=== PATIENT | male | born 1955 | race Two or more races ===

== ENCOUNTER 2019-11-28 01:11 | Inpatient (IN) | payer MEDICAID ==
[~2019-11-28] VITALS: Ht 175.3 cm; Wt 74.8 kg
[2019-11-28] VITALS (7 sets, daily range): BP systolic 116–145; BP diastolic 70–89
[~2019-11-28 01:11] MED LIST: ASPIR 8181 MG ORAL; BACLOFEN10 MG ORAL; CLONIDINE0.1 MG GT; COLACE100 MG ORAL; HEPARIN SO5000 UNIT2 SUBQ; KEPPRA500 M3 ORAL; KEPPRA500 MG ORAL; LIPITOR80 MG ORAL; MYLANTA II30 ML GT; NORCO 5-325 TA1 EAC1 ORAL; PAROXETINE HCL20 MG PO; SEROQUEL50 MG ORAL; STRATTERA80 MG PO; TYLENOL EXTRA500 MG ORAL; TYLENOL650 MG/20. ORAL
--- NOTE | 2019-11-28 01:24 | Emergency Room Report ---
History of Present Illness General Chief Complaint: Upper Respiratory Illness Source: Medical Record, EMS Present Illness HPI This is a 64-year-old male who is a intermediate patient. He has multiple medical problems. Presents with complaint of shortness of breath and congestion. He tested positive for COVID in September. He is being treated for pneumonia with ceftriaxone. Most recent cover testing was negative. He presents with increasing shortness of breath and secretion. Per nursing staff, he required constant suctioning and secretion to to be getting worse. He has respiratory distress and increased work of breathing. There is no reported fever chills but no nausea no vomiting. Oxygenation was 88 to 90% on room air. History is through the intermediate note and EMS. Unable to get any history of this patient because of his condition. Allergies: Coded Allergies: No Known Allergies (Unverified , 03/02/14) COVID-19 Screening Contact w/high risk pt: No Recent Travel to affected area: No Experienced COVID-19 symptoms?: No COVID-19 Testing performed ASSISTANT DIRECTOR OF ADMISSIONS: No Patient History Past Medical History: see triage record, old chart reviewed Past Surgical History: other Pertinent Family History: none Social History: Denies: smoking Immunizations: other Reviewed Nursing Documentation: PMH: Agreed; PSxH: Agreed Nursing Documentation-PMH Hx Cardiac Problems: Yes - HLD; AFIB Hx Hypertension: Yes Hx Diabetes: Yes Hx Cancer: No Hx Gastrointestinal Problems: No History Of Psychiatric Problem: Yes - DEPPRESSIVE; ANXIETY Hx Neurological Problems: No Hx Seizures: Yes - EPILEPSY Review of Systems Constitutional: Reports: malaise, weakness Respiratory: Reports: cough, shortness of breath All Other Systems: limited - Secondary to condition Physical Exam Vital Signs Date Time Temp Pulse Resp B/P (MAP) Pulse Ox O2 Delivery O2 Flow Rate FiO2 11/28/19 01:07 72 18 142/60 (87) 95 Room Air Vitals with hypoxia Sp02 EP Interpretation: reviewed, abnormal General Appearance: moderate distress, lethargic Head: normocephalic, atraumatic Eyes: bilateral eye PERRL, bilateral eye EOMI ENT: hearing grossly normal, EOM grossly intact, dry mucus membranes Neck: full range of motion, supple, no meningismus Respiratory: chest non-tender, crackles, rhonchi Cardiovascular #1: regular rate, rhythm, no murmur Gastrointestinal: normal bowel sounds, non tender, no mass, no organomegaly, no bruit, non-distended Musculoskeletal: back normal, normal range of motion Neurologic: no Babinski Skin: warm/dry Lymphatic: normal inspection Procedures Critical Care Time Critical Care Time Critical care is mandated in this patient who presented with respiratory distress. Patient require my urgent intervention to attenuate the risks of metabolic and respiratory which may lead to cardiovascular collapse and . Critical care time is 35 minutes excluding any reportable procedure. Critical care time included evaluation, multiple reevaluation, looking at old charts, interpreting laboratory and diagnostic data, discussing case with patient and family and consultants, and charting. Medical Decision Making Diagnostic Impression: Primary Impression: HCAP (healthcare-associated pneumonia) Additional Impressions: Respiratory failure with hypoxia Qualified Codes: J96.01 - Acute respiratory failure with hypoxia Anemia Qualified Codes: D64.9 - Anemia, unspecified ER Course This patient was evaluated in the context of the global COVID-19 pandemic, which necessitated consideration that the patient might be at risk for infection with the [id number] virus that causes COVID-19. Institutional protocols and algorithms that pertain to the evaluation of patients at risk for COVID-19 and the state of rapid change based on information released by multiple regulatory bodies including the CDC and federal and state organizations. These policies and algorithms were followed during the patient' s care in the ED. Patient presents with respiratory distress and hypoxia. Chest x-ray show pneumonia. Antibiotics given. He is under investigation for COVID infection. Swab sent. Better after IV fluids and oxygen. Will admit for further work-up. I contacted Dr. Lui for admission. EKG Diagnostic Results Rate: normal Rhythm: NSR Rhythm Strip Diag. Results EP Interpretation: yes Rate: 87 Rhythm: NSR, no PVC's Chest X-Ray Diagnostic Results Chest X-Ray Diagnostic Results : Chest X-Ray Ordered: Yes # of Views/Limited/Complete: 1 View Indication: Shortness of Breath EP Interpretation: Yes Interpretation: no effusion, no pneumothorax, other - Left lower lobe infiltrate Impression: Other - LLL infiltrate Electronically Signed by: Sulaiman Abarca MD Last Vital Signs Date Time Temp Pulse Resp B/P (MAP) Pulse Ox O2 Delivery O2 Flow Rate FiO2 11/28/19 01:07 72 18 142/60 (87) 95 Room Air Status: improved Disposition: ADMITTED INPATIENT Condition: Serious Sulaiman Abarca MD Nov 28, 2019 01:24
[2019-11-28 02:00] LABS: BASOPHILS % (AUTO) 0.8 % (0.0-2.0); EOSINOPHILS % (AUTO) 2.7 % (0.0-3.0); HEMOGLOBIN 10.9 G/DL (14.2-18.0); LYMPHOCYTES % (AUTO) 21.6 % (20.0-45.0); MEAN CORPUSCULAR VOLUME 96 FL (80-99); MONOCYTES % (AUTO) 9.8 % (1.0-10.0); NEUTROPHILS % (AUTO) 65.2 % (45.0-75.0); PLATELET COUNT 378 K/UL (150-450); RED BLOOD COUNT 3.53 M/UL (4.70-6.10); RED CELL DISTRIBUTION WIDTH 13.7 % (11.6-14.8); WHITE BLOOD COUNT 8.9 K/UL (4.8-10.8)
--- NOTE | 2019-11-28 02:00 | NUR ---
ED Nurse Note: Patient brought in by ambulance from [facility] d/t pneumonia and sepsis. Patient aao x 0 obtunded and only reacts to deep pain, bedridden. Patient placed on monitored bed. 20g Right forearm IV established, patient has existing 24g IV from the nursing facility, patent and asymptomatic. Patient stable during assessment. COVID swab, MRSA, VRE/CRE swabs collected, blood and urine sent.
[2019-11-28 02:01] LABS: APPEARANCE,URINE CLEAR; BILIRUBIN, URINE NEGATIVE (NEGATIVE); GLUCOSE, URINE (UA) NEGATIVE (NEGATIVE); KETONES,URINE NEGATIVE (NEGATIVE); LEUKOCYTE ESTERASE ,URINE NEGATIVE (NEGATIVE); NITRITE,URINE NEGATIVE (NEGATIVE); PH,URINE 6 (4.5-8.0); PROTEIN,URINE 1+ (NEGATIVE); UROBILINOGEN,URINE 1 MG/DL (0.0-1.0)
[2019-11-28 02:02] LABS: COLOR,URINE YELLOW
[2019-11-28] MEDS ORDERED: Cefepime HCl 1 GM in D5W 55 ML IVPB ONE (02:15)
[2019-11-28 02:26] LABS: ANION GAP 4 mmol/L (5-15); BLOOD UREA NITROGEN 31 mg/dL (7-18); CALCIUM 8.6 MG/DL (8.5-10.1); CARBON DIOXIDE 33 MMOL/L (21-32); CHLORIDE 110 MMOL/L (98-107); CREATININE 0.9 MG/DL (0.55-1.30); POTASSIUM 3.7 MMOL/L (3.5-5.1); SODIUM 147 MMOL/L (136-145)
[2019-11-28 02:39] LABS: ALANINE AMINOTRANSFERASE 34 U/L (12-78); ALBUMIN 2.4 G/DL (3.4-5.0); ALBUMIN/GLOBULIN RATIO 0.6 (1.0-2.7); ALKALINE PHOSPHATASE 64 U/L (46-116); ASPARTATE AMINO TRANSFERASE 23 U/L (15-37); BILIRUBIN,TOTAL 0.2 MG/DL (0.2-1.0); CKMB 1.2 NG/ML (0.0-3.6); CREATINE KINASE 35 U/L (26-308)
[2019-11-28] MEDS ORDERED: NS 275 ML IVPB SCH (03:05)
[2019-11-28] MEDS ORDERED: CEFTRIAXON2 GM/50 ML IV (03:06)
[2019-11-28] MEDS ORDERED: MILK OF MA400 MG/51 GT (03:06)
[2019-11-28] MEDS ORDERED: CARVEDILOL6.25 MG GT (03:06)
[2019-11-28] MEDS ORDERED: TYLENOL325 M1 GT (03:06)
[2019-11-28] MEDS ORDERED: LEVETIRACETAM500 MG GT (03:06)
[2019-11-28] MEDS ORDERED: MULTIVITAMINS1 EAC2 GT (03:06)
[2019-11-28] MEDS ORDERED: AMIODARONE HCL400 M1 GT (03:06)
[2019-11-28] MEDS ORDERED: BISACODYL5 MG RECTAL (03:06)
[2019-11-28] MEDS ORDERED: ELIQUIS2.5 MG GT (03:06)
[2019-11-28] MEDS ORDERED: ATORVASTATIN CA40 MG ORAL (03:06)
[2019-11-28] MEDS ORDERED: Acetaminophen 650 MG SUPP RECTAL PRN (03:15)
--- NOTE | 2019-11-28 03:29 | NUR ---
ED Nurse Note: Report given to DARIAN Crandall.
--- NOTE | 2019-11-28 03:40 | NUR ---
TRANSFER TO FLOOR: Patient transferred to telemetry as ordered, per ERMD. Report given to DARIAN Crandall. Patient transported via gurney on ACLS protocol with monitor technician in stable condition accompanied by 1 RN and histopathology technician.
--- NOTE | 2019-11-28 03:40 | Emergency Room Report ---
Sepsis Event Note Evaluation Current Stage of Sepsis: Sepsis Possible Source: Pulmonary Focused Exam Allergies: Coded Allergies: No Known Allergies (Unverified , 03/02/14) Date Exam Occurred: Nov 28, 2019 Time Exam Occurred: 03:39 Laboratory Studies Laboratory Tests Test 11/28/19 01:30 11/28/19 01:37 White Blood Count 8.9 K/UL (4.8-10.8) Red Blood Count 3.53 M/UL (4.70-6.10) L Hemoglobin 10.9 G/DL (14.2-18.0) L Hematocrit 34.0 % (42.0-52.0) L Mean Corpuscular Volume 96 FL (80-99) Mean Corpuscular Hemoglobin 30.8 PG (27.0-31.0) Mean Corpuscular Hemoglobin Concent 32.0 G/DL (32.0-36.0) Red Cell Distribution Width 13.7 % (11.6-14.8) Platelet Count 378 K/UL (150-450) Mean Platelet Volume 7.6 FL (6.5-10.1) Neutrophils (%) (Auto) 65.2 % (45.0-75.0) Lymphocytes (%) (Auto) 21.6 % (20.0-45.0) Monocytes (%) (Auto) 9.8 % (1.0-10.0) Eosinophils (%) (Auto) 2.7 % (0.0-3.0) Basophils (%) (Auto) 0.8 % (0.0-2.0) D-Dimer 0.98 mg/L FEU (0.00-0.49) H Sodium Level 147 MMOL/L (136-145) H Potassium Level 3.7 MMOL/L (3.5-5.1) Chloride Level 110 MMOL/L (98-107) H Carbon Dioxide Level 33 MMOL/L (21-32) H Anion Gap 4 mmol/L (5-15) L Blood Urea Nitrogen 31 mg/dL (7-18) H Creatinine 0.9 MG/DL (0.55-1.30) Estimat Glomerular Filtration Rate > 60 mL/min (>60) Glucose Level 104 MG/DL (74-106) Lactic Acid Level 0.60 mmol/L (0.4-2.0) Calcium Level 8.6 MG/DL (8.5-10.1) Ferritin 438 NG/ML (8-388) H Total Bilirubin 0.2 MG/DL (0.2-1.0) Aspartate Amino Transf (AST/SGOT) 23 U/L (15-37) Alanine Aminotransferase (ALT/SGPT) 34 U/L (12-78) Alkaline Phosphatase 64 U/L (46-116) Total Creatine Kinase 35 U/L (26-308) Creatine Kinase MB 1.2 NG/ML (0.0-3.6) Creatine Kinase MB Relative Index 3.4 Troponin I 0.009 ng/mL (0.000-0.056) C-Reactive Protein, Quantitative 3.3 mg/dL (0.00-0.90) H Total Protein 6.4 G/DL (6.4-8.2) Albumin 2.4 G/DL (3.4-5.0) L Globulin 4.0 g/dL Albumin/Globulin Ratio 0.6 (1.0-2.7) L Urine Color Yellow Urine Appearance Clear Urine pH 6 (4.5-8.0) Urine Specific [place] 1.020 (1.005-1.035) Urine Protein 1+ (NEGATIVE) H Urine Glucose (UA) Negative (NEGATIVE) Urine Ketones Negative (NEGATIVE) Urine Blood 4+ (NEGATIVE) H Urine Nitrite Negative (NEGATIVE) Urine Bilirubin Negative (NEGATIVE) Urine Urobilinogen 1 MG/DL (0.0-1.0) H Urine Leukocyte Esterase Negative (NEGATIVE) Urine RBC 15-20 /HPF (0 - 0) H Urine WBC 0-2 /HPF (0 - 0) Urine Squamous Epithelial Cells None /LPF (NONE/OCC) Urine Bacteria Few /HPF (NONE) Vital Signs Last 24 Hour Vital Signs Date Time Temp Pulse Resp B/P (MAP) Pulse Ox O2 Delivery O2 Flow Rate FiO2 11/28/19 02:00 66 24 Room Air 11/28/19 02:00 97.7 66 24 116/70 93 Room Air 11/28/19 01:07 72 18 142/60 (87) 95 Room Air Respiratory Exam: Rhonchi Cardiovascular Exam: RRR Capillary Refill: Less Than 2 Seconds Peripheral Pulse: Strong Pulse Location: Radial Skin Exam: Normal Turgor Sulaiman Abarca MD Nov 28, 2019 03:40
--- NOTE | 2019-11-28 04:00 | NUR ---
NURSE NOTES: Pt arrived via gurney from ER. Got report from Sylwia FARMER. Initial assessment done. Pt is a PUI COVID-19. Pt is nonverbal and nonambulatory with A+Ox0. Responds to voice and touch. VSS T:98.8 HR:97 R:18 BP:119/87 O2:97% on room air. Pt is bedbound and incontinent. Pt has 16fr allen catheter. Pt has R FA 20g slocked and L FA 24g Slocked. No pressure ulcers/skin issues noted. Took pictures of other skin issues and uploaded it. clinical research monitor placed on pt running Sinus Rhythm on the monitor. Pt has left lower abdomen G-Tube clamped. Pt has no belongings. Pt is under Dr. Lui. No s/s of distress or discomfort noted. Pt resting in bed comfortably. Bed in low and locked position, call light within reach, bedside table within reach. Continue to monitor.
--- NOTE | 2019-11-28 08:00 | NUR ---
HAND-OFF: Report given to Guerita FARMER.
--- NOTE | 2019-11-28 08:23 | NUR ---
NURSE NOTES: pt awake in bed. pt is not complaining of pain when asked. continue clinical research monitor no signs of cardiac or respiratory distress. pt has a allen draining well. Pt turned and pt was changed because bed was wet. Pt has a bump on the right side of face, right above eyebrow. Pt has 2 IV's patent. Will continue to monitor pt.
--- NOTE | 2019-11-28 08:32 | NUR ---
NURSE NOTES: Per Sunni at [facility], feeding is Gevity 1.2 70ml/hr goal is 1400ml/day, hold feeding between 9-12 flush 250ml/of water per shift. will notify doctor Lela.
--- NOTE | 2019-11-28 08:58 | NUR ---
*-* NO INSURANCE INFORMATION IN THE BAR UNABLE TO SEND CLINICALS OR REVIEWS *-*
[2019-11-28] MEDS ORDERED: Heparin 5000 units/ml inj SUBQ SCH (09:00)
--- NOTE | 2019-11-28 09:05 | NUR ---
*-* INSURANCE *-* ALL AVAILABLE CLINICALS HAVE BEEN FAXED TO: [facility] F: [phone] Addendum: 11/29/19 at 1111 by MARTHA CAMACHO CM Pending Auth# [id number] Fax clinicals: [phone] & [phone]
--- NOTE | 2019-11-28 09:53 | NUR ---
RD ASSESSMENT & RECOMMENDATIONS SEE CARE ACTIVITY FOR COMPLETE ASSESSMENT DAILY ESTIMATED NEEDS: Needs based on Underweight, wasting, pulmonary 49.1 30-35 kcals/kg 3534-9315 total kcals 1-2 g protein/kg 49-98 g total protein 25-35ml/kcal mL/kg 1489-2911 total fluid mLs NUTRITION DIAGNOSIS: Swallowing difficulty r/t dysphagia as evidenced by pt is PEG dep. ENTERAL NUTRITION RECOMMENDATIONS: Jevity 1.2 @70ml/hr x20 hrs to provide 1400ml, 1680 kcal (34 kcal/kg), 78g pro (1.6g/kg), 1130ml free H2O - As medically able, rec to resume TF [employer] FABRIC[employer]. - Start @30ml/hr for 6 hrs, advance as tolerated 10ml/hr q4-6 hrs to goal - Flush per MD. HOB over 30 degrees. ADDITIONAL RECOMMENDATIONS: 1) Per SNF: 5'7" and 108 lbs/49.09kg. Maintain accurate CBW 2) Increase water flushes (elev Na, elev BUN) 3) Monitor for ability to feed. 4) F/up w/ WC photos
--- NOTE | 2019-11-28 09:57 | Diagnostic Imaging Report ---
Procedure: XRAY Chest 1v Reason for study: Reason For Exam: SOB Comparison films: None. FINDINGS: A single one view chest is obtained. Vascularity is normal. There is left basilar infiltrate and elevated left hemidiaphragm. Cardiac and mediastinal silhouette are within normal limits. CP angles are sharp. The bony thorax appear unremarkable. IMPRESSION: Left basilar infiltrate.
--- NOTE | 2019-11-28 11:44 | Consultation ---
History of Present Illness General Date patient seen: Nov 28, 2019 Chief Complaint: Upper Respiratory Illness Present Illness HPI 64 y/o M with hx of Afib, HLD, seizure disorder, MDD/anxiety, HTN, Dm2, Recent COVID infection (diagnosed September), [facility] resident presented to ED on 11/27 with worsening SOB, congestion and respiratory secretions. Was being treated for PNA at [facility] with IV Vancomycin and Ceftriaxone. Had recent negative covid testing. O2 was 88-90% at . No reported fever, chills Allergies: Coded Allergies: No Known Allergies (Unverified , 03/02/14) Medication History Scheduled Acetaminophen (Tylenol), 325 MG GT Q4HR, (Reported) Amiodarone Hcl* (Amiodarone Hcl*), 200 MG GT EVERY 12 HOURS, (Reported) Apixaban (Eliquis), 2-5 MG GT BID, (Reported) Atorvastatin Calcium* (Atorvastatin Calcium*), 40 MG ORAL BEDTIME, (Reported) Bisacodyl* (Dulcolax*), 10 MG RECTAL DAILY, (Reported) Carvedilol* (Carvedilol*), 6.25 MG GT EVERY 12 HOURS, (Reported) Ceftriaxone Na/Dextrose,Iso (Ceftriaxone 2 Gm Piggyback), 2 GM IV DAILY, ( Reported) Levetiracetam* (Levetiracetam*), 100 MG GT TWICE A DAY, (Reported) Magnesium Hydroxide* (Milk Of Magnesia*), 30 ML GT DAILY, (Reported) Multivitamins* (Multivitamins*), 1 TAB GT DAILY, (Reported) Discontinued Medications Acetaminophen* (Tylenol Extra Strength*), 650 MG ORAL Q6H PRN for Mild Pain/ Temp > 100.5, (Reported) Discontinued Reason: MD discontinued med Al Hydroxide/mg Hydroxide (Mag-Al Plus Suspension), 30 ML GT Q6HR, (Reported) Discontinued Reason: MD discontinued med Atomoxetine Hcl (Strattera), 80 MG PO, (Reported) Discontinued Reason: MD discontinued med Atorvastatin (Lipitor), 80 MG ORAL BEDTIME, (Reported) Discontinued Reason: MD discontinued med Baclofen* (Baclofen*), 10 MG ORAL THREE TIMES A DAY, (Reported) Discontinued Reason: MD discontinued med Clonidine HCl (Clonidine HCl), 0.1 MG GT Q4HR, (Reported) Discontinued Reason: MD discontinued med Docusate Sodium* (Colace*), 100 MG ORAL THREE TIMES A DAY Discontinued Reason: discontinued med Heparin Sod (Porcine) (Heparin Sodium*), 5,000 UNITS SUBQ EVERY 12 HOURS, ( Reported) Discontinued Reason: discontinued med Levetiracetam (Levetiracetam), 500 MG ORAL Q12HR, (Reported) Discontinued Reason: MD discontinued med Patient History Healthcare decision maker Resuscitation status Advanced Directive on File Patient History Narrative Pmhx: as above Shx: reviewed Fhx: non contributory Review of Systems All Other Systems: negative except mentioned in HPI Physical Exam Physical Exam Narrative General Appearance: moderate distress, lethargic Head: normocephalic, atraumatic Eyes: bilateral eye PERRL, bilateral eye EOMI ENT: hearing grossly normal, EOM grossly intact, dry mucus membranes Neck: full range of motion, supple, no meningismus Respiratory: chest non-tender, crackles, rhonchi Cardiovascular #1: regular rate, rhythm, no murmur Gastrointestinal: normal bowel sounds, non tender, no mass, no organomegaly, no bruit, non-distended Musculoskeletal: back normal, normal range of motion Neurologic: no Babinski Skin: warm/dry Last 24 Hour Vital Signs Date Time Temp Pulse Resp B/P (MAP) Pulse Ox O2 Delivery O2 Flow Rate FiO2 11/28/19 08:00 98.6 58 20 118/72 (87) 96 11/28/19 05:07 Room Air 11/28/19 04:52 Room Air 11/28/19 04:00 98.8 97 18 119/87 (98) 97 11/28/19 04:00 81 11/28/19 03:40 97.7 88 21 128/83 93 Room Air 11/28/19 02:00 66 24 Room Air 11/28/19 02:00 97.7 66 24 116/70 93 Room Air 11/28/19 01:07 72 18 142/60 (87) 95 Room Air Intake and Output 11/27/19 11/28/19 19:00 07:00 Intake Total 1155 ml Output Total 500 ml Balance 655 ml Intake IV Total 1155 ml Output Urine Total 500 ml # Bowel Movements 3 Laboratory Tests Test 11/28/19 01:30 11/28/19 01:37 White Blood Count 8.9 K/UL (4.8-10.8) Red Blood Count 3.53 M/UL (4.70-6.10) L Hemoglobin 10.9 G/DL (14.2-18.0) L Hematocrit 34.0 % (42.0-52.0) L Mean Corpuscular Volume 96 FL (80-99) Mean Corpuscular Hemoglobin 30.8 PG (27.0-31.0) Mean Corpuscular Hemoglobin Concent 32.0 G/DL (32.0-36.0) Red Cell Distribution Width 13.7 % (11.6-14.8) Platelet Count 378 K/UL (150-450) Mean Platelet Volume 7.6 FL (6.5-10.1) Neutrophils (%) (Auto) 65.2 % (45.0-75.0) Lymphocytes (%) (Auto) 21.6 % (20.0-45.0) Monocytes (%) (Auto) 9.8 % (1.0-10.0) Eosinophils (%) (Auto) 2.7 % (0.0-3.0) Basophils (%) (Auto) 0.8 % (0.0-2.0) D-Dimer 0.98 mg/L FEU (0.00-0.49) H Sodium Level 147 MMOL/L (136-145) H Potassium Level 3.7 MMOL/L (3.5-5.1) Chloride Level 110 MMOL/L (98-107) H Carbon Dioxide Level 33 MMOL/L (21-32) H Anion Gap 4 mmol/L (5-15) L Blood Urea Nitrogen 31 mg/dL (7-18) H Creatinine 0.9 MG/DL (0.55-1.30) Estimat Glomerular Filtration Rate > 60 mL/min (>60) Glucose Level 104 MG/DL (74-106) Lactic Acid Level 0.60 mmol/L (0.4-2.0) Calcium Level 8.6 MG/DL (8.5-10.1) Ferritin 438 NG/ML (8-388) H Total Bilirubin 0.2 MG/DL (0.2-1.0) Aspartate Amino Transf (AST/SGOT) 23 U/L (15-37) Alanine Aminotransferase (ALT/SGPT) 34 U/L (12-78) Alkaline Phosphatase 64 U/L (46-116) Total Creatine Kinase 35 U/L (26-308) Creatine Kinase MB 1.2 NG/ML (0.0-3.6) Creatine Kinase MB Relative Index 3.4 Troponin I 0.009 ng/mL (0.000-0.056) C-Reactive Protein, Quantitative 3.3 mg/dL (0.00-0.90) H Total Protein 6.4 G/DL (6.4-8.2) Albumin 2.4 G/DL (3.4-5.0) L Globulin 4.0 g/dL Albumin/Globulin Ratio 0.6 (1.0-2.7) L Urine Color Yellow Urine Appearance Clear Urine pH 6 (4.5-8.0) Urine Specific [place] 1.020 (1.005-1.035) Urine Protein 1+ (NEGATIVE) H Urine Glucose (UA) Negative (NEGATIVE) Urine Ketones Negative (NEGATIVE) Urine Blood 4+ (NEGATIVE) H Urine Nitrite Negative (NEGATIVE) Urine Bilirubin Negative (NEGATIVE) Urine Urobilinogen 1 MG/DL (0.0-1.0) H Urine Leukocyte Esterase Negative (NEGATIVE) Urine RBC 15-20 /HPF (0 - 0) H Urine WBC 0-2 /HPF (0 - 0) Urine Squamous Epithelial Cells None /LPF (NONE/OCC) Urine Bacteria Few /HPF (NONE) Height (Feet): 5 Height (Inches): 9.00 Weight (Pounds): 165 Medications Current Medications Medications (Trade) Dose Ordered Sig/Kinjal Route PRN Reason Start Time Stop Time Status Last Admin Dose Admin Heparin Sodium (Porcine) (Heparin 5000 units/ml) 5,000 units EVERY 12 HOURS SUBQ 11/28/19 09:00 01/12/20 08:59 11/28/19 10:10 Assessment/Plan Assessment/Plan: Abx: Cefepime x1 11/27 Levaquin x1 11/27 Assessment: Pneumonia- At RA -CXR: Left basilar infiltrate. Recent COVID infection (diagnosed September) -repeat COVID neg at [facility] Afebrile No leukocytosis Afib HLD seizure disorder MDD/anxiety HTN Dm2 [facility] resident Plan: -Continue Cefepime #1 and start IV Vancomycin -f/u cx -Monitor CBC/CMP, temperatures -sp cx -COVID isolation and testing -aspiration precautions Thank you for this consultation. Will continue to follow along with you. Discussed with DARIAN. Guerline Srinivasan M.D. Nov 28, 2019 11:44
--- NOTE | 2019-11-28 12:00 | NUR ---
CASE MANAGEMENT:REVIEW 64 YR OLD MALE BIBA FROM [facility] CC: RESPIRATORY SI: RESPIRATORY FAILURE. ANEMIA. PNA 97.7 72 18 142/60 95% ON RA H/H-10.9/34.0 BUN+31 IS: 1L NS BOLUS X1 IV CEFEPIME X1 IV LEVAQUIN X1 BLOOD CX CHEST XRAY COVID SWAB : TO TELEMETRY UNIT DCP; FROM [facility] PLAN: IV ANTIBIOTICS ISOLATION Addendum: 11/28/19 at 1448 by ESSENCE FONSECA LVN LVN INTERQUAL CRITERIA MET
--- NOTE | 2019-11-28 12:26 | Consultation ---
History of Present Illness General Date patient seen: Nov 28, 2019 Chief Complaint: Upper Respiratory Illness Present Illness HPI 64-year-old male with hx of CVA, Dementia, Gtube feeding, seizures, group home resident brought in by paramedics wiht complaint of shortness of breath and congestion. He tested positive for COVID in September. He is being treated for pneumonia with ceftriaxone. Most recent cover testing was negative. He presents with increasing shortness of breath and secretion. Per nursing staff, he required constant suctioning and secretion to to be getting worse. pt is admitted to telemetry for further treatment. Allergies: Coded Allergies: No Known Allergies (Unverified , 03/02/14) Medication History Scheduled Acetaminophen (Tylenol), 325 MG GT Q4HR, (Reported) Amiodarone Hcl* (Amiodarone Hcl*), 200 MG GT EVERY 12 HOURS, (Reported) Apixaban (Eliquis), 2-5 MG GT BID, (Reported) Atorvastatin Calcium* (Atorvastatin Calcium*), 40 MG ORAL BEDTIME, (Reported) Bisacodyl* (Dulcolax*), 10 MG RECTAL DAILY, (Reported) Carvedilol* (Carvedilol*), 6.25 MG GT EVERY 12 HOURS, (Reported) Ceftriaxone Na/Dextrose,Iso (Ceftriaxone 2 Gm Piggyback), 2 GM IV DAILY, ( Reported) Levetiracetam* (Levetiracetam*), 100 MG GT TWICE A DAY, (Reported) Magnesium Hydroxide* (Milk Of Magnesia*), 30 ML GT DAILY, (Reported) Multivitamins* (Multivitamins*), 1 TAB GT DAILY, (Reported) Discontinued Medications Acetaminophen* (Tylenol Extra Strength*), 650 MG ORAL Q6H PRN for Mild Pain/ Temp > 100.5, (Reported) Discontinued Reason: MD discontinued med Al Hydroxide/mg Hydroxide (Mag-Al Plus Suspension), 30 ML GT Q6HR, (Reported) Discontinued Reason: MD discontinued med Atomoxetine Hcl (Strattera), 80 MG PO, (Reported) Discontinued Reason: MD discontinued med Atorvastatin (Lipitor), 80 MG ORAL BEDTIME, (Reported) Discontinued Reason: MD discontinued med Baclofen* (Baclofen*), 10 MG ORAL THREE TIMES A DAY, (Reported) Discontinued Reason: MD discontinued med Clonidine HCl (Clonidine HCl), 0.1 MG GT Q4HR, (Reported) Discontinued Reason: discontinued med Docusate Sodium* (Colace*), 100 MG ORAL THREE TIMES A DAY Discontinued Reason: discontinued med Heparin Sod (Porcine) (Heparin Sodium*), 5,000 UNITS SUBQ EVERY 12 HOURS, ( Reported) Discontinued Reason: discontinued med Levetiracetam (Levetiracetam), 500 MG ORAL Q12HR, (Reported) Discontinued Reason: MD discontinued med Patient History Healthcare decision maker Resuscitation status Advanced Directive on File Past Medical/Surgical History Past Medical/Surgical History: (1) Seizure disorder (2) Hypertension (3) Stroke due to intracerebral hemorrhage (4) Vascular dementia with behavioral disturbance (5) Feeding by G-tube Review of Systems All Other Systems: negative except mentioned in HPI Physical Exam General Appearance: WD/WN, no apparent distress Lines, tubes and drains: peripheral HEENT: normocephalic, atraumatic Neck: non-tender, normal alignment Respiratory/Chest: chest wall non-tender, lungs clear Breasts: no masses Cardiovascular/Chest: normal peripheral pulses Abdomen: normal bowel sounds, non tender Genitourinary/Rectal: normal genital exam Extremities: normal range of motion Skin Exam: normal pigmentation Neurologic: flotation tender helper II-XII grossly normal Last 24 Hour Vital Signs Date Time Temp Pulse Resp B/P (MAP) Pulse Ox O2 Delivery O2 Flow Rate FiO2 11/28/19 09:00 Room Air 11/28/19 08:00 98.6 58 20 118/72 (87) 96 11/28/19 05:07 Room Air 11/28/19 04:52 Room Air 11/28/19 04:00 98.8 97 18 119/87 (98) 97 11/28/19 04:00 81 11/28/19 03:40 97.7 88 21 128/83 93 Room Air 11/28/19 02:00 66 24 Room Air 11/28/19 02:00 97.7 66 24 116/70 93 Room Air 11/28/19 01:07 72 18 142/60 (87) 95 Room Air Intake and Output 11/27/19 11/28/19 19:00 07:00 Intake Total 1155 ml Output Total 500 ml Balance 655 ml Intake IV Total 1155 ml Output Urine Total 500 ml # Bowel Movements 3 Laboratory Tests Test 11/28/19 01:30 11/28/19 01:37 White Blood Count 8.9 K/UL (4.8-10.8) Red Blood Count 3.53 M/UL (4.70-6.10) L Hemoglobin 10.9 G/DL (14.2-18.0) L Hematocrit 34.0 % (42.0-52.0) L Mean Corpuscular Volume 96 FL (80-99) Mean Corpuscular Hemoglobin 30.8 PG (27.0-31.0) Mean Corpuscular Hemoglobin Concent 32.0 G/DL (32.0-36.0) Red Cell Distribution Width 13.7 % (11.6-14.8) Platelet Count 378 K/UL (150-450) Mean Platelet Volume 7.6 FL (6.5-10.1) Neutrophils (%) (Auto) 65.2 % (45.0-75.0) Lymphocytes (%) (Auto) 21.6 % (20.0-45.0) Monocytes (%) (Auto) 9.8 % (1.0-10.0) Eosinophils (%) (Auto) 2.7 % (0.0-3.0) Basophils (%) (Auto) 0.8 % (0.0-2.0) D-Dimer 0.98 mg/L FEU (0.00-0.49) H Sodium Level 147 MMOL/L (136-145) H Potassium Level 3.7 MMOL/L (3.5-5.1) Chloride Level 110 MMOL/L (98-107) H Carbon Dioxide Level 33 MMOL/L (21-32) H Anion Gap 4 mmol/L (5-15) L Blood Urea Nitrogen 31 mg/dL (7-18) H Creatinine 0.9 MG/DL (0.55-1.30) Estimat Glomerular Filtration Rate > 60 mL/min (>60) Glucose Level 104 MG/DL (74-106) Lactic Acid Level 0.60 mmol/L (0.4-2.0) Calcium Level 8.6 MG/DL (8.5-10.1) Ferritin 438 NG/ML (8-388) H Total Bilirubin 0.2 MG/DL (0.2-1.0) Aspartate Amino Transf (AST/SGOT) 23 U/L (15-37) Alanine Aminotransferase (ALT/SGPT) 34 U/L (12-78) Alkaline Phosphatase 64 U/L (46-116) Total Creatine Kinase 35 U/L (26-308) Creatine Kinase MB 1.2 NG/ML (0.0-3.6) Creatine Kinase MB Relative Index 3.4 Troponin I 0.009 ng/mL (0.000-0.056) C-Reactive Protein, Quantitative 3.3 mg/dL (0.00-0.90) H Total Protein 6.4 G/DL (6.4-8.2) Albumin 2.4 G/DL (3.4-5.0) L Globulin 4.0 g/dL Albumin/Globulin Ratio 0.6 (1.0-2.7) L Urine Color Yellow Urine Appearance Clear Urine pH 6 (4.5-8.0) Urine Specific Adams 1.020 (1.005-1.035) Urine Protein 1+ (NEGATIVE) H Urine Glucose (UA) Negative (NEGATIVE) Urine Ketones Negative (NEGATIVE) Urine Blood 4+ (NEGATIVE) H Urine Nitrite Negative (NEGATIVE) Urine Bilirubin Negative (NEGATIVE) Urine Urobilinogen 1 MG/DL (0.0-1.0) H Urine Leukocyte Esterase Negative (NEGATIVE) Urine RBC 15-20 /HPF (0 - 0) H Urine WBC 0-2 /HPF (0 - 0) Urine Squamous Epithelial Cells None /LPF (NONE/OCC) Urine Bacteria Few /HPF (NONE) Height (Feet): 5 Height (Inches): 9.00 Weight (Pounds): 165 Medications Current Medications Medications (Trade) Dose Ordered Sig/Kinjal Route PRN Reason Start Time Stop Time Status Last Admin Dose Admin Cefepime HCl 1 gm/ Dextrose 55 ml @ 110 mls/hr Q12H IVPB 11/28/19 18:00 12/05/19 17:59 Heparin Sodium (Porcine) (Heparin 5000 units/ml) 5,000 units EVERY 12 HOURS SUBQ 11/28/19 09:00 01/12/20 08:59 11/28/19 10:10 [facility] 1 ea DAILY PRN MISC Per rx protocol 11/28/19 11:45 12/28/19 11:44 Vancomycin HCl 1 gm/Dextrose 275 ml @ 183.708 mls/hr Q12HR IVPB 11/28/19 21:00 12/03/19 20:59 Assessment/Plan Problem List: (1) Suspected COVID-19 virus infection ICD Codes: Z20.828 - Contact with and (suspected) exposure to other viral communicable diseases SNOMED: 839108596 (2) HCAP (healthcare-associated pneumonia) ICD Codes: J18.9 - Pneumonia, unspecified organism SNOMED: 090023565, 780792145 (3) Seizure disorder ICD Codes: G40.909 - Epilepsy, unspecified, not intractable,without status epilepticus SNOMED: 162375100 (4) Hypertension ICD Codes: I10 - Essential (primary) hypertension SNOMED: 05457034 (5) Feeding by G-tube ICD Codes: Z93.1 - Gastrostomy status SNOMED: 070528049, 329198289, 556949410 (6) residential resident ICD Codes: Z59.3 - Problems related to living in residential institution SNOMED: 920971089 (7) Stroke due to intracerebral hemorrhage ICD Codes: I61.9 - Nontraumatic intracerebral hemorrhage, unspecified SNOMED: 928766305 (8) Vascular dementia with behavioral disturbance ICD Codes: F01.51 - Vascular dementia with behavioral disturbance SNOMED: 593470992635187 Assessment/Plan: check sputum iv abx symptomatic treatment titrate fio2 to sat of 92% resume group home feeding. dvt prophylaxis. Corinna Jackson MD Nov 28, 2019 12:26
[2019-11-28] MEDS ORDERED: DiphenhydrAMINE 25mg/10ml Elixir GT PRN (12:30)
[2019-11-28] MEDS ORDERED: Nitroglycerin Subl 0.4mg tab SL PRN (12:30)
[2019-11-28] MEDS ORDERED: Miralax 17gm pkt GT PRN (12:30)
[2019-11-28] MEDS ORDERED: Morphine Sulfate 2mg/ml Inj(IV/IM USE ONLY) IVP PRN (12:30)
[2019-11-28] MEDS ORDERED: Acetaminophen 650mg/20.3ml GT PRN (12:30)
[2019-11-28] MEDS ORDERED: LORazepam Inj 2mg/ml 1ml IV PRN (12:30)
[2019-11-28] MEDS ORDERED: Mylanta II UD 30ml GT PRN (12:30)
[2019-11-28] MEDS: Eliquis 5mg tablet GT SCH ×2 (14:05→18:48)
--- NOTE | 2019-11-28 16:15 | History and Physical Report ---
DATE OF ADMISSION: 11/28/2019 TIME SEEN: Approximate 1 p.m. CONSULTANTS: 1. Corinna Jackson MD 2. Howard Irvin MD CHIEF COMPLAINT: Short of breath, weakness, pneumonia, sepsis, COVID. BRIEF HISTORY: This is a 64-year-old male from [facility], recently hospitalized at [facility] for COVID infection. Apparently, still very congested, coughing, and weak, came to [facility], diagnosed with pneumonia, sepsis and with history of COVID admitted to tele. Currently lethargic in bed, confused, not talking much. REVIEW OF SYSTEMS: Unavailable. PAST MEDICAL HISTORY: Includes epilepsy, hypertension, diabetes, pericardial effusion, CVA, dementia. PAST SURGICAL HISTORY: Unknown. ALLERGIES: Denies. MEDICATIONS: Include vancomycin, amiodarone, carvedilol, cefepime, , albuterol, apixaban, morphine, loperamide, Zofran, lorazepam, heparin. SOCIAL HISTORY: Unable to be obtained secondary to the patient's condition. PHYSICAL EXAMINATION: GENERAL: Lethargic, sleepy in bed, not talking much. VITAL SIGNS: Temperature is 97 degrees, pulse 78, respirations 18, blood pressure 140/89. HEENT: Normocephalic and atraumatic. NECK: Trachea midline. CARDIOVASCULAR: No peripheral edema. LUNGS: Short of breath on room air. ABDOMEN: No apparent wound. EXTREMITIES: No cyanosis or clubbing. LABORATORY AND DIAGNOSTIC DATA: Labs at this time show hemoglobin and hematocrit 10/34, otherwise CBC is normal. BMP shows sodium 147, chloride 110, BUN and creatinine is 31 and 0.9. D-dimer is 0.98. Urinalysis, 4+ blood, 1+ protein. ASSESSMENT: 1. Pneumonia. 2. Sepsis 3. COVID infection. 4. Anemia. 5. Epilepsy 6. CVA. 7. Hypertension. 8. Diabetes. 9. Dementia. 10. Pericardial effusion. PLAN: 1. O2 and pulmonary treatment as needed. 2. Antibiotics per Infectious Disease. 3. Blood pressure, blood sugar and pain control. 4. Dietary followup. 5. PT and Dietary evaluation. 6. CBC and BMP in the morning. Roberto Carlos Lui D.O. DR: DANE JOB#: [id number] CC:
[2019-11-28] MEDS: Cefepime HCl 1 GM in D5W 55 ML IVPB SCH (18:49)
--- NOTE | 2019-11-28 19:50 | NUR ---
NURSE NOTES: pt inhaler not in his room or med room contacted pharmacy
--- NOTE | 2019-11-28 19:51 | NUR ---
HAND-OFF: Report given to Ivon/DARIAN pt in stable condition, feeding machine Gevity at bedside to be set up. pt tiffany.
--- NOTE | 2019-11-28 20:00 | NUR ---
NURSE NOTES: Received report from DARIAN Dexter. Patient is on bed, alert, awake and oriented x 1. Patient has g-tube, on jevity 1.2 @ 70 cc/hour, flushing of 250 cc every shift. Patient is on room air with no desaturation nor SOB reported.. color television console monitor is on shows Sinus rhythm. Safety measures are in placed, bed in lowest and lock position. Call light button and bedside table within reach. Instructed to call for any assistance needed. Will continue plan of care.
[2019-11-28] MEDS: Carvedilol 6.25mg Tab GT SCH (21:59)
[2019-11-28] MEDS: levETIRAcetam 500mg/5ml Liquid GT SCH (22:00)
[2019-11-28] MEDS: Amiodarone 200mg tab GT SCH (22:00)
[2019-11-28] MEDS: Vancomycin 1gm in D5W 275ml IVPB SCH (23:19)
[2019-11-29] VITALS: BP 151/82
[2019-11-29 04:00] VITALS: BP 118/79
[2019-11-29 06:19] LABS: BASOPHILS % (AUTO) 1.4 % (0.0-2.0); EOSINOPHILS % (AUTO) 2.1 % (0.0-3.0); HEMOGLOBIN 11.6 G/DL (14.2-18.0); LYMPHOCYTES % (AUTO) 19.9 % (20.0-45.0); MEAN CORPUSCULAR VOLUME 96 FL (80-99); NEUTROPHILS % (AUTO) 66.5 % (45.0-75.0); PLATELET COUNT 414 K/UL (150-450); RED BLOOD COUNT 3.77 M/UL (4.70-6.10); RED CELL DISTRIBUTION WIDTH 12.5 % (11.6-14.8); WHITE BLOOD COUNT 8.2 K/UL (4.8-10.8)
[2019-11-29 06:21] LABS: INR 1.1 (0.9-1.1)
[2019-11-29 06:26] LABS: LACTATE DEHYDROGENASE 204 U/L (81-234)
[2019-11-29 06:28] LABS: ANION GAP 6 mmol/L (5-15); BLOOD UREA NITROGEN 29 mg/dL (7-18); CALCIUM 8.7 MG/DL (8.5-10.1); CARBON DIOXIDE 30 MMOL/L (21-32); CHLORIDE 106 MMOL/L (98-107); CREATININE 0.8 MG/DL (0.55-1.30); POTASSIUM 3.7 MMOL/L (3.5-5.1); SODIUM 142 MMOL/L (136-145)
[2019-11-29] MEDS: Cefepime HCl 1 GM in D5W 55 ML IVPB SCH ×2 (06:51→18:15)
--- NOTE | 2019-11-29 07:16 | NUR ---
NURSE NOTES: pt in bed resting, he has restrains at this time. Pt on allen cath, draining well, there is blood in urine, pt continuously moving, doctor Lela is aware. pt on manager cardiac cath no signs of cardiac or respiratory distress at this time. Call light within reach, bed in lowest position and locked side rails padded. Will continue to monitor.
[2019-11-29 07:25] LABS: % IRON SATURATION 43 % (15-50); IRON 77 ug/dL (50-175); TOTAL IRON BINDING CAPACITY 179 ug/dL (250-450)
[2019-11-29 08:00] VITALS: BP 120/83
--- NOTE | 2019-11-29 08:31 | NUR ---
CASE MANAGEMENT:REVIEW 11/29/19 SI: PNA. VASCULAR DEMENTIA COVID 19 NOT DETECTED 98.1 61 22 118/79 96% ON RA H/H-11.6/36.0 BUN+29 IS: IV VANCOMYCIN Q12 IV CEFEPIME Q12 AMIODARONE GT Q12 COREG GT Q12 KEPPRA GT Q12 PEPCID GT BID DUONEB HHN Q6HRS ELIQUIS GT BID : TELEMETRY STATUS DCP: PATIENT IS FROM [facility]
--- NOTE | 2019-11-29 09:34 | General Progress Note ---
Assessment/Plan Problem List: (1) Sepsis ICD Codes: A41.9 - Sepsis, unspecified organism SNOMED: 15352060 (2) Suspected COVID-19 virus infection ICD Codes: Z20.828 - Contact with and (suspected) exposure to other viral communicable diseases SNOMED: 416088971 (3) Seizure disorder ICD Codes: G40.909 - Epilepsy, unspecified, not intractable,without status epilepticus SNOMED: 454899913 (4) Hypertension ICD Codes: I10 - Essential (primary) hypertension SNOMED: 64334648 (5) Stroke due to intracerebral hemorrhage ICD Codes: I61.9 - Nontraumatic intracerebral hemorrhage, unspecified SNOMED: 663434844 (6) Anemia ICD Codes: D64.9 - Anemia, unspecified SNOMED: 601757924 Qualifiers: Qualified Codes: D64.9 - Anemia, unspecified (7) HCAP (healthcare-associated pneumonia) ICD Codes: J18.9 - Pneumonia, unspecified organism SNOMED: 915113852, 111103904 Status: unchanged Assessment/Plan: o2 pulm tx abx bp bs control pt diet cbc bmp am Subjective Constitutional: Reports: weakness Allergies: Coded Allergies: No Known Allergies (Unverified , 03/02/14) All Systems: reviewed and negative except above Subjective sleepy calm Objective Last 24 Hour Vital Signs Date Time Temp Pulse Resp B/P (MAP) Pulse Ox O2 Delivery O2 Flow Rate FiO2 11/29/19 04:00 98.1 61 22 118/79 (92) 96 11/29/19 04:00 61 11/29/19 00:00 69 11/29/19 00:00 97.9 78 24 151/82 (105) 99 11/28/19 21:59 64 145/89 11/28/19 21:00 Room Air 11/28/19 20:00 97.7 64 23 145/89 (107) 96 11/28/19 20:00 78 11/28/19 16:00 86 11/28/19 16:00 98.0 77 20 135/82 (99) 99 11/28/19 12:00 74 11/28/19 12:00 97.7 78 18 140/89 (106) 97 11/28/19 10:00 97.7 78 18 140/89 (106) 97 Intake and Output 11/28/19 11/29/19 19:00 07:00 Output Total 225 ml 350 ml Balance -225 ml -350 ml Output Urine Total 225 ml 350 ml Laboratory Tests 11/29/19 05:00: White Blood Count 8.2, Red Blood Count 3.77L, Hemoglobin 11.6L, Hematocrit 36.0L , Mean Corpuscular Volume 96, Mean Corpuscular Hemoglobin 30.8, Mean Corpuscular Hemoglobin Concent 32.2, Red Cell Distribution Width 12.5, Platelet Count 414, Mean Platelet Volume 7.5, Neutrophils (%) (Auto) 66.5, Lymphocytes (% ) (Auto) 19.9L, Monocytes (%) (Auto) 10.0, Eosinophils (%) (Auto) 2.1, Basophils (%) (Auto) 1.4, Erythrocyte Sedimentation Rate 85H, Reticulocyte Count [Pending], Prothrombin Time 11.9H, Prothromb Time International Ratio 1.1 , Activated Partial Thromboplast Time 30, Sodium Level 142, Potassium Level 3.7 , Chloride Level 106, Carbon Dioxide Level 30, Anion Gap 6, Blood Urea Nitrogen 29H, Creatinine 0.8, Estimat Glomerular Filtration Rate > 60, Glucose Level 103 , Calcium Level 8.7, Iron Level 77, Total Iron Binding Capacity 179L, Percent Iron Saturation 43, Unsaturated Iron Binding 102L, Lactate Dehydrogenase 204, Carcinoembryonic Antigen [Pending], Vitamin B12 Level 1061H, Folate 18.9 Height (Feet): 5 Height (Inches): 9.00 Weight (Pounds): 165 General Appearance: lethargic EENT: normal ENT inspection Neck: normal alignment Cardiovascular: normal rate, regular rhythm Respiratory/Chest: no respiratory distress, no accessory muscle use Extremities: normal inspection Skin: normal pigmentation Roberto Carlos Lui DO Nov 29, 2019 09:34
[2019-11-29] MEDS: Amiodarone 200mg tab GT SCH ×2 (10:40→21:07)
[2019-11-29] MEDS: Eliquis 5mg tablet GT SCH (10:40)
[2019-11-29] MEDS: levETIRAcetam 500mg/5ml Liquid GT SCH ×2 (10:42→21:07)
[2019-11-29] MEDS: Carvedilol 6.25mg Tab GT SCH ×2 (10:42→21:07)
[2019-11-29] MEDS: Vancomycin 1gm in D5W 275ml IVPB SCH ×2 (10:43→21:06)
--- NOTE | 2019-11-29 11:00 | NUR ---
NURSE NOTES: notifed doctYue Vogel again that pt moves a lot and his urine has blood. Doctor order Ativan 1mg q4hrs prn, for anxiety.
[2019-11-29 12:00] VITALS: BP 112/85
--- NOTE | 2019-11-29 12:46 | Pulmonology Progress Note ---
Subjective ROS Limited/Unobtainable: Yes Allergies: Coded Allergies: No Known Allergies (Unverified , 03/02/14) All Systems: reviewed and negative except above Objective Last 24 Hour Vital Signs Date Time Temp Pulse Resp B/P (MAP) Pulse Ox O2 Delivery O2 Flow Rate FiO2 11/29/19 12:00 97.9 83 19 112/85 (94) 98 11/29/19 10:42 79 120/83 11/29/19 09:00 Room Air 11/29/19 08:00 97.9 79 19 120/83 (95) 99 11/29/19 04:00 98.1 61 22 118/79 (92) 96 11/29/19 04:00 61 11/29/19 00:00 69 11/29/19 00:00 97.9 78 24 151/82 (105) 99 11/28/19 21:59 64 145/89 11/28/19 21:00 Room Air 11/28/19 20:00 97.7 64 23 145/89 (107) 96 11/28/19 20:00 78 11/28/19 16:00 86 11/28/19 16:00 98.0 77 20 135/82 (99) 99 Intake and Output 11/28/19 11/29/19 19:00 07:00 Output Total 225 ml 350 ml Balance -225 ml -350 ml Output Urine Total 225 ml 350 ml General Appearance: WD/WN Respiratory: chest wall non-tender, lungs clear Cardiovascular: normal peripheral pulses, normal rate Abdomen: normal bowel sounds, soft, non tender Genitourinary: normal external genitalia Skin: no rash Microbiology Date/Time Source Procedure Growth Status 11/28/19 01:30 Blood Blood Culture - Preliminary NO GROWTH AFTER 24 HOURS Resulted 11/28/19 01:15 Blood Blood Culture - Preliminary NO GROWTH AFTER 24 HOURS Resulted 11/28/19 01:40 Nasopharynx Coronavirus COVID-19 PCR (CESAR) - Final Complete 11/28/19 01:30 Nasal Nares MRSA Culture - Final NO METHICILLIN RESISTANT STAPH AUREUS... Complete Laboratory Tests 11/29/19 05:00: White Blood Count 8.2, Red Blood Count 3.77L, Hemoglobin 11.6L, Hematocrit 36.0L , Mean Corpuscular Volume 96, Mean Corpuscular Hemoglobin 30.8, Mean Corpuscular Hemoglobin Concent 32.2, Red Cell Distribution Width 12.5, Platelet Count 414, Mean Platelet Volume 7.5, Neutrophils (%) (Auto) 66.5, Lymphocytes (% ) (Auto) 19.9L, Monocytes (%) (Auto) 10.0, Eosinophils (%) (Auto) 2.1, Basophils (%) (Auto) 1.4, Differential Total Cells Counted 100, Neutrophils % ( Manual) 74, Lymphocytes % (Manual) 21, Monocytes % (Manual) 4, Eosinophils % ( Manual) 1, Basophils % (Manual) 0, Band Neutrophils 0, Platelet Estimate Adequate, Platelet Morphology Normal, Red Blood Cell Morphology Normal, Erythrocyte Sedimentation Rate 85H, Reticulocyte Count 1.1, Prothrombin Time 11.9H, Prothromb Time International Ratio 1.1, Activated Partial Thromboplast Time 30, Sodium Level 142, Potassium Level 3.7, Chloride Level 106, Carbon Dioxide Level 30, Anion Gap 6, Blood Urea Nitrogen 29H, Creatinine 0.8, Estimat Glomerular Filtration Rate > 60, Glucose Level 103, Calcium Level 8.7, Iron Level 77, Total Iron Binding Capacity 179L, Percent Iron Saturation 43, Unsaturated Iron Binding 102L, Lactate Dehydrogenase 204, Carcinoembryonic Antigen [Pending], Vitamin B12 Level 1061H, Folate 18.9 Current Medications Medications (Trade) Dose Ordered Sig/Kinjal Route PRN Reason Start Time Stop Time Status Last Admin Dose Admin Acetaminophen (Tylenol) 650 mg Q4H PRN GT Temp >100.5 11/28/19 12:30 12/28/19 12:29 Al Hydroxide/Mg Hydroxide (Mylanta II) 30 ml Q6H PRN GT Dyspepsia 11/28/19 12:30 12/28/19 12:29 Albuterol/ Ipratropium (Combivent Respimat) 1 puff Q6HR INH 11/28/19 18:00 12/28/19 17:59 11/29/19 06:52 Amiodarone HCl (Cordarone) 200 mg EVERY 12 HOURS GT 11/28/19 21:00 02/26/20 20:59 11/29/19 10:40 Apixaban (Eliquis) 5 mg BID GT 11/28/19 12:35 02/26/20 12:34 11/29/19 10:40 Carvedilol (Coreg) 6.25 mg EVERY 12 HOURS GT 11/28/19 21:00 12/28/19 20:59 11/29/19 10:42 Cefepime HCl 1 gm/ Dextrose 55 ml @ 110 mls/hr Q12H IVPB 11/28/19 18:00 12/05/19 17:59 11/29/19 06:51 Diphenhydramine HCl (Benadryl) 25 mg Q6H PRN GT Itching/Pruritis 11/28/19 12:30 12/28/19 12:29 Famotidine (Pepcid) 20 mg BID GT 11/28/19 18:00 02/26/20 17:59 11/29/19 10:41 Levetiracetam (Keppra) 100 mg Q12HR GT 11/28/19 21:00 01/12/20 20:59 11/29/19 10:42 Loperamide HCl (Imodium) 4 mg Q4H PRN GT Diarrhea 11/28/19 12:30 12/28/19 12:29 Lorazepam (Ativan 2mg/ml 1ml) 0.5 mg Q4H PRN IV For Anxiety 11/28/19 12:30 12/05/19 12:29 Morphine Sulfate (Morphine Sulfate) 2 mg Q6H PRN IVP Moderate Pain (Pain Scale 4-6) 11/28/19 12:30 12/05/19 12:29 Nitroglycerin (Ntg) 0.4 mg Q5M PRN SL Prn Chest Pain 11/28/19 12:30 12/28/19 12:29 Ondansetron HCl (Zofran) 4 mg Q6H PRN IVP Nausea & Vomiting 11/28/19 12:30 12/28/19 12:29 Polyethylene Glycol (Miralax) 17 gm DAILYPRN PRN GT Constipation 11/28/19 12:30 12/28/19 12:29 Temazepam (Restoril) 15 mg HSPRN PRN GT Insomnia 11/28/19 12:30 12/05/19 12:29 Vancomycin HCl ([facility] pharmacy to dose) 1 ea DAILY PRN MISC Per rx protocol 11/28/19 11:45 12/28/19 11:44 Vancomycin HCl 1 gm/Dextrose 275 ml @ 183.708 mls/hr Q12HR IVPB 11/28/19 21:00 12/03/19 20:59 11/29/19 10:43 Assessment/Plan Problems: (1) Suspected COVID-19 virus infection (2) Hematuria (3) HCAP (healthcare-associated pneumonia) (4) Seizure disorder (5) Hypertension (6) Feeding by G-tube (7) halfway resident (8) Stroke due to intracerebral hemorrhage (9) Vascular dementia with behavioral disturbance Assessment/Plan check cultures COVID negative X 1 continue abx ativan for agitation continue abx hold anticoagulants b/o hematuria Corinna Jackson MD Nov 29, 2019 12:46
--- NOTE | 2019-11-29 12:55 | NUR ---
*-* INSURANCE *-* ALL AVAILABLE CLINICALS HAVE BEEN FAXED TO: [facility] F: [phone] Pending Auth# [id number] Fax clinicals: [phone] & [phone]
--- NOTE | 2019-11-29 13:05 | Infectious Diseases Prog Note ---
Assessment/Plan Assessment/Plan Assessment: Pneumonia- At -CXR: Left basilar infiltrate. Recent COVID infection (diagnosed September) -11/27 SARS-COV2 PCR neg -repeat COVID neg at [place] Afebrile No leukocytosis Afib HLD seizure disorder MDD/anxiety HTN Dm2 [place] resident Plan: -Continue Cefepime #2 and IV Vancomycin #2 -11/27 SP Levaquin x1 -f/u cx -Monitor CBC/CMP, temperatures -f/u sp cx -COVID isolation and testing; send COVID test to remove isolation -aspiration precautions Thank you for this consultation. Will continue to follow along with you. Discussed with RN. Subjective Allergies: Coded Allergies: No Known Allergies (Unverified , 03/02/14) Subjective afebrile at no leukocytosis Bcx NTD 1st repeat covid neg Objective Vital Signs Last 24 Hour Vital Signs Date Time Temp Pulse Resp B/P (MAP) Pulse Ox O2 Delivery O2 Flow Rate FiO2 11/29/19 12:00 97.9 83 19 112/85 (94) 98 11/29/19 10:42 79 120/83 11/29/19 09:00 Room Air 11/29/19 08:00 97.9 79 19 120/83 (95) 99 11/29/19 04:00 98.1 61 22 118/79 (92) 96 11/29/19 04:00 61 11/29/19 00:00 69 11/29/19 00:00 97.9 78 24 151/82 (105) 99 11/28/19 21:59 64 145/89 11/28/19 21:00 Room Air 11/28/19 20:00 97.7 64 23 145/89 (107) 96 11/28/19 20:00 78 11/28/19 16:00 86 11/28/19 16:00 98.0 77 20 135/82 (99) 99 Height (Feet): 5 Height (Inches): 9.00 Weight (Pounds): 165 Objective General Appearance: lethargic EENT: normal ENT inspection Neck: normal alignment Cardiovascular: normal rate, regular rhythm Respiratory/Chest: no respiratory distress, no accessory muscle use Extremities: normal inspection Skin: normal pigmentation Microbiology Date/Time Source Procedure Growth Status 11/28/19 01:30 Blood Blood Culture - Preliminary NO GROWTH AFTER 24 HOURS Resulted 11/28/19 01:15 Blood Blood Culture - Preliminary NO GROWTH AFTER 24 HOURS Resulted 11/28/19 01:40 Nasopharynx Coronavirus COVID-19 PCR (CESAR) - Final Complete 11/28/19 01:30 Nasal Nares MRSA Culture - Final NO METHICILLIN RESISTANT STAPH AUREUS... Complete Laboratory Tests Test 11/29/19 05:00 White Blood Count 8.2 K/UL (4.8-10.8) Red Blood Count 3.77 M/UL (4.70-6.10) L Hemoglobin 11.6 G/DL (14.2-18.0) L Hematocrit 36.0 % (42.0-52.0) L Mean Corpuscular Volume 96 FL (80-99) Mean Corpuscular Hemoglobin 30.8 PG (27.0-31.0) Mean Corpuscular Hemoglobin Concent 32.2 G/DL (32.0-36.0) Red Cell Distribution Width 12.5 % (11.6-14.8) Platelet Count 414 K/UL (150-450) Mean Platelet Volume 7.5 FL (6.5-10.1) Neutrophils (%) (Auto) 66.5 % (45.0-75.0) Lymphocytes (%) (Auto) 19.9 % (20.0-45.0) L Monocytes (%) (Auto) 10.0 % (1.0-10.0) Eosinophils (%) (Auto) 2.1 % (0.0-3.0) Basophils (%) (Auto) 1.4 % (0.0-2.0) Differential Total Cells Counted 100 Neutrophils % (Manual) 74 % (45-75) Lymphocytes % (Manual) 21 % (20-45) Monocytes % (Manual) 4 % (1-10) Eosinophils % (Manual) 1 % (0-3) Basophils % (Manual) 0 % (0-2) Band Neutrophils 0 % (0-8) Platelet Estimate Adequate Platelet Morphology Normal Red Blood Cell Morphology Normal Erythrocyte Sedimentation Rate 85 MM/HR (0-20) H Reticulocyte Count 1.1 % (0.5-2.0) Prothrombin Time 11.9 SEC (9.30-11.50) H Prothromb Time International Ratio 1.1 (0.9-1.1) Activated Partial Thromboplast Time 30 SEC (23-33) Sodium Level 142 MMOL/L (136-145) Potassium Level 3.7 MMOL/L (3.5-5.1) Chloride Level 106 MMOL/L (98-107) Carbon Dioxide Level 30 MMOL/L (21-32) Anion Gap 6 mmol/L (5-15) Blood Urea Nitrogen 29 mg/dL (7-18) H Creatinine 0.8 MG/DL (0.55-1.30) Estimat Glomerular Filtration Rate > 60 mL/min (>60) Glucose Level 103 MG/DL (74-106) Calcium Level 8.7 MG/DL (8.5-10.1) Iron Level 77 ug/dL (50-175) Total Iron Binding Capacity 179 ug/dL (250-450) L Percent Iron Saturation 43 % (15-50) Unsaturated Iron Binding 102 ug/dL (112-346) L Lactate Dehydrogenase 204 U/L (81-234) Carcinoembryonic Antigen Pending Vitamin B12 Level 1061 PG/ML (193-986) H Folate 18.9 NG/ML (8.6-58.9) Current Medications Medications (Trade) Dose Ordered Sig/Kinjal Route PRN Reason Start Time Stop Time Status Last Admin Dose Admin Acetaminophen (Tylenol) 650 mg Q4H PRN GT Temp >100.5 11/28/19 12:30 12/28/19 12:29 Al Hydroxide/Mg Hydroxide (Mylanta II) 30 ml Q6H PRN GT Dyspepsia 11/28/19 12:30 12/28/19 12:29 Albuterol/ Ipratropium (Combivent Respimat) 1 puff Q6HR INH 11/28/19 18:00 12/28/19 17:59 11/29/19 06:52 Amiodarone HCl (Cordarone) 200 mg EVERY 12 HOURS GT 11/28/19 21:00 02/26/20 20:59 11/29/19 10:40 Apixaban (Eliquis) 5 mg BID GT 11/28/19 12:35 02/26/20 12:34 11/29/19 10:40 Carvedilol (Coreg) 6.25 mg EVERY 12 HOURS GT 11/28/19 21:00 12/28/19 20:59 11/29/19 10:42 Cefepime HCl 1 gm/ Dextrose 55 ml @ 110 mls/hr Q12H IVPB 11/28/19 18:00 12/05/19 17:59 11/29/19 06:51 Diphenhydramine HCl (Benadryl) 25 mg Q6H PRN GT Itching/Pruritis 11/28/19 12:30 12/28/19 12:29 Famotidine (Pepcid) 20 mg BID GT 11/28/19 18:00 02/26/20 17:59 11/29/19 10:41 Levetiracetam (Keppra) 100 mg Q12HR GT 11/28/19 21:00 01/12/20 20:59 11/29/19 10:42 Loperamide HCl (Imodium) 4 mg Q4H PRN GT Diarrhea 11/28/19 12:30 12/28/19 12:29 Lorazepam (Ativan 2mg/ml 1ml) 0.5 mg Q4H PRN IV For Anxiety 11/28/19 12:30 12/05/19 12:29 Morphine Sulfate (Morphine Sulfate) 2 mg Q6H PRN IVP Moderate Pain (Pain Scale 4-6) 11/28/19 12:30 12/05/19 12:29 Nitroglycerin (Ntg) 0.4 mg Q5M PRN SL Prn Chest Pain 11/28/19 12:30 12/28/19 12:29 Ondansetron HCl (Zofran) 4 mg Q6H PRN IVP Nausea & Vomiting 11/28/19 12:30 12/28/19 12:29 Polyethylene Glycol (Miralax) 17 gm DAILYPRN PRN GT Constipation 11/28/19 12:30 12/28/19 12:29 Temazepam (Restoril) 15 mg HSPRN PRN GT Insomnia 11/28/19 12:30 12/05/19 12:29 Vancomycin HCl ([facility] pharmacy to dose) 1 ea DAILY PRN MISC Per rx protocol 11/28/19 11:45 12/28/19 11:44 Vancomycin HCl 1 gm/Dextrose 275 ml @ 183.708 mls/hr Q12HR IVPB 11/28/19 21:00 12/03/19 20:59 11/29/19 10:43 Guerline Srinivasan M.D. Nov 29, 2019 13:05
--- NOTE | 2019-11-29 13:59 | NUR ---
P.T Note: P.T evaluation completed and treatment initiated. Please refer to P.T evaluation for current functional status. Pt is alert, non verbal , confused however inconsistently follows simple commands 25 % of time thrus demonstrational and tactile cues. There is no indication of pain nor discomfort during P.T evaluation. Pt able to sit at the EOB with mod support, currently requires Mod A x 1 for bed mobilities, MAX A X 2 for sit to/from standing transition. Pt will benefit from skilled P.T service to improve strength and balance to increase mobility independence. Thank you for this referral.
[2019-11-29 16:00] VITALS: BP 133/92
--- NOTE | 2019-11-29 19:30 | NUR ---
NURSE NOTES: Received report from DARIAN Dexter. Patient is awake, alert and oriented x 0, non verbal but able to follow simple commands. Patient has G-tube, on Jevity 1.2 @ 70 cc/hour, flushing of 250 ml every shift. monitor worker is on, shows sinus rhythm with no chest pain reported. IV site is on right upper arm G-22 saline lock that is patent and intact. Patient is on fall, aspiration and seizure precaution, padded side rails. Safety measures are in placed, bed in lowest and locked position, side rails up x 2. Call light button and bedside table within reach. Will continue plan of care.
[2019-11-29 20:00] VITALS: BP 106/77
--- NOTE | 2019-11-29 20:06 | NUR ---
HAND-OFF: Report given to Troy/RN, PT IN STABLE CONDITION.
--- NOTE | 2019-11-29 21:00 | NUR ---
NURSE NOTES: Patient has an on and off hematuria on his Bashir catheter since this morning, patient has restraints on. Ruling out if he's having a problem on urinary tract or just because patient kept on moving around on his bed. Placed a new Bashir anchor and repositioned the patient. Informed Dr. Lui and awaiting for orders. Will continue to monitor.
--- NOTE | 2019-11-29 22:30 | NUR ---
NURSE NOTES: Dr. Lui ordered CBC, BMP, PT and APTT tomorrow morning and order a consult for a urologist, to Dr. Jenelle Borden. Will carry out all the orders. Patient still having bloody urine output. Will continue to monitor.
[2019-11-30] VITALS: BP 125/71
[2019-11-30 04:00] VITALS: BP 110/60
[2019-11-30] MEDS: Cefepime HCl 1 GM in D5W 55 ML IVPB SCH ×2 (05:16→19:03)
[2019-11-30 07:22] LABS: BASOPHILS % (AUTO) 0.8 % (0.0-2.0); EOSINOPHILS % (AUTO) 2.3 % (0.0-3.0); HEMATOCRIT 34.1 % (42.0-52.0); HEMOGLOBIN 11.2 G/DL (14.2-18.0); LYMPHOCYTES % (AUTO) 19.7 % (20.0-45.0); MEAN CORPUSCULAR VOLUME 93 FL (80-99); MONOCYTES % (AUTO) 8.2 % (1.0-10.0); PLATELET COUNT 406 K/UL (150-450); RED BLOOD COUNT 3.69 M/UL (4.70-6.10); RED CELL DISTRIBUTION WIDTH 12.6 % (11.6-14.8); WHITE BLOOD COUNT 7.7 K/UL (4.8-10.8)
[2019-11-30 07:38] LABS: ANION GAP 3 mmol/L (5-15); BLOOD UREA NITROGEN 28 mg/dL (7-18); CALCIUM 8.4 MG/DL (8.5-10.1); CARBON DIOXIDE 33 MMOL/L (21-32); CHLORIDE 104 MMOL/L (98-107); CREATININE 0.7 MG/DL (0.55-1.30); POTASSIUM 4.1 MMOL/L (3.5-5.1); SODIUM 140 MMOL/L (136-145)
--- NOTE | 2019-11-30 07:56 | NUR ---
NURSE NOTES: Patient received from Ivon FARMER. Patient stable sleeping with no s/sx of pain or distress. RR even and unlabored on RA. Restraints on with good ROM, circulation and no swelling noted. Side padded and rails up x2, call light within reach. Bed low and locked. Will continue to monitor.
[2019-11-30 08:00] VITALS: BP 116/72
[2019-11-30] MEDS: Carvedilol 6.25mg Tab GT SCH ×2 (09:13→21:50)
[2019-11-30] MEDS: Amiodarone 200mg tab GT SCH ×2 (09:14→21:49)
[2019-11-30] MEDS: Vancomycin 1gm in D5W 275ml IVPB SCH ×2 (09:14→21:48)
[2019-11-30] MEDS: levETIRAcetam 500mg/5ml Liquid GT SCH ×2 (09:14→21:49)
--- NOTE | 2019-11-30 09:31 | General Progress Note ---
Assessment/Plan Problem List: (1) Sepsis ICD Codes: A41.9 - Sepsis, unspecified organism SNOMED: 34833366 (2) Suspected COVID-19 virus infection ICD Codes: Z20.828 - Contact with and (suspected) exposure to other viral communicable diseases SNOMED: 582508009 (3) Seizure disorder ICD Codes: G40.909 - Epilepsy, unspecified, not intractable,without status epilepticus SNOMED: 585879225 (4) Hypertension ICD Codes: I10 - Essential (primary) hypertension SNOMED: 07263359 (5) Stroke due to intracerebral hemorrhage ICD Codes: I61.9 - Nontraumatic intracerebral hemorrhage, unspecified SNOMED: 245106513 (6) Anemia ICD Codes: D64.9 - Anemia, unspecified SNOMED: 557528664 Qualifiers: Qualified Codes: D64.9 - Anemia, unspecified (7) HCAP (healthcare-associated pneumonia) ICD Codes: J18.9 - Pneumonia, unspecified organism SNOMED: 513526902, 635734869 Status: unchanged Assessment/Plan: o2 pulm tx abx bp bs control pt diet cbc bmp am Subjective Constitutional: Reports: weakness Allergies: Coded Allergies: No Known Allergies (Unverified , 03/02/14) All Systems: reviewed and negative except above Subjective sleepy calm Objective Last 24 Hour Vital Signs Date Time Temp Pulse Resp B/P (MAP) Pulse Ox O2 Delivery O2 Flow Rate FiO2 11/30/19 09:13 70 116/72 11/30/19 08:00 70 11/30/19 08:00 97.8 74 21 116/72 (87) 95 11/30/19 04:00 Room Air 11/30/19 04:00 98.1 74 21 110/60 (77) 95 11/30/19 04:00 57 11/30/19 00:00 57 11/30/19 00:00 Room Air 11/30/19 00:00 98.6 69 20 125/71 (89) 98 11/29/19 21:07 75 106/77 11/29/19 21:00 Room Air 11/29/19 20:00 73 11/29/19 20:00 98.4 75 20 106/77 (87) 95 11/29/19 16:00 98.9 77 18 133/92 (106) 92 11/29/19 16:00 54 11/29/19 12:00 97.9 83 19 112/85 (94) 98 11/29/19 10:42 79 120/83 11/29/19 10:00 76 Intake and Output 11/29/19 11/30/19 19:00 07:00 Output Total 300 ml Balance -300 ml Output Urine Total 300 ml # Bowel Movements 2 Laboratory Tests 11/30/19 05:30: Stool Occult Blood [Pending] 11/30/19 06:30: White Blood Count 7.7, Red Blood Count 3.69L, Hemoglobin 11.2L, Hematocrit 34.1L , Mean Corpuscular Volume 93, Mean Corpuscular Hemoglobin 30.5, Mean Corpuscular Hemoglobin Concent 32.9, Red Cell Distribution Width 12.6, Platelet Count 406, Mean Platelet Volume 7.4, Neutrophils (%) (Auto) 69.0, Lymphocytes (% ) (Auto) 19.7L, Monocytes (%) (Auto) 8.2, Eosinophils (%) (Auto) 2.3, Basophils (%) (Auto) 0.8, Prothrombin Time 11.4, Prothromb Time International Ratio 1.0, Activated Partial Thromboplast Time 29, Sodium Level 140, Potassium Level 4.1, Chloride Level 104, Carbon Dioxide Level 33H, Anion Gap 3L, Blood Urea Nitrogen 28H, Creatinine 0.7, Estimat Glomerular Filtration Rate > 60, Glucose Level 88, Calcium Level 8.4L 11/30/19 08:00: Vancomycin Level Trough 14.9H Height (Feet): 5 Height (Inches): 9.00 Weight (Pounds): 165 General Appearance: lethargic EENT: normal ENT inspection Neck: normal alignment Cardiovascular: normal rate, regular rhythm Respiratory/Chest: no respiratory distress, no accessory muscle use Extremities: normal inspection Skin: normal pigmentation Roberto Carlos Lui DO Nov 30, 2019 09:31
[2019-11-30 12:00] VITALS: BP 112/78
--- NOTE | 2019-11-30 12:12 | NUR ---
CASE MANAGEMENT:REVIEW 11/30/19 SI: PNA. VASCULAR DEMENTIA COVID 19 NOT DETECTED 98.6 69 20 125/71 98% ON RA VANCO TR 14.9 BUN+28 CA+ 8.4 STOOL OB -PENDING IS: IV VANCOMYCIN BID IV CEFEPIME BID AMIODARONE GT BID COREG GT BID KEPPRA GT BID PEPCID GT BID DUONEB HHN Q6HRS : TELEMETRY STATUS DCP: PATIENT IS FROM [facility] PLAN: COVID-19 PENDING- SECOND SWAB REFER BACK TO FACILITY
--- NOTE | 2019-11-30 12:30 | NUR ---
DISCHARGE PLANNING: PATIENT REFERRED BACK TO FACILITY [facility] T:[phone] F:[phone] CM WILL F/U MONDAY
--- NOTE | 2019-11-30 15:49 | Infectious Diseases Prog Note ---
Assessment/Plan Assessment/Plan Assessment: Pneumonia- At -CXR: Left basilar infiltrate. Recent COVID infection (diagnosed September) -11/27 SARS-COV2 PCR neg, 11/28 neg -repeat COVID neg at [place] Afebrile No leukocytosis Afib HLD seizure disorder MDD/anxiety HTN Dm2 [place] resident Plan: -Continue Cefepime #3/ and IV Vancomycin #3/5 -11/27 SP Levaquin x1 -f/u cx -Monitor CBC/CMP, temperatures -f/u sp cx -repeat COVID x2 neg- ok to dc isolation -aspiration precautions Thank you for this consultation. Will continue to follow along with you. Discussed with RN. Subjective Allergies: Coded Allergies: No Known Allergies (Unverified , 03/02/14) Subjective afebrile at covid neg x2 Bcx NTD Objective Vital Signs Last 24 Hour Vital Signs Date Time Temp Pulse Resp B/P (MAP) Pulse Ox O2 Delivery O2 Flow Rate FiO2 11/30/19 12:00 86 11/30/19 12:00 98.0 80 20 112/78 (89) 95 11/30/19 09:13 70 116/72 11/30/19 09:00 Room Air 11/30/19 08:00 70 11/30/19 08:00 97.8 74 21 116/72 (87) 95 11/30/19 04:00 Room Air 11/30/19 04:00 98.1 74 21 110/60 (77) 95 11/30/19 04:00 57 11/30/19 00:00 57 11/30/19 00:00 Room Air 11/30/19 00:00 98.6 69 20 125/71 (89) 98 11/29/19 21:07 75 106/77 11/29/19 21:00 Room Air 11/29/19 20:00 73 11/29/19 20:00 98.4 75 20 106/77 (87) 95 11/29/19 16:00 98.9 77 18 133/92 (106) 92 11/29/19 16:00 54 Height (Feet): 5 Height (Inches): 9.00 Weight (Pounds): 165 Objective General Appearance: lethargic EENT: normal ENT inspection Neck: normal alignment Cardiovascular: normal rate, regular rhythm Respiratory/Chest: no respiratory distress, no accessory muscle use Extremities: normal inspection Skin: normal pigmentation Microbiology Date/Time Source Procedure Growth Status 11/28/19 01:30 Blood Blood Culture - Preliminary NO GROWTH AFTER 48 HOURS Resulted 11/28/19 01:15 Blood Blood Culture - Preliminary NO GROWTH AFTER 48 HOURS Resulted 11/29/19 17:12 Nasopharynx Coronavirus COVID-19 PCR (CESAR) - Final Complete 11/28/19 01:40 Nasopharynx Coronavirus COVID-19 PCR (CESAR) - Final Complete 11/28/19 01:30 Nasal Nares MRSA Culture - Final NO METHICILLIN RESISTANT STAPH AUREUS... Complete 11/28/19 01:30 Rectum - Final NO CARBAPENEM-RESISTANT ENTEROBACTERI... Complete 11/28/19 01:30 Rectum VRE Culture - Final NO VANCOMYCIN RESISTANT ENTEROCOCCUS ... Complete Laboratory Tests Test 11/30/19 05:30 11/30/19 06:30 11/30/19 08:00 Stool Occult Blood Pending White Blood Count 7.7 K/UL (4.8-10.8) Red Blood Count 3.69 M/UL (4.70-6.10) L Hemoglobin 11.2 G/DL (14.2-18.0) L Hematocrit 34.1 % (42.0-52.0) L Mean Corpuscular Volume 93 FL (80-99) Mean Corpuscular Hemoglobin 30.5 PG (27.0-31.0) Mean Corpuscular Hemoglobin Concent 32.9 G/DL (32.0-36.0) Red Cell Distribution Width 12.6 % (11.6-14.8) Platelet Count 406 K/UL (150-450) Mean Platelet Volume 7.4 FL (6.5-10.1) Neutrophils (%) (Auto) 69.0 % (45.0-75.0) Lymphocytes (%) (Auto) 19.7 % (20.0-45.0) L Monocytes (%) (Auto) 8.2 % (1.0-10.0) Eosinophils (%) (Auto) 2.3 % (0.0-3.0) Basophils (%) (Auto) 0.8 % (0.0-2.0) Prothrombin Time 11.4 SEC (9.30-11.50) Prothromb Time International Ratio 1.0 (0.9-1.1) Activated Partial Thromboplast Time 29 SEC (23-33) Sodium Level 140 MMOL/L (136-145) Potassium Level 4.1 MMOL/L (3.5-5.1) Chloride Level 104 MMOL/L (98-107) Carbon Dioxide Level 33 MMOL/L (21-32) H Anion Gap 3 mmol/L (5-15) L Blood Urea Nitrogen 28 mg/dL (7-18) H Creatinine 0.7 MG/DL (0.55-1.30) Estimat Glomerular Filtration Rate > 60 mL/min (>60) Glucose Level 88 MG/DL (74-106) Calcium Level 8.4 MG/DL (8.5-10.1) L Vancomycin Level Trough 14.9 ug/mL (5.0-12.0) H Current Medications Medications (Trade) Dose Ordered Sig/Kinjal Route PRN Reason Start Time Stop Time Status Last Admin Dose Admin Acetaminophen (Tylenol) 650 mg Q4H PRN GT Temp >100.5 11/28/19 12:30 12/28/19 12:29 Al Hydroxide/Mg Hydroxide (Mylanta II) 30 ml Q6H PRN GT Dyspepsia 11/28/19 12:30 12/28/19 12:29 Albuterol/ Ipratropium (Combivent Respimat) 1 puff Q6HR INH 11/28/19 18:00 12/28/19 17:59 11/30/19 05:56 Amiodarone HCl (Cordarone) 200 mg EVERY 12 HOURS GT 11/28/19 21:00 02/26/20 20:59 11/30/19 09:14 Carvedilol (Coreg) 6.25 mg EVERY 12 HOURS GT 11/28/19 21:00 12/28/19 20:59 11/30/19 09:13 Cefepime HCl 1 gm/ Dextrose 55 ml @ 110 mls/hr Q12H IVPB 11/28/19 18:00 12/05/19 17:59 11/30/19 05:16 Diphenhydramine HCl (Benadryl) 25 mg Q6H PRN GT Itching/Pruritis 11/28/19 12:30 12/28/19 12:29 Famotidine (Pepcid) 20 mg BID GT 11/28/19 18:00 02/26/20 17:59 11/30/19 09:14 Levetiracetam (Keppra) 100 mg Q12HR GT 11/28/19 21:00 01/12/20 20:59 11/30/19 09:14 Loperamide HCl (Imodium) 4 mg Q4H PRN GT Diarrhea 11/28/19 12:30 12/28/19 12:29 Lorazepam (Ativan 2mg/ml 1ml) 0.5 mg Q4H PRN IV For Anxiety 11/28/19 12:30 12/05/19 12:29 Morphine Sulfate (Morphine Sulfate) 2 mg Q6H PRN IVP Moderate Pain (Pain Scale 4-6) 11/28/19 12:30 12/05/19 12:29 Nitroglycerin (Ntg) 0.4 mg Q5M PRN SL Prn Chest Pain 11/28/19 12:30 12/28/19 12:29 Ondansetron HCl (Zofran) 4 mg Q6H PRN IVP Nausea & Vomiting 11/28/19 12:30 12/28/19 12:29 Polyethylene Glycol (Miralax) 17 gm DAILYPRN PRN GT Constipation 11/28/19 12:30 12/28/19 12:29 Temazepam (Restoril) 15 mg HSPRN PRN GT Insomnia 11/28/19 12:30 12/05/19 12:29 Vancomycin HCl ([facility] pharmacy to dose) 1 ea DAILY PRN MISC Per rx protocol 11/28/19 11:45 12/28/19 11:44 Vancomycin HCl 1 gm/Dextrose 275 ml @ 183.708 mls/hr Q12HR IVPB 11/28/19 21:00 12/03/19 20:59 11/30/19 09:14 Guerline Srinivasan M.D. Nov 30, 2019 15:49
[2019-11-30 16:00] VITALS: BP 136/90
--- NOTE | 2019-11-30 17:00 | NUR ---
NURSE NOTES: Received report from Grace/RN, patient lying semi-ayers's resting comfortably in bed. No acute distress at this time. Bed in low position and locked, Call light within reach. Will continue to monitor.
--- NOTE | 2019-11-30 17:37 | NUR ---
HAND-OFF: Report given to Joselin RN. Patient stable. Plan of care endorsed.
--- NOTE | 2019-11-30 19:47 | NUR ---
HAND-OFF: Report given to Merlene/RN, Patient is in stable condition. Endorsed plan of care.
[2019-11-30 20:00] VITALS: BP 118/49
--- NOTE | 2019-11-30 20:32 | NUR ---
NURSE NOTES: Received patient report from DARIAN Olivera. Patient shows no signs of distress or pain at the time. AO x 0. Patient is still on bilateral soft wrist restraints. IV patent and flushed. There are no signs of erythema, bleeding, or infiltration at the time. Bed is in the lowest position, call light within reach, side rails up x 3. Will continue to monitor.
[2019-12-01] VITALS: BP 115/52
[2019-12-01 04:00] VITALS: BP 119/77
[2019-12-01] MEDS: Cefepime HCl 1 GM in D5W 55 ML IVPB SCH ×2 (05:41→18:04)
--- NOTE | 2019-12-01 07:30 | NUR ---
HAND-OFF: Report given to DARIAN Ruht. Patient shows no signs of distress or pain at the time. Endorsed plan of care.
--- NOTE | 2019-12-01 07:45 | NUR ---
NURSE NOTES: Patient received from Merlene Chris RN. Patient stable AOx0 with no s/sx of pain or distress. RR even and unlabored on RA. Jevity 1.2 at 70ml/hr infusing. Bashir draining to gravity. Possible small amount of hematuria noted. Patient agitated attempting to hit and bite. Restraints on patient with good ROM, circulation and no swelling. Electrodes and wires replaced. Side rails upx2, call light within reach, bed low and locked. Will continue to monitor.
[2019-12-01 07:46] LABS: BASOPHILS % (AUTO) 0.6 % (0.0-2.0); EOSINOPHILS % (AUTO) 1.7 % (0.0-3.0); HEMATOCRIT 33.6 % (42.0-52.0); HEMOGLOBIN 11.4 G/DL (14.2-18.0); LYMPHOCYTES % (AUTO) 18.6 % (20.0-45.0); MEAN CORPUSCULAR VOLUME 91 FL (80-99); MONOCYTES % (AUTO) 7.3 % (1.0-10.0); NEUTROPHILS % (AUTO) 71.9 % (45.0-75.0); PLATELET COUNT 395 K/UL (150-450); RED BLOOD COUNT 3.68 M/UL (4.70-6.10); RED CELL DISTRIBUTION WIDTH 12.4 % (11.6-14.8); WHITE BLOOD COUNT 7.8 K/UL (4.8-10.8)
[2019-12-01 08:00] VITALS: BP 116/75
[2019-12-01 08:09] LABS: ANION GAP 6 mmol/L (5-15); BLOOD UREA NITROGEN 13 mg/dL (7-18); CALCIUM 8.4 MG/DL (8.5-10.1); CARBON DIOXIDE 30 MMOL/L (21-32); CHLORIDE 104 MMOL/L (98-107); CREATININE 0.7 MG/DL (0.55-1.30); POTASSIUM 4.4 MMOL/L (3.5-5.1); SODIUM 140 MMOL/L (136-145)
[2019-12-01] MEDS: Amiodarone 200mg tab GT SCH ×2 (08:57→20:29)
[2019-12-01] MEDS: levETIRAcetam 500mg/5ml Liquid GT SCH ×2 (08:57→20:28)
[2019-12-01] MEDS: Vancomycin 1gm in D5W 275ml IVPB SCH (08:57)
[2019-12-01] MEDS: Carvedilol 6.25mg Tab GT SCH ×2 (08:57→20:29)
--- NOTE | 2019-12-01 09:36 | General Progress Note ---
Assessment/Plan Problem List: (1) Sepsis ICD Codes: A41.9 - Sepsis, unspecified organism SNOMED: 67416326 (2) Suspected COVID-19 virus infection ICD Codes: Z20.828 - Contact with and (suspected) exposure to other viral communicable diseases SNOMED: 043809884 (3) Seizure disorder ICD Codes: G40.909 - Epilepsy, unspecified, not intractable,without status epilepticus SNOMED: 345786113 (4) Hypertension ICD Codes: I10 - Essential (primary) hypertension SNOMED: 89505927 (5) Stroke due to intracerebral hemorrhage ICD Codes: I61.9 - Nontraumatic intracerebral hemorrhage, unspecified SNOMED: 987365717 (6) Anemia ICD Codes: D64.9 - Anemia, unspecified SNOMED: 159277802 Qualifiers: Qualified Codes: D64.9 - Anemia, unspecified (7) HCAP (healthcare-associated pneumonia) ICD Codes: J18.9 - Pneumonia, unspecified organism SNOMED: 029982657, 916623012 Status: unchanged Assessment/Plan: o2 pulm tx abx bp bs control pt diet cbc bmp am Subjective Constitutional: Reports: weakness Allergies: Coded Allergies: No Known Allergies (Unverified , 03/02/14) All Systems: reviewed and negative except above Subjective sleepy calm Objective Last 24 Hour Vital Signs Date Time Temp Pulse Resp B/P (MAP) Pulse Ox O2 Delivery O2 Flow Rate FiO2 12/01/19 08:57 80 116/75 12/01/19 08:00 97.5 80 20 116/75 (89) 96 12/01/19 04:00 74 12/01/19 04:00 97.3 73 19 119/77 (91) 100 12/01/19 00:00 97.9 77 20 115/52 (73) 95 12/01/19 00:00 53 11/30/19 21:50 80 118/49 11/30/19 21:00 Room Air 11/30/19 20:00 65 11/30/19 20:00 98.6 80 19 118/49 (72) 96 11/30/19 16:00 98.6 84 20 136/90 (105) 98 11/30/19 16:00 59 11/30/19 12:00 86 11/30/19 12:00 98.0 80 20 112/78 (89) 95 Intake and Output 11/30/19 12/01/19 19:00 07:00 Intake Total 965.000 ml 270 ml Output Total 200 ml Balance 965.000 ml 70 ml Intake Free Water 200 ml 200 ml IV Total 275.000 ml Tube Feeding 490 ml 70 ml Output Urine Total 200 ml # Bowel Movements 3 Laboratory Tests 12/01/19 07:00: White Blood Count 7.8, Red Blood Count 3.68L, Hemoglobin 11.4L, Hematocrit 33.6L , Mean Corpuscular Volume 91, Mean Corpuscular Hemoglobin 30.9, Mean Corpuscular Hemoglobin Concent 33.9, Red Cell Distribution Width 12.4, Platelet Count 395, Mean Platelet Volume 8.0, Neutrophils (%) (Auto) 71.9, Lymphocytes (% ) (Auto) 18.6L, Monocytes (%) (Auto) 7.3, Eosinophils (%) (Auto) 1.7, Basophils (%) (Auto) 0.6, Sodium Level 140, Potassium Level 4.4, Chloride Level 104, Carbon Dioxide Level 30, Anion Gap 6, Blood Urea Nitrogen 13, Creatinine 0.7, Estimat Glomerular Filtration Rate > 60, Glucose Level 107H, Calcium Level 8.4L Height (Feet): 5 Height (Inches): 9.00 Weight (Pounds): 165 General Appearance: lethargic EENT: normal ENT inspection Neck: normal alignment Cardiovascular: normal rate, regular rhythm Respiratory/Chest: no respiratory distress, no accessory muscle use Extremities: normal inspection Skin: normal pigmentation Roberto Carlos Lui DO Dec 01, 2019 09:36
[2019-12-01 12:00] VITALS: BP 105/69
[2019-12-01 16:00] VITALS: BP 109/70
--- NOTE | 2019-12-01 19:43 | NUR ---
HAND-OFF: Report given to Adela FARMER. Patient stable. Plan of care endorsed. Orders transferred and patient taken off manager monitoring.
[2019-12-01] MEDS ORDERED: DiphenhydrAMINE 25mg/10ml Elixir GT PRN (19:45)
[2019-12-01] MEDS ORDERED: Nitroglycerin Subl 0.4mg tab SL PRN (19:45)
[2019-12-01] MEDS ORDERED: Mylanta II UD 30ml GT PRN (19:45)
[2019-12-01] MEDS ORDERED: Miralax 17gm pkt GT PRN (19:46)
[2019-12-01] MEDS ORDERED: Morphine Sulfate 2mg/ml Inj(IV/IM USE ONLY) IVP PRN (19:46)
--- NOTE | 2019-12-01 20:20 | NUR ---
NURSE NOTES: Received patient awake, confused, non-verbal, impulsive, on bilateral soft wrist restraints, tolerating his g-tube feeding well.
[2019-12-01 20:21] VITALS: BP 126/77
[2019-12-01] MEDS: Vancomycin 1 GM in D5W 275 ML IVPB SCH (20:28)
[2019-12-01] MEDS ORDERED: Acetaminophen 650mg/20.3ml GT PRN (20:30)
[2019-12-01] MEDS ORDERED: LORazepam Inj 2mg/ml 1ml IV PRN (20:30)
[2019-12-02 00:08] VITALS: BP 133/80
[2019-12-02 04:00] VITALS: BP 112/62
[2019-12-02] MEDS: Cefepime HCl 1 GM in D5W 55 ML IVPB SCH ×2 (05:09→18:16)
--- NOTE | 2019-12-02 07:25 | NUR ---
NURSE NOTES: Patient is aaox0, non verbal but able to follow simple commands. Patient has G-tube, on Jevity 1.2 @ 70 cc/hour, flushing of 250 ml every shift. FC anchored and draining burgundy color urine. IV site is on right upper arm G-22 saline lock, patent and intact. Patient is on fall, aspiration and seizure precaution, padded side rails. Safety measures are in placed, bed in lowest and locked position, side rails up x 3. Call light button and bedside table within reach. Will continue plan of care.
--- NOTE | 2019-12-02 07:30 | NUR ---
HAND-OFF: Report given to Aime Perez RN/ Genny Champagne RN.
[2019-12-02 08:00] VITALS: BP 116/74
[2019-12-02] MEDS: levETIRAcetam 500mg/5ml Liquid GT SCH ×2 (08:20→21:45)
[2019-12-02] MEDS: Amiodarone 200mg tab GT SCH ×2 (08:21→21:00)
[2019-12-02] MEDS: Vancomycin 1 GM in D5W 275 ML IVPB SCH ×2 (08:38→21:46)
[2019-12-02 08:44] LABS: BASOPHILS % (AUTO) 0.7 % (0.0-2.0); EOSINOPHILS % (AUTO) 2.3 % (0.0-3.0); LYMPHOCYTES % (AUTO) 20.9 % (20.0-45.0); MEAN CORPUSCULAR VOLUME 93 FL (80-99); MONOCYTES % (AUTO) 7.2 % (1.0-10.0); NEUTROPHILS % (AUTO) 68.9 % (45.0-75.0); PLATELET COUNT 370 K/UL (150-450); RED BLOOD COUNT 3.56 M/UL (4.70-6.10); RED CELL DISTRIBUTION WIDTH 13.7 % (11.6-14.8); WHITE BLOOD COUNT 6.2 K/UL (4.8-10.8)
[2019-12-02] MEDS: Carvedilol 6.25mg Tab GT SCH ×2 (08:47→21:00)
[2019-12-02 08:55] LABS: ANION GAP 5 mmol/L (5-15); BLOOD UREA NITROGEN 25 mg/dL (7-18); CALCIUM 8.4 MG/DL (8.5-10.1); CARBON DIOXIDE 31 MMOL/L (21-32); CHLORIDE 104 MMOL/L (98-107); CREATININE 0.9 MG/DL (0.55-1.30); POTASSIUM 4.1 MMOL/L (3.5-5.1); SODIUM 140 MMOL/L (136-145)
--- NOTE | 2019-12-02 10:46 | General Progress Note ---
Assessment/Plan Problem List: (1) Sepsis ICD Codes: A41.9 - Sepsis, unspecified organism SNOMED: 92318428 (2) Suspected COVID-19 virus infection ICD Codes: Z20.828 - Contact with and (suspected) exposure to other viral communicable diseases SNOMED: 735907733 (3) Seizure disorder ICD Codes: G40.909 - Epilepsy, unspecified, not intractable,without status epilepticus SNOMED: 311376500 (4) Hypertension ICD Codes: I10 - Essential (primary) hypertension SNOMED: 17243007 (5) Stroke due to intracerebral hemorrhage ICD Codes: I61.9 - Nontraumatic intracerebral hemorrhage, unspecified SNOMED: 620438848 (6) Anemia ICD Codes: D64.9 - Anemia, unspecified SNOMED: 826005413 Qualifiers: Qualified Codes: D64.9 - Anemia, unspecified (7) HCAP (healthcare-associated pneumonia) ICD Codes: J18.9 - Pneumonia, unspecified organism SNOMED: 994778347, 236494068 Status: unchanged Assessment/Plan: o2 pulm tx abx bp bs control pt diet cbc bmp am Subjective Constitutional: Reports: weakness Allergies: Coded Allergies: No Known Allergies (Unverified , 03/02/14) All Systems: reviewed and negative except above Subjective sleepy calm Objective Last 24 Hour Vital Signs Date Time Temp Pulse Resp B/P (MAP) Pulse Ox O2 Delivery O2 Flow Rate FiO2 12/02/19 08:47 73 116/74 12/02/19 08:00 92.7 73 20 116/74 (88) 94 12/02/19 04:00 97.9 77 20 112/62 (79) 96 12/02/19 00:08 98.7 78 21 133/80 (97) 95 12/01/19 21:01 Room Air 12/01/19 20:29 74 126/77 12/01/19 20:21 97.8 74 20 126/77 (93) 98 12/01/19 16:00 97.5 74 20 109/70 (83) 97 12/01/19 16:00 65 12/01/19 12:00 72 12/01/19 12:00 97.9 75 20 105/69 (81) 94 Intake and Output 12/01/19 12/02/19 19:00 07:00 Intake Total 275.000 ml 1486.000 ml Balance 275.000 ml 1486.000 ml Intake Free Water 310 ml IV Total 275.000 ml 336.000 ml Tube Feeding 840 ml # Voids 3 # Bowel Movements 1 Laboratory Tests 12/02/19 08:20: White Blood Count 6.2, Red Blood Count 3.56L, Hemoglobin 11.0L, Hematocrit 33.0L , Mean Corpuscular Volume 93, Mean Corpuscular Hemoglobin 31.0, Mean Corpuscular Hemoglobin Concent 33.4, Red Cell Distribution Width 13.7, Platelet Count 370, Mean Platelet Volume 8.5, Neutrophils (%) (Auto) 68.9, Lymphocytes (% ) (Auto) 20.9, Monocytes (%) (Auto) 7.2, Eosinophils (%) (Auto) 2.3, Basophils ( %) (Auto) 0.7, Sodium Level 140, Potassium Level 4.1, Chloride Level 104, Carbon Dioxide Level 31, Anion Gap 5, Blood Urea Nitrogen 25H, Creatinine 0.9, Estimat Glomerular Filtration Rate > 60, Glucose Level 136H, Calcium Level 8.4L Height (Feet): 5 Height (Inches): 9.00 Weight (Pounds): 165 General Appearance: lethargic EENT: normal ENT inspection Neck: supple Cardiovascular: normal rate, regular rhythm Respiratory/Chest: no respiratory distress, no accessory muscle use Extremities: normal inspection Skin: normal pigmentation Roberto Carlos Lui DO Dec 02, 2019 10:46
--- NOTE | 2019-12-02 10:48 | General Progress Note ---
Assessment/Plan Problem List: (1) Sepsis ICD Codes: A41.9 - Sepsis, unspecified organism SNOMED: 48889110 (2) Suspected COVID-19 virus infection ICD Codes: Z20.828 - Contact with and (suspected) exposure to other viral communicable diseases SNOMED: 332872534 (3) Seizure disorder ICD Codes: G40.909 - Epilepsy, unspecified, not intractable,without status epilepticus SNOMED: 827553348 (4) Hypertension ICD Codes: I10 - Essential (primary) hypertension SNOMED: 40990093 (5) Stroke due to intracerebral hemorrhage ICD Codes: I61.9 - Nontraumatic intracerebral hemorrhage, unspecified SNOMED: 917413455 (6) Anemia ICD Codes: D64.9 - Anemia, unspecified SNOMED: 805387103 Qualifiers: Qualified Codes: D64.9 - Anemia, unspecified (7) HCAP (healthcare-associated pneumonia) ICD Codes: J18.9 - Pneumonia, unspecified organism SNOMED: 823398497, 991939150 Status: unchanged Assessment/Plan: o2 pulm tx abx bp bs control pt diet cbc bmp am Subjective Constitutional: Reports: weakness Allergies: Coded Allergies: No Known Allergies (Unverified , 03/02/14) All Systems: reviewed and negative except above Subjective sleepy calm Objective Last 24 Hour Vital Signs Date Time Temp Pulse Resp B/P (MAP) Pulse Ox O2 Delivery O2 Flow Rate FiO2 12/02/19 08:47 73 116/74 12/02/19 08:00 92.7 73 20 116/74 (88) 94 12/02/19 04:00 97.9 77 20 112/62 (79) 96 12/02/19 00:08 98.7 78 21 133/80 (97) 95 12/01/19 21:01 Room Air 12/01/19 20:29 74 126/77 12/01/19 20:21 97.8 74 20 126/77 (93) 98 12/01/19 16:00 97.5 74 20 109/70 (83) 97 12/01/19 16:00 65 12/01/19 12:00 72 12/01/19 12:00 97.9 75 20 105/69 (81) 94 Intake and Output 12/01/19 12/02/19 19:00 07:00 Intake Total 275.000 ml 1486.000 ml Balance 275.000 ml 1486.000 ml Intake Free Water 310 ml IV Total 275.000 ml 336.000 ml Tube Feeding 840 ml # Voids 3 # Bowel Movements 1 Laboratory Tests 12/02/19 08:20: White Blood Count 6.2, Red Blood Count 3.56L, Hemoglobin 11.0L, Hematocrit 33.0L , Mean Corpuscular Volume 93, Mean Corpuscular Hemoglobin 31.0, Mean Corpuscular Hemoglobin Concent 33.4, Red Cell Distribution Width 13.7, Platelet Count 370, Mean Platelet Volume 8.5, Neutrophils (%) (Auto) 68.9, Lymphocytes (% ) (Auto) 20.9, Monocytes (%) (Auto) 7.2, Eosinophils (%) (Auto) 2.3, Basophils ( %) (Auto) 0.7, Sodium Level 140, Potassium Level 4.1, Chloride Level 104, Carbon Dioxide Level 31, Anion Gap 5, Blood Urea Nitrogen 25H, Creatinine 0.9, Estimat Glomerular Filtration Rate > 60, Glucose Level 136H, Calcium Level 8.4L Height (Feet): 5 Height (Inches): 9.00 Weight (Pounds): 165 General Appearance: lethargic EENT: normal ENT inspection Neck: normal alignment Cardiovascular: normal rate, regular rhythm Respiratory/Chest: no respiratory distress, no accessory muscle use Extremities: normal inspection Skin: normal pigmentation Roberto Carlos Lui DO Dec 02, 2019 10:48
[2019-12-02 11:45] VITALS: BP 117/72
--- NOTE | 2019-12-02 12:01 | NUR ---
RD ASSESSMENT & RECOMMENDATIONS SEE CARE ACTIVITY FOR COMPLETE ASSESSMENT DAILY ESTIMATED NEEDS: Needs based on Underweight, wasting, pulmonary 49.1 30-35 kcals/kg 7739-2454 total kcals 1.25-2 g protein/kg 61-98 g total protein 25-35ml/kcal mL/kg 2988-3833 total fluid mLs NUTRITION DIAGNOSIS: Swallowing difficulty r/t dysphagia as evidenced by pt is PEG dep. 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 - Start @30ml/hr for 6 hrs, advance as tolerated 10ml/hr q4-6 hrs to goal - Flush per MD. HOB over 30 degrees. ADDITIONAL RECOMMENDATIONS: 1) Per SNF: 5'7" and 108 lbs/49.09kg. Maintain accurate CBW 2) Increase water flushes (elev Na, elev BUN) 3) Monitor for ability to feed. 4) F/up w/ WC photos-> sacral redness, partial thickness per RN Add JO-ANN BID via GT
--- NOTE | 2019-12-02 12:20 | Pulmonology Progress Note ---
Subjective ROS Limited/Unobtainable: Yes Allergies: Coded Allergies: No Known Allergies (Unverified , 03/02/14) All Systems: reviewed and negative except above Objective Last 24 Hour Vital Signs Date Time Temp Pulse Resp B/P (MAP) Pulse Ox O2 Delivery O2 Flow Rate FiO2 12/02/19 11:45 97.9 75 20 117/72 (87) 94 12/02/19 08:47 73 116/74 12/02/19 08:00 92.7 73 20 116/74 (88) 94 12/02/19 04:00 97.9 77 20 112/62 (79) 96 12/02/19 00:08 98.7 78 21 133/80 (97) 95 12/01/19 21:01 Room Air 12/01/19 20:29 74 126/77 12/01/19 20:21 97.8 74 20 126/77 (93) 98 12/01/19 16:00 97.5 74 20 109/70 (83) 97 12/01/19 16:00 65 Intake and Output 12/01/19 12/02/19 19:00 07:00 Intake Total 275.000 ml 1486.000 ml Balance 275.000 ml 1486.000 ml Intake Free Water 310 ml IV Total 275.000 ml 336.000 ml Tube Feeding 840 ml # Voids 3 # Bowel Movements 1 General Appearance: WD/WN Respiratory: chest wall non-tender, lungs clear Cardiovascular: normal peripheral pulses, normal rate Abdomen: normal bowel sounds, soft, non tender Genitourinary: normal external genitalia Skin: no rash Microbiology Date/Time Source Procedure Growth Status 11/29/19 17:12 Nasopharynx Coronavirus COVID-19 PCR (CESAR) - Final Complete Laboratory Tests 12/02/19 08:20: White Blood Count 6.2, Red Blood Count 3.56L, Hemoglobin 11.0L, Hematocrit 33.0L , Mean Corpuscular Volume 93, Mean Corpuscular Hemoglobin 31.0, Mean Corpuscular Hemoglobin Concent 33.4, Red Cell Distribution Width 13.7, Platelet Count 370, Mean Platelet Volume 8.5, Neutrophils (%) (Auto) 68.9, Lymphocytes (% ) (Auto) 20.9, Monocytes (%) (Auto) 7.2, Eosinophils (%) (Auto) 2.3, Basophils ( %) (Auto) 0.7, Sodium Level 140, Potassium Level 4.1, Chloride Level 104, Carbon Dioxide Level 31, Anion Gap 5, Blood Urea Nitrogen 25H, Creatinine 0.9, Estimat Glomerular Filtration Rate > 60, Glucose Level 136H, Calcium Level 8.4L Current Medications Medications (Trade) Dose Ordered Sig/Kinjal Route PRN Reason Start Time Stop Time Status Last Admin Dose Admin Acetaminophen (Tylenol) 650 mg Q4H PRN GT Temp >100.5 12/01/19 20:30 12/28/19 12:29 Al Hydroxide/Mg Hydroxide (Mylanta II) 30 ml Q6H PRN GT Dyspepsia 12/01/19 19:45 12/31/19 19:44 Albuterol/ Ipratropium (Combivent Respimat) 1 puff Q6HR INH 12/02/19 00:00 12/28/19 17:59 Amiodarone HCl (Cordarone) 200 mg EVERY 12 HOURS GT 12/01/19 21:00 02/26/20 20:59 12/02/19 08:21 Carvedilol (Coreg) 6.25 mg EVERY 12 HOURS GT 12/01/19 21:00 12/28/19 20:59 12/01/19 20:29 Cefepime HCl 1 gm/ Dextrose 55 ml @ 110 mls/hr Q12H IVPB 12/02/19 06:00 12/05/19 17:59 12/02/19 05:09 Diphenhydramine HCl (Benadryl) 25 mg Q6H PRN GT Itching/Pruritis 12/01/19 19:45 12/31/19 19:44 Famotidine (Pepcid) 20 mg BID GT 12/02/19 09:00 02/26/20 17:59 12/02/19 08:21 Levetiracetam (Keppra) 100 mg Q12HR GT 12/01/19 21:00 01/12/20 20:59 12/02/19 08:20 Loperamide HCl (Imodium) 4 mg Q4H PRN GT Diarrhea 12/01/19 20:30 12/28/19 12:29 Lorazepam (Ativan 2mg/ml 1ml) 0.5 mg Q4H PRN IV For Anxiety 12/01/19 20:30 12/05/19 12:29 Morphine Sulfate (Morphine Sulfate) 2 mg Q6H PRN IVP Moderate Pain (Pain Scale 4-6) 12/01/19 19:46 12/08/19 19:45 Nitroglycerin (Ntg) 0.4 mg Q5M PRN SL Prn Chest Pain 12/01/19 19:45 12/28/19 12:29 Ondansetron HCl (Zofran) 4 mg Q6H PRN IVP Nausea & Vomiting 12/01/19 19:46 12/31/19 19:45 Polyethylene Glycol (Miralax) 17 gm DAILYPRN PRN GT Constipation 12/01/19 19:46 12/31/19 19:45 Temazepam (Restoril) 15 mg HSPRN PRN GT Insomnia 12/01/19 21:00 12/08/19 20:59 12/01/19 20:28 Vancomycin HCl (Vanco pharmacy to dose) 1 ea DAILY PRN MISC Per rx protocol 12/02/19 09:00 12/28/19 11:44 Vancomycin HCl 1 gm/Dextrose 275 ml @ 183.708 mls/hr Q12HR IVPB 12/01/19 21:00 12/03/19 20:59 12/02/19 08:38 Assessment/Plan Problems: (1) HCAP (healthcare-associated pneumonia) (2) Hematuria (3) Seizure disorder (4) Hypertension (5) Feeding by G-tube (6) half-way resident (7) Stroke due to intracerebral hemorrhage (8) Vascular dementia with behavioral disturbance Assessment/Plan check cultures COVID negative X 2 continue abx ativan for agitation continue abx Corinna Jackson MD Dec 02, 2019 12:20
--- NOTE | 2019-12-02 13:50 | NUR ---
*-* INSURANCE *-* ALL AVAILABLE CLINICALS HAVE BEEN FAXED TO: [facility] F: [phone] Pending Auth# [id number] Fax clinicals: [phone] & [phone]
[2019-12-02] MEDS: Albuterol/Ipratropium 3ml neb HHN SCH ×2 (13:53→19:00)
--- NOTE | 2019-12-02 14:45 | Infectious Diseases Prog Note ---
Assessment/Plan Assessment/Plan Assessment: Pneumonia- At -CXR: Left basilar infiltrate. Recent COVID infection (diagnosed September) -11/27 SARS-COV2 PCR neg, 11/28 neg -repeat COVID neg at [place] Afebrile No leukocytosis -Bcx NTD Afib HLD seizure disorder MDD/anxiety HTN Dm2 [place] resident Plan: -Continue Cefepime #5/5 and IV Vancomycin #5/5 -11/27 SP Levaquin x1 -f/u cx -Monitor CBC/CMP, temperatures -f/u sp cx -repeat COVID x2 neg- ok to dc isolation -aspiration precautions Thank you for this consultation. Will continue to follow along with you. Discussed with RN. Subjective Allergies: Coded Allergies: No Known Allergies (Unverified , 03/02/14) Subjective afebrile at covid neg x2 Bcx NTD Objective Vital Signs Last 24 Hour Vital Signs Date Time Temp Pulse Resp B/P (MAP) Pulse Ox O2 Delivery O2 Flow Rate FiO2 12/02/19 11:45 97.9 75 20 117/72 (87) 94 12/02/19 09:00 Room Air 12/02/19 08:47 73 116/74 12/02/19 08:00 92.7 73 20 116/74 (88) 94 12/02/19 04:00 97.9 77 20 112/62 (79) 96 12/02/19 00:08 98.7 78 21 133/80 (97) 95 12/01/19 21:01 Room Air 12/01/19 20:29 74 126/77 12/01/19 20:21 97.8 74 20 126/77 (93) 98 12/01/19 16:00 97.5 74 20 109/70 (83) 97 12/01/19 16:00 65 Height (Feet): 5 Height (Inches): 9.00 Weight (Pounds): 165 Objective General Appearance: lethargic EENT: normal ENT inspection Neck: normal alignment Cardiovascular: normal rate, regular rhythm Respiratory/Chest: no respiratory distress, no accessory muscle use Extremities: normal inspection Skin: normal pigmentation Microbiology Date/Time Source Procedure Growth Status 11/29/19 17:12 Nasopharynx Coronavirus COVID-19 PCR (CESAR) - Final Complete Laboratory Tests Test 12/02/19 08:20 White Blood Count 6.2 K/UL (4.8-10.8) Red Blood Count 3.56 M/UL (4.70-6.10) L Hemoglobin 11.0 G/DL (14.2-18.0) L Hematocrit 33.0 % (42.0-52.0) L Mean Corpuscular Volume 93 FL (80-99) Mean Corpuscular Hemoglobin 31.0 PG (27.0-31.0) Mean Corpuscular Hemoglobin Concent 33.4 G/DL (32.0-36.0) Red Cell Distribution Width 13.7 % (11.6-14.8) Platelet Count 370 K/UL (150-450) Mean Platelet Volume 8.5 FL (6.5-10.1) Neutrophils (%) (Auto) 68.9 % (45.0-75.0) Lymphocytes (%) (Auto) 20.9 % (20.0-45.0) Monocytes (%) (Auto) 7.2 % (1.0-10.0) Eosinophils (%) (Auto) 2.3 % (0.0-3.0) Basophils (%) (Auto) 0.7 % (0.0-2.0) Sodium Level 140 MMOL/L (136-145) Potassium Level 4.1 MMOL/L (3.5-5.1) Chloride Level 104 MMOL/L (98-107) Carbon Dioxide Level 31 MMOL/L (21-32) Anion Gap 5 mmol/L (5-15) Blood Urea Nitrogen 25 mg/dL (7-18) H Creatinine 0.9 MG/DL (0.55-1.30) Estimat Glomerular Filtration Rate > 60 mL/min (>60) Glucose Level 136 MG/DL (74-106) H Calcium Level 8.4 MG/DL (8.5-10.1) L Current Medications Medications (Trade) Dose Ordered Sig/Kinjal Route PRN Reason Start Time Stop Time Status Last Admin Dose Admin Acetaminophen (Tylenol) 650 mg Q4H PRN GT Temp >100.5 12/01/19 20:30 12/28/19 12:29 Al Hydroxide/Mg Hydroxide (Mylanta II) 30 ml Q6H PRN GT Dyspepsia 12/01/19 19:45 12/31/19 19:44 Albuterol/ Ipratropium (Albuterol/ Ipratropium) 3 ml Q6HRT HHN 12/02/19 13:45 12/07/19 13:44 12/02/19 13:53 Amiodarone HCl (Cordarone) 200 mg EVERY 12 HOURS GT 12/01/19 21:00 02/26/20 20:59 12/02/19 08:21 Carvedilol (Coreg) 6.25 mg EVERY 12 HOURS GT 12/01/19 21:00 12/28/19 20:59 12/01/19 20:29 Cefepime HCl 1 gm/ Dextrose 55 ml @ 110 mls/hr Q12H IVPB 12/02/19 06:00 12/05/19 17:59 12/02/19 05:09 Diphenhydramine HCl (Benadryl) 25 mg Q6H PRN GT Itching/Pruritis 12/01/19 19:45 12/31/19 19:44 Famotidine (Pepcid) 20 mg BID GT 12/02/19 09:00 02/26/20 17:59 12/02/19 08:21 Levetiracetam (Keppra) 100 mg Q12HR GT 12/01/19 21:00 01/12/20 20:59 12/02/19 08:20 Loperamide HCl (Imodium) 4 mg Q4H PRN GT Diarrhea 12/01/19 20:30 12/28/19 12:29 Lorazepam (Ativan 2mg/ml 1ml) 0.5 mg Q4H PRN IV For Anxiety 12/01/19 20:30 12/05/19 12:29 Morphine Sulfate (Morphine Sulfate) 2 mg Q6H PRN IVP Moderate Pain (Pain Scale 4-6) 12/01/19 19:46 12/08/19 19:45 Nitroglycerin (Ntg) 0.4 mg Q5M PRN SL Prn Chest Pain 12/01/19 19:45 12/28/19 12:29 Ondansetron HCl (Zofran) 4 mg Q6H PRN IVP Nausea & Vomiting 12/01/19 19:46 12/31/19 19:45 Polyethylene Glycol (Miralax) 17 gm DAILYPRN PRN GT Constipation 12/01/19 19:46 12/31/19 19:45 Temazepam (Restoril) 15 mg HSPRN PRN GT Insomnia 12/01/19 21:00 12/08/19 20:59 12/01/19 20:28 Vancomycin HCl (Vanco pharmacy to dose) 1 ea DAILY PRN MISC Per rx protocol 12/02/19 09:00 12/28/19 11:44 Vancomycin HCl 1 gm/Dextrose 275 ml @ 183.708 mls/hr Q12HR IVPB 12/01/19 21:00 12/03/19 20:59 12/02/19 08:38 Guerline Srinivasan M.D. Dec 02, 2019 14:45
--- NOTE | 2019-12-02 15:19 | NUR ---
NURSE NOTES:WOUND CARE NOTES:Pt presented with non-blanching erythema without induration Sacrum(L)6.5cm x (W)7.5cm.Pt did note exhibit any signs of distress when sacral area minimally palpated. R heel is boggy with non-blanching erythema(L)4cm x (W)3.5cm. Non-Blanchable erythema without induration/fluctuance lateral R malleolus(L)2cm x (W)2.5cm. L heel is boggy with non-blanchable erythema(L)1.5cm x (W)3.5cm. Non-blanching erythema without induration L lateral malleolus(L)1.5cm x (W)1cm. Tx. Plan:Apply Moisture Barrier Paste to sacrum. Cover with Optifoam drsg. Change every 3 days and prn. Apply Cavilon Skin Barrier to [place] and both heels. Cover each heel with Optifoam drsg. Change every 7 days and prn. Reposition at least every 2hours or as tolerated. Off-load heels with pillow. APM/STEWART Mattress overlay.
[2019-12-02 16:00] VITALS: BP 121/74
--- NOTE | 2019-12-02 16:52 | NUR ---
CASE MANAGEMENT:REVIEW 11/30/19 SI;PNA. HEMATURIA. 98.6 59 21 136/90 94% ON RA BUN 28 IS;CEFEPIME IV Q12 VANCOMYCIN IV Q12 AMIODARONE GT Q12 COREG GT Q12 KEPPRA GT Q12 DUO-NEB HHN Q6 MED SURG STATUS DCP;PATIENT IS FROM [facility] CASE MANAGEMENT:REVIEW 12/01/19 SI;PNA. HEMATURIA. 97.8 74 20 105/69 94% ON RA IS;CEFEPIME IV Q12 VANCOMYCIN IV Q12 AMIODARONE GT Q12 COREG GT Q12 KEPPRA GT Q12 DUO-NEB HHN Q6 MED SURG STATUS DCP;PATIENT IS FROM [facility] CASE MANAGEMENT:REVIEW 12/02/19 SI;PNA. HEMATURIA. BUN 25 BG 136 IS;CEFEPIME IV Q12 VANCOMYCIN IV Q12 AMIODARONE GT Q12 COREG GT Q12 KEPPRA GT Q12 DUO-NEB HHN Q6 MED SURG STATUS DCP;PATIENT IS FROM [facility]
--- NOTE | 2019-12-02 19:17 | NUR ---
HAND-OFF: Report given to DARIAN SNYDER.
[2019-12-02 20:00] VITALS: BP 112/50
--- NOTE | 2019-12-02 20:04 | NUR ---
NURSE NOTES: Received patient awake, non-verbal, impulsive, on bilateral soft wrist restraints, tolerating his g-tube feeding well.
[2019-12-03 00:21] VITALS: BP 108/56
[2019-12-03] MEDS: Albuterol/Ipratropium 3ml neb HHN SCH ×2 (02:31→07:00)
[2019-12-03 04:28] VITALS: BP 125/61
[2019-12-03] MEDS: Cefepime HCl 1 GM in D5W 55 ML IVPB SCH (05:10)
[2019-12-03 05:55] LABS: BASOPHILS % (AUTO) 0.9 % (0.0-2.0); EOSINOPHILS % (AUTO) 2.1 % (0.0-3.0); HEMATOCRIT 34.5 % (42.0-52.0); HEMOGLOBIN 11.6 G/DL (14.2-18.0); LYMPHOCYTES % (AUTO) 19.8 % (20.0-45.0); MEAN CORPUSCULAR VOLUME 94 FL (80-99); MONOCYTES % (AUTO) 6.2 % (1.0-10.0); PLATELET COUNT 365 K/UL (150-450); RED BLOOD COUNT 3.68 M/UL (4.70-6.10); WHITE BLOOD COUNT 6.8 K/UL (4.8-10.8)
[2019-12-03 06:37] LABS: ALANINE AMINOTRANSFERASE 27 U/L (12-78); ALBUMIN 2.4 G/DL (3.4-5.0); ALBUMIN/GLOBULIN RATIO 0.7 (1.0-2.7); ALKALINE PHOSPHATASE 78 U/L (46-116); ANION GAP 5 mmol/L (5-15); ASPARTATE AMINO TRANSFERASE 21 U/L (15-37); BILIRUBIN,TOTAL 0.3 MG/DL (0.2-1.0); BLOOD UREA NITROGEN 24 mg/dL (7-18); CALCIUM 8.3 MG/DL (8.5-10.1); CARBON DIOXIDE 31 MMOL/L (21-32); CHLORIDE 103 MMOL/L (98-107); CREATININE 0.9 MG/DL (0.55-1.30); POTASSIUM 4.3 MMOL/L (3.5-5.1); SODIUM 139 MMOL/L (136-145)
--- NOTE | 2019-12-03 07:19 | NUR ---
HAND-OFF: Report given to Aime Perez RN/ DARIAN Noel.
--- NOTE | 2019-12-03 07:31 | NUR ---
NURSE NOTES: Report received from DARIAN Arias. Patient received in bed AAOx0, on room air, bed bound with soft bilateral restraint on left and right wrist. IV patent and intact, with G-tube, on Jevity 1.2 running @70cc/hr, flush 250ml q shift. Bashir catheter present anchored and draining yellow urine well via gravity. Patient is seizure, fall, and aspiration precaution. Bedside suction set up, side rails padded, and HOB elevated. Bed locked and placed in lowest position with bed alarm on. Call light within reach. Will continue to monitor
[2019-12-03 08:00] VITALS: BP 128/59
[2019-12-03] MEDS: Amiodarone 200mg tab GT SCH (08:42)
[2019-12-03] MEDS: Carvedilol 6.25mg Tab GT SCH (08:43)
[2019-12-03] MEDS: Vancomycin 1 GM in D5W 275 ML IVPB SCH (08:43)
[2019-12-03] MEDS: levETIRAcetam 500mg/5ml Liquid GT SCH (08:43)
[2019-12-03 11:43] VITALS: BP 102/62
--- NOTE | 2019-12-03 11:50 | Infectious Diseases Prog Note ---
Assessment/Plan Assessment/Plan Assessment: Pneumonia- At -CXR: Left basilar infiltrate. Recent COVID infection (diagnosed September) -11/27 SARS-COV2 PCR neg, 11/28 neg -repeat COVID neg at [place] Afebrile No leukocytosis -Bcx Neg Afib HLD seizure disorder MDD/anxiety HTN Dm2 [place] resident Plan: -Dc Cefepime #/ and IV Vancomycin #/ and monitor off abx -11/27 SP Levaquin x1 -f/u cx -Monitor CBC/CMP, temperatures -f/u sp cx -repeat COVID x2 neg- ok to dc isolation -aspiration precautions Thank you for this consultation. Will continue to follow along with you. Discussed with RN. Subjective Allergies: Coded Allergies: No Known Allergies (Unverified , 03/02/14) Subjective afebrile at covid neg x2 Bcx Neg Objective Vital Signs Last 24 Hour Vital Signs Date Time Temp Pulse Resp B/P (MAP) Pulse Ox O2 Delivery O2 Flow Rate FiO2 12/03/19 11:43 97.8 81 18 102/62 (75) 96 12/03/19 09:08 75 20 99 Room Air 21 72 20 96 12/03/19 09:00 Room Air 12/03/19 08:43 80 128/59 12/03/19 08:00 98.2 80 19 128/59 (82) 96 12/03/19 04:28 98.2 74 18 125/61 (82) 97 12/03/19 02:00 70 18 98 Room Air 21 66 18 95 12/03/19 00:21 98.0 71 16 108/56 (73) 96 12/02/19 22:14 Room Air 12/02/19 21:00 75 112/50 12/02/19 20:00 97.8 75 16 112/50 (70) 96 12/02/19 16:00 98.4 76 20 121/74 (90) 98 12/02/19 14:03 78 18 100 Room Air 21 75 18 98 Height (Feet): 5 Height (Inches): 9.00 Weight (Pounds): 165 Objective General Appearance: lethargic EENT: normal ENT inspection Neck: normal alignment Cardiovascular: normal rate, regular rhythm Respiratory/Chest: no respiratory distress, no accessory muscle use Extremities: normal inspection Skin: normal pigmentation Laboratory Tests Test 12/02/19 18:53 12/03/19 05:21 Stool Occult Blood Pending White Blood Count 6.8 K/UL (4.8-10.8) Red Blood Count 3.68 M/UL (4.70-6.10) L Hemoglobin 11.6 G/DL (14.2-18.0) L Hematocrit 34.5 % (42.0-52.0) L Mean Corpuscular Volume 94 FL (80-99) Mean Corpuscular Hemoglobin 31.5 PG (27.0-31.0) H Mean Corpuscular Hemoglobin Concent 33.6 G/DL (32.0-36.0) Red Cell Distribution Width 14.0 % (11.6-14.8) Platelet Count 365 K/UL (150-450) Mean Platelet Volume 7.9 FL (6.5-10.1) Neutrophils (%) (Auto) 71.0 % (45.0-75.0) Lymphocytes (%) (Auto) 19.8 % (20.0-45.0) L Monocytes (%) (Auto) 6.2 % (1.0-10.0) Eosinophils (%) (Auto) 2.1 % (0.0-3.0) Basophils (%) (Auto) 0.9 % (0.0-2.0) Erythrocyte Sedimentation Rate 48 MM/HR (0-20) H Sodium Level 139 MMOL/L (136-145) Potassium Level 4.3 MMOL/L (3.5-5.1) Chloride Level 103 MMOL/L (98-107) Carbon Dioxide Level 31 MMOL/L (21-32) Anion Gap 5 mmol/L (5-15) Blood Urea Nitrogen 24 mg/dL (7-18) H Creatinine 0.9 MG/DL (0.55-1.30) Estimat Glomerular Filtration Rate > 60 mL/min (>60) Glucose Level 119 MG/DL (74-106) H Calcium Level 8.3 MG/DL (8.5-10.1) L Phosphorus Level 4.0 MG/DL (2.5-4.9) Magnesium Level 2.2 MG/DL (1.8-2.4) Total Bilirubin 0.3 MG/DL (0.2-1.0) Aspartate Amino Transf (AST/SGOT) 21 U/L (15-37) Alanine Aminotransferase (ALT/SGPT) 27 U/L (12-78) Alkaline Phosphatase 78 U/L (46-116) C-Reactive Protein, Quantitative < 0.4 mg/dL (0.00-0.90) Total Protein 6.0 G/DL (6.4-8.2) L Albumin 2.4 G/DL (3.4-5.0) L Globulin 3.6 g/dL Albumin/Globulin Ratio 0.7 (1.0-2.7) L Current Medications Medications (Trade) Dose Ordered Sig/Kinjal Route PRN Reason Start Time Stop Time Status Last Admin Dose Admin Acetaminophen (Tylenol) 650 mg Q4H PRN GT Temp >100.5 12/01/19 20:30 12/28/19 12:29 Al Hydroxide/Mg Hydroxide (Mylanta II) 30 ml Q6H PRN GT Dyspepsia 12/01/19 19:45 12/31/19 19:44 Albuterol/ Ipratropium (Albuterol/ Ipratropium) 3 ml Q6HRT HHN 12/02/19 13:45 12/07/19 13:44 12/03/19 07:00 Amiodarone HCl (Cordarone) 200 mg EVERY 12 HOURS GT 12/01/19 21:00 02/26/20 20:59 12/03/19 08:42 Carvedilol (Coreg) 6.25 mg EVERY 12 HOURS GT 12/01/19 21:00 12/28/19 20:59 12/03/19 08:43 Cefepime HCl 1 gm/ Dextrose 55 ml @ 110 mls/hr Q12H IVPB 12/02/19 06:00 12/05/19 17:59 12/03/19 05:10 Diphenhydramine HCl (Benadryl) 25 mg Q6H PRN GT Itching/Pruritis 12/01/19 19:45 12/31/19 19:44 Famotidine (Pepcid) 20 mg BID GT 12/02/19 09:00 02/26/20 17:59 12/03/19 08:43 Levetiracetam (Keppra) 100 mg Q12HR GT 12/01/19 21:00 01/12/20 20:59 12/03/19 08:43 Loperamide HCl (Imodium) 4 mg Q4H PRN GT Diarrhea 12/01/19 20:30 12/28/19 12:29 Lorazepam (Ativan 2mg/ml 1ml) 0.5 mg Q4H PRN IV For Anxiety 12/01/19 20:30 12/05/19 12:29 Morphine Sulfate (Morphine Sulfate) 2 mg Q6H PRN IVP Moderate Pain (Pain Scale 4-6) 12/01/19 19:46 12/08/19 19:45 Nitroglycerin (Ntg) 0.4 mg Q5M PRN SL Prn Chest Pain 12/01/19 19:45 12/28/19 12:29 Ondansetron HCl (Zofran) 4 mg Q6H PRN IVP Nausea & Vomiting 12/01/19 19:46 12/31/19 19:45 Polyethylene Glycol (Miralax) 17 gm DAILYPRN PRN GT Constipation 12/01/19 19:46 12/31/19 19:45 Temazepam (Restoril) 15 mg HSPRN PRN GT Insomnia 12/01/19 21:00 12/08/19 20:59 12/02/19 21:45 Vancomycin HCl (Vanco pharmacy to dose) 1 ea DAILY PRN MISC Per rx protocol 12/02/19 09:00 12/28/19 11:44 Vancomycin HCl 1 gm/Dextrose 275 ml @ 183.708 mls/hr Q12HR IVPB 12/01/19 21:00 12/03/19 20:59 12/03/19 08:43 Guerline Srinivasan M.D. Dec 03, 2019 11:50
--- NOTE | 2019-12-03 12:21 | NUR ---
NURSE NOTES: PATIENT ON BILATERAL SOFT RESTRAINT. WHEN RN TOOK OFF RESTRAINTS PATIENT WAS RESTLESS, PULLING ON TUBINGS. RESTRAINTS REMAIN ON PATIENT WITH Q2 HOUR ROUNDING. RESTRAINTS STILL NEEDED Addendum: 12/03/19 at 1233 by Sameer Champagne RN HOURLY ROUNDING DONE FOR ASSESSMENT
--- NOTE | 2019-12-03 13:19 | General Progress Note ---
Assessment/Plan Problem List: (1) Sepsis ICD Codes: A41.9 - Sepsis, unspecified organism SNOMED: 59474538 (2) Suspected COVID-19 virus infection ICD Codes: Z20.828 - Contact with and (suspected) exposure to other viral communicable diseases SNOMED: 910265138 (3) Seizure disorder ICD Codes: G40.909 - Epilepsy, unspecified, not intractable,without status epilepticus SNOMED: 793582996 (4) Hypertension ICD Codes: I10 - Essential (primary) hypertension SNOMED: 81257232 (5) Stroke due to intracerebral hemorrhage ICD Codes: I61.9 - Nontraumatic intracerebral hemorrhage, unspecified SNOMED: 561149931 (6) Anemia ICD Codes: D64.9 - Anemia, unspecified SNOMED: 032737046 Qualifiers: Qualified Codes: D64.9 - Anemia, unspecified (7) HCAP (healthcare-associated pneumonia) ICD Codes: J18.9 - Pneumonia, unspecified organism SNOMED: 672426273, 088537845 Status: unchanged Assessment/Plan: o2 pulm tx abx bp bs control pt diet cbc bmp am dc if clear Subjective Constitutional: Reports: weakness Allergies: Coded Allergies: No Known Allergies (Unverified , 03/02/14) All Systems: reviewed and negative except above Subjective sleepy calm Objective Last 24 Hour Vital Signs Date Time Temp Pulse Resp B/P (MAP) Pulse Ox O2 Delivery O2 Flow Rate FiO2 12/03/19 11:43 97.8 81 18 102/62 (75) 96 12/03/19 09:08 75 20 99 Room Air 21 72 20 96 12/03/19 09:00 Room Air 12/03/19 08:43 80 128/59 12/03/19 08:00 98.2 80 19 128/59 (82) 96 12/03/19 04:28 98.2 74 18 125/61 (82) 97 12/03/19 02:00 70 18 98 Room Air 21 66 18 95 12/03/19 00:21 98.0 71 16 108/56 (73) 96 12/02/19 22:14 Room Air 12/02/19 21:00 75 112/50 12/02/19 20:00 97.8 75 16 112/50 (70) 96 12/02/19 16:00 98.4 76 20 121/74 (90) 98 12/02/19 14:03 78 18 100 Room Air 21 75 18 98 Intake and Output 12/02/19 12/03/19 19:00 07:00 Intake Total 1050 ml 1420.000 ml Output Total 350 ml 250 ml Balance 700 ml 1170.000 ml Intake Free Water 210 ml 250 ml IV Total 330.000 ml Tube Feeding 840 ml 840 ml Output Urine Total 350 ml 250 ml # Voids 3 1 # Bowel Movements 3 Laboratory Tests 12/02/19 18:53: Stool Occult Blood Negative 12/03/19 05:21: White Blood Count 6.8, Red Blood Count 3.68L, Hemoglobin 11.6L, Hematocrit 34.5L , Mean Corpuscular Volume 94, Mean Corpuscular Hemoglobin 31.5H, Mean Corpuscular Hemoglobin Concent 33.6, Red Cell Distribution Width 14.0, Platelet Count 365, Mean Platelet Volume 7.9, Neutrophils (%) (Auto) 71.0, Lymphocytes (% ) (Auto) 19.8L, Monocytes (%) (Auto) 6.2, Eosinophils (%) (Auto) 2.1, Basophils (%) (Auto) 0.9, Erythrocyte Sedimentation Rate 48H, Sodium Level 139, Potassium Level 4.3, Chloride Level 103, Carbon Dioxide Level 31, Anion Gap 5, Blood Urea Nitrogen 24H, Creatinine 0.9, Estimat Glomerular Filtration Rate > 60, Glucose Level 119H, Calcium Level 8.3L, Phosphorus Level 4.0, Magnesium Level 2.2, Total Bilirubin 0.3, Aspartate Amino Transf (AST/SGOT) 21, Alanine Aminotransferase (ALT/SGPT) 27, Alkaline Phosphatase 78, C-Reactive Protein, Quantitative < 0.4, Total Protein 6.0L, Albumin 2.4L, Globulin 3.6, Albumin/ Globulin Ratio 0.7L Height (Feet): 5 Height (Inches): 9.00 Weight (Pounds): 165 General Appearance: lethargic EENT: normal ENT inspection Neck: normal alignment Cardiovascular: normal rate, regular rhythm Respiratory/Chest: no respiratory distress, no accessory muscle use Extremities: normal inspection Skin: normal pigmentation Roberto Carlos Lui DO Dec 03, 2019 13:19
--- NOTE | 2019-12-03 13:27 | Pulmonology Progress Note ---
Subjective ROS Limited/Unobtainable: Yes Constitutional: Reports: no symptoms HEENT: Repors: no symptoms Allergies: Coded Allergies: No Known Allergies (Unverified , 03/02/14) All Systems: reviewed and negative except above Objective Last 24 Hour Vital Signs Date Time Temp Pulse Resp B/P (MAP) Pulse Ox O2 Delivery O2 Flow Rate FiO2 12/03/19 11:43 97.8 81 18 102/62 (75) 96 12/03/19 09:08 75 20 99 Room Air 21 72 20 96 12/03/19 09:00 Room Air 12/03/19 08:43 80 128/59 12/03/19 08:00 98.2 80 19 128/59 (82) 96 12/03/19 04:28 98.2 74 18 125/61 (82) 97 12/03/19 02:00 70 18 98 Room Air 21 66 18 95 12/03/19 00:21 98.0 71 16 108/56 (73) 96 12/02/19 22:14 Room Air 12/02/19 21:00 75 112/50 12/02/19 20:00 97.8 75 16 112/50 (70) 96 12/02/19 16:00 98.4 76 20 121/74 (90) 98 12/02/19 14:03 78 18 100 Room Air 21 75 18 98 Intake and Output 12/02/19 12/03/19 19:00 07:00 Intake Total 1050 ml 1420.000 ml Output Total 350 ml 250 ml Balance 700 ml 1170.000 ml Intake Free Water 210 ml 250 ml IV Total 330.000 ml Tube Feeding 840 ml 840 ml Output Urine Total 350 ml 250 ml # Voids 3 1 # Bowel Movements 3 General Appearance: WD/WN Respiratory: chest wall non-tender, lungs clear Cardiovascular: normal peripheral pulses, normal rate Abdomen: normal bowel sounds, soft, non tender Genitourinary: normal external genitalia Skin: no rash Laboratory Tests 12/02/19 18:53: Stool Occult Blood Negative 12/03/19 05:21: White Blood Count 6.8, Red Blood Count 3.68L, Hemoglobin 11.6L, Hematocrit 34.5L , Mean Corpuscular Volume 94, Mean Corpuscular Hemoglobin 31.5H, Mean Corpuscular Hemoglobin Concent 33.6, Red Cell Distribution Width 14.0, Platelet Count 365, Mean Platelet Volume 7.9, Neutrophils (%) (Auto) 71.0, Lymphocytes (% ) (Auto) 19.8L, Monocytes (%) (Auto) 6.2, Eosinophils (%) (Auto) 2.1, Basophils (%) (Auto) 0.9, Erythrocyte Sedimentation Rate 48H, Sodium Level 139, Potassium Level 4.3, Chloride Level 103, Carbon Dioxide Level 31, Anion Gap 5, Blood Urea Nitrogen 24H, Creatinine 0.9, Estimat Glomerular Filtration Rate > 60, Glucose Level 119H, Calcium Level 8.3L, Phosphorus Level 4.0, Magnesium Level 2.2, Total Bilirubin 0.3, Aspartate Amino Transf (AST/SGOT) 21, Alanine Aminotransferase (ALT/SGPT) 27, Alkaline Phosphatase 78, C-Reactive Protein, Quantitative < 0.4, Total Protein 6.0L, Albumin 2.4L, Globulin 3.6, Albumin/ Globulin Ratio 0.7L Current Medications Medications (Trade) Dose Ordered Sig/Kinjal Route PRN Reason Start Time Stop Time Status Last Admin Dose Admin Acetaminophen (Tylenol) 650 mg Q4H PRN GT Temp >100.5 12/01/19 20:30 12/28/19 12:29 Al Hydroxide/Mg Hydroxide (Mylanta II) 30 ml Q6H PRN GT Dyspepsia 12/01/19 19:45 12/31/19 19:44 Albuterol/ Ipratropium (Albuterol/ Ipratropium) 3 ml Q6HRT HHN 12/02/19 13:45 12/07/19 13:44 12/03/19 07:00 Amiodarone HCl (Cordarone) 200 mg EVERY 12 HOURS GT 12/01/19 21:00 02/26/20 20:59 12/03/19 08:42 Carvedilol (Coreg) 6.25 mg EVERY 12 HOURS GT 12/01/19 21:00 12/28/19 20:59 12/03/19 08:43 Diphenhydramine HCl (Benadryl) 25 mg Q6H PRN GT Itching/Pruritis 12/01/19 19:45 12/31/19 19:44 Famotidine (Pepcid) 20 mg BID GT 12/02/19 09:00 02/26/20 17:59 12/03/19 08:43 Levetiracetam (Keppra) 100 mg Q12HR GT 12/01/19 21:00 01/12/20 20:59 12/03/19 08:43 Loperamide HCl (Imodium) 4 mg Q4H PRN GT Diarrhea 12/01/19 20:30 12/28/19 12:29 Lorazepam (Ativan 2mg/ml 1ml) 0.5 mg Q4H PRN IV For Anxiety 12/01/19 20:30 12/05/19 12:29 Morphine Sulfate (Morphine Sulfate) 2 mg Q6H PRN IVP Moderate Pain (Pain Scale 4-6) 12/01/19 19:46 12/08/19 19:45 Nitroglycerin (Ntg) 0.4 mg Q5M PRN SL Prn Chest Pain 12/01/19 19:45 12/28/19 12:29 Ondansetron HCl (Zofran) 4 mg Q6H PRN IVP Nausea & Vomiting 12/01/19 19:46 12/31/19 19:45 Polyethylene Glycol (Miralax) 17 gm DAILYPRN PRN GT Constipation 12/01/19 19:46 12/31/19 19:45 Temazepam (Restoril) 15 mg HSPRN PRN GT Insomnia 12/01/19 21:00 12/08/19 20:59 12/02/19 21:45 Assessment/Plan Problems: (1) HCAP (healthcare-associated pneumonia) (2) Hematuria (3) Seizure disorder (4) Hypertension (5) Feeding by G-tube (6) [facility] resident (7) Stroke due to intracerebral hemorrhage (8) Vascular dementia with behavioral disturbance Assessment/Plan looks comfortable COVID negative X 2 continue abx ativan for agitation all reviewed Corinna Jackson MD Dec 03, 2019 13:27
--- NOTE | 2019-12-03 13:40 | NUR ---
DISCHARGE PLANNING PATIENT HAS BEEN REFERRED BACK TO [facility] P: [phone] F: [phone]
--- NOTE | 2019-12-03 14:24 | NUR ---
NURSE NOTES: PATIENT HAS DISCHARGE ORDER FROM DR. DOCKERY. CLEARANCE NEEDED FROM ID AND PULMO. RN CONTACTED DR. RAYMOND AND SHAR. RN RECEIVED CLEARANCE FROM [facility]. RN ALSO MADE DR. MYLES AWARE OF PATIENTS URINE COLOR OF LIGHT BROWN.
--- NOTE | 2019-12-03 14:25 | NUR ---
*-* INSURANCE *-* ALL AVAILABLE CLINICALS AND REVIEWS HAVE BEEN FAXED TO: [facility] F: [phone] Pending Auth# [id number] Fax clinicals: [phone] & [phone]
--- NOTE | 2019-12-03 14:26 | NUR ---
*-*DISCHARGE PLANNED*-* PATIENT HAS BEEN ACCEPTED AND WILL BE DISCHARGED BACK TO: [facility] P: [phone] FOR NURSE TO NURSE REPORT ROOM# 211.A SKILLED [facility] PSYCHOLOGICAL STRESS EVALUATOR SET FOR 3:30PM S/W CHRISTINE [id number].
[2019-12-03] MEDS ORDERED: ACETAMINOPHEN325 M1 GT (15:17)
[2019-12-03] MEDS ORDERED: MYLANTA II30 ML GT (15:30)
[2019-12-03] MEDS ORDERED: AMIODARONE50 MG/1 ML GT (15:33)
[2019-12-03] MEDS ORDERED: CARVEDILOL6.25 MG GT (15:43)
[2019-12-03] MEDS ORDERED: DIPHENHYDRAMINE25 M1 GT (15:44)
[2019-12-03] MEDS ORDERED: FAMOTIDINE20 MG GT (15:46)
[2019-12-03] MEDS ORDERED: LEVETIRACETAM500 MG GT (15:47)
[2019-12-03] MEDS ORDERED: LOPERAMIDE2 MG GT (15:48)
[2019-12-03] MEDS ORDERED: NITRO0.4 SL (15:50)
[2019-12-03] MEDS ORDERED: DUONEB 0.5-3(2.53 ML HHN ×2 (15:50→15:55)
[2019-12-03] MEDS ORDERED: ZOFRAN 4 MG4 MG/2 ML IV (15:51)
[2019-12-03] MEDS ORDERED: TEMAZEPAM15 MG GT (15:52)
[2019-12-03] MEDS ORDERED: POLYETHYLENE GL17 GM GT (15:52)
[2019-12-03 16:00] VITALS: BP 96/60
--- NOTE | 2019-12-03 16:02 | NUR ---
NURSE NOTES: RN CONTACTED SNF ([facility]) AND SPOKE TO SAGAR AND GAVE REPORT OF PATIENT. RN MADE MIELY AWARE OF D/C ANTIBIOTICS AND CXR RESULTS. PATIENT'S IV D/C, G-TUBE, AND FC PRESENT UPON DISCHARGE, NO BELONGINGS PRESENT. VS STABLE. PATIENT WAS DISCHARGED WITH AMBULANCE PERSONNEL IN STABLE CONDITIONS
--- NOTE | 2019-12-03 16:30 | NUR ---
*-* INSURANCE *-* UPDATED CLINICALS DISCHARGE INSTRUCTIONS FAXED D/C GRANT IN THE [facility], [facility] F: [phone] Pending Auth# [id number] Fax clinicals: [phone] & [phone]
--- NOTE | 2019-12-04 15:40 | NUR ---
*-* NO DISCHARGE SUMMARY IN THE SYSTEM UNABLE TO SEND TO [facility] *-*
--- NOTE | 2019-12-05 11:00 | Discharge Summary ---
Discharge Summary Discharge Summary _ DATE OF ADMISSION: 11/28/2019 DATE OF DISCHARGE: 12/03/2019 DISCHARGED BY: Dr. Lui REASON FOR ADMISSION: 64 years old male, resident of residential facility, with past medical history of hypertension, diabetes mellitus, seizure disorder, hyperlipidemia, atrial fibrillation, CVA, depression, anxiety, was sent for evaluation due to shortness of breath and congestion. Patient was tested positive for COVID-19 in September. Patient was prior treated for pneumonia with ceftriaxone. Most recent COVID testing was negative. Patient presented with increased shortness of breath and secretions. At the facility patient required constant suctioning secondary to secretions and symptoms were getting worse. Patient had d with respiratory distress and increased work of breathing. No reported fever or chills. No reported nausea and vomiting. Patient was hypoxic , saturating 85 to 90% on room air. Upon evaluation in ED laboratory work-up revealed no leukocytosis, hemoglobin 10.9, hematocrit 34, platelet count 378. 21.6. Sodium 147, chloride 110. CO2 33. BUN 31, creatinine 0.9. Glucose 104. Stable LFT. Troponin - 0.009. EKG revealed sinus rhythm no acute ischemic changes. Albumin 2.4. D-dimer 0.98. Chest x-ray demonstrated left basilar infiltrate. Septic work-up initiated , patient was also swabbed for COVID-19 . Patient placed on supplemental oxygen and subsequently admitted for further management. CONSULTANTS: pulmonary Dr. Manuel GONZALEZ specialist Dr. Srinivasan [facility]RSE: Patient initially was kept in isolation. Patient was provided with IV fluids and empiric antibiotic. DVT prophylaxis provided. Blood culture came back negative. SARS COV2 by PCR on 11/27 and 11/28 s not detected. Supplemental oxygen provided and titrated to keep pulse oximetry above 90%. Pulmonary toilet provided. Strict aspiration precaution maintained. Patient remained afebrile, no leukocytosis. Patient completed antibiotic while in the hospital. Seizure precaution maintained. No evidence of seizure activity while in the hospital. SNF medication continued. Patient clinically stabilized and was ready for discharge back to residential facility for continuation of care FINAL DIAGNOSES: Sepsis Pneumonia Recent COVID-19 infection , diagnosed in September Seizure disorder Hypertension Diabetes mellitus type 2 Atrial fibrillation Hyperlipidemia Major depression disorder/anxiety Dysphagia feeding by G-tube Vascular dementia with behavioral disturbances History of CVA cerebral hemorrhage DISCHARGE MEDICATIONS: See Medication Reconciliation list. DISCHARGE INSTRUCTIONS: Patient was discharged to the residential facility. Follow up with medical doctor at the facility. I have been assigned to dictate discharge summary for this account. I was not involved in the patient's management. Elizabeth Aldridge NP Dec 05, 2019 11:00
--- NOTE | 2019-12-05 14:46 | NUR ---
*-* INSURANCE *-* DISCHARGE SUMMARY HAS BEEN FAXED [facility] F: [phone] Pending Auth# [id number] Fax clinicals: [phone] & [phone]
== END 2019-12-03 16:08 | DRG 720 ==
LOC: EDBD 01:11 → EMR 01:30 → 2E 02:20 → EDBEDREQ 03:10 → 4E 12-01 19:40
DX: A41.9 Sepsis, unspecified organism (principal); J18.9 Pneumonia, unspecified organism; I48.91 Unspecified atrial fibrillation; Y95 Nosocomial condition; Z43.1 Encounter for attention to gastrostomy; Z86.19 Personal history of other infectious and parasitic diseases; F01.51 Vascular dementia, unspecified severity, with behavioral disturbance; I31.3 Pericardial effusion (noninflammatory); E11.9 Type 2 diabetes mellitus without complications; F03.90 Unspecified dementia, unspecified severity, without behavioral disturbance, psychotic disturbance, mood disturbance, and anxiety; I10 Essential (primary) hypertension; D64.9 Anemia, unspecified; Z86.73 Personal history of transient ischemic attack (TIA), and cerebral infarction without residual deficits; G40.909 Epilepsy, unspecified, not intractable, without status epilepticus; E78.5 Hyperlipidemia, unspecified; F41.8 Other specified anxiety disorders; R13.10 Dysphagia, unspecified; F32.9 Major depressive disorder, single episode, unspecified; F41.9 Anxiety disorder, unspecified
CPT/HCPCS: 36415; 71045; 80048; 80053; 80202; 81003; 82270; 82378; 82550; 82553; 82607; 82728; 82746; 83540; 83550; 83605; 83615; 83735; 84100; 84484; 85007; 85025; 85044; 85060; 85379; 85610; 85651; 85730; 86140; 87040; 87081; 93005; 94640; 96361; 96365; 96368; 97803; 99291; J7030; J7620

== ENCOUNTER 2020-01-16 08:05 | Inpatient (IN) | payer MEDICAID ==
[~2020-01-16] VITALS: Ht 165.1 cm; Wt 62.6 kg
[~2020-01-16 08:05] MED LIST changes: +ACETAMINOPHEN325 M1 GT; +AMIODARONE HCL400 M1 GT; +AMIODARONE50 MG/1 ML GT; +ATORVASTATIN CA40 MG ORAL; +BISACODYL5 MG RECTAL; +CARVEDILOL6.25 MG GT; +CEFTRIAXON2 GM/50 ML IV; +DIPHENHYDRAMINE25 M1 GT; +DUONEB 0.5-3(2.53 ML HHN; +ELIQUIS2.5 MG GT; +FAMOTIDINE20 MG GT; +LEVETIRACETAM500 MG GT; +LOPERAMIDE2 MG GT; +MILK OF MA400 MG/51 GT; +MULTIVITAMINS1 EAC2 GT; +NITRO0.4 SL; +POLYETHYLENE GL17 GM GT; +TEMAZEPAM15 MG GT; +TYLENOL325 M1 GT; +ZOFRAN 4 MG4 MG/2 ML IV
--- NOTE | 2020-01-16 08:20 | NUR ---
ED Nurse Note: Patient was BIBA from [facility] with possible GT aspiration and SOB. Patient presented confused, agitated, AAO x1, VSS at this time. Per facility staff, they were not able to flash G tube since this morning. Patient has G tube on left upper quadrant of abdomen. Patient was connected to monitor, ER MD at bed side.
--- NOTE | 2020-01-16 08:21 | NUR ---
ED Nurse Note: Per research subject, patient was having SOB during transportation. Patient presented with O2 sat 100% on 2L via NC.
--- NOTE | 2020-01-16 08:25 | NUR ---
ED Nurse Note: IV line was established on right AC 20ga, blood collected sent to lab.
[2020-01-16 08:35] VITALS: BP 135/93
[2020-01-16] MEDS ORDERED: Omnipaque-300 100ml vial INJ PRN (08:45)
--- NOTE | 2020-01-16 08:48 | Emergency Room Report ---
History of Present Illness General Chief Complaint: General Complaint Source: Patient, EMS Present Illness HPI Patient is a 64-year-old male brought in by [facility] after malfunctioning gastrostomy tube. Patient was noted to be G-tube dependent. He was sent in by Dr. Lui patient had been noted to be somewhat agitated. History is limited by poor historian. Previous coronavirus testing positive several months ago. Allergies: Coded Allergies: No Known Allergies (Unverified , 03/02/14) COVID-19 Screening Contact w/high risk pt: Yes Recent Travel to affected area: No Experienced COVID-19 symptoms?: Yes COVID-19 symptoms experienced: Shortness of Breath, Cough, Flu-Like Symptoms Nursing Documentation-[facility] Past Medical History: No History, Except For Hx Cardiac Problems: Yes - HLD; AFIB Hx Hypertension: Yes Hx Diabetes: Yes Hx Cancer: No Hx Gastrointestinal Problems: No Hx Neurological Problems: No Hx Seizures: Yes - EPILEPSY Physical Exam Vital Signs Date Time Temp Pulse Resp B/P (MAP) Pulse Ox O2 Delivery O2 Flow Rate FiO2 01/16/20 08:07 98.8 75 18 135/93 (107) 99 Room Air General Appearance: no apparent distress, alert, GCS 15, non-toxic, Chronically Ill ENT: dry mucus membranes Neck: full range of motion Respiratory: lungs clear, normal breath sounds Cardiovascular #1: normal peripheral pulses, regular rate, rhythm Gastrointestinal: other - G-tube stoma without erythema, palpable G-tube in the abdominal wall. Musculoskeletal: normal inspection Neurologic: alert, motor strength/tone normal, aphasia Psychiatric: anxious Skin: no rash Medical Decision Making Diagnostic Impression: Primary Impression: Feeding by G-tube Additional Impression: G-tube site cellulitis ER Course Patient presented for G-tube malfunction. Differential diagnosis include but was not limited to obstruction, malpositioned G-tube, infection among others. Because of complexity of patient's case laboratory tests and imaging studies were ordered. Patient was noted to be somewhat agitated and attempting to bite staff as well as to grab staff and injure them with his hands. Patient was placed in soft restraints. CT imaging was ordered due to patient's G-tube malfunctioning. It appears that this may be in the subcutaneous tissue.CT imaging read by radiology confirms subcutaneous G-tube placement. G-tube was removed. There is noted to be some purulent material near the G-tube stoma. Patient will be admitted for further management and probable replacement of G- tube with endoscopy. Patient's coronavirus testing was negative. Patient was given IV antibiotics. Dr. Roberto Carlos Lui contacted for inpatient management. Dr. Holley was contacted for GI consult. Dr. Mcmillan was contacted for surgical consult due to abdominal wall infection and possible abscess Labs Test 01/16/20 09:09 White Blood Count 8.5 K/UL (4.8-10.8) Red Blood Count 4.77 M/UL (4.70-6.10) Hemoglobin 15.0 G/DL (14.2-18.0) Hematocrit 46.2 % (42.0-52.0) Mean Corpuscular Volume 97 FL (80-99) Mean Corpuscular Hemoglobin 31.4 PG (27.0-31.0) Mean Corpuscular Hemoglobin Concent 32.4 G/DL (32.0-36.0) Red Cell Distribution Width 13.4 % (11.6-14.8) Platelet Count 209 K/UL (150-450) Mean Platelet Volume 10.4 FL (6.5-10.1) Neutrophils (%) (Auto) 70.8 % (45.0-75.0) Lymphocytes (%) (Auto) 19.8 % (20.0-45.0) Monocytes (%) (Auto) 8.0 % (1.0-10.0) Eosinophils (%) (Auto) 0.9 % (0.0-3.0) Basophils (%) (Auto) 0.6 % (0.0-2.0) Prothrombin Time 11.9 SEC (9.30-11.50) Prothromb Time International Ratio 1.1 (0.9-1.1) Activated Partial Thromboplast Time 25 SEC (23-33) Sodium Level 152 MMOL/L (136-145) Potassium Level 4.3 MMOL/L (3.5-5.1) Chloride Level 113 MMOL/L (98-107) Carbon Dioxide Level 34 MMOL/L (21-32) Anion Gap 5 mmol/L (5-15) Blood Urea Nitrogen 39 mg/dL (7-18) Creatinine 1.1 MG/DL (0.55-1.30) Estimat Glomerular Filtration Rate > 60 mL/min (>60) Glucose Level 114 MG/DL (74-106) Calcium Level 9.7 MG/DL (8.5-10.1) Total Bilirubin 0.3 MG/DL (0.2-1.0) Aspartate Amino Transf (AST/SGOT) 37 U/L (15-37) Alanine Aminotransferase (ALT/SGPT) 60 U/L (12-78) Alkaline Phosphatase 107 U/L (46-116) Total Protein 7.3 G/DL (6.4-8.2) Albumin 3.0 G/DL (3.4-5.0) Globulin 4.3 g/dL Albumin/Globulin Ratio 0.7 (1.0-2.7) Last Vital Signs Date Time Temp Pulse Resp B/P (MAP) Pulse Ox O2 Delivery O2 Flow Rate FiO2 01/16/20 08:35 98.8 60 18 135/93 99 Room Air Status: unchanged Disposition: ADMITTED INPATIENT Condition: Stable New Bonilla MD Jan 16, 2020 08:48
[2020-01-16 09:25] LABS: ANION GAP 5 mmol/L (5-15); BLOOD UREA NITROGEN 39 mg/dL (7-18); CALCIUM 9.7 MG/DL (8.5-10.1); CARBON DIOXIDE 34 MMOL/L (21-32); CHLORIDE 113 MMOL/L (98-107); CREATININE 1.1 MG/DL (0.55-1.30); POTASSIUM 4.3 MMOL/L (3.5-5.1); SODIUM 152 MMOL/L (136-145)
[2020-01-16 09:29] LABS: INR 1.1 (0.9-1.1)
[2020-01-16 09:35] LABS: BASOPHILS % (AUTO) 0.6 % (0.0-2.0); EOSINOPHILS % (AUTO) 0.9 % (0.0-3.0); HEMATOCRIT 46.2 % (42.0-52.0); LYMPHOCYTES % (AUTO) 19.8 % (20.0-45.0); MEAN CORPUSCULAR VOLUME 97 FL (80-99); NEUTROPHILS % (AUTO) 70.8 % (45.0-75.0); PLATELET COUNT 209 K/UL (150-450); RED BLOOD COUNT 4.77 M/UL (4.70-6.10); RED CELL DISTRIBUTION WIDTH 13.4 % (11.6-14.8); WHITE BLOOD COUNT 8.5 K/UL (4.8-10.8)
[2020-01-16 09:41] LABS: ALANINE AMINOTRANSFERASE 60 U/L (12-78); ALBUMIN/GLOBULIN RATIO 0.7 (1.0-2.7); ALKALINE PHOSPHATASE 107 U/L (46-116); BILIRUBIN,TOTAL 0.3 MG/DL (0.2-1.0)
--- NOTE | 2020-01-16 09:48 | NUR ---
ED Nurse Note: Patient was taken to CT via jarenrjuan antonio
[2020-01-16 09:49] LABS: ASPARTATE AMINO TRANSFERASE 37 U/L (15-37)
--- NOTE | 2020-01-16 10:00 | NUR ---
ED Nurse Note: patient is back from CT
[2020-01-16] MEDS ORDERED: MORPHINE IJ (10:09)
[2020-01-16] MEDS ORDERED: ATIVAN2 MG ORAL (10:09)
[2020-01-16 10:18] VITALS: BP 145/92
--- NOTE | 2020-01-16 10:31 | Diagnostic Imaging Report ---
Indication: Reason For Exam: PAIN Technique: CT scan of the abdomen performed without intravenous contrast material. There is contrast material in the colon however. Axial, coronal, and sagittal images were generated. Dose: Total Dose Length Product - DLP [address] Dose Index - CTDIvol(s) 3.1 mGy. Comparison: 10/05/2014. Findings: There is a small pericardial effusion. The liver is normal. There is contrast material in the gallbladder. The spleen is grossly unremarkable without contrast. The pancreas is normal. Adrenal glands are unremarkable. The kidneys are normal. A gastrostomy tube is in the subcutaneous tissue of the anterior abdominal wall. It is not in the stomach. There is calcified and the aorta. Retroperitoneum is free of adenopathy. There is a large amount of fecal material is noted in the colon. The rectosigmoid colon is mildly distended but the remaining colon is normal in caliber. No free fluid in the abdomen. The bladder is collapsed. There is scoliosis of the lumbar spine. Previous compression fracture of L1 is noted. Impression: Gastrostomy tube in the subcutaneous tissues of the anterior abdominal. Pericardial effusion. Large amount of fecal material in the colon. This is consistent with constipation. Contrast in the gallbladder, likely representing vicarious excretion of contrast from previous study. Atherosclerotic change. Old compression fracture of L1. Critical evaluation indication: Report called to Dr. Bonilla in the emergency room at 01/16/2020 at 1024
--- NOTE | 2020-01-16 10:32 | NUR ---
ED Nurse Note: After CT was performed, G tube was removede by DR. Bonilla
[2020-01-16] MEDS ORDERED: Piperacillin/Tazobactam 3.375 GM in NS 110 ML IVPB ONE (10:45)
--- NOTE | 2020-01-16 12:27 | NUR ---
ED Nurse Note: Dr. Mcmillan at bedside.
--- NOTE | 2020-01-16 13:00 | NUR ---
NURSE NOTES: Pt brought up by LEONARDO Encinas rn. Pt agitated, tries to hit, bite, and scratch. yellow gown and tele monitor placed. Pt non verbal, attempting to use hands to communicate. Bed low and locked in zone 2. Call light within reach. Suction and seizure precautions placed on side rails. Rails upx3. white board updated. Order placed for sitter
[2020-01-16 13:03] VITALS: BP 150/98
--- NOTE | 2020-01-16 13:07 | NUR ---
NURSE NOTES: Report received from Ce FARMER. Pt to arrive soon.
[2020-01-16] MEDS ORDERED: D5 1/2NS 1,000 ML IV SCH (13:30)
--- NOTE | 2020-01-16 13:35 | NUR ---
ED Nurse Note: Patient was transfered to TELE unit due to malfunctioning G tube, and celullitis. Patient was transfered to the unit via gurney by ACLS protocol, with all belongings. Patient confused, VSS at this time, skin is intact. Report was given to DARIAN Farmer
--- NOTE | 2020-01-16 13:49 | Consultation ---
History of Present Illness General Date patient seen: Jan 16, 2020 Chief Complaint: General Complaint Present Illness HPI 64 y/o M with hx of HLD, Afib, HTN, MDD/anxiety, seizure disorder, COVID19 ( September 2019), dysphagia s/p GT, [facility] resident presented to ED on 01/15 with agitation and GT malfunction. In ED was noted to be some purulent material near the G-tube stoma. Of note, patient admitted here 11/27-12/02 for worsening SOB. Was treated for pneumonia. Allergies: Coded Allergies: No Known Allergies (Unverified , 03/02/14) Medication History Scheduled Acetaminophen (Tylenol), 325 MG GT Q4HR, (Reported) Amiodarone Hcl* (Amiodarone Hcl*), 200 MG GT EVERY 12 HOURS, (Reported) Ascorbic Acid* (Ascorbic Acid*), 500 MG GT DAILY, (Reported) Bisacodyl* (Dulcolax*), 10 MG RECTAL DAILY, (Reported) Carvedilol* (Carvedilol*), 6.25 MG GT EVERY 12 HOURS, (Reported) Famotidine* (Pepcid 20mg tablet*), 20 MG GT TWICE A DAY, (Reported) Levetiracetam (Keppra), 5 ML GT TWICE A DAY, (Reported) Magnesium Hydroxide* (Milk Of Magnesia*), 30 ML GT QHS, (Reported) Multivitamins* (Multivitamins*), 1 TAB GT DAILY, (Reported) Zinc Sulfate (Zinc Sulfate*), 220 MG GT DAILY, (Reported) [prostat], 30 ML GT DAILY, (Reported) Scheduled PRN Acetaminophen* (Acetaminophen 325MG Tablet*), 650 MG GT Q4H PRN for Temp >100.5, (Reported) Ipratropium/Albuterol Sulfate (DuoNeb 0.5-3(2.5)mg/3ml), 3 ML HHN Q6HR PRN for Shortness of Breath, (Reported) Nitroglycerin 0.4MG table* (Nitroglycerin*), 0.4 MG SL .Q5MIN X 3 DOSES PRN for CHEST PAIN, (Reported) Discontinued Medications Al Hydroxide/mg Hydroxide (Mag-Al Plus Suspension), 30 ML GT Q6HR, (Reported) Discontinued Reason: discontinued med Amiodarone Hcl (Amiodarone Hcl*), 200 MG GT Q12HR, (Reported) Discontinued Reason: Medication dose changed Apixaban (Eliquis), 2-5 MG GT BID, (Reported) Discontinued Reason: MD discontinued med Atorvastatin Calcium* (Atorvastatin Calcium*), 40 MG ORAL BEDTIME, (Reported) Discontinued Reason: MD discontinued med Carvedilol* (Carvedilol*), 6.25 MG GT EVERY 12 HOURS, (Reported) Discontinued Reason: MD discontinued med Ceftriaxone Na/Dextrose,Iso (Ceftriaxone 2 Gm Piggyback), 2 GM IV DAILY, ( Reported) Discontinued Reason: MD discontinued med Diphenhydramine Hcl* (Diphenhydramine Hcl*), 25 MG GT Q6H PRN for Itching, ( Reported) Discontinued Reason: MD discontinued med Famotidine* (Pepcid 20mg tablet*), 20 MG GT BID, (Reported) Discontinued Reason: MD discontinued med Ipratropium/Albuterol Sulfate (DuoNeb 0.5-3(2.5)mg/3ml), 3 ML HHN Q6HR PRN for Shortness of Breath, (Reported) Discontinued Reason: MD discontinued med Levetiracetam* (Levetiracetam*), 100 MG GT TWICE A DAY, (Reported) Discontinued Reason: MD discontinued med Levetiracetam* (Levetiracetam*), 100 MG GT Q12HR, (Reported) Discontinued Reason: MD discontinued med Loperamide Hcl (Loperamide), 4 MG GT Q4HR, (Reported) Discontinued Reason: MD discontinued med Lorazepam* (Ativan*), 2 MG ORAL BEDTIME, (Reported) Discontinued Reason: MD discontinued med Magnesium Hydroxide* (Milk Of Magnesia*), 30 ML GT DAILY, (Reported) Discontinued Reason: MD discontinued med Morphine Sulfate/0.9% NaCl/Pf (Morphine 2 mg/2 ml-0.9% NaCl), 2 MG IJ, (Reported ) Discontinued Reason: MD discontinued med Ondansetron* (Zofran*), 4 MG IV Q6H PRN for Nausea & Vomiting, (Reported) Discontinued Reason: MD discontinued med Polyethylene Glycol 3350* (Polyethylene Glycol 3350*), 17 GM GT DAILY PRN for Constipation, (Reported) Discontinued Reason: MD discontinued med Temazepam (Temazepam*), 15 MG GT HS PRN for Insomnia, (Reported) Discontinued Reason: discontinued med Patient History Healthcare decision maker Resuscitation status Advanced Directive on File Patient History Narrative Pmhx: as above Shx: reviewed Fhx: non contributory Physical Exam Last 24 Hour Vital Signs Date Time Temp Pulse Resp B/P (MAP) Pulse Ox O2 Delivery O2 Flow Rate FiO2 01/16/20 13:03 98.8 68 18 150/98 98 Room Air 01/16/20 10:18 98.8 71 18 145/92 96 Room Air 01/16/20 08:35 98.8 60 18 135/93 99 Room Air 01/16/20 08:35 75 18 Room Air 01/16/20 08:07 98.8 75 18 135/93 (107) 99 Room Air Laboratory Tests Test 01/16/20 09:09 White Blood Count 8.5 K/UL (4.8-10.8) Red Blood Count 4.77 M/UL (4.70-6.10) Hemoglobin 15.0 G/DL (14.2-18.0) Hematocrit 46.2 % (42.0-52.0) Mean Corpuscular Volume 97 FL (80-99) Mean Corpuscular Hemoglobin 31.4 PG (27.0-31.0) H Mean Corpuscular Hemoglobin Concent 32.4 G/DL (32.0-36.0) Red Cell Distribution Width 13.4 % (11.6-14.8) Platelet Count 209 K/UL (150-450) Mean Platelet Volume 10.4 FL (6.5-10.1) H Neutrophils (%) (Auto) 70.8 % (45.0-75.0) Lymphocytes (%) (Auto) 19.8 % (20.0-45.0) L Monocytes (%) (Auto) 8.0 % (1.0-10.0) Eosinophils (%) (Auto) 0.9 % (0.0-3.0) Basophils (%) (Auto) 0.6 % (0.0-2.0) Prothrombin Time 11.9 SEC (9.30-11.50) H Prothromb Time International Ratio 1.1 (0.9-1.1) Activated Partial Thromboplast Time 25 SEC (23-33) Sodium Level 152 MMOL/L (136-145) H Potassium Level 4.3 MMOL/L (3.5-5.1) Chloride Level 113 MMOL/L (98-107) H Carbon Dioxide Level 34 MMOL/L (21-32) H Anion Gap 5 mmol/L (5-15) Blood Urea Nitrogen 39 mg/dL (7-18) H Creatinine 1.1 MG/DL (0.55-1.30) Estimat Glomerular Filtration Rate > 60 mL/min (>60) Glucose Level 114 MG/DL (74-106) H Calcium Level 9.7 MG/DL (8.5-10.1) Total Bilirubin 0.3 MG/DL (0.2-1.0) Aspartate Amino Transf (AST/SGOT) 37 U/L (15-37) Alanine Aminotransferase (ALT/SGPT) 60 U/L (12-78) Alkaline Phosphatase 107 U/L (46-116) Total Protein 7.3 G/DL (6.4-8.2) Albumin 3.0 G/DL (3.4-5.0) L Globulin 4.3 g/dL Albumin/Globulin Ratio 0.7 (1.0-2.7) L Microbiology Date/Time Source Procedure Growth Status 01/16/20 11:58 Nasopharynx SARS-CoV-2 RdRp Gene Assay - Final Complete Height (Feet): 5 Height (Inches): 7.00 Weight (Pounds): 110 Medications Current Medications Medications (Trade) Dose Ordered Sig/Kinjal Route PRN Reason Start Time Stop Time Status Last Admin Dose Admin Iohexol (OMNIPAQUE-300 100ml) 100 ml NOW PRN INJ Radiology Procedure 01/16/20 08:45 01/18/20 08:34 Assessment/Plan Assessment/Plan: Abx: Zosyn x1 01/15 Assessment: Afebrile No leukocytosis GT malfunction- mild cellulitis -CT abd/p: Gastrostomy tube in the subcutaneous tissues of the anterior abdominal. Pericardial effusion. Large amount of fecal material in the colon. This is consistent with constipation. Contrast in the gallbladder, likely representing vicarious excretion of contrast from previous study. Atherosclerotic change. Old compression fracture of L1. hx of COVID19 (September 2019) -01/15 rapid COVID PCR neg Afib HLD seizure disorder MDD/anxiety HTN Dm2 dysphagia s/p GT DC resident ([facility]) Plan: -Start Ancef -f/u cx -Monitor CBC/CMP, temperatures -aspiration precautions -GT care -Sx f/u Thank you for this consultation. Will continue to follow along with you. Discussed with DARIAN. Guerline Srinivasan M.D. Jan 16, 2020 13:49
--- NOTE | 2020-01-16 13:56 | Consultation ---
History of Present Illness General Date patient seen: Jan 16, 2020 Reason for Hospitalization: General Complaint Present Illness HPI 64 year old male with multiple medical comorbidities presented with malfunctioning G tube. pus noted draining. CT with malpositioned tube. surgery called to evaluate and assist with care. patient unable to provide history or participate in exam Allergies: Coded Allergies: No Known Allergies (Unverified , 03/02/14) COVID-19 Screening Contact w/high risk pt: Yes Recent Travel to affected area: No Experienced COVID-19 symptoms?: Yes COVID-19 symptoms experienced: Shortness of Breath, Cough, Flu-Like Symptoms Medication History Scheduled Acetaminophen (Tylenol), 325 MG GT Q4HR, (Reported) Amiodarone Hcl* (Amiodarone Hcl*), 200 MG GT EVERY 12 HOURS, (Reported) Ascorbic Acid* (Ascorbic Acid*), 500 MG GT DAILY, (Reported) Bisacodyl* (Dulcolax*), 10 MG RECTAL DAILY, (Reported) Carvedilol* (Carvedilol*), 6.25 MG GT EVERY 12 HOURS, (Reported) Famotidine* (Pepcid 20mg tablet*), 20 MG GT TWICE A DAY, (Reported) Levetiracetam (Keppra), 5 ML GT TWICE A DAY, (Reported) Magnesium Hydroxide* (Milk Of Magnesia*), 30 ML GT QHS, (Reported) Multivitamins* (Multivitamins*), 1 TAB GT DAILY, (Reported) Zinc Sulfate (Zinc Sulfate*), 220 MG GT DAILY, (Reported) [prostat], 30 ML GT DAILY, (Reported) Scheduled PRN Acetaminophen* (Acetaminophen 325MG Tablet*), 650 MG GT Q4H PRN for Temp >100.5, (Reported) Ipratropium/Albuterol Sulfate (DuoNeb 0.5-3(2.5)mg/3ml), 3 ML HHN Q6HR PRN for Shortness of Breath, (Reported) Nitroglycerin 0.4MG table* (Nitroglycerin*), 0.4 MG SL .Q5MIN X 3 DOSES PRN for CHEST PAIN, (Reported) Discontinued Medications Al Hydroxide/mg Hydroxide (Mag-Al Plus Suspension), 30 ML GT Q6HR, (Reported) Discontinued Reason: discontinued med Amiodarone Hcl (Amiodarone Hcl*), 200 MG GT Q12HR, (Reported) Discontinued Reason: Medication dose changed Apixaban (Eliquis), 2-5 MG GT BID, (Reported) Discontinued Reason: MD discontinued med Atorvastatin Calcium* (Atorvastatin Calcium*), 40 MG ORAL BEDTIME, (Reported) Discontinued Reason: MD discontinued med Carvedilol* (Carvedilol*), 6.25 MG GT EVERY 12 HOURS, (Reported) Discontinued Reason: MD discontinued med Ceftriaxone Na/Dextrose,Iso (Ceftriaxone 2 Gm Piggyback), 2 GM IV DAILY, ( Reported) Discontinued Reason: MD discontinued med Diphenhydramine Hcl* (Diphenhydramine Hcl*), 25 MG GT Q6H PRN for Itching, ( Reported) Discontinued Reason: MD discontinued med Famotidine* (Pepcid 20mg tablet*), 20 MG GT BID, (Reported) Discontinued Reason: MD discontinued med Ipratropium/Albuterol Sulfate (DuoNeb 0.5-3(2.5)mg/3ml), 3 ML HHN Q6HR PRN for Shortness of Breath, (Reported) Discontinued Reason: MD discontinued med Levetiracetam* (Levetiracetam*), 100 MG GT TWICE A DAY, (Reported) Discontinued Reason: MD discontinued med Levetiracetam* (Levetiracetam*), 100 MG GT Q12HR, (Reported) Discontinued Reason: MD discontinued med Loperamide Hcl (Loperamide), 4 MG GT Q4HR, (Reported) Discontinued Reason: MD discontinued med Lorazepam* (Ativan*), 2 MG ORAL BEDTIME, (Reported) Discontinued Reason: MD discontinued med Magnesium Hydroxide* (Milk Of Magnesia*), 30 ML GT DAILY, (Reported) Discontinued Reason: MD discontinued med Morphine Sulfate/0.9% NaCl/Pf (Morphine 2 mg/2 ml-0.9% NaCl), 2 MG IJ, (Reported ) Discontinued Reason: MD discontinued med Ondansetron* (Zofran*), 4 MG IV Q6H PRN for Nausea & Vomiting, (Reported) Discontinued Reason: MD discontinued med Polyethylene Glycol 3350* (Polyethylene Glycol 3350*), 17 GM GT DAILY PRN for Constipation, (Reported) Discontinued Reason: MD discontinued med Temazepam (Temazepam*), 15 MG GT HS PRN for Insomnia, (Reported) Discontinued Reason: discontinued med Patient History Limited by: medical condition History Provided By: Medical Record, PMD Healthcare decision maker Resuscitation status Advanced Directive on File Past Medical/Surgical History Past Medical/Surgical History: (1) Suspected COVID-19 virus infection (2) Sepsis (3) Hematuria (4) Hematuria (5) G-tube site cellulitis (6) DM (diabetes mellitus) (7) Seizure disorder (8) Homelessness (9) Acute alcoholic intoxication (10) Hypertension (11) Stroke due to intracerebral hemorrhage (12) Vascular dementia with behavioral disturbance (13) Blunt head trauma (14) Feeding by G-tube Review of Systems Review of Symptoms General ROS: no weight loss or fever Psychological ROS: no depression or mood changes, no memory loss Ophthalmic ROS: no visual changes or eye irritation ENT ROS: no nasal congestion, hearing loss, dizziness Allergy and Immunology ROS: no allergic symptoms or urticaria Hematological and Lymphatic ROS: no swollen glands, unusual bleeding or bruising Endocrine ROS: no polyuria, polydipsia, weight changes, temperature intolerance Respiratory ROS: no cough, shortness of breath, or wheezing Cardiovascular ROS: no chest pain or dyspnea on exertion Gastrointestinal ROS: denies abdominal pain, bright red blood in stool. Musculoskeletal ROS: no myalgias or arthralgias Neurological ROS: no TIA or stroke symptoms Dermatological ROS: no new or changing skin lesions, rashes or pruritis Physical Exam Physical Exam General appearance: alert, no distress, appears stated age Head: Normocephalic, without obvious abnormality, atraumatic Eyes: conjunctivae/corneas clear. PERRL, EOM's intact. Fundi benign Throat: Lips, mucosa, and tongue normal. Teeth and gums normal Neck: supple, symmetrical, trachea midline, no adenopathy, thyroid: not enlarged, symmetric, no tenderness/mass/nodules, no carotid bruit and no JVD Lungs: clear to auscultation bilaterally Heart: regular rate and rhythm, S1, S2 normal, no murmur, click, rub or gallop Abdomen: soft, non-tender. Bowel sounds normal. No masses, no organomegaly g tube site with cellulitis and pus drainage. Extremities: extremities normal, atraumatic, no cyanosis or edema Pulses: 2+ and symmetric Skin: Skin color, texture, turgor normal. No rashes or lesions Neurologic: Grossly normal Last 24 Hour Vital Signs Date Time Temp Pulse Resp B/P (MAP) Pulse Ox O2 Delivery O2 Flow Rate FiO2 01/16/20 13:45 98.8 68 18 150/98 98 Room Air 01/16/20 13:03 98.8 68 18 150/98 98 Room Air 01/16/20 10:18 98.8 71 18 145/92 96 Room Air 01/16/20 08:35 98.8 60 18 135/93 99 Room Air 01/16/20 08:35 75 18 Room Air 01/16/20 08:07 98.8 75 18 135/93 (107) 99 Room Air Laboratory Tests Test 01/16/20 09:09 White Blood Count 8.5 K/UL (4.8-10.8) Red Blood Count 4.77 M/UL (4.70-6.10) Hemoglobin 15.0 G/DL (14.2-18.0) Hematocrit 46.2 % (42.0-52.0) Mean Corpuscular Volume 97 FL (80-99) Mean Corpuscular Hemoglobin 31.4 PG (27.0-31.0) H Mean Corpuscular Hemoglobin Concent 32.4 G/DL (32.0-36.0) Red Cell Distribution Width 13.4 % (11.6-14.8) Platelet Count 209 K/UL (150-450) Mean Platelet Volume 10.4 FL (6.5-10.1) H Neutrophils (%) (Auto) 70.8 % (45.0-75.0) Lymphocytes (%) (Auto) 19.8 % (20.0-45.0) L Monocytes (%) (Auto) 8.0 % (1.0-10.0) Eosinophils (%) (Auto) 0.9 % (0.0-3.0) Basophils (%) (Auto) 0.6 % (0.0-2.0) Prothrombin Time 11.9 SEC (9.30-11.50) H Prothromb Time International Ratio 1.1 (0.9-1.1) Activated Partial Thromboplast Time 25 SEC (23-33) Sodium Level 152 MMOL/L (136-145) H Potassium Level 4.3 MMOL/L (3.5-5.1) Chloride Level 113 MMOL/L (98-107) H Carbon Dioxide Level 34 MMOL/L (21-32) H Anion Gap 5 mmol/L (5-15) Blood Urea Nitrogen 39 mg/dL (7-18) H Creatinine 1.1 MG/DL (0.55-1.30) Estimat Glomerular Filtration Rate > 60 mL/min (>60) Glucose Level 114 MG/DL (74-106) H Calcium Level 9.7 MG/DL (8.5-10.1) Total Bilirubin 0.3 MG/DL (0.2-1.0) Aspartate Amino Transf (AST/SGOT) 37 U/L (15-37) Alanine Aminotransferase (ALT/SGPT) 60 U/L (12-78) Alkaline Phosphatase 107 U/L (46-116) Total Protein 7.3 G/DL (6.4-8.2) Albumin 3.0 G/DL (3.4-5.0) L Globulin 4.3 g/dL Albumin/Globulin Ratio 0.7 (1.0-2.7) L Microbiology Date/Time Source Procedure Growth Status 01/16/20 11:58 Nasopharynx SARS-CoV-2 RdRp Gene Assay - Final Complete Height (Feet): 5 Height (Inches): 7.00 Weight (Pounds): 110 Medications Current Medications Medications (Trade) Dose Ordered Sig/Kinjal Route PRN Reason Start Time Stop Time Status Last Admin Dose Admin Dextrose/Sodium Chloride 1,000 ml @ 60 mls/hr [id number] IV 01/16/20 13:30 02/15/20 13:29 Iohexol (OMNIPAQUE-300 100ml) 100 ml NOW PRN INJ Radiology Procedure 01/16/20 08:45 01/18/20 08:34 Assessment/Plan Problem List: (1) DM (diabetes mellitus) ICD Codes: E11.9 - Type 2 diabetes mellitus without complications SNOMED: 40170249 (2) Hematuria ICD Codes: R31.9 - Hematuria, unspecified SNOMED: 64860714 (3) Hematuria ICD Codes: R31.9 - Hematuria, unspecified SNOMED: 05055490 (4) Sepsis ICD Codes: A41.9 - Sepsis, unspecified organism SNOMED: 15771783 (5) G-tube site cellulitis Assessment & Plan: g tube site with cellulitis pus draining CT with tube in subq tissue tube removed wound evaluated. pus drained. washed and dressings applied discussed with GI plan for new g tube placement local wound care will be provided abx as per ID will monitor for improvement thank you ICD Codes: K94.22 - Gastrostomy infection; L03.319 - Cellulitis of trunk, unspecified SNOMED: 322361386, 662468374 (6) Suspected COVID-19 virus infection ICD Codes: Z20.828 - Contact with and (suspected) exposure to other viral communicable diseases SNOMED: 109174968 (7) Seizure disorder ICD Codes: G40.909 - Epilepsy, unspecified, not intractable,without status epilepticus SNOMED: 594340030 (8) Homelessness ICD Codes: Z59.0 - Homelessness SNOMED: 65088503 (9) Acute alcoholic intoxication ICD Codes: F10.129 - Alcohol abuse with intoxication, unspecified SNOMED: 46859578 (10) Hypertension ICD Codes: I10 - Essential (primary) hypertension SNOMED: 03734710 (11) Stroke due to intracerebral hemorrhage ICD Codes: I61.9 - Nontraumatic intracerebral hemorrhage, unspecified SNOMED: 672786075 (12) Vascular dementia with behavioral disturbance ICD Codes: F01.51 - Vascular dementia with behavioral disturbance SNOMED: 497052522982458 (13) Blunt head trauma ICD Codes: S09.8XXA - Other specified injuries of head, initial encounter SNOMED: 14483020 (14) Feeding by G-tube ICD Codes: Z93.1 - Gastrostomy status SNOMED: 203208469, 943556604, 002977958 Yon Mcmillan Jan 16, 2020 13:56
[2020-01-16] MEDS ORDERED: MILK OF MA400 MG/51 GT (14:25)
[2020-01-16] MEDS ORDERED: FAMOTIDINE20 MG GT (14:25)
[2020-01-16] MEDS ORDERED: KEPPRA LIQ100 MG/1 M GT (14:25)
--- NOTE | 2020-01-16 14:34 | General Progress Note ---
Assessment/Plan Problem List: (1) DM (diabetes mellitus) ICD Codes: E11.9 - Type 2 diabetes mellitus without complications SNOMED: 73748352 (2) Feeding by G-tube ICD Codes: Z93.1 - Gastrostomy status SNOMED: 542412886, 465001016, 885817932 (3) half-way resident ICD Codes: Z59.3 - Problems related to living in residential institution SNOMED: 338800103 (4) Stroke due to intracerebral hemorrhage ICD Codes: I61.9 - Nontraumatic intracerebral hemorrhage, unspecified SNOMED: 694881875 (5) Hypertension ICD Codes: I10 - Essential (primary) hypertension SNOMED: 12423442 Assessment/Plan: GT not in place abx plan PEG tomorrow Subjective ROS Limited/Unobtainable: No Allergies: Coded Allergies: No Known Allergies (Unverified , 03/02/14) Objective Last 24 Hour Vital Signs Date Time Temp Pulse Resp B/P (MAP) Pulse Ox O2 Delivery O2 Flow Rate FiO2 01/16/20 13:45 98.8 68 18 150/98 98 Room Air 01/16/20 13:03 98.8 68 18 150/98 98 Room Air 01/16/20 10:18 98.8 71 18 145/92 96 Room Air 01/16/20 08:35 98.8 60 18 135/93 99 Room Air 01/16/20 08:35 75 18 Room Air 01/16/20 08:07 98.8 75 18 135/93 (107) 99 Room Air Laboratory Tests 01/16/20 09:09: White Blood Count 8.5, Red Blood Count 4.77, Hemoglobin 15.0, Hematocrit 46.2, Mean Corpuscular Volume 97, Mean Corpuscular Hemoglobin 31.4H, Mean Corpuscular Hemoglobin Concent 32.4, Red Cell Distribution Width 13.4, Platelet Count 209, Mean Platelet Volume 10.4H, Neutrophils (%) (Auto) 70.8, Lymphocytes (%) (Auto) 19.8L, Monocytes (%) (Auto) 8.0, Eosinophils (%) (Auto) 0.9, Basophils (%) (Auto ) 0.6, Prothrombin Time 11.9H, Prothromb Time International Ratio 1.1, Activated Partial Thromboplast Time 25, Sodium Level 152H, Potassium Level 4.3, Chloride Level 113H, Carbon Dioxide Level 34H, Anion Gap 5, Blood Urea Nitrogen 39H, Creatinine 1.1, Estimat Glomerular Filtration Rate > 60, Glucose Level 114H , Calcium Level 9.7, Total Bilirubin 0.3, Aspartate Amino Transf (AST/SGOT) 37, Alanine Aminotransferase (ALT/SGPT) 60, Alkaline Phosphatase 107, Total Protein 7.3, Albumin 3.0L, Globulin 4.3, Albumin/Globulin Ratio 0.7L Height (Feet): 5 Height (Inches): 7.00 Weight (Pounds): 110 General Appearance: lethargic EENT: normal ENT inspection Neck: supple Cardiovascular: normal rate Respiratory/Chest: decreased breath sounds Abdomen: normal bowel sounds, non tender, soft Extremities: non-tender Scooter Holley MD Jan 16, 2020 14:34
[2020-01-16] MEDS ORDERED: ZINC SULFATE220 M1 GT (14:39)
[2020-01-16] MEDS ORDERED: prostat GT (14:39)
[2020-01-16] MEDS ORDERED: ASCORBIC ACID500 MG GT (14:39)
--- NOTE | 2020-01-16 14:45 | History and Physical Report ---
DATE OF ADMISSION: 01/16/2020 DATE AND TIME SEEN: 01/16/2020 at 1 p.m. CONSULTANTS: 1. Howard Irvin MD. 2. Scooter Holley MD. 3. Leah Colmenares MD. 4. Yon Mcmillan MD. CHIEF COMPLAINT: G-tube site cellulitis. BRIEF HISTORY: This is a 64-year-old male from [facility], presented with the G-tube site cellulitis, came to [place], diagnosed with the above, admitted to [facility]. Currently confused in bed, not talking much. REVIEW OF SYSTEMS: Unavailable. PAST MEDICAL HISTORY: CVA, hypertension, seizure, dementia. PAST SURGICAL HISTORY: G-tube. ALLERGIES: Denies. MEDICATIONS: Include Zosyn, IV fluids. SOCIAL HISTORY: Unable to obtain secondary to the patient's confusion. OBJECTIVE: GENERAL: Confused in bed, nonverbal. VITAL SIGNS: Temperature is 98 degrees, pulse 68, respirations 18, blood pressure 150/98. CARDIOVASCULAR: No murmurs. LUNGS: Distant and clear. ABDOMEN: Bowel sounds positive. Nontender. Nondistended. EXTREMITIES: No cyanosis or edema. NEUROLOGIC: The patient moves all extremities, slightly weak. LABORATORY DATA: Labs at this time show CBC is normal. BMP shows sodium 152, chloride 113, CO2 34, BUN 39. Glucose 114. INR is 1.1. ASSESSMENT: 1. Abdominal abscess. 2. G-tube site cellulitis. 3. Hypernatremia. 4. Altered mental status. 5. CVA. 6. Dementia. 7. Hypertension. 8. Seizure. PLAN: 1. Resume home medications. 2. IV fluids. 3. Blood pressure, blood sugar, and seizure control. 4. Dietary followup. 5. CBC and BMP in morning. 6. Cardiology and nephrology evaluation. Roberto Carlos Lui D.O. DR: DANE JOB#: [id number] CC:
--- NOTE | 2020-01-16 15:15 | Consultation ---
Consult Note Consult Note I am asked to evaluate the patient at the request of Dr. Roberto Carlos Lui, for fluid and electrolyte management Patient presented for G-tube malfunction. Patient is a 64-year-old male brought in by [facility] after malfunctioning gastrostomy tube. Patient was noted to be G-tube dependent. He was sent in by Dr. Lui patient had been noted to be somewhat agitated. History is limited by poor historian. Previous coronavirus testing positive several months ago. Allergies: No Known Allergies (Unverified , 03/02/14) COVID-19 Screening Contact w/high risk pt: Yes Recent Travel to affected area: No Experienced COVID-19 symptoms?: Yes COVID-19 symptoms experienced: Shortness of Breath, Cough, Flu-Like Symptoms Past Medical History: No History, Except For Hx Cardiac Problems: Yes - HLD; AFIB Hx Hypertension: Yes Hx Diabetes: Yes Hx Seizures: Yes - EPILEPSY PHYSICAL EXAMINATION: VITAL SIGNS: Blood pressure of 120/95, pulse of 80, respirations 18, and temperature is 100. HEAD AND NECK: No JVD. LUNGS: Clear. CARDIOVASCULAR: Shows irregular S1 and S2 with no gallop or rub. ABDOMEN: Soft. The G-tube has been removed and site is covered. EXTREMITIES: No pitting edema. LABORATORY AND DIAGNOSTIC DATA: His labs show white count of 8.2, hemoglobin 14.5, hematocrit of 44, platelet count of 200,000. Sodium 148, potassium 3.4, BUN of 34, creatinine 1.1, glucose of 114. Troponin is negative. . Assessment/Plan Dehydration leading to hyper-natremia GT tube malfunction and cellulitis on GT site Previous CVA due to intracerebral hemorrhage Vascular dementia Seizure disorder Hypertension History of compression fracture of thoracic vertebra Schizophrenia History of atrial fibrillation D5W IV hydration Monitor renal parameters and electrolytes Per consultants Continue antiseizure medication Per orders Patient had 2 previous admissions and 8 emergency room visits previously here at [facility]. I spent an additional 36 minutes on review of medical records including prior hospital records,consult notes, progress notes, procedures ,imaging labs, hemodynamics, and other clinical documentation. Over 35 min Darron Salas MD Jan 16, 2020 15:15
[2020-01-16 15:51] VITALS: BP 129/85
--- NOTE | 2020-01-16 19:43 | NUR ---
HAND-OFF: Report given to Amber bustos.
--- NOTE | 2020-01-16 19:45 | NUR ---
NURSE NOTES: Report received from DARIAN Farmer. Upon assessment pt is A/Ox0, unable to make needs known, confused, and combative. Pt. attempting to bite, hit, and kick staff. 5-lead EKG shows SB to SR. with a HR of 59. Vitals WNL and 98% O2 on room air. Sitter at bedside. Right forearm IV patent and intact running D5W at 50. Made aware of NPO status. No signs and symptoms of distress noted. All needs met. Alterations in skin noted. Bed in lowest and locked position. Bed alarm on and call light within reach. Will continue monitoring.
[2020-01-16 20:00] VITALS: BP 158/98
[2020-01-16] MEDS: Carvedilol 6.25mg Tab GT SCH (20:04)
[2020-01-16] MEDS: levETIRAcetam 500mg/5ml Liquid GT SCH (20:05)
[2020-01-16] MEDS: Heparin 5000 units/ml inj SUBQ SCH (20:06)
[2020-01-16] MEDS: ceFAZolin sod 1 GM in D5W 55 ML IVPB SCH (20:37)
[2020-01-17] VITALS (9 sets, daily range): BP systolic 120–163; BP diastolic 81–98
--- NOTE | 2020-01-17 | NUR ---
NURSE NOTES: Pt. appears to be restless and unable to sleep. No signs of pain or distress noted. Condom catheter inserted for urinary incontinence. No BM noted. Pt continues to bite and hit staff when providing care. Reoriented and kept patient clean, dry, and comfortable. Will continue monitoring.
--- NOTE | 2020-01-17 03:50 | NUR ---
NURSE NOTES: Pt. awake and has not slept throughout the night. Sitter at bedside for attempting to remove medical devices and get up from bed. No s/s of distress noted. Vitals WNL. Pt. running temperature of 99 Axil. Cooling measures initiated and will continue to monitor.
[2020-01-17] MEDS: ceFAZolin sod 1 GM in D5W 55 ML IVPB SCH ×3 (05:05→22:23)
[2020-01-17 07:11] LABS: BASOPHILS % (AUTO) 0.6 % (0.0-2.0); EOSINOPHILS % (AUTO) 0.7 % (0.0-3.0); HEMATOCRIT 44.1 % (42.0-52.0); HEMOGLOBIN 14.4 G/DL (14.2-18.0); LYMPHOCYTES % (AUTO) 16.2 % (20.0-45.0); MEAN CORPUSCULAR VOLUME 94 FL (80-99); MONOCYTES % (AUTO) 7.6 % (1.0-10.0); NEUTROPHILS % (AUTO) 74.9 % (45.0-75.0); PLATELET COUNT 200 K/UL (150-450); RED BLOOD COUNT 4.69 M/UL (4.70-6.10); RED CELL DISTRIBUTION WIDTH 12.9 % (11.6-14.8); WHITE BLOOD COUNT 8.2 K/UL (4.8-10.8)
--- NOTE | 2020-01-17 07:21 | NUR ---
HAND-OFF: Report given to DARIAN Dexter. Pt in stable condition. Endorsed plan of care.
[2020-01-17 07:43] LABS: ALANINE AMINOTRANSFERASE 60 U/L (12-78); ALBUMIN 2.9 G/DL (3.4-5.0); ALBUMIN/GLOBULIN RATIO 0.7 (1.0-2.7); ALKALINE PHOSPHATASE 97 U/L (46-116); ANION GAP 7 mmol/L (5-15); ASPARTATE AMINO TRANSFERASE 25 U/L (15-37); BILIRUBIN,TOTAL 0.3 MG/DL (0.2-1.0); BLOOD UREA NITROGEN 34 mg/dL (7-18); CALCIUM 9.5 MG/DL (8.5-10.1); CARBON DIOXIDE 30 MMOL/L (21-32); CHLORIDE 111 MMOL/L (98-107); CHOLESTEROL 129 MG/DL (< 200); GAMMA GLUTAMYL TRANSPEPTIDASE 19 U/L (5-85); HDL CHOLESTEROL 43 MG/DL (40-60); PHOSPHORUS 3.6 MG/DL (2.5-4.9); POTASSIUM 3.4 MMOL/L (3.5-5.1); SODIUM 148 MMOL/L (136-145); TRIGLYCERIDES 64 MG/DL (30-150)
--- NOTE | 2020-01-17 07:50 | NUR ---
NURSE NOTES: pt in bed. sitter is at bed side. pt is on unload associate no signs of cardiac or respiratory distress. Bed is locked and in lowest position, call light within reach. pt is currently NPO. pt AOx1. will continue to monitor pt.
--- NOTE | 2020-01-17 08:51 | General Progress Note ---
Assessment/Plan Problem List: (1) DM (diabetes mellitus) ICD Codes: E11.9 - Type 2 diabetes mellitus without complications SNOMED: 79665613 (2) Feeding by G-tube ICD Codes: Z93.1 - Gastrostomy status SNOMED: 919277384, 798075662, 165909844 (3) jail resident ICD Codes: Z59.3 - Problems related to living in residential institution SNOMED: 310749326 (4) Stroke due to intracerebral hemorrhage ICD Codes: I61.9 - Nontraumatic intracerebral hemorrhage, unspecified SNOMED: 965366265 (5) Hypertension ICD Codes: I10 - Essential (primary) hypertension SNOMED: 35631109 Assessment/Plan: patient needs GT replacement no family member available given GT replacement and need for nutation will proceed with MD consent Subjective ROS Limited/Unobtainable: No Allergies: Coded Allergies: No Known Allergies (Unverified , 03/02/14) Objective Last 24 Hour Vital Signs Date Time Temp Pulse Resp B/P (MAP) Pulse Ox O2 Delivery O2 Flow Rate FiO2 01/17/20 04:59 97.7 01/17/20 04:00 99.0 70 22 132/91 (105) 97 01/17/20 03:53 66 01/17/20 00:00 98.9 78 22 163/98 (119) 100 01/16/20 23:53 58 01/16/20 21:00 Room Air 01/16/20 20:00 97.9 78 20 158/98 (118) 98 01/16/20 16:00 59 01/16/20 15:51 97.5 59 18 129/85 (100) 98 01/16/20 13:45 98.8 68 18 150/98 98 Room Air 01/16/20 13:03 Room Air 01/16/20 13:03 98.8 68 18 150/98 98 Room Air 01/16/20 10:18 98.8 71 18 145/92 96 Room Air Intake and Output 01/16/20 01/17/20 19:00 07:00 Intake Total 50 ml 801.13 ml Output Total 400 ml Balance 50 ml 401.13 ml Intake IV Total 50 ml 801.13 ml Output Urine Total 400 ml # Voids 2 # Bowel Movements 1 Laboratory Tests 01/16/20 09:09: White Blood Count 8.5, Red Blood Count 4.77, Hemoglobin 15.0, Hematocrit 46.2, Mean Corpuscular Volume 97, Mean Corpuscular Hemoglobin 31.4H, Mean Corpuscular Hemoglobin Concent 32.4, Red Cell Distribution Width 13.4, Platelet Count 209, Mean Platelet Volume 10.4H, Neutrophils (%) (Auto) 70.8, Lymphocytes (%) (Auto) 19.8L, Monocytes (%) (Auto) 8.0, Eosinophils (%) (Auto) 0.9, Basophils (%) (Auto ) 0.6, Prothrombin Time 11.9H, Prothromb Time International Ratio 1.1, Activated Partial Thromboplast Time 25, Sodium Level 152H, Potassium Level 4.3, Chloride Level 113H, Carbon Dioxide Level 34H, Anion Gap 5, Blood Urea Nitrogen 39H, Creatinine 1.1, Estimat Glomerular Filtration Rate > 60, Glucose Level 114H , Calcium Level 9.7, Total Bilirubin 0.3, Aspartate Amino Transf (AST/SGOT) 37, Alanine Aminotransferase (ALT/SGPT) 60, Alkaline Phosphatase 107, Total Protein 7.3, Albumin 3.0L, Globulin 4.3, Albumin/Globulin Ratio 0.7L 01/17/20 06:16: White Blood Count 8.2, Red Blood Count 4.69L, Hemoglobin 14.4, Hematocrit 44.1, Mean Corpuscular Volume 94, Mean Corpuscular Hemoglobin 30.8, Mean Corpuscular Hemoglobin Concent 32.7, Red Cell Distribution Width 12.9, Platelet Count 200, Mean Platelet Volume 10.4H, Neutrophils (%) (Auto) 74.9, Lymphocytes (%) (Auto) 16.2L, Monocytes (%) (Auto) 7.6, Eosinophils (%) (Auto) 0.7, Basophils (%) (Auto ) 0.6, Sodium Level 148H, Potassium Level 3.4L, Chloride Level 111H, Carbon Dioxide Level 30, Anion Gap 7, Blood Urea Nitrogen 34H, Creatinine 1.0, Estimat Glomerular Filtration Rate > 60, Glucose Level 114H, Calcium Level 9.5, Total Bilirubin 0.3, Aspartate Amino Transf (AST/SGOT) 25, Alanine Aminotransferase ( ALT/SGPT) 60, Alkaline Phosphatase 97, Total Protein 7.1, Albumin 2.9L, Globulin 4.2, Albumin/Globulin Ratio 0.7L, Hemoglobin A1c 5.5, Uric Acid 3.6, Phosphorus Level 3.6, Magnesium Level 2.1, Gamma Glutamyl Transpeptidase 19, Troponin I 0.010, C-Reactive Protein, Quantitative 1.6H, Pro-B-Type Natriuretic Peptide 429H, Triglycerides Level 64, Cholesterol Level 129, LDL Cholesterol 74 , HDL Cholesterol 43, Cholesterol/HDL Ratio 3.0L, Thyroid Stimulating Hormone ( TSH) 5.705H Height (Feet): 5 Height (Inches): 5.00 Weight (Pounds): 99 General Appearance: no apparent distress EENT: PERRL/EOMI Neck: supple Cardiovascular: normal rate Respiratory/Chest: decreased breath sounds Abdomen: normal bowel sounds, non tender, soft Extremities: non-tender Scooter Holley MD Jan 17, 2020 08:51
--- NOTE | 2020-01-17 08:51 | Pre-Procedure Note/Attestation ---
Pre-Procedure Note/Attestation Complete Prior to Procedure Planned Procedure: not applicable Procedure Narrative: esophagogastroduodenoscopy /peg Indications for Procedure Pre-Operative Diagnosis: dysphagia Attestation I attest that I discussed the nature of the procedure; its benefits; risks and complications; and alternatives (and the risks and benefits of such alternatives ), prior to the procedure, with the patient (or the patient's legal quality control representative). I attest that, if there was a reasonable possibility of needing a blood transfusion, the patient (or the patient's legal quality control representative) was given the [facility] standardized written summary, pursuant to the Ananda Tutu Blood Safety Act ([place] Health and Safety Code # 1645, as amended). I attest that I re-evaluated the patient just prior to the surgery and that there has been no change in the patient's H&P, except as documented below: Scooter Holley MD Jan 17, 2020 08:51
[2020-01-17] MEDS: Carvedilol 6.25mg Tab GT SCH ×2 (09:00→20:55)
[2020-01-17] MEDS: Heparin 5000 units/ml inj SUBQ SCH ×2 (09:00→21:01)
[2020-01-17] MEDS: levETIRAcetam 500mg/5ml Liquid GT SCH ×2 (09:00→20:55)
--- NOTE | 2020-01-17 09:29 | Nephrology Progress Note ---
Assessment/Plan Problem List: (1) Dehydration (2) Electrolyte imbalance (3) Vascular dementia with behavioral disturbance (4) Seizure disorder (5) Stroke due to intracerebral hemorrhage Assessment Dehydration leading to hyper-natremia GT tube malfunction and cellulitis on GT site Previous CVA due to intracerebral hemorrhage Vascular dementia Seizure disorder Hypertension History of compression fracture of thoracic vertebra Schizophrenia History of atrial fibrillation Plan D5W IV hydration Monitor renal parameters and electrolytes Per consultants Continue antiseizure medication Per orders Add low-dose Synthroid for mildly elevated TSH Subjective ROS Limited/Unobtainable: Yes Objective Objective Last 24 Hour Vital Signs Date Time Temp Pulse Resp B/P (MAP) Pulse Ox O2 Delivery O2 Flow Rate FiO2 01/17/20 04:59 97.7 01/17/20 04:00 99.0 70 22 132/91 (105) 97 01/17/20 03:53 66 01/17/20 00:00 98.9 78 22 163/98 (119) 100 01/16/20 23:53 58 01/16/20 21:00 Room Air 01/16/20 20:00 97.9 78 20 158/98 (118) 98 01/16/20 16:00 59 01/16/20 15:51 97.5 59 18 129/85 (100) 98 01/16/20 13:45 98.8 68 18 150/98 98 Room Air 01/16/20 13:03 Room Air 01/16/20 13:03 98.8 68 18 150/98 98 Room Air 01/16/20 10:18 98.8 71 18 145/92 96 Room Air Intake and Output 01/16/20 01/17/20 19:00 07:00 Intake Total 50 ml 801.13 ml Output Total 400 ml Balance 50 ml 401.13 ml Intake IV Total 50 ml 801.13 ml Output Urine Total 400 ml # Voids 2 # Bowel Movements 1 Current Medications Medications (Trade) Dose Ordered Sig/Kinjal Route PRN Reason Start Time Stop Time Status Last Admin Dose Admin Carvedilol (Coreg) 6.25 mg EVERY 12 HOURS GT 01/16/20 21:00 02/15/20 20:59 Cefazolin Sodium 1 gm/Dextrose 55 ml @ 110 mls/hr Q8HR IVPB 01/16/20 20:00 01/23/20 19:59 01/17/20 05:05 Dextrose 1,000 ml @ 50 mls/hr Q20H IV 01/16/20 15:09 02/15/20 15:08 01/16/20 15:43 Famotidine (Pepcid) 20 mg TWICE A DAY GT 01/16/20 18:00 04/15/20 17:59 Heparin Sodium (Porcine) (Heparin 5000 units/ml) 5,000 units EVERY 12 HOURS SUBQ 01/16/20 21:00 03/01/20 20:59 Iohexol (OMNIPAQUE-300 100ml) 100 ml NOW PRN INJ Radiology Procedure 01/16/20 08:45 01/18/20 08:34 Levetiracetam (Keppra) 500 mg Q12HR GT 01/16/20 21:00 03/01/20 20:59 Laboratory Tests 01/17/20 06:16: White Blood Count 8.2, Red Blood Count 4.69L, Hemoglobin 14.4, Hematocrit 44.1, Mean Corpuscular Volume 94, Mean Corpuscular Hemoglobin 30.8, Mean Corpuscular Hemoglobin Concent 32.7, Red Cell Distribution Width 12.9, Platelet Count 200, Mean Platelet Volume 10.4H, Neutrophils (%) (Auto) 74.9, Lymphocytes (%) (Auto) 16.2L, Monocytes (%) (Auto) 7.6, Eosinophils (%) (Auto) 0.7, Basophils (%) (Auto ) 0.6, Sodium Level 148H, Potassium Level 3.4L, Chloride Level 111H, Carbon Dioxide Level 30, Anion Gap 7, Blood Urea Nitrogen 34H, Creatinine 1.0, Estimat Glomerular Filtration Rate > 60, Glucose Level 114H, Hemoglobin A1c 5.5, Uric Acid 3.6, Calcium Level 9.5, Phosphorus Level 3.6, Magnesium Level 2.1, Total Bilirubin 0.3, Gamma Glutamyl Transpeptidase 19, Aspartate Amino Transf (AST/ SGOT) 25, Alanine Aminotransferase (ALT/SGPT) 60, Alkaline Phosphatase 97, Troponin I 0.010, C-Reactive Protein, Quantitative 1.6H, Pro-B-Type Natriuretic Peptide 429H, Total Protein 7.1, Albumin 2.9L, Globulin 4.2, Albumin/Globulin Ratio 0.7L, Triglycerides Level 64, Cholesterol Level 129, LDL Cholesterol 74, HDL Cholesterol 43, Cholesterol/HDL Ratio 3.0L, Thyroid Stimulating Hormone (TSH ) 5.705H Height (Feet): 5 Height (Inches): 5.00 Weight (Pounds): 99 Cardiovascular: normal rate Respiratory/Chest: decreased breath sounds Abdomen: distended Darron Salas MD Jan 17, 2020 09:29
--- NOTE | 2020-01-17 09:51 | NUR ---
RD ASSESSMENT & RECOMMENDATIONS SEE CARE ACTIVITY FOR COMPLETE ASSESSMENT DAILY ESTIMATED NEEDS: Needs based on Underweight, wasting, 44.4kg 30-40 kcals/kg 9726-5348 total kcals 1.25-2 g protein/kg 56-89 g total protein 25-35ml/kcal mL/kg 8190-0166 total fluid mLs NUTRITION DIAGNOSIS: 1) Increased kcal and pro needs r/t underweight status as evidenced by underweight BMI per guidelines, 66% of Victor Body Weight w/ noted severe BL LE wasting and generalized moderate to severe wasting. 2) Swallowing difficulty r/t dysphagia as evidenced by pt is PEG dep. CURRENT TF:NPO ENTERAL NUTRITION RECOMMENDATIONS: Jevity 1.2 @65ml/hr x20 hrs to provide 1300ml, 1560 kcal (35 kcal/kg), 72g pro (1.6g/kg), 1049ml free H2O - As medically able, start @25ml/hr for 6 hrs, advance as tolerated 10ml/hr q4-6 hrs to goal - Flush per MD. HOB over 30 degrees. ADDITIONAL RECOMMENDATIONS: 1) Per SNF 5'7"; and current bed scale of 97.7lbs Maintain accurate CBW 2) Maintain D5 while NPO 3) F/up w/ WC photos 4) Check lytes daily, replete as needed. Add JO-ANN BID via GT
--- NOTE | 2020-01-17 10:03 | NUR ---
P.T Note: P.T evaluation completed. Pt is alert, non verbal , follows simple commands thru verbal and demonstration cues at least 5% of the time. Pt easily gets agitated however responds well from gentle verbal and tactile cues. Pt resistive and dependent all throughout bed mobility tasks. Pt has zero trunk control and retropulsive upon attempt to maintain upright sitting with total support x 2P. Pt already at baseline function and not a candidate for skilled P.T service. Recommend DC to prior living arrangement for total care and comfort. Thank you for this referral.
--- NOTE | 2020-01-17 10:18 | General Progress Note ---
Assessment/Plan Problem List: (1) G-tube site cellulitis ICD Codes: K94.22 - Gastrostomy infection; L03.319 - Cellulitis of trunk, unspecified SNOMED: 264841009, 435772884 (2) Sepsis ICD Codes: A41.9 - Sepsis, unspecified organism SNOMED: 43872981 (3) Stroke due to intracerebral hemorrhage ICD Codes: I61.9 - Nontraumatic intracerebral hemorrhage, unspecified SNOMED: 221414663 (4) Hypertension ICD Codes: I10 - Essential (primary) hypertension SNOMED: 38691395 (5) Seizure disorder ICD Codes: G40.909 - Epilepsy, unspecified, not intractable,without status epilepticus SNOMED: 935280831 Status: unchanged Assessment/Plan: pt diet abx wound care gtube cbc bmp am Subjective Constitutional: Reports: weakness Allergies: Coded Allergies: No Known Allergies (Unverified , 03/02/14) All Systems: reviewed and negative except above Subjective sleepy calm Objective Last 24 Hour Vital Signs Date Time Temp Pulse Resp B/P (MAP) Pulse Ox O2 Delivery O2 Flow Rate FiO2 01/17/20 04:59 97.7 01/17/20 04:00 99.0 70 22 132/91 (105) 97 01/17/20 03:53 66 01/17/20 00:00 98.9 78 22 163/98 (119) 100 01/16/20 23:53 58 01/16/20 21:00 Room Air 01/16/20 20:00 97.9 78 20 158/98 (118) 98 01/16/20 16:00 59 01/16/20 15:51 97.5 59 18 129/85 (100) 98 01/16/20 13:45 98.8 68 18 150/98 98 Room Air 01/16/20 13:03 Room Air 01/16/20 13:03 98.8 68 18 150/98 98 Room Air 01/16/20 10:18 98.8 71 18 145/92 96 Room Air Intake and Output 01/16/20 01/17/20 19:00 07:00 Intake Total 50 ml 801.13 ml Output Total 400 ml Balance 50 ml 401.13 ml Intake IV Total 50 ml 801.13 ml Output Urine Total 400 ml # Voids 2 # Bowel Movements 1 Laboratory Tests 01/17/20 06:16: White Blood Count 8.2, Red Blood Count 4.69L, Hemoglobin 14.4, Hematocrit 44.1, Mean Corpuscular Volume 94, Mean Corpuscular Hemoglobin 30.8, Mean Corpuscular Hemoglobin Concent 32.7, Red Cell Distribution Width 12.9, Platelet Count 200, Mean Platelet Volume 10.4H, Neutrophils (%) (Auto) 74.9, Lymphocytes (%) (Auto) 16.2L, Monocytes (%) (Auto) 7.6, Eosinophils (%) (Auto) 0.7, Basophils (%) (Auto ) 0.6, Sodium Level 148H, Potassium Level 3.4L, Chloride Level 111H, Carbon Dioxide Level 30, Anion Gap 7, Blood Urea Nitrogen 34H, Creatinine 1.0, Estimat Glomerular Filtration Rate > 60, Glucose Level 114H, Hemoglobin A1c 5.5, Uric Acid 3.6, Calcium Level 9.5, Phosphorus Level 3.6, Magnesium Level 2.1, Total Bilirubin 0.3, Gamma Glutamyl Transpeptidase 19, Aspartate Amino Transf (AST/ SGOT) 25, Alanine Aminotransferase (ALT/SGPT) 60, Alkaline Phosphatase 97, Troponin I 0.010, C-Reactive Protein, Quantitative 1.6H, Pro-B-Type Natriuretic Peptide 429H, Total Protein 7.1, Albumin 2.9L, Globulin 4.2, Albumin/Globulin Ratio 0.7L, Triglycerides Level 64, Cholesterol Level 129, LDL Cholesterol 74, HDL Cholesterol 43, Cholesterol/HDL Ratio 3.0L, Thyroid Stimulating Hormone (TSH ) 5.705H Height (Feet): 5 Height (Inches): 5.00 Weight (Pounds): 99 General Appearance: lethargic EENT: normal ENT inspection Neck: normal alignment Cardiovascular: normal peripheral pulses, normal rate, regular rhythm Respiratory/Chest: chest wall non-tender, lungs clear, normal breath sounds Abdomen: normal bowel sounds, non tender, soft Extremities: normal inspection Edema: no edema noted Arm (L), no edema noted Arm (R), no edema noted Leg (L), no edema noted Leg (R), no edema noted Pedal (L), no edema noted Pedal (R), no edema noted Generalized Neurologic: motor weakness Skin: normal pigmentation, warm/dry Roberto Carlos Lui Jan 17, 2020 10:18
--- NOTE | 2020-01-17 10:51 | Cardiac Electrophysiology PN ---
Subjective Subjective [id number] Objective Last 24 Hour Vital Signs Date Time Temp Pulse Resp B/P (MAP) Pulse Ox O2 Delivery O2 Flow Rate FiO2 01/17/20 08:00 99.9 68 18 120/95 (103) 96 01/17/20 08:00 81 01/17/20 04:59 97.7 01/17/20 04:00 99.0 70 22 132/91 (105) 97 01/17/20 03:53 66 01/17/20 00:00 98.9 78 22 163/98 (119) 100 01/16/20 23:53 58 01/16/20 21:00 Room Air 01/16/20 20:00 97.9 78 20 158/98 (118) 98 01/16/20 16:00 59 01/16/20 15:51 97.5 59 18 129/85 (100) 98 01/16/20 13:45 98.8 68 18 150/98 98 Room Air 01/16/20 13:03 Room Air 01/16/20 13:03 98.8 68 18 150/98 98 Room Air Intake and Output 01/16/20 01/17/20 19:00 07:00 Intake Total 50 ml 801.13 ml Output Total 400 ml Balance 50 ml 401.13 ml Intake IV Total 50 ml 801.13 ml Output Urine Total 400 ml # Voids 2 # Bowel Movements 1 Laboratory Tests Test 01/17/20 06:16 White Blood Count 8.2 K/UL (4.8-10.8) Red Blood Count 4.69 M/UL (4.70-6.10) L Hemoglobin 14.4 G/DL (14.2-18.0) Hematocrit 44.1 % (42.0-52.0) Mean Corpuscular Volume 94 FL (80-99) Mean Corpuscular Hemoglobin 30.8 PG (27.0-31.0) Mean Corpuscular Hemoglobin Concent 32.7 G/DL (32.0-36.0) Red Cell Distribution Width 12.9 % (11.6-14.8) Platelet Count 200 K/UL (150-450) Mean Platelet Volume 10.4 FL (6.5-10.1) H Neutrophils (%) (Auto) 74.9 % (45.0-75.0) Lymphocytes (%) (Auto) 16.2 % (20.0-45.0) L Monocytes (%) (Auto) 7.6 % (1.0-10.0) Eosinophils (%) (Auto) 0.7 % (0.0-3.0) Basophils (%) (Auto) 0.6 % (0.0-2.0) Sodium Level 148 MMOL/L (136-145) H Potassium Level 3.4 MMOL/L (3.5-5.1) L Chloride Level 111 MMOL/L (98-107) H Carbon Dioxide Level 30 MMOL/L (21-32) Anion Gap 7 mmol/L (5-15) Blood Urea Nitrogen 34 mg/dL (7-18) H Creatinine 1.0 MG/DL (0.55-1.30) Estimat Glomerular Filtration Rate > 60 mL/min (>60) Glucose Level 114 MG/DL (74-106) H Hemoglobin A1c 5.5 % (4.3-6.0) Uric Acid 3.6 MG/DL (2.6-7.2) Calcium Level 9.5 MG/DL (8.5-10.1) Phosphorus Level 3.6 MG/DL (2.5-4.9) Magnesium Level 2.1 MG/DL (1.8-2.4) Total Bilirubin 0.3 MG/DL (0.2-1.0) Gamma Glutamyl Transpeptidase 19 U/L (5-85) Aspartate Amino Transf (AST/SGOT) 25 U/L (15-37) Alanine Aminotransferase (ALT/SGPT) 60 U/L (12-78) Alkaline Phosphatase 97 U/L (46-116) Troponin I 0.010 ng/mL (0.000-0.056) C-Reactive Protein, Quantitative 1.6 mg/dL (0.00-0.90) H Pro-B-Type Natriuretic Peptide 429 pg/mL (0-125) H Total Protein 7.1 G/DL (6.4-8.2) Albumin 2.9 G/DL (3.4-5.0) L Globulin 4.2 g/dL Albumin/Globulin Ratio 0.7 (1.0-2.7) L Triglycerides Level 64 MG/DL (30-150) Cholesterol Level 129 MG/DL (< 200) LDL Cholesterol 74 mg/dL (<100) HDL Cholesterol 43 MG/DL (40-60) Cholesterol/HDL Ratio 3.0 (3.3-4.4) L Thyroid Stimulating Hormone (TSH) 5.705 uiU/mL (0.358-3.740) Microbiology Date/Time Source Procedure Growth Status 01/16/20 11:58 Nasopharynx SARS-CoV-2 RdRp Gene Assay - Final Complete 01/16/20 09:00 Rectum Received Adolph Murray MD Jan 17, 2020 10:51
[2020-01-17] MEDS ORDERED: NS 500ML IVPB ONE (10:53)
[2020-01-17] MEDS ORDERED: Midazolam 2mg/2ml Inj ONE (10:53)
--- NOTE | 2020-01-17 10:55 | Endoscopy Procedure Note ---
Endoscopy Procedure Note General Indication for Procedure: dysphagia Procedures Performed: EGD, PEG Operative Findings/Diagnosis: same Specimen: none Pt Tolerated Procedure Well: Yes Estimated Blood Loss: none Anesthesia Anesthesiologist: gianfranco Anesthesia: MAC Inserted Devices Implant(s) used?: No GI Core Measures 50 yrs or older w/o bx or poly: Not Applicable 10yrs. F/U recommended: Not Applicable Scooter Holley MD Jan 17, 2020 10:55
[2020-01-17] MEDS ORDERED: Lidocaine 1% MPF 10mg/ml 5ml ONE (11:00)
[2020-01-17] MEDS ORDERED: LR 1000ml ONE (11:00)
--- NOTE | 2020-01-17 11:14 | Immediate Post-Op Evaluation ---
Immediate Post-Op Evalulation Immediate Post-Op Evalulation Procedure: PEG placement Date of Evaluation: Jan 17, 2020 Time of Evaluation: 11:14 IV Fluids: 300 Blood Pressure Systolic: 129 Blood Pressure Diastolic: 90 Pulse Rate: 72 Respiratory Rate: 14 O2 Sat by Pulse Oximetry: 99 Temperature (Fahrenheit): 97.4 Nausea: No Vomiting: No Patient Status: awake, reacts, patent Hydration Status: adequate Drug: see chart* Dr. Leydi quezada am dose of abx Given Within 1 Hr of Incision: Joanna Arias CRNA Jan 17, 2020 11:14
--- NOTE | 2020-01-17 11:17 | Anethesia Preoperative Eval ---
Anesthesia Pre-op PMH/ROS General Date of Evaluation: Jan 17, 2020 Time of Evaluation: 11:00 Anesthesiologist: wolf ASA Score: ASA 3 Mallampati Score Class I : Soft palate, uvula, fauces, pillars visible Class II: Soft palate, uvula, fauces visible Class III: Soft palate, base of uvula visible Class IV: Only hard plate visible Mallampati Classification: Class II Surgeon: valencia Diagnosis: Failure to thrive Surgical Procedure: PEG Anesthesia History: none Family History: no anesthesia problems Allergies: Coded Allergies: No Known Allergies (Unverified , 03/02/14) Medications: see eMAR Patient NPO?: Yes NPO Date: Jan 17, 2020 NPO Time: 00:01 Past Medical History Cardiovascular: Denies: HTN, CAD, [place], valve dz, arrhythmia, other Gastrointestinal/Genitourinary: Reports: GERD; Denies: CRI, ESRD, other Neurologic/Psychiatric: Reports: CVA, other - seizure disorder; Denies: dementia, depression/anxiety, TIA Endocrine: Denies: DM, hypothyroidism, steroids, other HEENT: Denies: cataract (L), cataract (R), glaucoma, [place] (L), [place] (R), other Hematology/Immune: Denies: anemia, DVT, bleeding disorder, other Other: other - malnutrion PSxH Narrative: see chart Anesthesia Pre-op Phys. Exam Physician Exam Last Vital Signs Date Time Temp Pulse Resp B/P (MAP) Pulse Ox O2 Delivery O2 Flow Rate FiO2 01/17/20 08:00 99.9 68 18 120/95 (103) 96 01/16/20 21:00 Room Air Constitutional: other - weakness Neurologic: other - demented and combative Cardiovascular: RRR Respiratory: CTA Gastrointestinal: S/NT/ND Airway Exam Mallampati Classification 2 Mallampati Score: Class II MO: full ROM: full Teeth: missing, loose Dentures: no upper, no lower Anesthesia Pre-op A/P Labs Hematology Test 01/17/20 06:16 White Blood Count 8.2 K/UL (4.8-10.8) Red Blood Count 4.69 M/UL (4.70-6.10) L Hemoglobin 14.4 G/DL (14.2-18.0) Hematocrit 44.1 % (42.0-52.0) Mean Corpuscular Volume 94 FL (80-99) Mean Corpuscular Hemoglobin 30.8 PG (27.0-31.0) Mean Corpuscular Hemoglobin Concent 32.7 G/DL (32.0-36.0) Red Cell Distribution Width 12.9 % (11.6-14.8) Platelet Count 200 K/UL (150-450) Mean Platelet Volume 10.4 FL (6.5-10.1) H Neutrophils (%) (Auto) 74.9 % (45.0-75.0) Lymphocytes (%) (Auto) 16.2 % (20.0-45.0) L Monocytes (%) (Auto) 7.6 % (1.0-10.0) Eosinophils (%) (Auto) 0.7 % (0.0-3.0) Basophils (%) (Auto) 0.6 % (0.0-2.0) Chemistry Test 01/17/20 06:16 Sodium Level 148 MMOL/L (136-145) H Potassium Level 3.4 MMOL/L (3.5-5.1) L Chloride Level 111 MMOL/L (98-107) H Carbon Dioxide Level 30 MMOL/L (21-32) Anion Gap 7 mmol/L (5-15) Blood Urea Nitrogen 34 mg/dL (7-18) H Creatinine 1.0 MG/DL (0.55-1.30) Estimat Glomerular Filtration Rate > 60 mL/min (>60) Glucose Level 114 MG/DL (74-106) H Hemoglobin A1c 5.5 % (4.3-6.0) Uric Acid 3.6 MG/DL (2.6-7.2) Calcium Level 9.5 MG/DL (8.5-10.1) Phosphorus Level 3.6 MG/DL (2.5-4.9) Magnesium Level 2.1 MG/DL (1.8-2.4) Total Bilirubin 0.3 MG/DL (0.2-1.0) Gamma Glutamyl Transpeptidase 19 U/L (5-85) Aspartate Amino Transf (AST/SGOT) 25 U/L (15-37) Alanine Aminotransferase (ALT/SGPT) 60 U/L (12-78) Alkaline Phosphatase 97 U/L (46-116) Troponin I 0.010 ng/mL (0.000-0.056) C-Reactive Protein, Quantitative 1.6 mg/dL (0.00-0.90) H Pro-B-Type Natriuretic Peptide 429 pg/mL (0-125) H Total Protein 7.1 G/DL (6.4-8.2) Albumin 2.9 G/DL (3.4-5.0) L Globulin 4.2 g/dL Albumin/Globulin Ratio 0.7 (1.0-2.7) L Triglycerides Level 64 MG/DL (30-150) Cholesterol Level 129 MG/DL (< 200) LDL Cholesterol 74 mg/dL (<100) HDL Cholesterol 43 MG/DL (40-60) Cholesterol/HDL Ratio 3.0 (3.3-4.4) L Thyroid Stimulating Hormone (TSH) 5.705 uiU/mL (0.358-3.740) Studies Pre-op Studies: EKG - SR Risk Assessment & Plan Assessment: covid neg Plan: MAC Status Change Before Surgery: No Pre-Antibiotics Drug: see chart Joanna Don SENIOR ANALYST Jan 17, 2020 11:17
--- NOTE | 2020-01-17 11:19 | 48 Hour Post Anesthesia Eval ---
Post Anesthesia Evaluation Procedure: PEG placement Date of Evaluation: Jan 17, 2020 Time of Evaluation: 11:19 Blood Pressure Systolic: 113 0: 74 Pulse Rate: 64 Respiratory Rate: 14 O2 Sat by Pulse Oximetry: 98 Airway: patent Nausea: No Vomiting: No Hydration Status: adequate Cardiopulmonary Status: stable Mental Status/LOC: patient returned to baseline Post-Anesthesia Complications: none Follow-up care needed: N/A Joanna Don CRNA Jan 17, 2020 11:19
--- NOTE | 2020-01-17 12:00 | Consultation ---
DATE OF CONSULTATION: 01/17/2020 CARDIOLOGY CONSULTATION CONSULTING PHYSICIAN: Adolph Murray MD. REFERRING PHYSICIAN: Roberto Carlos Lui DO. REASON FOR CONSULTATION: Management of hypertension, atrial fibrillation, and the patient with history of G-tube, history of COVID-19. HISTORY OF PRESENT ILLNESS: The patient is a 64-year-old gentleman with history of hypertension, hyperlipidemia, atrial fibrillation, dysphagia, status post G-tube placement, history of COVID-19 in September,, and dysphagia with a history of G-tube placement, who presented from care home for agitation and G-tube malfunction. In the ER, the patient was noted to have purulent discharge the G-tube stoma. The patient was recently here from November 27 through December 02 for worsening of shortness of breath and was treated with pneumonia. The G-tube was removed. The patient is scheduled for a G-tube replacement. The patient already was on IV antibiotic per ID. REVIEW OF SYSTEMS: Negative other than what was mentioned in the history of present illness. PAST MEDICAL HISTORY: As mentioned above. FAMILY HISTORY: Noncontributory. SOCIAL HISTORY: He is a care home resident. Does not smoke or drink alcohol. MEDICATIONS: Include amiodarone, Coreg, apixaban, and Lipitor. PHYSICAL EXAMINATION: VITAL SIGNS: Blood pressure of 120/95, pulse of 80, respirations 18, and temperature is 100. HEAD AND NECK: No JVD. LUNGS: Clear. CARDIOVASCULAR: Shows irregular S1 and S2 with no gallop or rub. ABDOMEN: Soft. The G-tube has been removed and site is covered. EXTREMITIES: No pitting edema. LABORATORY AND DIAGNOSTIC DATA: His labs show white count of 8.2, hemoglobin 14.5, hematocrit of 44, platelet count of 200,000. Sodium 148, potassium 3.4, BUN of 34, creatinine 1.1, glucose of 114. Troponin is negative. ASSESSMENT AND PLAN: 1. Paroxysmal atrial fibrillation. The patient is on Coreg 6.25 mg b.i.d. and resume amiodarone. We will keep off anticoagulation, the patient will be undergoing procedure. We will repeat the EKG and echocardiogram. 2. Hypertension, on Coreg 6.25 mg b.i.d. 3. Seizure disorder, on Keppra. 4. G-tube site infection, on IV antibiotic. G-tube was removed and scheduled for replacement by Dr. Holley. 5. Hypernatremia on IV fluids per Dr. Salas. Thank you very much for allowing me to participate in the care of this patient. Please do not hesitate to contact me for any questions regarding my evaluation. Adolph Murray M.D. DR: PRAVEEN JOB#: [id number] CC:
--- NOTE | 2020-01-17 12:03 | NUR ---
CASE MANAGEMENT:REVIEW FROM TK KESSLER CC; GTUBE ASPIRATION AND SOB SI:MALFUNCTIONING/MALPOSITIONED GTUBE 98.7 75 18 135/93 99% ON RA NA+152 BUN+39 IS: 500CC NS BOLUS IV ZOSYN CT ABD/PELVIS : TO TELEMETRY PLAN: PLACE NEW TUBE
--- NOTE | 2020-01-17 12:13 | NUR ---
INSURANCE [facility]; [phone] NO OTHER INFO IN B/AR YET Addendum: 01/17/20 at 1359 by CORDELL HOOKS RN RN INSURANCE UPDATE INSURANCE NUMBER [phone]
--- NOTE | 2020-01-17 12:21 | Surgery Progress Note ---
Surgery Progress Note Subjective Additional Comments egd and peg today comfortable no n/v/f/c Objective Last 24 Hour Vital Signs Date Time Temp Pulse Resp B/P (MAP) Pulse Ox O2 Delivery O2 Flow Rate FiO2 01/17/20 11:21 97.9 69 21 130/85 100 Nasal Cannula 3 01/17/20 11:19 64 14 98 01/17/20 11:16 72 23 132/91 100 Nasal Cannula 3 01/17/20 11:14 72 14 99 01/17/20 11:11 97.2 72 14 129/95 100 Nasal Cannula 3 01/17/20 08:00 99.9 68 18 120/95 (103) 96 01/17/20 08:00 81 01/17/20 04:59 97.7 01/17/20 04:00 99.0 70 22 132/91 (105) 97 01/17/20 03:53 66 01/17/20 00:00 98.9 78 22 163/98 (119) 100 01/16/20 23:53 58 01/16/20 21:00 Room Air 01/16/20 20:00 97.9 78 20 158/98 (118) 98 01/16/20 16:00 59 01/16/20 15:51 97.5 59 18 129/85 (100) 98 01/16/20 13:45 98.8 68 18 150/98 98 Room Air 01/16/20 13:03 Room Air 01/16/20 13:03 98.8 68 18 150/98 98 Room Air I&O Intake and Output 01/16/20 01/17/20 19:00 07:00 Intake Total 50 ml 801.13 ml Output Total 400 ml Balance 50 ml 401.13 ml Intake IV Total 50 ml 801.13 ml Output Urine Total 400 ml # Voids 2 # Bowel Movements 1 Dressing: saturated Wound: clean Cardiovascular: RSR Respiratory: clear Abdomen: soft, non-tender, present bowel sounds Extremities: no tenderness, no cyanosis Laboratory Tests Test 01/17/20 06:16 White Blood Count 8.2 K/UL (4.8-10.8) Red Blood Count 4.69 M/UL (4.70-6.10) L Hemoglobin 14.4 G/DL (14.2-18.0) Hematocrit 44.1 % (42.0-52.0) Mean Corpuscular Volume 94 FL (80-99) Mean Corpuscular Hemoglobin 30.8 PG (27.0-31.0) Mean Corpuscular Hemoglobin Concent 32.7 G/DL (32.0-36.0) Red Cell Distribution Width 12.9 % (11.6-14.8) Platelet Count 200 K/UL (150-450) Mean Platelet Volume 10.4 FL (6.5-10.1) H Neutrophils (%) (Auto) 74.9 % (45.0-75.0) Lymphocytes (%) (Auto) 16.2 % (20.0-45.0) L Monocytes (%) (Auto) 7.6 % (1.0-10.0) Eosinophils (%) (Auto) 0.7 % (0.0-3.0) Basophils (%) (Auto) 0.6 % (0.0-2.0) Sodium Level 148 MMOL/L (136-145) H Potassium Level 3.4 MMOL/L (3.5-5.1) L Chloride Level 111 MMOL/L (98-107) H Carbon Dioxide Level 30 MMOL/L (21-32) Anion Gap 7 mmol/L (5-15) Blood Urea Nitrogen 34 mg/dL (7-18) H Creatinine 1.0 MG/DL (0.55-1.30) Estimat Glomerular Filtration Rate > 60 mL/min (>60) Glucose Level 114 MG/DL (74-106) H Hemoglobin A1c 5.5 % (4.3-6.0) Uric Acid 3.6 MG/DL (2.6-7.2) Calcium Level 9.5 MG/DL (8.5-10.1) Phosphorus Level 3.6 MG/DL (2.5-4.9) Magnesium Level 2.1 MG/DL (1.8-2.4) Total Bilirubin 0.3 MG/DL (0.2-1.0) Gamma Glutamyl Transpeptidase 19 U/L (5-85) Aspartate Amino Transf (AST/SGOT) 25 U/L (15-37) Alanine Aminotransferase (ALT/SGPT) 60 U/L (12-78) Alkaline Phosphatase 97 U/L (46-116) Troponin I 0.010 ng/mL (0.000-0.056) C-Reactive Protein, Quantitative 1.6 mg/dL (0.00-0.90) H Pro-B-Type Natriuretic Peptide 429 pg/mL (0-125) H Total Protein 7.1 G/DL (6.4-8.2) Albumin 2.9 G/DL (3.4-5.0) L Globulin 4.2 g/dL Albumin/Globulin Ratio 0.7 (1.0-2.7) L Triglycerides Level 64 MG/DL (30-150) Cholesterol Level 129 MG/DL (< 200) LDL Cholesterol 74 mg/dL (<100) HDL Cholesterol 43 MG/DL (40-60) Cholesterol/HDL Ratio 3.0 (3.3-4.4) L Thyroid Stimulating Hormone (TSH) 5.705 uiU/mL (0.358-3.740) Plan Problems: (1) DM (diabetes mellitus) (2) Hematuria (3) Hematuria (4) Sepsis (5) G-tube site cellulitis Assessment & Plan: g tube site with cellulitis pus draining CT with tube in subq tissue tube removed wound evaluated. pus drained. washed and dressings applied discussed with GI plan for new g tube placement local wound care will be provided abx as per ID will monitor for improvement egd peg 8/ resume meds and tf cont wound care thank you (6) Suspected COVID-19 virus infection (7) Seizure disorder (8) Homelessness (9) Acute alcoholic intoxication (10) Hypertension (11) Stroke due to intracerebral hemorrhage (12) Vascular dementia with behavioral disturbance (13) Blunt head trauma (14) Feeding by G-tube Yon Mcmillan Jan 17, 2020 12:21
--- NOTE | 2020-01-17 12:54 | Infectious Diseases Prog Note ---
Assessment/Plan Assessment: Afebrile No leukocytosis GT malfunction- mild cellulitis -CT abd/p: Gastrostomy tube in the subcutaneous tissues of the anterior abdominal. Pericardial effusion. Large amount of fecal material in the colon. This is consistent with constipation. Contrast in the gallbladder, likely representing vicarious excretion of contrast from previous study. Atherosclerotic change. Old compression fracture of L1. hx of COVID19 (September 2019) -01/15 rapid COVID PCR neg Afib HLD seizure disorder MDD/anxiety HTN Dm2 dysphagia s/p GT [place] resident ([facility]) Plan: -Cont Ancef #2/5 -01/15 SP Zosyn x1 -f/u cx -Monitor CBC/CMP, temperatures -aspiration precautions -Sx, GI f/u- for EGD and GT placement today Thank you for this consultation. Will continue to follow along with you. Discussed with RN. Subjective Allergies: Coded Allergies: No Known Allergies (Unverified , 03/02/14) afebrile at 2l NC Objective Last 24 Hour Vital Signs Date Time Temp Pulse Resp B/P (MAP) Pulse Ox O2 Delivery O2 Flow Rate FiO2 01/17/20 11:21 97.9 69 21 130/85 100 Nasal Cannula 3 01/17/20 11:19 64 14 98 01/17/20 11:16 72 23 132/91 100 Nasal Cannula 3 01/17/20 11:14 72 14 99 01/17/20 11:11 97.2 72 14 129/95 100 Nasal Cannula 3 01/17/20 08:00 99.9 68 18 120/95 (103) 96 01/17/20 08:00 81 01/17/20 04:59 97.7 01/17/20 04:00 99.0 70 22 132/91 (105) 97 01/17/20 03:53 66 01/17/20 00:00 98.9 78 22 163/98 (119) 100 01/16/20 23:53 58 01/16/20 21:00 Room Air 01/16/20 20:00 97.9 78 20 158/98 (118) 98 01/16/20 16:00 59 01/16/20 15:51 97.5 59 18 129/85 (100) 98 01/16/20 13:45 98.8 68 18 150/98 98 Room Air 01/16/20 13:03 Room Air 01/16/20 13:03 98.8 68 18 150/98 98 Room Air Height (Feet): 5 Height (Inches): 5.00 Weight (Pounds): 99 Cardiovascular: RSR Respiratory: clear Abdomen: soft, non-tender, present bowel sounds, Gt site stoma- GT out- mild surrounding erythema, no purulent drainage Extremities: no tenderness, no cyanosis Microbiology Date/Time Source Procedure Growth Status 01/16/20 11:58 Nasopharynx SARS-CoV-2 RdRp Gene Assay - Final Complete 01/16/20 09:00 Rectum Received Laboratory Tests Test 01/17/20 06:16 White Blood Count 8.2 K/UL (4.8-10.8) Red Blood Count 4.69 M/UL (4.70-6.10) L Hemoglobin 14.4 G/DL (14.2-18.0) Hematocrit 44.1 % (42.0-52.0) Mean Corpuscular Volume 94 FL (80-99) Mean Corpuscular Hemoglobin 30.8 PG (27.0-31.0) Mean Corpuscular Hemoglobin Concent 32.7 G/DL (32.0-36.0) Red Cell Distribution Width 12.9 % (11.6-14.8) Platelet Count 200 K/UL (150-450) Mean Platelet Volume 10.4 FL (6.5-10.1) H Neutrophils (%) (Auto) 74.9 % (45.0-75.0) Lymphocytes (%) (Auto) 16.2 % (20.0-45.0) L Monocytes (%) (Auto) 7.6 % (1.0-10.0) Eosinophils (%) (Auto) 0.7 % (0.0-3.0) Basophils (%) (Auto) 0.6 % (0.0-2.0) Sodium Level 148 MMOL/L (136-145) H Potassium Level 3.4 MMOL/L (3.5-5.1) L Chloride Level 111 MMOL/L (98-107) H Carbon Dioxide Level 30 MMOL/L (21-32) Anion Gap 7 mmol/L (5-15) Blood Urea Nitrogen 34 mg/dL (7-18) H Creatinine 1.0 MG/DL (0.55-1.30) Estimat Glomerular Filtration Rate > 60 mL/min (>60) Glucose Level 114 MG/DL (74-106) H Hemoglobin A1c 5.5 % (4.3-6.0) Uric Acid 3.6 MG/DL (2.6-7.2) Calcium Level 9.5 MG/DL (8.5-10.1) Phosphorus Level 3.6 MG/DL (2.5-4.9) Magnesium Level 2.1 MG/DL (1.8-2.4) Total Bilirubin 0.3 MG/DL (0.2-1.0) Gamma Glutamyl Transpeptidase 19 U/L (5-85) Aspartate Amino Transf (AST/SGOT) 25 U/L (15-37) Alanine Aminotransferase (ALT/SGPT) 60 U/L (12-78) Alkaline Phosphatase 97 U/L (46-116) Troponin I 0.010 ng/mL (0.000-0.056) C-Reactive Protein, Quantitative 1.6 mg/dL (0.00-0.90) H Pro-B-Type Natriuretic Peptide 429 pg/mL (0-125) H Total Protein 7.1 G/DL (6.4-8.2) Albumin 2.9 G/DL (3.4-5.0) L Globulin 4.2 g/dL Albumin/Globulin Ratio 0.7 (1.0-2.7) L Triglycerides Level 64 MG/DL (30-150) Cholesterol Level 129 MG/DL (< 200) LDL Cholesterol 74 mg/dL (<100) HDL Cholesterol 43 MG/DL (40-60) Cholesterol/HDL Ratio 3.0 (3.3-4.4) L Thyroid Stimulating Hormone (TSH) 5.705 uiU/mL (0.358-3.740) Current Medications Medications (Trade) Dose Ordered Sig/Kinjal Route PRN Reason Start Time Stop Time Status Last Admin Dose Admin Carvedilol (Coreg) 6.25 mg EVERY 12 HOURS GT 01/16/20 21:00 02/15/20 20:59 Cefazolin Sodium 1 gm/Dextrose 55 ml @ 110 mls/hr Q8HR IVPB 01/16/20 20:00 01/23/20 19:59 01/17/20 05:05 Dextrose 1,000 ml @ 50 mls/hr Q20H IV 01/16/20 15:09 02/15/20 15:08 01/16/20 15:43 Famotidine (Pepcid) 20 mg TWICE A DAY GT 01/16/20 18:00 04/15/20 17:59 Heparin Sodium (Porcine) (Heparin 5000 units/ml) 5,000 units EVERY 12 HOURS SUBQ 01/16/20 21:00 03/01/20 20:59 Iohexol (OMNIPAQUE-300 100ml) 100 ml NOW PRN INJ Radiology Procedure 01/16/20 08:45 01/18/20 08:34 Levetiracetam (Keppra) 500 mg Q12HR GT 01/16/20 21:00 03/01/20 20:59 Levothyroxine Sodium (Synthroid) 25 mcg DAILY@0630 GT 01/18/20 06:30 02/17/20 06:29 Guerline Srinivasan M.D. Jan 17, 2020 12:54
--- NOTE | 2020-01-17 12:56 | NUR ---
NURSE NOTES: pt given 2nd Potassium bag late, pt was down stairs having a procedure done.
--- NOTE | 2020-01-17 13:00 | Procedure Note ---
DATE OF PROCEDURE: 01/17/2020 SURGEON: Scooter Holley MD. PROCEDURE: Upper endoscopy with PEG placement. ANESTHESIA: Per LOSS CLAIM CLERK, Joanna Tarrillmadina. INSTRUMENT: Olympus adult flexible upper endoscope. INDICATION: Dysphagia. REASON FOR PROCEDURE: The procedure, risks, benefits, and possible consequences, including hemorrhage, aspiration, perforation and infection, and alternative treatments, were explained to the patient/legal guardian by Dr. Scooter Holley and the patient/legal guardian understood and accepted these risks. PROCEDURE IN DETAIL: After informed consent was obtained and the patient was adequately sedated, Olympus upper endoscope was advanced from mouth into the second portion of the duodenum and retroflexion was performed in the stomach. Then, under endoscopic guidance and under sterile condition, a 20-[place] pull type of G-tube was successfully placed in epigastric area. The distance from the tip of the tube to skin was about 2.5 cm in size. The patient tolerated the procedure very well without any complications. SUMMARY OF FINDINGS: Status post successful PEG placement. RECOMMENDATIONS: 1. Abdominal binder. 2. Elevate the head of the bed at all times. 3. G-tube flush. 4. G-tube care. 5. Start tube feeding later today. Scooter Holley M.D. DR: LAZARO JOB#: [id number] CC:
[2020-01-17] MEDS ORDERED: LORazepam 1mg tab ORAL PRN (15:15)
--- NOTE | 2020-01-17 19:34 | NUR ---
HAND-OFF: Report given to Lyndsey/rn, pt in stable condition, endorsed plan of care.
--- NOTE | 2020-01-17 19:51 | NUR ---
NURSE NOTES: Dr. Holley notified and said it was okay got the G-tube to be used for feeding.
--- NOTE | 2020-01-17 21:35 | NUR ---
NURSE NOTES: Patient exhibiting low-pitched breathing noises and may need suctioning. Lung sounds are clear but may need suctioning upon closer RT observation. Called RT 1569, an RT will be arriving shortly.
[2020-01-18] VITALS: BP 153/66
--- NOTE | 2020-01-18 01:00 | Consultation ---
DATE OF CONSULTATION: 01/16/2020 PSYCHOTHERAPY CONSULTATION PROGRESS NOTE CONSULTING PHYSICIAN: Joshua Rankin PsyD. TREATING ATTENDING: Roberto Carlos Lui DO. HISTORY OF PRESENT ILLNESS: Patient is a 64-year-old male patient. Patient is from [facility]. Patient was brought into the hospital for G-tube site cellulitis. Patient has been very agitated and striking and confused. When I assessed this patient, patient was extremely confused. He was waving his and making gestures with his hands; however, has been very restless. He is extremely disorganized. He has no means to be able to communicate effectively. He is a poor historian. Significant amount of information was gathered via records and staff. Patient has been very agitated, striking the staff, and anxious. Patient at this time is unable to provide any logical self-care. There is no indication of suicidal or homicidal thoughts of ideation, however the patient is . PAST MEDICAL HISTORY: Includes a history of seizures, CVA, hypertension. ALLERGIES: Patient has no known drug allergies. SUBSTANCE ABUSE HISTORY: Patient has no indication of alcohol use or illicit drug use. PSYCHIATRIC HISTORY: Patient does have a positive history of dementia. SOCIAL HISTORY: Patient is a 64-year-old male patient from [facility]. Financially sustained through [employer]. MENTAL STATUS EXAMINATION: Patient is alert, oriented to person. Mood is anxious. Affect is labile. Thought process is disoriented. He is delusional with poor attention and concentration. Poor insight, judgment, impulse control. DIAGNOSES: 1. Rule out major neurocognitive disorder, Alzheimer's type with behavioral disturbances. 2. Hypertension, CVA, seizures. 3. Psychosocial stressors, moderate. STRENGTHS: Patient is from a senior care facility. WEAKNESSES: Patient is a very poor historian, confused, disoriented . I ASSESSED THIS PATIENT AND PROVIDED: 1. Reality orientation with focus on improving cognitive level of function who is confused and disorganized. Oriented to person, place, time, and situation. 2. Attempted to provide patient with supportive psychotherapy although patient is very confused, disorganized at this time. PLAN: Plan is to maintain medication compliance with use of positive coping skills when possible. This clinician has reviewed the patient's chart and discussed with treatment team. Joshua Rankin PsyD. DR: SAM JOB#: [id number] CC:
[2020-01-18 04:00] VITALS: BP 110/76
--- NOTE | 2020-01-18 04:51 | NUR ---
NURSE NOTES: Notified Dr. Murray regarding EKG findings: NSR nonspecific T-wave abnormality.
[2020-01-18] MEDS: ceFAZolin sod 1 GM in D5W 55 ML IVPB SCH ×3 (05:54→21:35)
[2020-01-18] MEDS: Levothyroxine 25mcg tab GT SCH (06:01)
--- NOTE | 2020-01-18 07:14 | NUR ---
NURSE NOTES: Notified RTRafael to perform deep suction for patient. Will arrive shortly.
--- NOTE | 2020-01-18 07:17 | NUR ---
NURSE NOTES: Patient in stable condition, alert and oriented x1, no changes in LOC, vitals signs stable, condom catheter patent and draining clear yellow urine. Breathing is even and unlabored, there is audible coughing, awaiting RT for deep suctioning. Endorsed plan of care to DARIAN Vides.
[2020-01-18 08:00] VITALS: BP 149/99
--- NOTE | 2020-01-18 08:00 | NUR ---
NURSE NOTES: Received report from DARIAN Solorio. Pt awake, a/o x1, aphasic. No s/sx of acute distress, breathing even and unlabored in RA. Tube feeding vital AF 1.2 running at goal, HOB at 45degrees. IV sites patent and asymptomatic, running IVF as ordered. RT came to suction the pt. Bed on lowest position, call light within reach. Will continue plan of care. Addendum: 01/18/20 at 1011 by Mackenzie Vides RN Pt on 2L NC, not RA.
--- NOTE | 2020-01-18 08:20 | General Progress Note ---
Assessment/Plan Problem List: (1) DM (diabetes mellitus) ICD Codes: E11.9 - Type 2 diabetes mellitus without complications SNOMED: 44765855 (2) Feeding by G-tube ICD Codes: Z93.1 - Gastrostomy status SNOMED: 375896977, 322828605, 876426243 (3) care home resident ICD Codes: Z59.3 - Problems related to living in residential institution SNOMED: 894550170 (4) Stroke due to intracerebral hemorrhage ICD Codes: I61.9 - Nontraumatic intracerebral hemorrhage, unspecified SNOMED: 637750064 (5) Hypertension ICD Codes: I10 - Essential (primary) hypertension SNOMED: 74344111 Status: unchanged Assessment/Plan: s/p GT placement GTF fu labs Subjective ROS Limited/Unobtainable: No Allergies: Coded Allergies: No Known Allergies (Unverified , 03/02/14) Objective Last 24 Hour Vital Signs Date Time Temp Pulse Resp B/P (MAP) Pulse Ox O2 Delivery O2 Flow Rate FiO2 01/18/20 04:00 72 01/18/20 04:00 97.7 72 20 110/76 (87) 97 01/18/20 00:00 81 01/18/20 00:00 97.2 81 20 153/66 (95) 97 01/17/20 21:00 Room Air 01/17/20 20:55 94 140/81 01/17/20 20:00 94 01/17/20 20:00 97.0 94 20 140/81 (100) 95 01/17/20 18:48 67 01/17/20 16:00 98.6 61 19 155/89 (111) 97 01/17/20 12:00 98.8 64 18 149/88 (108) 100 01/17/20 12:00 71 01/17/20 11:21 97.9 69 21 130/85 100 Nasal Cannula 3 01/17/20 11:19 64 14 98 01/17/20 11:16 72 23 132/91 100 Nasal Cannula 3 01/17/20 11:14 72 14 99 01/17/20 11:11 97.2 72 14 129/95 100 Nasal Cannula 3 01/17/20 09:00 Room Air Intake and Output 01/17/20 01/18/20 19:00 07:00 Intake Total 460 ml 960 ml Output Total 550 ml 350 ml Balance -90 ml 610 ml Intake Free Water 150 ml 300 ml IV Total 250 ml Tube Feeding 60 ml 660 ml Output Urine Total 550 ml 350 ml # Voids 1 # Bowel Movements 1 1 Height (Feet): 5 Height (Inches): 5.00 Weight (Pounds): 105 General Appearance: no apparent distress EENT: normal ENT inspection Neck: supple Cardiovascular: normal peripheral pulses Respiratory/Chest: decreased breath sounds Abdomen: normal bowel sounds, non tender, soft Extremities: non-tender Scooter Holley MD Jan 18, 2020 08:20
[2020-01-18] MEDS ORDERED: Tubing IV Secondary IV ONE (08:42)
[2020-01-18 08:44] LABS: BASOPHILS % (AUTO) 0.5 % (0.0-2.0); EOSINOPHILS % (AUTO) 0.4 % (0.0-3.0); HEMATOCRIT 42.3 % (42.0-52.0); LYMPHOCYTES % (AUTO) 12.5 % (20.0-45.0); MEAN CORPUSCULAR VOLUME 94 FL (80-99); MONOCYTES % (AUTO) 6.7 % (1.0-10.0); PLATELET COUNT 193 K/UL (150-450); RED BLOOD COUNT 4.52 M/UL (4.70-6.10); RED CELL DISTRIBUTION WIDTH 13.2 % (11.6-14.8); WHITE BLOOD COUNT 8.6 K/UL (4.8-10.8)
[2020-01-18 09:11] LABS: PHOSPHORUS 3.2 MG/DL (2.5-4.9)
[2020-01-18 09:19] LABS: ALANINE AMINOTRANSFERASE 48 U/L (12-78); ALBUMIN 2.7 G/DL (3.4-5.0); ALBUMIN/GLOBULIN RATIO 0.7 (1.0-2.7); ALKALINE PHOSPHATASE 89 U/L (46-116); ANION GAP 6 mmol/L (5-15); ASPARTATE AMINO TRANSFERASE 22 U/L (15-37); BILIRUBIN,TOTAL 0.4 MG/DL (0.2-1.0); BLOOD UREA NITROGEN 33 mg/dL (7-18); CALCIUM 8.8 MG/DL (8.5-10.1); CARBON DIOXIDE 29 MMOL/L (21-32); CHLORIDE 108 MMOL/L (98-107); CREATININE 0.8 MG/DL (0.55-1.30); POTASSIUM 3.6 MMOL/L (3.5-5.1); SODIUM 143 MMOL/L (136-145)
[2020-01-18] MEDS: levETIRAcetam 500mg/5ml Liquid GT SCH ×2 (09:35→21:34)
[2020-01-18] MEDS: Carvedilol 6.25mg Tab GT SCH ×2 (09:35→21:34)
[2020-01-18] MEDS: Heparin 5000 units/ml inj SUBQ SCH ×2 (09:35→21:33)
--- NOTE | 2020-01-18 09:50 | General Progress Note ---
Assessment/Plan Problem List: (1) G-tube site cellulitis ICD Codes: K94.22 - Gastrostomy infection; L03.319 - Cellulitis of trunk, unspecified SNOMED: 653865586, 567324465 (2) Sepsis ICD Codes: A41.9 - Sepsis, unspecified organism SNOMED: 81203733 (3) Stroke due to intracerebral hemorrhage ICD Codes: I61.9 - Nontraumatic intracerebral hemorrhage, unspecified SNOMED: 401796452 (4) Hypertension ICD Codes: I10 - Essential (primary) hypertension SNOMED: 30711552 (5) Seizure disorder ICD Codes: G40.909 - Epilepsy, unspecified, not intractable,without status epilepticus SNOMED: 962930961 Status: unchanged Assessment/Plan: pt diet abx wound care gtube cbc bmp am Subjective Constitutional: Reports: weakness Allergies: Coded Allergies: No Known Allergies (Unverified , 03/02/14) All Systems: reviewed and negative except above Subjective sleepy calm Objective Last 24 Hour Vital Signs Date Time Temp Pulse Resp B/P (MAP) Pulse Ox O2 Delivery O2 Flow Rate FiO2 01/18/20 09:35 73 149/99 01/18/20 08:00 97.5 73 20 149/99 (116) 96 01/18/20 04:00 72 01/18/20 04:00 97.7 72 20 110/76 (87) 97 01/18/20 00:00 81 01/18/20 00:00 97.2 81 20 153/66 (95) 97 01/17/20 21:00 Room Air 01/17/20 20:55 94 140/81 01/17/20 20:00 94 01/17/20 20:00 97.0 94 20 140/81 (100) 95 01/17/20 18:48 67 01/17/20 16:00 98.6 61 19 155/89 (111) 97 01/17/20 12:00 98.8 64 18 149/88 (108) 100 01/17/20 12:00 71 01/17/20 11:21 97.9 69 21 130/85 100 Nasal Cannula 3 01/17/20 11:19 64 14 98 01/17/20 11:16 72 23 132/91 100 Nasal Cannula 3 01/17/20 11:14 72 14 99 01/17/20 11:11 97.2 72 14 129/95 100 Nasal Cannula 3 Intake and Output 01/17/20 01/18/20 19:00 07:00 Intake Total 460 ml 960 ml Output Total 550 ml 350 ml Balance -90 ml 610 ml Intake Free Water 150 ml 300 ml IV Total 250 ml Tube Feeding 60 ml 660 ml Output Urine Total 550 ml 350 ml # Voids 1 # Bowel Movements 1 1 Laboratory Tests 01/18/20 08:25: White Blood Count 8.6, Red Blood Count 4.52L, Hemoglobin 14.0L, Hematocrit 42.3 , Mean Corpuscular Volume 94, Mean Corpuscular Hemoglobin 31.0, Mean Corpuscular Hemoglobin Concent 33.1, Red Cell Distribution Width 13.2, Platelet Count 193, Mean Platelet Volume 10.5H, Neutrophils (%) (Auto) 80.0H, Lymphocytes (%) (Auto) 12.5L, Monocytes (%) (Auto) 6.7, Eosinophils (%) (Auto) 0.4, Basophils (%) (Auto) 0.5, Sodium Level 143, Potassium Level 3.6, Chloride Level 108H, Carbon Dioxide Level 29, Anion Gap 6, Blood Urea Nitrogen 33H, Creatinine 0.8, Estimat Glomerular Filtration Rate > 60, Glucose Level 161H, Calcium Level 8.8, Phosphorus Level 3.2, Magnesium Level 1.9, Total Bilirubin 0.4, Aspartate Amino Transf (AST/SGOT) 22, Alanine Aminotransferase (ALT/SGPT) 48, Alkaline Phosphatase 89, Pro-B-Type Natriuretic Peptide 306H, Total Protein 6.6, Albumin 2.7L, Globulin 3.9, Albumin/Globulin Ratio 0.7L, Free Thyroxine 1.29 Height (Feet): 5 Height (Inches): 5.00 Weight (Pounds): 105 General Appearance: lethargic EENT: normal ENT inspection Neck: normal alignment Cardiovascular: normal peripheral pulses, normal rate, regular rhythm Respiratory/Chest: chest wall non-tender, lungs clear, normal breath sounds Abdomen: normal bowel sounds, non tender, soft Extremities: normal inspection Edema: no edema noted Arm (L), no edema noted Arm (R), no edema noted Leg (L), no edema noted Leg (R), no edema noted Pedal (L), no edema noted Pedal (R), no edema noted Generalized Neurologic: motor weakness Skin: normal pigmentation, warm/dry Roberto Carlos Lui DO Jan 18, 2020 09:50
--- NOTE | 2020-01-18 10:11 | NUR ---
NURSE NOTES: Called RT, pt desat to 83% in 2L NC. O2 pumped up to 6L NC, O2 sat now goes up and down between 86%-95%.
--- NOTE | 2020-01-18 10:37 | Diagnostic Imaging Report ---
EXAM: XR Chest, 1 View CLINICAL HISTORY: SOB TECHNIQUE: Frontal view of the chest. COMPARISON: Chest radiograph on 11/28/2019 FINDINGS: Hardware: None. Lungs/pleura: Left mid and lower lung opacity which likely represents combination of enlarged cardiac silhouette, elevated left hemidiaphragm, and atelectasis versus pneumonia. Small left pleural effusion not excluded. Heart/mediastinum: Mild enlargement of the cardiac silhouette. Atherosclerotic calcifications in the aorta. Soft tissues: Unremarkable. Bones: No acute fracture. Upper abdomen: Normal. IMPRESSION: Left mid and lower lung opacity which likely represents combination of enlarged cardiac silhouette,. Elevated left hemidiaphragm, and atelectasis versus pneumonia. Small left pleural effusion not excluded.
--- NOTE | 2020-01-18 10:59 | Nephrology Progress Note ---
Assessment/Plan Problem List: (1) Dehydration (2) Electrolyte imbalance (3) Vascular dementia with behavioral disturbance (4) Seizure disorder (5) Stroke due to intracerebral hemorrhage Assessment Dehydration leading to hyper-natremia GT tube malfunction and cellulitis on GT site Previous CVA due to intracerebral hemorrhage Vascular dementia Seizure disorder Hypertension History of compression fracture of thoracic vertebra Schizophrenia History of atrial fibrillation Plan January 17: Will discontinue IV. Renal parameters and electrolytes within acceptable range. Patient is congested and has lots of secretions. Continue aggressive suctioning. Discussed with RN. Previously: D5W IV hydration Monitor renal parameters and electrolytes Per consultants Continue antiseizure medication Per orders Add low-dose Synthroid for mildly elevated TSH Subjective ROS Limited/Unobtainable: No Constitutional: Reports: malaise, weakness Objective Objective Last 24 Hour Vital Signs Date Time Temp Pulse Resp B/P (MAP) Pulse Ox O2 Delivery O2 Flow Rate FiO2 01/18/20 09:35 73 149/99 01/18/20 09:00 Nasal Cannula 6.0 01/18/20 08:00 77 01/18/20 08:00 97.5 73 20 149/99 (116) 96 01/18/20 04:00 72 01/18/20 04:00 97.7 72 20 110/76 (87) 97 01/18/20 00:00 81 01/18/20 00:00 97.2 81 20 153/66 (95) 97 01/17/20 21:00 Room Air 01/17/20 20:55 94 140/81 01/17/20 20:00 94 01/17/20 20:00 97.0 94 20 140/81 (100) 95 01/17/20 18:48 67 01/17/20 16:00 98.6 61 19 155/89 (111) 97 01/17/20 12:00 98.8 64 18 149/88 (108) 100 01/17/20 12:00 71 01/17/20 11:21 97.9 69 21 130/85 100 Nasal Cannula 3 01/17/20 11:19 64 14 98 01/17/20 11:16 72 23 132/91 100 Nasal Cannula 3 01/17/20 11:14 72 14 99 01/17/20 11:11 97.2 72 14 129/95 100 Nasal Cannula 3 Intake and Output 01/17/20 01/18/20 19:00 07:00 Intake Total 460 ml 960 ml Output Total 550 ml 350 ml Balance -90 ml 610 ml Intake Free Water 150 ml 300 ml IV Total 250 ml Tube Feeding 60 ml 660 ml Output Urine Total 550 ml 350 ml # Voids 1 # Bowel Movements 1 1 Current Medications Medications (Trade) Dose Ordered Sig/Kinjal Route PRN Reason Start Time Stop Time Status Last Admin Dose Admin Carvedilol (Coreg) 6.25 mg EVERY 12 HOURS GT 01/16/20 21:00 02/15/20 20:59 01/18/20 09:35 Cefazolin Sodium 1 gm/Dextrose 55 ml @ 110 mls/hr Q8HR IVPB 01/16/20 20:00 01/23/20 19:59 01/18/20 05:54 Dextrose 1,000 ml @ 50 mls/hr Q20H IV 01/16/20 15:09 02/15/20 15:08 01/18/20 06:41 Famotidine (Pepcid) 20 mg TWICE A DAY GT 01/16/20 18:00 04/15/20 17:59 01/18/20 09:34 Heparin Sodium (Porcine) (Heparin 5000 units/ml) 5,000 units EVERY 12 HOURS SUBQ 01/16/20 21:00 03/01/20 20:59 01/18/20 09:35 Levetiracetam (Keppra) 500 mg Q12HR GT 01/16/20 21:00 03/01/20 20:59 01/18/20 09:35 Levothyroxine Sodium (Synthroid) 25 mcg DAILY@0630 GT 01/18/20 06:30 02/17/20 06:29 01/18/20 06:01 Lorazepam (Ativan) 1 mg Q6H PRN ORAL For Anxiety 01/17/20 15:15 01/24/20 15:14 Risperidone (RisperDAL) 1 mg TWICE A DAY ORAL 01/17/20 18:00 03/02/20 17:59 01/18/20 09:35 Laboratory Tests 01/18/20 08:25: White Blood Count 8.6, Red Blood Count 4.52L, Hemoglobin 14.0L, Hematocrit 42.3 , Mean Corpuscular Volume 94, Mean Corpuscular Hemoglobin 31.0, Mean Corpuscular Hemoglobin Concent 33.1, Red Cell Distribution Width 13.2, Platelet Count 193, Mean Platelet Volume 10.5H, Neutrophils (%) (Auto) 80.0H, Lymphocytes (%) (Auto) 12.5L, Monocytes (%) (Auto) 6.7, Eosinophils (%) (Auto) 0.4, Basophils (%) (Auto) 0.5, Sodium Level 143, Potassium Level 3.6, Chloride Level 108H, Carbon Dioxide Level 29, Anion Gap 6, Blood Urea Nitrogen 33H, Creatinine 0.8, Estimat Glomerular Filtration Rate > 60, Glucose Level 161H, Calcium Level 8.8, Phosphorus Level 3.2, Magnesium Level 1.9, Total Bilirubin 0.4, Aspartate Amino Transf (AST/SGOT) 22, Alanine Aminotransferase (ALT/SGPT) 48, Alkaline Phosphatase 89, Pro-B-Type Natriuretic Peptide 306H, Total Protein 6.6, Albumin 2.7L, Globulin 3.9, Albumin/Globulin Ratio 0.7L, Free Thyroxine 1.29 Height (Feet): 5 Height (Inches): 5.00 Weight (Pounds): 105 General Appearance: mild distress Cardiovascular: normal rate Respiratory/Chest: decreased breath sounds, rhonchi - bilaterally Abdomen: distended Darron Salas MD Jan 18, 2020 10:59
--- NOTE | 2020-01-18 11:01 | Surgery Progress Note ---
Surgery Progress Note Subjective Additional Comments improved tolerating tube feeds labs noted exam stable wound improved no drainage Objective Last 24 Hour Vital Signs Date Time Temp Pulse Resp B/P (MAP) Pulse Ox O2 Delivery O2 Flow Rate FiO2 01/18/20 09:35 73 149/99 01/18/20 09:00 Nasal Cannula 6.0 01/18/20 08:00 77 01/18/20 08:00 97.5 73 20 149/99 (116) 96 01/18/20 04:00 72 01/18/20 04:00 97.7 72 20 110/76 (87) 97 01/18/20 00:00 81 01/18/20 00:00 97.2 81 20 153/66 (95) 97 01/17/20 21:00 Room Air 01/17/20 20:55 94 140/81 01/17/20 20:00 94 01/17/20 20:00 97.0 94 20 140/81 (100) 95 01/17/20 18:48 67 01/17/20 16:00 98.6 61 19 155/89 (111) 97 01/17/20 12:00 98.8 64 18 149/88 (108) 100 01/17/20 12:00 71 01/17/20 11:21 97.9 69 21 130/85 100 Nasal Cannula 3 01/17/20 11:19 64 14 98 01/17/20 11:16 72 23 132/91 100 Nasal Cannula 3 01/17/20 11:14 72 14 99 01/17/20 11:11 97.2 72 14 129/95 100 Nasal Cannula 3 I&O Intake and Output 01/17/20 01/18/20 19:00 07:00 Intake Total 460 ml 960 ml Output Total 550 ml 350 ml Balance -90 ml 610 ml Intake Free Water 150 ml 300 ml IV Total 250 ml Tube Feeding 60 ml 660 ml Output Urine Total 550 ml 350 ml # Voids 1 # Bowel Movements 1 1 Dressing: saturated Cardiovascular: RSR Respiratory: decreased breath sounds Abdomen: soft, non-tender, present bowel sounds, other, non-distended Extremities: no edema, no tenderness, no cyanosis Laboratory Tests Test 01/18/20 08:25 White Blood Count 8.6 K/UL (4.8-10.8) Red Blood Count 4.52 M/UL (4.70-6.10) L Hemoglobin 14.0 G/DL (14.2-18.0) L Hematocrit 42.3 % (42.0-52.0) Mean Corpuscular Volume 94 FL (80-99) Mean Corpuscular Hemoglobin 31.0 PG (27.0-31.0) Mean Corpuscular Hemoglobin Concent 33.1 G/DL (32.0-36.0) Red Cell Distribution Width 13.2 % (11.6-14.8) Platelet Count 193 K/UL (150-450) Mean Platelet Volume 10.5 FL (6.5-10.1) H Neutrophils (%) (Auto) 80.0 % (45.0-75.0) H Lymphocytes (%) (Auto) 12.5 % (20.0-45.0) L Monocytes (%) (Auto) 6.7 % (1.0-10.0) Eosinophils (%) (Auto) 0.4 % (0.0-3.0) Basophils (%) (Auto) 0.5 % (0.0-2.0) Sodium Level 143 MMOL/L (136-145) Potassium Level 3.6 MMOL/L (3.5-5.1) Chloride Level 108 MMOL/L (98-107) H Carbon Dioxide Level 29 MMOL/L (21-32) Anion Gap 6 mmol/L (5-15) Blood Urea Nitrogen 33 mg/dL (7-18) H Creatinine 0.8 MG/DL (0.55-1.30) Estimat Glomerular Filtration Rate > 60 mL/min (>60) Glucose Level 161 MG/DL (74-106) H Calcium Level 8.8 MG/DL (8.5-10.1) Phosphorus Level 3.2 MG/DL (2.5-4.9) Magnesium Level 1.9 MG/DL (1.8-2.4) Total Bilirubin 0.4 MG/DL (0.2-1.0) Aspartate Amino Transf (AST/SGOT) 22 U/L (15-37) Alanine Aminotransferase (ALT/SGPT) 48 U/L (12-78) Alkaline Phosphatase 89 U/L (46-116) Pro-B-Type Natriuretic Peptide 306 pg/mL (0-125) H Total Protein 6.6 G/DL (6.4-8.2) Albumin 2.7 G/DL (3.4-5.0) L Globulin 3.9 g/dL Albumin/Globulin Ratio 0.7 (1.0-2.7) L Free Thyroxine 1.29 NG/DL (0.76-1.46) Plan Problems: (1) DM (diabetes mellitus) (2) Hematuria (3) Hematuria (4) Sepsis (5) G-tube site cellulitis Assessment & Plan: g tube site with cellulitis pus draining CT with tube in subq tissue tube removed wound evaluated. pus drained. washed and dressings applied discussed with GI plan for new g tube placement local wound care will be provided abx as per ID will monitor for improvement egd peg 01/16 resume meds and tf cont wound care thank you (6) Suspected COVID-19 virus infection (7) Seizure disorder (8) Homelessness (9) Acute alcoholic intoxication (10) Hypertension (11) Stroke due to intracerebral hemorrhage (12) Vascular dementia with behavioral disturbance (13) Blunt head trauma (14) Feeding by G-tube Yon Mcmillan Jan 18, 2020 11:01
--- NOTE | 2020-01-18 11:11 | NUR ---
RADIOLOGY DEPT., CHEST X-RAY DONE.-P.DYE
[2020-01-18 12:00] VITALS: BP 143/95
[2020-01-18] MEDS: NovoLOG Insulin Flexpen SUBQ SCH ×2 (12:45→17:23)
--- NOTE | 2020-01-18 13:24 | Cardiac Electrophysiology PN ---
Assessment/Plan Assessment/Plan 1. Paroxysmal atrial fibrillation. In SR on Aspirin, Coreg 6.25 mg b.i.d. and resume amiodarone 200 daily 2. Hypertension, on Coreg 6.25 mg b.i.d. 3. Seizure disorder, on Keppra. 4. G-tube site infection, on IV antibiotic. S/P G-tube replacement by Dr. Holley. 5. Hypernatremia on IV fluids per Dr. Salas. Subjective Subjective Saturation dropped and patient was suctioned and O2 increased to 6 liters. RN at bedside. Had EGD and PEG placement by Dr. Holley Objective Last 24 Hour Vital Signs Date Time Temp Pulse Resp B/P (MAP) Pulse Ox O2 Delivery O2 Flow Rate FiO2 01/18/20 12:00 94 01/18/20 12:00 97.7 93 22 143/95 (111) 91 01/18/20 09:35 73 149/99 01/18/20 09:00 Nasal Cannula 6.0 01/18/20 08:00 77 01/18/20 08:00 97.5 73 20 149/99 (116) 96 01/18/20 04:00 72 01/18/20 04:00 97.7 72 20 110/76 (87) 97 01/18/20 00:00 81 01/18/20 00:00 97.2 81 20 153/66 (95) 97 01/17/20 21:00 Room Air 01/17/20 20:55 94 140/81 01/17/20 20:00 94 01/17/20 20:00 97.0 94 20 140/81 (100) 95 01/17/20 18:48 67 01/17/20 16:00 98.6 61 19 155/89 (111) 97 Intake and Output 01/17/20 01/18/20 19:00 07:00 Intake Total 460 ml 960 ml Output Total 550 ml 350 ml Balance -90 ml 610 ml Intake Free Water 150 ml 300 ml IV Total 250 ml Tube Feeding 60 ml 660 ml Output Urine Total 550 ml 350 ml # Voids 1 # Bowel Movements 1 1 Laboratory Tests Test 01/18/20 08:25 01/18/20 12:41 01/18/20 12:42 White Blood Count 8.6 K/UL (4.8-10.8) Red Blood Count 4.52 M/UL (4.70-6.10) L Hemoglobin 14.0 G/DL (14.2-18.0) L Hematocrit 42.3 % (42.0-52.0) Mean Corpuscular Volume 94 FL (80-99) Mean Corpuscular Hemoglobin 31.0 PG (27.0-31.0) Mean Corpuscular Hemoglobin Concent 33.1 G/DL (32.0-36.0) Red Cell Distribution Width 13.2 % (11.6-14.8) Platelet Count 193 K/UL (150-450) Mean Platelet Volume 10.5 FL (6.5-10.1) H Neutrophils (%) (Auto) 80.0 % (45.0-75.0) H Lymphocytes (%) (Auto) 12.5 % (20.0-45.0) L Monocytes (%) (Auto) 6.7 % (1.0-10.0) Eosinophils (%) (Auto) 0.4 % (0.0-3.0) Basophils (%) (Auto) 0.5 % (0.0-2.0) Sodium Level 143 MMOL/L (136-145) Potassium Level 3.6 MMOL/L (3.5-5.1) Chloride Level 108 MMOL/L (98-107) H Carbon Dioxide Level 29 MMOL/L (21-32) Anion Gap 6 mmol/L (5-15) Blood Urea Nitrogen 33 mg/dL (7-18) H Creatinine 0.8 MG/DL (0.55-1.30) Estimat Glomerular Filtration Rate > 60 mL/min (>60) Glucose Level 161 MG/DL (74-106) H Calcium Level 8.8 MG/DL (8.5-10.1) Phosphorus Level 3.2 MG/DL (2.5-4.9) Magnesium Level 1.9 MG/DL (1.8-2.4) Total Bilirubin 0.4 MG/DL (0.2-1.0) Aspartate Amino Transf (AST/SGOT) 22 U/L (15-37) Alanine Aminotransferase (ALT/SGPT) 48 U/L (12-78) Alkaline Phosphatase 89 U/L (46-116) Pro-B-Type Natriuretic Peptide 306 pg/mL (0-125) H Total Protein 6.6 G/DL (6.4-8.2) Albumin 2.7 G/DL (3.4-5.0) L Globulin 3.9 g/dL Albumin/Globulin Ratio 0.7 (1.0-2.7) L Free Thyroxine 1.29 NG/DL (0.76-1.46) POC Whole Blood Glucose 140 MG/DL (74-106) H Pending Microbiology Date/Time Source Procedure Growth Status 01/16/20 11:58 Nasopharynx SARS-CoV-2 RdRp Gene Assay - Final Complete 01/16/20 09:00 Nasal Nares MRSA Culture - Final NO METHICILLIN RESISTANT STAPH AUREUS... Complete 01/16/20 09:00 Rectum VRE Culture - Final NO VANCOMYCIN RESISTANT ENTEROCOCCUS ... Complete Objective HEAD AND NECK: No JVD. LUNGS: Clear. CARDIOVASCULAR: Shows irregular S1 and S2 with no gallop or rub. ABDOMEN: Soft. New G-tube in place EXTREMITIES: No pitting edema. Adolph Murray MD Jan 18, 2020 13:24
[2020-01-18 16:00] VITALS: BP 113/85
--- NOTE | 2020-01-18 17:13 | NUR ---
NURSE NOTES:WOUND CARE NOTES:Pt's skin assessed in presence of Primary Nurse (Mackenzie)Pt is emaciated . All Bony prominences assessed. Cavilon Skin Barrier applied to each elbow and each elbow covered with Optifoam drsgs to minimize friction. Bilat hips and bilat trochanteric areas are blanchable . Cavilon Skin Barrier applied to each site and each individually covered with Optifoam drsgs. Non-Blanchable erythema without induration/fluctuance noted to Sacrum. Moisture Barrier Paste applied and covered with Optifoam drsg. No erythema or evidence of Skin breakdown noted to Scrotum or ischial tuberosities. Moisture Barrier paste applied to Scrotum and bilat ischial tuberosities. Non-Blanchable erythema without induration/fluctuance noted to L lateral Malleolus(L)3cm x (W)2.5cm. Both R and L Heels are boggy with non-blanching erythema.Cavilon Skin Barrier applied to each Malleolus and each heel. Each site covered with Optifoam drsgs. Tx.Plan: Apply Moisture Barrier Paste to Sacrum. Cover with Optifoam drsg. Change every 3 days and prn. Apply Cavilon Skin Barrier to R and L Elbows. Cover each site with Optifoam drsgs. Change every 7 days and prn. Cover Bony Prominences as needed with Optifoam drsgs. Apply Moisture Barrier Paste to Sacrum. Cover with Optifoam drsg. Change every 3 days and prn. Apply Moisture Barrier Paste to Bilat groin, scrotum, and bilat ischium with each Incontinence care. Apply Cavilon Skin Barrier to Bilat heels and Malleoli. Cover each site with Optifoam drsg. Change every 7 days and prn. Reposition at least every 2hours or as tolerated. Off-load heels with Pillow. APM/STEWART Mattress overlay.
--- NOTE | 2020-01-18 17:19 | NUR ---
NURSE NOTES: Asked Dr Chauhan for fever PRN med. MD made aware of low grade fever of the pt (100.2). Per MD, pt does not need tylenol if comfortable and temp less than 101. Cooling measures performed.
--- NOTE | 2020-01-18 18:30 | Consultation ---
DATE OF CONSULTATION: 01/18/2020 PULMONARY CONSULTATION This is a 64-year-old male who was admitted to the hospital as of 01/16/2020. The patient has a history of previous COVID-19 pneumonia, hyperlipidemia, hypertension, chronic atrial fibrillation, dysphagia, status post G-tube placement. He is admitted due to G-tube malfunction as well as infection at the G-tube site. The patient is unable to provide any further history. Most recently, his x-ray chest has shown opacification, left hemithorax. However, on further review of chest CT, I note that there is mediastinal shift to the left suspicious for previous lung resection. Other than that, the lung parenchyma is intact and there is no consolidation or postobstructive changes of significance. PAST MEDICAL HISTORY: Notable for hyperlipidemia, atrial fibrillation, seizure disorder, diabetes mellitus, chronic G-tube, previous CVA, schizophrenia. REVIEW OF SYSTEMS: Not obtainable. PHYSICAL EXAMINATION: GENERAL: A 64-year-old male. HEENT: Unremarkable. Nasal trumpet is in place. O2 sat 98%. . ABDOMEN: Soft. EXTREMITIES: There is no edema. NEUROLOGIC: Nonfocal. VITAL SIGNS: Blood pressure 140/90, heart rate is 74, respirations 18, O2 sat is 96% on 4 L oxygen. LABORATORY DATA: Lab testing shows normal CBC and BMP. IMAGING STUDIES: Reviewed above. IMPRESSION: 1. Left hemithorax opacification due to mediastinal shift. 2. No evidence for pneumonia or lung consolidation. 3. Mild hypoxemia. DISCUSSION: I suspect the patient's congestion represents upper airway compromise and pooling of oral secretions. Advised aggressive pulmonary hygiene. Discussed with RN. Continue nasal trumpet, nasal oxygen. We will follow as needed. Joaquin Rivera M.D. DR: STANTON JOB#: [id number] CC:
--- NOTE | 2020-01-18 19:30 | NUR ---
Received report from Mackenzie FARMER, Responsive to voice and touch with spontaneous eye opening, aphasic. HOB elevated. bed at lowest position locked with side rails up. site monitor intact. Call light and bedside table within reach. Will continue with plan of care.
--- NOTE | 2020-01-18 19:32 | NUR ---
NURSE HAND-OFF REPORT: Important Events on Shift:[Decreasing O2 sat, O2 supply changed from NC to Venturi mask] Patient Status: [Full Code] Diet: [Tube feeding Vital AF 1.2 @ 60] Pending Orders: [Labs tomorrow] Pending Results/Labs:[] Pending MD notification:[] Latest Vital Signs: Temperature 100.2 , Pulse 95 , B/P 113 /85 , Respiratory Rate 28 , O2 SAT 94 , Venturi Mask, O2 Flow Rate 15.0 . Vital Sign Comment: [Per MD, no need for PRN tylenol. Cooling measures performed. Pls refer to nurse notes] EKG Rhythm: Sinus Tachycardia Rhythm change?: Yes from SR to ST (possibly related to increased Temp) MD Notified?: MD Response: Latest [place] Fall Score: 70 Fall Risk: High Risk Safety Measures: Call light Within Reach, Bed Alarm Zone 1, Side Rails Side Rails x3, Bed position Low and Locked. Fall Precautions: Yellow Socks Yellow Gown Report given to [DARIAN De La Paz].
[2020-01-18 20:00] VITALS: BP 109/78
[2020-01-19] VITALS: BP 102/72
[2020-01-19 04:00] VITALS: BP 122/83
[2020-01-19] MEDS: NovoLOG Insulin Flexpen SUBQ SCH ×4 (06:00→17:46)
[2020-01-19] MEDS: ceFAZolin sod 1 GM in D5W 55 ML IVPB SCH (06:30)
[2020-01-19] MEDS: Levothyroxine 25mcg tab GT SCH (06:31)
--- NOTE | 2020-01-19 07:55 | NUR ---
HAND-OFF: Report given to DARIAN Mann. Patient is stable at this time. O2sat at 97%. Suctioned secretions and well tolerated.
[2020-01-19 07:58] LABS: HEMATOCRIT 44.4 % (42.0-52.0); HEMOGLOBIN 14.7 G/DL (14.2-18.0); MEAN CORPUSCULAR VOLUME 94 FL (80-99); PLATELET COUNT 201 K/UL (150-450); RED BLOOD COUNT 4.75 M/UL (4.70-6.10); RED CELL DISTRIBUTION WIDTH 13.2 % (11.6-14.8); WHITE BLOOD COUNT 15.5 K/UL (4.8-10.8)
[2020-01-19 08:00] VITALS: BP 108/78
--- NOTE | 2020-01-19 08:04 | NUR ---
NURSES NOTE Received report from DARIAN De La Paz. Pt is A/O x1. Pt has a gtube in place running at 60ml/hr and flushing of 100ml. Pt has a ventri mask at 15L with 40% FiO2. No pain noted with facial expressions. monitoring coordinator in place with SR but had an episode of SB. Pt is on fall, aspiriation and seizure precautions with padded side rails. Bed in lowest position and locked. Call light placed within reach on right side.
[2020-01-19 08:08] LABS: ANION GAP 5 mmol/L (5-15); BLOOD UREA NITROGEN 44 mg/dL (7-18); CALCIUM 8.9 MG/DL (8.5-10.1); CARBON DIOXIDE 30 MMOL/L (21-32); CHLORIDE 109 MMOL/L (98-107); CREATININE 0.9 MG/DL (0.55-1.30); POTASSIUM 3.3 MMOL/L (3.5-5.1); SODIUM 144 MMOL/L (136-145)
--- NOTE | 2020-01-19 08:25 | General Progress Note ---
Assessment/Plan Problem List: (1) DM (diabetes mellitus) ICD Codes: E11.9 - Type 2 diabetes mellitus without complications SNOMED: 64608775 (2) Feeding by G-tube ICD Codes: Z93.1 - Gastrostomy status SNOMED: 976822480, 784432867, 344039997 (3) snf resident ICD Codes: Z59.3 - Problems related to living in residential institution SNOMED: 426561142 (4) Stroke due to intracerebral hemorrhage ICD Codes: I61.9 - Nontraumatic intracerebral hemorrhage, unspecified SNOMED: 785716321 (5) Hypertension ICD Codes: I10 - Essential (primary) hypertension SNOMED: 36903855 Status: unchanged Assessment/Plan: s/p GT placement GTF fu labs Subjective ROS Limited/Unobtainable: No Allergies: Coded Allergies: No Known Allergies (Unverified , 03/02/14) Objective Last 24 Hour Vital Signs Date Time Temp Pulse Resp B/P (MAP) Pulse Ox O2 Delivery O2 Flow Rate FiO2 01/19/20 08:00 98.1 95 28 108/78 (88) 96 01/19/20 04:00 92 01/19/20 04:00 98.4 97 32 122/83 (96) 96 01/19/20 00:00 98.0 88 32 102/72 (82) 99 01/18/20 21:34 105 110/80 01/18/20 20:00 105 01/18/20 20:00 98.1 95 32 109/78 (88) 94 01/18/20 18:04 Venturi Mask 15.0 01/18/20 16:00 100.2 95 28 113/85 (94) 94 01/18/20 15:54 109 01/18/20 13:20 98 Nasal Cannula 4.0 36 01/18/20 12:00 94 01/18/20 12:00 97.7 93 22 143/95 (111) 91 01/18/20 09:35 73 149/99 01/18/20 09:00 Nasal Cannula 6.0 Intake and Output 01/18/20 01/19/20 19:00 07:00 Intake Total 150 ml Output Total 150 ml 300 ml Balance -150 ml -150 ml Intake Free Water 150 ml Output Urine Total 150 ml 300 ml # Bowel Movements 1 1 Laboratory Tests 01/18/20 08:25: White Blood Count 8.6, Red Blood Count 4.52L, Hemoglobin 14.0L, Hematocrit 42.3 , Mean Corpuscular Volume 94, Mean Corpuscular Hemoglobin 31.0, Mean Corpuscular Hemoglobin Concent 33.1, Red Cell Distribution Width 13.2, Platelet Count 193, Mean Platelet Volume 10.5H, Neutrophils (%) (Auto) 80.0H, Lymphocytes (%) (Auto) 12.5L, Monocytes (%) (Auto) 6.7, Eosinophils (%) (Auto) 0.4, Basophils (%) (Auto) 0.5, Sodium Level 143, Potassium Level 3.6, Chloride Level 108H, Carbon Dioxide Level 29, Anion Gap 6, Blood Urea Nitrogen 33H, Creatinine 0.8, Estimat Glomerular Filtration Rate > 60, Glucose Level 161H, Calcium Level 8.8, Phosphorus Level 3.2, Magnesium Level 1.9, Total Bilirubin 0.4, Aspartate Amino Transf (AST/SGOT) 22, Alanine Aminotransferase (ALT/SGPT) 48, Alkaline Phosphatase 89, Pro-B-Type Natriuretic Peptide 306H, Total Protein 6.6, Albumin 2.7L, Globulin 3.9, Albumin/Globulin Ratio 0.7L, Free Thyroxine 1.29 01/18/20 12:41: POC Whole Blood Glucose 140H 01/18/20 12:42: POC Whole Blood Glucose [Pending] 01/18/20 15:20: Arterial Blood pH 7.430, Arterial Blood Partial Pressure CO2 41.3, Arterial Blood Partial Pressure O2 64.7L, Arterial Blood HCO3 26.8H, Arterial Blood Oxygen Saturation 92.5L, Arterial Blood Base Excess 2.3H, Surendra Test Positive 01/19/20 01:13: POC Whole Blood Glucose 141H 01/19/20 06:55: White Blood Count 15.5#H, Red Blood Count 4.75, Hemoglobin 14.7, Hematocrit 44.4 , Mean Corpuscular Volume 94, Mean Corpuscular Hemoglobin 31.0, Mean Corpuscular Hemoglobin Concent 33.1, Red Cell Distribution Width 13.2, Platelet Count 201, Mean Platelet Volume 10.6H, Neutrophils (%) (Auto) , Lymphocytes (%) (Auto) , Monocytes (%) (Auto) , Eosinophils (%) (Auto) , Basophils (%) (Auto) , Neutrophils % (Manual) [Pending], Lymphocytes % (Manual) [Pending], Platelet Estimate [Pending], Platelet Morphology [Pending], Sodium Level 144, Potassium Level 3.3L, Chloride Level 109H, Carbon Dioxide Level 30, Anion Gap 5, Blood Urea Nitrogen 44H, Creatinine 0.9, Estimat Glomerular Filtration Rate > 60, Glucose Level 169H, Calcium Level 8.9 Height (Feet): 5 Height (Inches): 5.00 Weight (Pounds): 106 General Appearance: alert EENT: normal ENT inspection Neck: supple Cardiovascular: normal rate Respiratory/Chest: decreased breath sounds Abdomen: normal bowel sounds, non tender, soft Extremities: non-tender Scooter Holley MD Jan 19, 2020 08:25
--- NOTE | 2020-01-19 08:48 | General Progress Note ---
Assessment/Plan Problem List: (1) G-tube site cellulitis ICD Codes: K94.22 - Gastrostomy infection; L03.319 - Cellulitis of trunk, unspecified SNOMED: 672550509, 018596102 (2) Sepsis ICD Codes: A41.9 - Sepsis, unspecified organism SNOMED: 54755864 (3) Stroke due to intracerebral hemorrhage ICD Codes: I61.9 - Nontraumatic intracerebral hemorrhage, unspecified SNOMED: 994141923 (4) Hypertension ICD Codes: I10 - Essential (primary) hypertension SNOMED: 60582641 (5) Seizure disorder ICD Codes: G40.909 - Epilepsy, unspecified, not intractable,without status epilepticus SNOMED: 661147119 Status: unchanged Assessment/Plan: pt diet abx wound care gtube cbc bmp am Subjective Constitutional: Reports: weakness Allergies: Coded Allergies: No Known Allergies (Unverified , 03/02/14) All Systems: reviewed and negative except above Subjective o2 mask sleepy calm Objective Last 24 Hour Vital Signs Date Time Temp Pulse Resp B/P (MAP) Pulse Ox O2 Delivery O2 Flow Rate FiO2 01/19/20 08:00 98.1 95 28 108/78 (88) 96 01/19/20 04:00 92 01/19/20 04:00 98.4 97 32 122/83 (96) 96 01/19/20 00:00 98.0 88 32 102/72 (82) 99 01/18/20 21:34 105 110/80 01/18/20 20:00 105 01/18/20 20:00 98.1 95 32 109/78 (88) 94 01/18/20 18:04 Venturi Mask 15.0 01/18/20 16:00 100.2 95 28 113/85 (94) 94 01/18/20 15:54 109 01/18/20 13:20 98 Nasal Cannula 4.0 36 01/18/20 12:00 94 01/18/20 12:00 97.7 93 22 143/95 (111) 91 01/18/20 09:35 73 149/99 01/18/20 09:00 Nasal Cannula 6.0 Intake and Output 01/18/20 01/19/20 19:00 07:00 Intake Total 150 ml Output Total 150 ml 300 ml Balance -150 ml -150 ml Intake Free Water 150 ml Output Urine Total 150 ml 300 ml # Bowel Movements 1 1 Laboratory Tests 01/18/20 12:41: POC Whole Blood Glucose 140H 01/18/20 12:42: POC Whole Blood Glucose [Pending] 01/18/20 15:20: Arterial Blood pH 7.430, Arterial Blood Partial Pressure CO2 41.3, Arterial Blood Partial Pressure O2 64.7L, Arterial Blood HCO3 26.8H, Arterial Blood Oxygen Saturation 92.5L, Arterial Blood Base Excess 2.3H, Surendra Test Positive 01/19/20 01:13: POC Whole Blood Glucose 141H 01/19/20 06:55: White Blood Count 15.5#H, Red Blood Count 4.75, Hemoglobin 14.7, Hematocrit 44.4 , Mean Corpuscular Volume 94, Mean Corpuscular Hemoglobin 31.0, Mean Corpuscular Hemoglobin Concent 33.1, Red Cell Distribution Width 13.2, Platelet Count 201, Mean Platelet Volume 10.6H, Neutrophils (%) (Auto) , Lymphocytes (%) (Auto) , Monocytes (%) (Auto) , Eosinophils (%) (Auto) , Basophils (%) (Auto) , Neutrophils % (Manual) [Pending], Lymphocytes % (Manual) [Pending], Platelet Estimate [Pending], Platelet Morphology [Pending], Sodium Level 144, Potassium Level 3.3L, Chloride Level 109H, Carbon Dioxide Level 30, Anion Gap 5, Blood Urea Nitrogen 44H, Creatinine 0.9, Estimat Glomerular Filtration Rate > 60, Glucose Level 169H, Calcium Level 8.9 Height (Feet): 5 Height (Inches): 5.00 Weight (Pounds): 106 General Appearance: lethargic EENT: normal ENT inspection Neck: normal alignment Cardiovascular: normal peripheral pulses, normal rate, regular rhythm Respiratory/Chest: chest wall non-tender, lungs clear, normal breath sounds Abdomen: normal bowel sounds, non tender, soft Extremities: normal inspection Edema: no edema noted Arm (L), no edema noted Arm (R), no edema noted Leg (L), no edema noted Leg (R), no edema noted Pedal (L), no edema noted Pedal (R), no edema noted Generalized Neurologic: motor weakness Skin: normal pigmentation, warm/dry Roberto Carlos Lui DO Jan 19, 2020 08:48
[2020-01-19] MEDS: Carvedilol 6.25mg Tab GT SCH ×2 (09:00→21:00)
[2020-01-19] MEDS: Amiodarone 200mg tab ORAL SCH (09:00)
[2020-01-19] MEDS: levETIRAcetam 500mg/5ml Liquid GT SCH ×2 (09:36→21:09)
[2020-01-19] MEDS: Heparin 5000 units/ml inj SUBQ SCH ×2 (09:36→21:10)
[2020-01-19] MEDS: Aspirin Baby 81mg NG SCH (09:36)
--- NOTE | 2020-01-19 09:58 | Infectious Diseases Prog Note ---
Assessment/Plan Assessment: Afebrile Leukocytosis GT malfunction- mild cellulitis -CT abd/p: Gastrostomy tube in the subcutaneous tissues of the anterior abdominal. Pericardial effusion. Large amount of fecal material in the colon. This is consistent with constipation. Contrast in the gallbladder, likely representing vicarious excretion of contrast from previous study. Atherosclerotic change. Old compression fracture of L1. hx of COVID19 (September 2019) -01/15 rapid COVID PCR neg Afib HLD seizure disorder MDD/anxiety HTN Dm2 dysphagia s/p GT [place] resident ([facility]) Plan: - Start Zosyn #1 - Repeat CXR - 01/19/20 - SP Ancef #2/5 - 01/16/20 SP Zosyn x1 - Ordered B/U Cx -Monitor CBC/CMP, temperatures -aspiration precautions -Sx, GI f/u- for EGD and GT placement today Thank you for this consultation. Will continue to follow along with you. Discussed with RN. Subjective Allergies: Coded Allergies: No Known Allergies (Unverified , 03/02/14) Patient with increase SOB now on NRB 15 L No fever Leukcoytosis increased Objective Last 24 Hour Vital Signs Date Time Temp Pulse Resp B/P (MAP) Pulse Ox O2 Delivery O2 Flow Rate FiO2 01/19/20 09:10 98 Venturi Mask 8.0 40 01/19/20 09:00 95 108/78 01/19/20 08:00 98.1 95 28 108/78 (88) 96 01/19/20 08:00 100 01/19/20 04:00 92 01/19/20 04:00 98.4 97 32 122/83 (96) 96 01/19/20 00:00 98.0 88 32 102/72 (82) 99 01/18/20 21:34 105 110/80 01/18/20 20:00 105 01/18/20 20:00 98.1 95 32 109/78 (88) 94 01/18/20 18:04 Venturi Mask 15.0 01/18/20 16:00 100.2 95 28 113/85 (94) 94 01/18/20 15:54 109 01/18/20 13:20 98 Nasal Cannula 4.0 36 01/18/20 12:00 94 01/18/20 12:00 97.7 93 22 143/95 (111) 91 Height (Feet): 5 Height (Inches): 5.00 Weight (Pounds): 106 Gen: NAD, On venti mask HEENT; NCAT, MMM, EOMI, No oral lesions Respiratory: Equal rise and fall, RRR Gastrointestinal: Soft ND Skin: No rash on exposed skin Microbiology Date/Time Source Procedure Growth Status 01/16/20 11:58 Nasopharynx SARS-CoV-2 RdRp Gene Assay - Final Complete Laboratory Tests Test 01/18/20 12:41 01/18/20 12:42 01/18/20 15:20 01/19/20 01:13 POC Whole Blood Glucose 140 MG/DL (74-106) H Pending 141 MG/DL (74-106) H Arterial Blood pH 7.430 (7.350-7.450) Arterial Blood Partial Pressure CO2 41.3 mmHg (35.0-45.0) Arterial Blood Partial Pressure O2 64.7 mmHg (75.0-100.0) L Arterial Blood HCO3 26.8 mmol/L (22.0-26.0) H Arterial Blood Oxygen Saturation 92.5 % (95-100) L Arterial Blood Base Excess 2.3 (-2-2) H Surendra Test Positive Test 01/19/20 06:55 White Blood Count 15.5 K/UL (4.8-10.8) #H Red Blood Count 4.75 M/UL (4.70-6.10) Hemoglobin 14.7 G/DL (14.2-18.0) Hematocrit 44.4 % (42.0-52.0) Mean Corpuscular Volume 94 FL (80-99) Mean Corpuscular Hemoglobin 31.0 PG (27.0-31.0) Mean Corpuscular Hemoglobin Concent 33.1 G/DL (32.0-36.0) Red Cell Distribution Width 13.2 % (11.6-14.8) Platelet Count 201 K/UL (150-450) Mean Platelet Volume 10.6 FL (6.5-10.1) H Neutrophils (%) (Auto) % (45.0-75.0) Lymphocytes (%) (Auto) % (20.0-45.0) Monocytes (%) (Auto) % (1.0-10.0) Eosinophils (%) (Auto) % (0.0-3.0) Basophils (%) (Auto) % (0.0-2.0) Neutrophils % (Manual) Pending Lymphocytes % (Manual) Pending Platelet Estimate Pending Platelet Morphology Pending Sodium Level 144 MMOL/L (136-145) Potassium Level 3.3 MMOL/L (3.5-5.1) L Chloride Level 109 MMOL/L (98-107) H Carbon Dioxide Level 30 MMOL/L (21-32) Anion Gap 5 mmol/L (5-15) Blood Urea Nitrogen 44 mg/dL (7-18) H Creatinine 0.9 MG/DL (0.55-1.30) Estimat Glomerular Filtration Rate > 60 mL/min (>60) Glucose Level 169 MG/DL (74-106) H Calcium Level 8.9 MG/DL (8.5-10.1) Current Medications Medications (Trade) Dose Ordered Sig/Kinjal Route PRN Reason Start Time Stop Time Status Last Admin Dose Admin Amiodarone HCl (Cordarone) 200 mg DAILY ORAL 01/19/20 09:00 04/18/20 08:59 Aspirin (ASA) 81 mg DAILY NG 01/19/20 09:00 03/04/20 08:59 01/19/20 09:36 Carvedilol (Coreg) 6.25 mg EVERY 12 HOURS GT 01/16/20 21:00 02/15/20 20:59 01/18/20 21:34 Cefazolin Sodium 1 gm/Dextrose 55 ml @ 110 mls/hr Q8HR IVPB 01/16/20 20:00 01/23/20 19:59 01/19/20 06:30 Dextrose (Dextrose 50%) 25 ml Q30M PRN IV Hypoglycemia 01/18/20 11:30 04/17/20 11:29 Dextrose (Dextrose 50%) 50 ml Q30M PRN IV Hypoglycemia 01/18/20 11:30 04/17/20 11:29 Famotidine (Pepcid) 20 mg TWICE A DAY GT 01/16/20 18:00 04/15/20 17:59 01/19/20 09:36 Heparin Sodium (Porcine) (Heparin 5000 units/ml) 5,000 units EVERY 12 HOURS SUBQ 01/16/20 21:00 03/01/20 20:59 8/9/20 09:36 Insulin Aspart (NovoLOG) Q6HR SUBQ 01/18/20 12:00 04/17/20 11:59 01/19/20 06:00 Levetiracetam (Keppra) 500 mg Q12HR GT 01/16/20 21:00 03/01/20 20:59 01/19/20 09:36 Levothyroxine Sodium (Synthroid) 25 mcg DAILY@0630 GT 01/18/20 06:30 02/17/20 06:29 01/19/20 06:31 Lorazepam (Ativan) 1 mg Q6H PRN ORAL For Anxiety 01/17/20 15:15 01/24/20 15:14 Risperidone (RisperDAL) 1 mg TWICE A DAY ORAL 01/17/20 18:00 03/02/20 17:59 01/19/20 09:36 Eusebio Chauhan MD Jan 19, 2020 09:58
--- NOTE | 2020-01-19 10:20 | NUR ---
CASE MANAGEMENT:REVIEW 01/19/20 SI:MALFUNCTIONING/MALPOSITIONED GTUBE. HYPOXEMIA. Left hemithorax opacification due to mediastinal shift. 98.1 95 28 108/78 96% ON 15L VM NA+152 BUN+39 IS: IV ZOSYN TID ASA PO QD NOVOLOG SQ Q6HR SYNTHROID GT QAM RISPERDAL GT QD KEPPRA GT BID CHEST X-RAY- Left mid and lower lung opacity which likely represents combination of enlarged cardiac silhouette,. Elevated left hemidiaphragm, and atelectasis versus pneumonia. Small left pleural effusion not excluded. \: TO 2E TELEMETRY UNIT DCP: TK KESSLER WHEN STABLE PLAN: URINE/BLOOD CX ~IN PROCESS PULMO CONSULT PLACE NEW TUBE OXYGEN THERAPY
--- NOTE | 2020-01-19 10:36 | NUR ---
*-* INSURANCE *-* UPDATED CLINICALS AND REVIEWS HAVE BEEN FAXED TO: [facility] F:[phone] T:[phone]
--- NOTE | 2020-01-19 11:00 | Pulmonology Progress Note ---
Subjective ROS Limited/Unobtainable: No Interval Events: Better; has nasal trumpet in place Constitutional: Reports: no symptoms HEENT: Repors: no symptoms Respiratory: Reports: no symptoms Cardiovascular: Reports: no symptoms Gastrointestinal/Abdominal: Reports: no symptoms Allergies: Coded Allergies: No Known Allergies (Unverified , 03/02/14) All Systems: reviewed and negative except above Objective Last 24 Hour Vital Signs Date Time Temp Pulse Resp B/P (MAP) Pulse Ox O2 Delivery O2 Flow Rate FiO2 01/19/20 09:10 98 Venturi Mask 8.0 40 01/19/20 09:00 Venturi Mask 15.0 01/19/20 09:00 95 108/78 01/19/20 08:00 98.1 95 28 108/78 (88) 96 01/19/20 08:00 100 01/19/20 04:00 92 01/19/20 04:00 98.4 97 32 122/83 (96) 96 01/19/20 00:00 98.0 88 32 102/72 (82) 99 01/18/20 21:34 105 110/80 01/18/20 20:00 105 01/18/20 20:00 98.1 95 32 109/78 (88) 94 01/18/20 18:04 Venturi Mask 15.0 01/18/20 16:00 100.2 95 28 113/85 (94) 94 01/18/20 15:54 109 01/18/20 13:20 98 Nasal Cannula 4.0 36 01/18/20 12:00 94 01/18/20 12:00 97.7 93 22 143/95 (111) 91 Intake and Output 01/18/20 01/19/20 19:00 07:00 Intake Total 150 ml Output Total 150 ml 300 ml Balance -150 ml -150 ml Intake Free Water 150 ml Output Urine Total 150 ml 300 ml # Bowel Movements 1 1 General Appearance: no acute distress HEENT: normocephalic Respiratory: chest wall non-tender, lungs clear Cardiovascular: normal peripheral pulses, normal rate Abdomen: normal bowel sounds Microbiology Date/Time Source Procedure Growth Status 01/16/20 11:58 Nasopharynx SARS-CoV-2 RdRp Gene Assay - Final Complete Laboratory Tests 01/18/20 12:41: POC Whole Blood Glucose 140H 01/18/20 12:42: POC Whole Blood Glucose [Pending] 01/18/20 15:20: Arterial Blood pH 7.430, Arterial Blood Partial Pressure CO2 41.3, Arterial Blood Partial Pressure O2 64.7L, Arterial Blood HCO3 26.8H, Arterial Blood Oxygen Saturation 92.5L, Arterial Blood Base Excess 2.3H, Surendra Test Positive 01/19/20 01:13: POC Whole Blood Glucose 141H 01/19/20 06:55: White Blood Count 15.5#H, Red Blood Count 4.75, Hemoglobin 14.7, Hematocrit 44.4 , Mean Corpuscular Volume 94, Mean Corpuscular Hemoglobin 31.0, Mean Corpuscular Hemoglobin Concent 33.1, Red Cell Distribution Width 13.2, Platelet Count 201, Mean Platelet Volume 10.6H, Neutrophils (%) (Auto) , Lymphocytes (%) (Auto) , Monocytes (%) (Auto) , Eosinophils (%) (Auto) , Basophils (%) (Auto) , Differential Total Cells Counted 100, Neutrophils % (Manual) 90H, Lymphocytes % (Manual) 4L, Monocytes % (Manual) 6, Eosinophils % (Manual) 0, Basophils % ( Manual) 0, Band Neutrophils 0, Platelet Estimate Adequate, Platelet Morphology Normal, Red Blood Cell Morphology Normal, Sodium Level 144, Potassium Level 3.3L , Chloride Level 109H, Carbon Dioxide Level 30, Anion Gap 5, Blood Urea Nitrogen 44H, Creatinine 0.9, Estimat Glomerular Filtration Rate > 60, Glucose Level 169H, Calcium Level 8.9 Current Medications Medications (Trade) Dose Ordered Sig/Kinjal Route PRN Reason Start Time Stop Time Status Last Admin Dose Admin Amiodarone HCl (Cordarone) 200 mg DAILY ORAL 01/19/20 09:00 04/18/20 08:59 Aspirin (ASA) 81 mg DAILY NG 01/19/20 09:00 03/04/20 08:59 01/19/20 09:36 Carvedilol (Coreg) 6.25 mg EVERY 12 HOURS GT 01/16/20 21:00 02/15/20 20:59 01/18/20 21:34 Dextrose (Dextrose 50%) 25 ml Q30M PRN IV Hypoglycemia 01/18/20 11:30 04/17/20 11:29 Dextrose (Dextrose 50%) 50 ml Q30M PRN IV Hypoglycemia 01/18/20 11:30 04/17/20 11:29 Famotidine (Pepcid) 20 mg TWICE A DAY GT 01/16/20 18:00 04/15/20 17:59 01/19/20 09:36 Heparin Sodium (Porcine) (Heparin 5000 units/ml) 5,000 units EVERY 12 HOURS SUBQ 01/16/20 21:00 03/01/20 20:59 01/19/20 09:36 Insulin Aspart (NovoLOG) Q6HR SUBQ 01/18/20 12:00 04/17/20 11:59 01/19/20 06:00 Levetiracetam (Keppra) 500 mg Q12HR GT 01/16/20 21:00 03/01/20 20:59 01/19/20 09:36 Levothyroxine Sodium (Synthroid) 25 mcg DAILY@0630 GT 01/18/20 06:30 02/17/20 06:29 01/19/20 06:31 Lorazepam (Ativan) 1 mg Q6H PRN ORAL For Anxiety 01/17/20 15:15 01/24/20 15:14 Piperacillin Sod/ Tazobactam Sod 3.375 gm/Sodium Chloride 110 ml @ 27.5 mls/hr EVERY 8 HOURS IVPB 01/19/20 14:00 01/24/20 13:59 Risperidone (RisperDAL) 1 mg TWICE A DAY ORAL 01/17/20 18:00 03/02/20 17:59 01/19/20 09:36 Assessment/Plan Assessment/Plan IMPRESSION: 1. Left hemithorax opacification due to mediastinal shift. 2. No evidence for pneumonia or lung consolidation. 3. Hypoxemia DISCUSSION: I suspect the patient's congestion represents upper airway compromise and pooling of oral secretions. Advised aggressive pulmonary hygiene. Discussed with RN. Continue nasal trumpet, nasal oxygen. I will follow as needed. Lenny Motta Omar Syed MD Jan 19, 2020 11:00
[2020-01-19 12:00] VITALS: BP 103/71
--- NOTE | 2020-01-19 12:04 | Nephrology Progress Note ---
Assessment/Plan Problem List: (1) Dehydration (2) Electrolyte imbalance (3) Vascular dementia with behavioral disturbance (4) Seizure disorder (5) Stroke due to intracerebral hemorrhage Assessment Dehydration leading to hyper-natremia GT tube malfunction and cellulitis on GT site Previous CVA due to intracerebral hemorrhage Vascular dementia Seizure disorder Hypertension History of compression fracture of thoracic vertebra Schizophrenia History of atrial fibrillation Plan January 18: Continues to be congested. The white blood cell ami. Chest x-ray results noted. Will give potassium supplement and 1 dose of IV Lasix. Continue antibiotics and pulmonary toilet. Follow-up chest x-rays. January 17 chest x-ray iMPRESSION: Left mid and lower lung opacity which likely represents combination of enlarged cardiac silhouette,. Elevated left hemidiaphragm, and atelectasis versus pneumonia. Small left pleural effusion not excluded. January 17: Will discontinue IV. Renal parameters and electrolytes within acceptable range. Patient is congested and has lots of secretions. Continue aggressive suctioning. Discussed with RN. Previously: D5W IV hydration Monitor renal parameters and electrolytes Per consultants Continue antiseizure medication Per orders Add low-dose Synthroid for mildly elevated TSH Subjective ROS Limited/Unobtainable: No Constitutional: Reports: malaise, weakness Objective Objective Last 24 Hour Vital Signs Date Time Temp Pulse Resp B/P (MAP) Pulse Ox O2 Delivery O2 Flow Rate FiO2 01/19/20 09:10 98 Venturi Mask 8.0 40 01/19/20 09:00 Venturi Mask 15.0 01/19/20 09:00 95 108/78 01/19/20 08:00 98.1 95 28 108/78 (88) 96 01/19/20 08:00 100 01/19/20 04:00 92 01/19/20 04:00 98.4 97 32 122/83 (96) 96 01/19/20 00:00 98.0 88 32 102/72 (82) 99 01/18/20 21:34 105 110/80 01/18/20 20:00 105 01/18/20 20:00 98.1 95 32 109/78 (88) 94 01/18/20 18:04 Venturi Mask 15.0 01/18/20 16:00 100.2 95 28 113/85 (94) 94 01/18/20 15:54 109 01/18/20 13:20 98 Nasal Cannula 4.0 36 01/18/20 12:00 94 01/18/20 12:00 97.7 93 22 143/95 (111) 91 Intake and Output 01/18/20 01/19/20 19:00 07:00 Intake Total 150 ml Output Total 150 ml 300 ml Balance -150 ml -150 ml Intake Free Water 150 ml Output Urine Total 150 ml 300 ml # Bowel Movements 1 1 Current Medications Medications (Trade) Dose Ordered Sig/Kinjal Route PRN Reason Start Time Stop Time Status Last Admin Dose Admin Amiodarone HCl (Cordarone) 200 mg DAILY ORAL 01/19/20 09:00 04/18/20 08:59 Aspirin (ASA) 81 mg DAILY NG 01/19/20 09:00 03/04/20 08:59 01/19/20 09:36 Carvedilol (Coreg) 6.25 mg EVERY 12 HOURS GT 01/16/20 21:00 02/15/20 20:59 01/18/20 21:34 Dextrose (Dextrose 50%) 25 ml Q30M PRN IV Hypoglycemia 01/18/20 11:30 04/17/20 11:29 Dextrose (Dextrose 50%) 50 ml Q30M PRN IV Hypoglycemia 01/18/20 11:30 04/17/20 11:29 Famotidine (Pepcid) 20 mg TWICE A DAY GT 01/16/20 18:00 04/15/20 17:59 01/19/20 09:36 Heparin Sodium (Porcine) (Heparin 5000 units/ml) 5,000 units EVERY 12 HOURS SUBQ 01/16/20 21:00 03/01/20 20:59 01/19/20 09:36 Insulin Aspart (NovoLOG) Q6HR SUBQ 01/18/20 12:00 04/17/20 11:59 01/19/20 06:00 Levetiracetam (Keppra) 500 mg Q12HR GT 01/16/20 21:00 03/01/20 20:59 01/19/20 09:36 Levothyroxine Sodium (Synthroid) 25 mcg DAILY@0630 GT 01/18/20 06:30 02/17/20 06:29 01/19/20 06:31 Lorazepam (Ativan) 1 mg Q6H PRN ORAL For Anxiety 01/17/20 15:15 01/24/20 15:14 Piperacillin Sod/ Tazobactam Sod 3.375 gm/Sodium Chloride 110 ml @ 27.5 mls/hr EVERY 8 HOURS IVPB 01/19/20 14:00 01/24/20 13:59 Risperidone (RisperDAL) 1 mg TWICE A DAY ORAL 01/17/20 18:00 03/02/20 17:59 01/19/20 09:36 Laboratory Tests 01/18/20 12:41: POC Whole Blood Glucose 140H 01/18/20 12:42: POC Whole Blood Glucose [Pending] 01/18/20 15:20: Arterial Blood pH 7.430, Arterial Blood Partial Pressure CO2 41.3, Arterial Blood Partial Pressure O2 64.7L, Arterial Blood HCO3 26.8H, Arterial Blood Oxygen Saturation 92.5L, Arterial Blood Base Excess 2.3H, Surendra Test Positive 01/19/20 01:13: POC Whole Blood Glucose 141H 01/19/20 06:55: White Blood Count 15.5#H, Red Blood Count 4.75, Hemoglobin 14.7, Hematocrit 44.4 , Mean Corpuscular Volume 94, Mean Corpuscular Hemoglobin 31.0, Mean Corpuscular Hemoglobin Concent 33.1, Red Cell Distribution Width 13.2, Platelet Count 201, Mean Platelet Volume 10.6H, Neutrophils (%) (Auto) , Lymphocytes (%) (Auto) , Monocytes (%) (Auto) , Eosinophils (%) (Auto) , Basophils (%) (Auto) , Differential Total Cells Counted 100, Neutrophils % (Manual) 90H, Lymphocytes % (Manual) 4L, Monocytes % (Manual) 6, Eosinophils % (Manual) 0, Basophils % ( Manual) 0, Band Neutrophils 0, Platelet Estimate Adequate, Platelet Morphology Normal, Red Blood Cell Morphology Normal, Sodium Level 144, Potassium Level 3.3L , Chloride Level 109H, Carbon Dioxide Level 30, Anion Gap 5, Blood Urea Nitrogen 44H, Creatinine 0.9, Estimat Glomerular Filtration Rate > 60, Glucose Level 169H, Calcium Level 8.9 Height (Feet): 5 Height (Inches): 5.00 Weight (Pounds): 106 General Appearance: mild distress Cardiovascular: tachycardia Respiratory/Chest: decreased breath sounds, rhonchi - bilaterally Abdomen: distended Darron Salas MD Jan 19, 2020 12:04
--- NOTE | 2020-01-19 12:43 | Surgery Progress Note ---
Surgery Progress Note Subjective Symptoms: improved, tolerating diet, passing flatus, BM Objective Last 24 Hour Vital Signs Date Time Temp Pulse Resp B/P (MAP) Pulse Ox O2 Delivery O2 Flow Rate FiO2 01/19/20 09:10 98 Venturi Mask 8.0 40 01/19/20 09:00 Venturi Mask 15.0 01/19/20 09:00 95 108/78 01/19/20 08:00 98.1 95 28 108/78 (88) 96 01/19/20 08:00 100 01/19/20 04:00 92 01/19/20 04:00 98.4 97 32 122/83 (96) 96 01/19/20 00:00 98.0 88 32 102/72 (82) 99 01/18/20 21:34 105 110/80 01/18/20 20:00 105 01/18/20 20:00 98.1 95 32 109/78 (88) 94 01/18/20 18:04 Venturi Mask 15.0 01/18/20 16:00 100.2 95 28 113/85 (94) 94 01/18/20 15:54 109 01/18/20 13:20 98 Nasal Cannula 4.0 36 I&O Intake and Output 01/18/20 01/19/20 19:00 07:00 Intake Total 150 ml Output Total 150 ml 300 ml Balance -150 ml -150 ml Intake Free Water 150 ml Output Urine Total 150 ml 300 ml # Bowel Movements 1 1 Dressing: dry Wound: clean Cardiovascular: RSR Respiratory: clear Abdomen: soft, non-tender, present bowel sounds Extremities: no edema, no tenderness, no cyanosis Laboratory Tests Test 01/18/20 15:20 01/19/20 01:13 01/19/20 06:55 Arterial Blood pH 7.430 (7.350-7.450) Arterial Blood Partial Pressure CO2 41.3 mmHg (35.0-45.0) Arterial Blood Partial Pressure O2 64.7 mmHg (75.0-100.0) L Arterial Blood HCO3 26.8 mmol/L (22.0-26.0) H Arterial Blood Oxygen Saturation 92.5 % (95-100) L Arterial Blood Base Excess 2.3 (-2-2) H Surendra Test Positive POC Whole Blood Glucose 141 MG/DL (74-106) H White Blood Count 15.5 K/UL (4.8-10.8) #H Red Blood Count 4.75 M/UL (4.70-6.10) Hemoglobin 14.7 G/DL (14.2-18.0) Hematocrit 44.4 % (42.0-52.0) Mean Corpuscular Volume 94 FL (80-99) Mean Corpuscular Hemoglobin 31.0 PG (27.0-31.0) Mean Corpuscular Hemoglobin Concent 33.1 G/DL (32.0-36.0) Red Cell Distribution Width 13.2 % (11.6-14.8) Platelet Count 201 K/UL (150-450) Mean Platelet Volume 10.6 FL (6.5-10.1) H Neutrophils (%) (Auto) % (45.0-75.0) Lymphocytes (%) (Auto) % (20.0-45.0) Monocytes (%) (Auto) % (1.0-10.0) Eosinophils (%) (Auto) % (0.0-3.0) Basophils (%) (Auto) % (0.0-2.0) Differential Total Cells Counted 100 Neutrophils % (Manual) 90 % (45-75) H Lymphocytes % (Manual) 4 % (20-45) L Monocytes % (Manual) 6 % (1-10) Eosinophils % (Manual) 0 % (0-3) Basophils % (Manual) 0 % (0-2) Band Neutrophils 0 % (0-8) Platelet Estimate Adequate Platelet Morphology Normal Red Blood Cell Morphology Normal Sodium Level 144 MMOL/L (136-145) Potassium Level 3.3 MMOL/L (3.5-5.1) L Chloride Level 109 MMOL/L (98-107) H Carbon Dioxide Level 30 MMOL/L (21-32) Anion Gap 5 mmol/L (5-15) Blood Urea Nitrogen 44 mg/dL (7-18) H Creatinine 0.9 MG/DL (0.55-1.30) Estimat Glomerular Filtration Rate > 60 mL/min (>60) Glucose Level 169 MG/DL (74-106) H Calcium Level 8.9 MG/DL (8.5-10.1) Plan Problems: (1) DM (diabetes mellitus) (2) Hematuria (3) Hematuria (4) Sepsis (5) G-tube site cellulitis Assessment & Plan: g tube site with cellulitis pus draining CT with tube in subq tissue tube removed wound evaluated. pus drained. washed and dressings applied discussed with GI plan for new g tube placement local wound care will be provided abx as per ID will monitor for improvement egd peg 8/ resume meds and tf cont wound care thank you (6) Suspected COVID-19 virus infection (7) Seizure disorder (8) Homelessness (9) Acute alcoholic intoxication (10) Hypertension (11) Stroke due to intracerebral hemorrhage (12) Vascular dementia with behavioral disturbance (13) Blunt head trauma (14) Feeding by G-tube Yon Mcmillan Jan 19, 2020 12:43
[2020-01-19] MEDS: Piperacillin/Tazobactam 3.375 GM in NS 110 ML IVPB SCH ×2 (13:01→21:11)
--- NOTE | 2020-01-19 14:20 | Cardiac Electrophysiology PN ---
Assessment/Plan Assessment/Plan 1. Paroxysmal atrial fibrillation. In SR on Aspirin, Coreg 6.25 mg b.i.d. and amiodarone 200 daily 2. Hypertension, on Coreg 6.25 mg b.i.d. 3. Seizure disorder, on Keppra. 4. G-tube site infection, on IV antibiotic. S/P G-tube replacement by Dr. Holley. 5. Hypernatremia on IV fluids per Dr. Salas. Subjective Subjective Saturation dropped and patient was suctioned and O2 increased to 6 liters. RN at bedside. Had EGD and PEG placement by Dr. Holley 01/17/20 Abx changed as WBC is rising Objective Last 24 Hour Vital Signs Date Time Temp Pulse Resp B/P (MAP) Pulse Ox O2 Delivery O2 Flow Rate FiO2 01/19/20 12:06 97 01/19/20 12:00 97.9 95 28 103/71 (82) 96 01/19/20 09:10 98 Venturi Mask 8.0 40 01/19/20 09:00 Venturi Mask 15.0 01/19/20 09:00 95 108/78 01/19/20 08:00 98.1 95 28 108/78 (88) 96 01/19/20 08:00 100 01/19/20 04:00 92 01/19/20 04:00 98.4 97 32 122/83 (96) 96 01/19/20 00:00 98.0 88 32 102/72 (82) 99 01/18/20 21:34 105 110/80 01/18/20 20:00 105 01/18/20 20:00 98.1 95 32 109/78 (88) 94 01/18/20 18:04 Venturi Mask 15.0 01/18/20 16:00 100.2 95 28 113/85 (94) 94 01/18/20 15:54 109 Intake and Output 01/18/20 01/19/20 19:00 07:00 Intake Total 150 ml Output Total 150 ml 300 ml Balance -150 ml -150 ml Intake Free Water 150 ml Output Urine Total 150 ml 300 ml # Bowel Movements 1 1 Laboratory Tests Test 01/18/20 15:20 01/19/20 01:13 01/19/20 06:55 Arterial Blood pH 7.430 (7.350-7.450) Arterial Blood Partial Pressure CO2 41.3 mmHg (35.0-45.0) Arterial Blood Partial Pressure O2 64.7 mmHg (75.0-100.0) L Arterial Blood HCO3 26.8 mmol/L (22.0-26.0) H Arterial Blood Oxygen Saturation 92.5 % (95-100) L Arterial Blood Base Excess 2.3 (-2-2) H Surendra Test Positive POC Whole Blood Glucose 141 MG/DL (74-106) H White Blood Count 15.5 K/UL (4.8-10.8) #H Red Blood Count 4.75 M/UL (4.70-6.10) Hemoglobin 14.7 G/DL (14.2-18.0) Hematocrit 44.4 % (42.0-52.0) Mean Corpuscular Volume 94 FL (80-99) Mean Corpuscular Hemoglobin 31.0 PG (27.0-31.0) Mean Corpuscular Hemoglobin Concent 33.1 G/DL (32.0-36.0) Red Cell Distribution Width 13.2 % (11.6-14.8) Platelet Count 201 K/UL (150-450) Mean Platelet Volume 10.6 FL (6.5-10.1) H Neutrophils (%) (Auto) % (45.0-75.0) Lymphocytes (%) (Auto) % (20.0-45.0) Monocytes (%) (Auto) % (1.0-10.0) Eosinophils (%) (Auto) % (0.0-3.0) Basophils (%) (Auto) % (0.0-2.0) Differential Total Cells Counted 100 Neutrophils % (Manual) 90 % (45-75) H Lymphocytes % (Manual) 4 % (20-45) L Monocytes % (Manual) 6 % (1-10) Eosinophils % (Manual) 0 % (0-3) Basophils % (Manual) 0 % (0-2) Band Neutrophils 0 % (0-8) Platelet Estimate Adequate Platelet Morphology Normal Red Blood Cell Morphology Normal Sodium Level 144 MMOL/L (136-145) Potassium Level 3.3 MMOL/L (3.5-5.1) L Chloride Level 109 MMOL/L (98-107) H Carbon Dioxide Level 30 MMOL/L (21-32) Anion Gap 5 mmol/L (5-15) Blood Urea Nitrogen 44 mg/dL (7-18) H Creatinine 0.9 MG/DL (0.55-1.30) Estimat Glomerular Filtration Rate > 60 mL/min (>60) Glucose Level 169 MG/DL (74-106) H Calcium Level 8.9 MG/DL (8.5-10.1) Objective HEAD AND NECK: No JVD. LUNGS: Clear. CARDIOVASCULAR: Shows irregular S1 and S2 with no gallop or rub. ABDOMEN: Soft. New G-tube in place EXTREMITIES: No pitting edema. Adolph Murray MD Jan 19, 2020 14:20
[2020-01-19 16:00] VITALS: BP 113/71
--- NOTE | 2020-01-19 16:22 | NUR ---
NURSE NOTES: Patient has been on Venturi 15L at 55% since yesterday. Pt today at 1600 started to desaturate oxygenation status of 86% on venturi, MD Rivera notified and wants stat CXR and BIPAP
--- NOTE | 2020-01-19 17:03 | Diagnostic Imaging Report ---
EXAM: XR Chest, 1 View CLINICAL HISTORY: SOB TECHNIQUE: Frontal view of the chest. COMPARISON: None FINDINGS: Lungs: The left hemidiaphragm is elevated. There is a left basilar infiltrate. Nonspecific interstitial prominence is seen throughout the lungs. Pleural space: There may be a trace of pleural effusion. No pneumothorax. Heart: Heart size within normal limits. Vasculature: Moderate calcifications are present within the thoracic aorta. IMPRESSION: Left lower lobe volume loss with a left basilar infiltrate which may reflect atelectasis and/or pneumonia.
[2020-01-19] MEDS: Acetaminophen 650mg/20.3ml GT PRN (18:34)
--- NOTE | 2020-01-19 19:31 | NUR ---
NURSE HAND-OFF REPORT: Important Events on Shift: Changed to non rebreather when O2 dropped down. Patient Status: Fair Diet: Gtube Pending Orders: None Pending Results/Labs:None Pending MD notification: None Latest Vital Signs: Temperature 101.2 , Pulse 107 , B/P 113 /71 , Respiratory Rate 28 , O2 SAT 96 , Venturi Mask, O2 Flow Rate 15.0 . Vital Sign Comment: EKG Rhythm: Sinus Tachycardia Rhythm change?: N MD Notified?: - MD Response: Latest [place] Fall Score: 70 Fall Risk: High Risk Safety Measures: Call light Within Reach, Bed Alarm Zone 1, Side Rails Side Rails x2, Bed position Low and Locked. Fall Precautions: Yellow Socks Yellow Gown Report given to Ana Cristina.
--- NOTE | 2020-01-19 19:37 | NUR ---
NURSE NOTES: Received report from DARIAN Shankar. Patient in bed responsive to voice with slow spontaneous eye movement. Call light and bedside table within reach. hall monitor intact. Bed at lowest position locked with siderails up. Able to make eye contact at times. He is currently on Non-rebreather mask 15Liters [id number] at 95%. Patient had episodes of desaturation during the day. Current temperature at 101.5 F. Will continue with plan of care.
--- NOTE | 2020-01-19 19:50 | CDS Physician Query ---
Clarification is required for compliance, coding accuracy, and to reflect severity of illness for this patient Dear Jony Jim.O. Date: 01/18/20 CDI/CDS Name: Fredy Hawkins Clinical Documentation Statement: 64-year-old male from [facility], presented with the G-tube site cellulitis ASSESSMENT: Abdominal abscess, G-tube site cellulitis,Hypernatremia,Altered mental status. CVA, Dementia, Hypertension, Seizure. [ H&P Be FrazierO. 01/15] NUTRITION DIAGNOSIS: 1) Increased kcal and pro needs r/t underweight status as evidenced by underweight BMI per guidelines, 66% of [place] Body Weight w/ noted severe BL LE wasting and generalized moderate to severe wasting. 2) Swallowing difficulty r/t dysphagia as evidenced by pt is PEG dep. [ Renetta Shepard, BEATRIZ Date: 01/17/20 09:51 ] Clinical Finding Show: BMI: 17.6kg/m2 LAB (01/15) : Chem: Albumin 3.0 [3.4-5.0], Calcium 9.4 [ 8.5-10.1] Medication: Dextrose 50ml IV Please select the most appropriate option: [] Protein/Calorie Malnutrition [] Mild [] Moderate [] Severe [] Other [] Unable to determine [] Not Applicable Present on Admission: [] Yes [] No [] Clinically Undetermined Physician signature Date Please also document in your Progress Notes and/or Discharge Summary and indicate if the condition was present on admission. MTDD
[2020-01-19 20:00] VITALS: BP 84/53
[2020-01-20] VITALS: BP 97/54
[2020-01-20 04:00] VITALS: BP 107/64
[2020-01-20] MEDS: NovoLOG Insulin Flexpen SUBQ SCH ×4 (06:00→17:45)
[2020-01-20] MEDS: Piperacillin/Tazobactam 3.375 GM in NS 110 ML IVPB SCH ×3 (06:03→22:27)
[2020-01-20] MEDS: Levothyroxine 25mcg tab GT SCH (06:03)
--- NOTE | 2020-01-20 06:37 | General Progress Note ---
Assessment/Plan Problem List: (1) DM (diabetes mellitus) ICD Codes: E11.9 - Type 2 diabetes mellitus without complications SNOMED: 14067767 (2) Feeding by G-tube ICD Codes: Z93.1 - Gastrostomy status SNOMED: 588316131, 691843258, 664184508 (3) detention resident ICD Codes: Z59.3 - Problems related to living in residential institution SNOMED: 398215235 (4) Stroke due to intracerebral hemorrhage ICD Codes: I61.9 - Nontraumatic intracerebral hemorrhage, unspecified SNOMED: 550649834 (5) Hypertension ICD Codes: I10 - Essential (primary) hypertension SNOMED: 13522154 Status: unchanged Assessment/Plan: s/p GT placement GTF wound care fu labs Subjective ROS Limited/Unobtainable: No Allergies: Coded Allergies: No Known Allergies (Unverified , 03/02/14) Objective Last 24 Hour Vital Signs Date Time Temp Pulse Resp B/P (MAP) Pulse Ox O2 Delivery O2 Flow Rate FiO2 01/20/20 04:00 89 01/20/20 04:00 97.5 92 24 107/64 (78) 97 01/20/20 04:00 15.0 100 01/20/20 00:00 99.2 89 24 97/54 (68) 97 01/20/20 00:00 15.0 100 01/19/20 21:00 Non-Rebreather 15.0 01/19/20 21:00 95 84/53 01/19/20 20:00 97.6 95 25 84/53 (63) 97 01/19/20 20:00 107 01/19/20 19:10 101.2 01/19/20 17:11 15.0 100 01/19/20 16:00 100.8 107 28 113/71 (85) 96 01/19/20 15:17 108 01/19/20 12:06 97 01/19/20 12:00 97.9 95 28 103/71 (82) 96 01/19/20 09:10 98 Venturi Mask 15.0 55 01/19/20 09:00 Venturi Mask 15.0 01/19/20 09:00 95 108/78 01/19/20 08:00 98.1 95 28 108/78 (88) 96 8/9/20 08:00 100 Intake and Output 01/19/20 01/20/20 19:00 07:00 Output Total 150 ml 250 ml Balance -150 ml -250 ml Output Urine Total 150 ml 250 ml # Voids 1 1 Laboratory Tests 01/19/20 06:55: White Blood Count 15.5#H, Red Blood Count 4.75, Hemoglobin 14.7, Hematocrit 44.4 , Mean Corpuscular Volume 94, Mean Corpuscular Hemoglobin 31.0, Mean Corpuscular Hemoglobin Concent 33.1, Red Cell Distribution Width 13.2, Platelet Count 201, Mean Platelet Volume 10.6H, Neutrophils (%) (Auto) , Lymphocytes (%) (Auto) , Monocytes (%) (Auto) , Eosinophils (%) (Auto) , Basophils (%) (Auto) , Differential Total Cells Counted 100, Neutrophils % (Manual) 90H, Lymphocytes % (Manual) 4L, Monocytes % (Manual) 6, Eosinophils % (Manual) 0, Basophils % ( Manual) 0, Band Neutrophils 0, Platelet Estimate Adequate, Platelet Morphology Normal, Red Blood Cell Morphology Normal, Sodium Level 144, Potassium Level 3.3L , Chloride Level 109H, Carbon Dioxide Level 30, Anion Gap 5, Blood Urea Nitrogen 44H, Creatinine 0.9, Estimat Glomerular Filtration Rate > 60, Glucose Level 169H, Calcium Level 8.9 01/19/20 16:36: Arterial Blood pH 7.479H, Arterial Blood Partial Pressure CO2 31.3L, Arterial Blood Partial Pressure O2 64.5L, Arterial Blood HCO3 22.7, Arterial Blood Oxygen Saturation 93.1L, Arterial Blood Base Excess 0.2, Surendra Test Positive 01/20/20 06:07: POC Whole Blood Glucose 134H Height (Feet): 5 Height (Inches): 5.00 Weight (Pounds): 106 General Appearance: confused EENT: normal ENT inspection Neck: supple Cardiovascular: normal rate Respiratory/Chest: decreased breath sounds Abdomen: normal bowel sounds, non tender, soft Extremities: non-tender Scooter Holley MD Jan 20, 2020 06:37
[2020-01-20 07:24] LABS: HEMATOCRIT 41.8 % (42.0-52.0); HEMOGLOBIN 13.8 G/DL (14.2-18.0); MEAN CORPUSCULAR VOLUME 94 FL (80-99); PLATELET COUNT 168 K/UL (150-450); RED BLOOD COUNT 4.44 M/UL (4.70-6.10); RED CELL DISTRIBUTION WIDTH 13.7 % (11.6-14.8); WHITE BLOOD COUNT 10.2 K/UL (4.8-10.8)
[2020-01-20 07:50] LABS: ALANINE AMINOTRANSFERASE 27 U/L (12-78); ALBUMIN 2.2 G/DL (3.4-5.0); ALBUMIN/GLOBULIN RATIO 0.5 (1.0-2.7); ALKALINE PHOSPHATASE 73 U/L (46-116); ANION GAP 8 mmol/L (5-15); ASPARTATE AMINO TRANSFERASE 31 U/L (15-37); BILIRUBIN,TOTAL 0.4 MG/DL (0.2-1.0); BLOOD UREA NITROGEN 67 mg/dL (7-18); CALCIUM 9.1 MG/DL (8.5-10.1); CARBON DIOXIDE 28 MMOL/L (21-32); CHLORIDE 109 MMOL/L (98-107); CREATININE 1.2 MG/DL (0.55-1.30); PHOSPHORUS 3.4 MG/DL (2.5-4.9); POTASSIUM 3.9 MMOL/L (3.5-5.1); SODIUM 145 MMOL/L (136-145)
--- NOTE | 2020-01-20 07:59 | NUR ---
NURSE NOTES: Received patient in bed awake. Non rebreather mask on, O2 saturation at 96. Gtube feeding turned on. Condom catheter in place. HOB elevated. Bed locked in lowest position. Call light within reach. Will continue plan of care.
[2020-01-20 08:00] VITALS: BP 112/73
--- NOTE | 2020-01-20 08:00 | NUR ---
HAND-OFF: Report given to DARIAN Justice. Endorsed plan of care and to monitor [id number].
--- NOTE | 2020-01-20 09:12 | NUR ---
RD ASSESSMENT & RECOMMENDATIONS SEE CARE ACTIVITY FOR COMPLETE ASSESSMENT DAILY ESTIMATED NEEDS: Needs based on Underweight, wasting, 44.4kg 30-40 kcals/kg 1188-7061 total kcals 1.25-2 g protein/kg 56-89 g total protein 25-35ml/kcal mL/kg 3310-6039 total fluid mLs NUTRITION DIAGNOSIS: 1) Increased kcal and pro needs r/t underweight status as evidenced by underweight BMI per guidelines, 66% of [place] Body Weight w/ noted severe BL LE wasting and generalized moderate to severe wasting. 2) Swallowing difficulty r/t dysphagia as evidenced by pt is PEG dep. CURRENT TF:Vital AF 1.2 @ 60ml/hr x 22 hrs (On Synthroid QD) ENTERAL NUTRITION RECOMMENDATIONS: Glucerna 1.2 @60ml/hr x 22 hrs to provide 1320ml, 1584kcal, 79g prot, 1062ml free water - Rec TF change to Glucerna 1.2: for carb control and elemental TF of Vital AF is not indicated - Initiate Glucerna 1.2 @ 30ml/hr x 6hrs, advanced 15ml q 4-6 hrs as tolerated to goal - Water flush of 100ml q 6 hrs/ HOB over 30 degrees. - Hold 1 hr before and after Synthroid med. ADDITIONAL RECOMMENDATIONS: 1) Per SNF 5'7"; and current bed scale of 97.7lbs Maintain accurate CBW, now on a bed w/ added p200 mattress + pump 2) F/up w/ WC eval: Rec adding Avery BID via GT 3) Monitor hydration status: BUN trend up, rec increasing water flushes 4) Check lytes daily, replete as needed. .
[2020-01-20] MEDS: Amiodarone 200mg tab ORAL SCH (09:25)
[2020-01-20] MEDS: levETIRAcetam 500mg/5ml Liquid GT SCH ×2 (09:25→22:27)
[2020-01-20] MEDS: Carvedilol 6.25mg Tab GT SCH (09:26)
[2020-01-20] MEDS: Aspirin Baby 81mg NG SCH (09:26)
[2020-01-20] MEDS: Heparin 5000 units/ml inj SUBQ SCH ×2 (09:27→21:00)
--- NOTE | 2020-01-20 09:38 | General Progress Note ---
Assessment/Plan Problem List: (1) G-tube site cellulitis ICD Codes: K94.22 - Gastrostomy infection; L03.319 - Cellulitis of trunk, unspecified SNOMED: 484105814, 661951706 (2) Sepsis ICD Codes: A41.9 - Sepsis, unspecified organism SNOMED: 55076498 (3) Stroke due to intracerebral hemorrhage ICD Codes: I61.9 - Nontraumatic intracerebral hemorrhage, unspecified SNOMED: 998203226 (4) Hypertension ICD Codes: I10 - Essential (primary) hypertension SNOMED: 65291908 (5) Seizure disorder ICD Codes: G40.909 - Epilepsy, unspecified, not intractable,without status epilepticus SNOMED: 746525594 Status: unchanged Assessment/Plan: pt diet abx wound care gtube cbc bmp am Subjective Constitutional: Reports: weakness Respiratory: Reports: shortness of breath Allergies: Coded Allergies: No Known Allergies (Unverified , 03/02/14) All Systems: reviewed and negative except above Subjective o2 mask sleepy calm Objective Last 24 Hour Vital Signs Date Time Temp Pulse Resp B/P (MAP) Pulse Ox O2 Delivery O2 Flow Rate FiO2 01/20/20 09:26 95 112/73 01/20/20 08:00 99.1 95 26 112/73 (86) 99 01/20/20 04:00 89 01/20/20 04:00 97.5 92 24 107/64 (78) 97 01/20/20 04:00 15.0 100 01/20/20 00:00 99.2 89 24 97/54 (68) 97 01/20/20 00:00 15.0 100 01/19/20 21:00 Non-Rebreather 15.0 01/19/20 21:00 95 84/53 01/19/20 20:00 97.6 95 25 84/53 (63) 97 01/19/20 20:00 107 01/19/20 19:10 101.2 01/19/20 17:11 15.0 100 01/19/20 16:00 100.8 107 28 113/71 (85) 96 01/19/20 15:17 108 01/19/20 12:06 97 01/19/20 12:00 97.9 95 28 103/71 (82) 96 Intake and Output 01/19/20 01/20/20 19:00 07:00 Output Total 150 ml 250 ml Balance -150 ml -250 ml Output Urine Total 150 ml 250 ml # Voids 1 1 Laboratory Tests 01/19/20 16:36: Arterial Blood pH 7.479H, Arterial Blood Partial Pressure CO2 31.3L, Arterial Blood Partial Pressure O2 64.5L, Arterial Blood HCO3 22.7, Arterial Blood Oxygen Saturation 93.1L, Arterial Blood Base Excess 0.2, Surendra Test Positive 01/20/20 05:56: White Blood Count 10.2, Red Blood Count 4.44L, Hemoglobin 13.8L, Hematocrit 41.8L, Mean Corpuscular Volume 94, Mean Corpuscular Hemoglobin 31.0, Mean Corpuscular Hemoglobin Concent 33.0, Red Cell Distribution Width 13.7, Platelet Count 168, Mean Platelet Volume 12.6H, Neutrophils (%) (Auto) , Lymphocytes (%) (Auto) , Monocytes (%) (Auto) , Eosinophils (%) (Auto) , Basophils (%) (Auto) , Differential Total Cells Counted 100, Neutrophils % (Manual) 67, Lymphocytes % ( Manual) 6L, Monocytes % (Manual) 6, Eosinophils % (Manual) 0, Basophils % ( Manual) 0, Band Neutrophils 21H, Platelet Estimate Adequate, Platelet Morphology Normal, Red Blood Cell Morphology Normal, Sodium Level 145, Potassium Level 3.9, Chloride Level 109H, Carbon Dioxide Level 28, Anion Gap 8, Blood Urea Nitrogen 67H, Creatinine 1.2, Estimat Glomerular Filtration Rate > 60 , Glucose Level 139H, Uric Acid 4.4, Calcium Level 9.1, Phosphorus Level 3.4, Magnesium Level 2.3, Total Bilirubin 0.4, Aspartate Amino Transf (AST/SGOT) 31, Alanine Aminotransferase (ALT/SGPT) 27, Alkaline Phosphatase 73, C-Reactive Protein, Quantitative 23.5H, Pro-B-Type Natriuretic Peptide 927H, Total Protein 6.4, Albumin 2.2L, Globulin 4.2, Albumin/Globulin Ratio 0.5L 01/20/20 06:07: POC Whole Blood Glucose 134H Height (Feet): 5 Height (Inches): 5.00 Weight (Pounds): 104 General Appearance: lethargic EENT: normal ENT inspection Neck: normal alignment Cardiovascular: normal peripheral pulses, normal rate, regular rhythm Respiratory/Chest: chest wall non-tender, lungs clear, normal breath sounds Abdomen: normal bowel sounds, non tender, soft Extremities: normal inspection Edema: no edema noted Arm (L), no edema noted Arm (R), no edema noted Leg (L), no edema noted Leg (R), no edema noted Pedal (L), no edema noted Pedal (R), no edema noted Generalized Neurologic: motor weakness Skin: normal pigmentation Roberto Carlos Lui Jan 20, 2020 09:38
--- NOTE | 2020-01-20 09:52 | Infectious Diseases Prog Note ---
Assessment/Plan Afebrile Leukocytosis Acute hypoxic resp failure, on NRB, unclear etiology 01/18 CXR: Left lower lobe volume loss with a left basilar infiltrate which may reflect atelectasis and/or pneumonia. GT malfunction - mild cellulitis CT abd/p: Gastrostomy tube in the subcutaneous tissues of the anterior abdominal. Pericardial effusion. Large amount of fecal material in the colon. This is consistent with constipation. Contrast in the gallbladder, likely representing vicarious excretion of contrast from previous study. Atherosclerotic change. Old compression fracture of L1. H/o COVID19 (September 2019) 01/15 Rapid COVID PCR neg Afib HLD Seizure disorder MDD/anxiety HTN DM2 Dysphagia s/p GT DC resident ([facility]) Plan: Cont Zosyn #2 given resp failure Repeat COVID test given resp failure, from SNF Obtain sputum cx Trend leukocytosis, improving Monitor resp status 01/19/20 SP Ancef #3/5 01/16/20 SP Zosyn x1 Monitor CBC/CMP, temperatures Aspiration precautions D/w RN Thank you for this consultation. Will continue to follow along with you. Subjective Allergies: Coded Allergies: No Known Allergies (Unverified , 03/02/14) Tmax 101.2 Not interactive On NRB 15L satting well WBC 10 from 15 Objective Last 24 Hour Vital Signs Date Time Temp Pulse Resp B/P (MAP) Pulse Ox O2 Delivery O2 Flow Rate FiO2 01/20/20 09:26 95 112/73 01/20/20 08:00 99.1 95 26 112/73 (86) 99 01/20/20 04:00 89 01/20/20 04:00 97.5 92 24 107/64 (78) 97 01/20/20 04:00 15.0 100 01/20/20 00:00 99.2 89 24 97/54 (68) 97 01/20/20 00:00 15.0 100 01/19/20 21:00 Non-Rebreather 15.0 01/19/20 21:00 95 84/53 01/19/20 20:00 97.6 95 25 84/53 (63) 97 01/19/20 20:00 107 01/19/20 19:10 101.2 01/19/20 17:11 15.0 100 01/19/20 16:00 100.8 107 28 113/71 (85) 96 01/19/20 15:17 108 01/19/20 12:06 97 01/19/20 12:00 97.9 95 28 103/71 (82) 96 Height (Feet): 5 Height (Inches): 5.00 Weight (Pounds): 104 Gen: Thin older man, on NRB Pulm: BL chest rise on NRB Abd: Thin, soft, NTND, +PEG with dressing c/d/i Ext: No c/c/e, very thin Microbiology Date/Time Source Procedure Growth Status 01/19/20 11:02 Urine,Clean Catch Urine Culture - Preliminary Resulted Laboratory Tests Test 01/19/20 16:36 01/20/20 05:56 01/20/20 06:07 Arterial Blood pH 7.479 (7.350-7.450) Arterial Blood Partial Pressure CO2 31.3 mmHg (35.0-45.0) L Arterial Blood Partial Pressure O2 64.5 mmHg (75.0-100.0) L Arterial Blood HCO3 22.7 mmol/L (22.0-26.0) Arterial Blood Oxygen Saturation 93.1 % (95-100) L Arterial Blood Base Excess 0.2 (-2-2) Surendra Test Positive White Blood Count 10.2 K/UL (4.8-10.8) Red Blood Count 4.44 M/UL (4.70-6.10) L Hemoglobin 13.8 G/DL (14.2-18.0) L Hematocrit 41.8 % (42.0-52.0) L Mean Corpuscular Volume 94 FL (80-99) Mean Corpuscular Hemoglobin 31.0 PG (27.0-31.0) Mean Corpuscular Hemoglobin Concent 33.0 G/DL (32.0-36.0) Red Cell Distribution Width 13.7 % (11.6-14.8) Platelet Count 168 K/UL (150-450) Mean Platelet Volume 12.6 FL (6.5-10.1) H Neutrophils (%) (Auto) % (45.0-75.0) Lymphocytes (%) (Auto) % (20.0-45.0) Monocytes (%) (Auto) % (1.0-10.0) Eosinophils (%) (Auto) % (0.0-3.0) Basophils (%) (Auto) % (0.0-2.0) Differential Total Cells Counted 100 Neutrophils % (Manual) 67 % (45-75) Lymphocytes % (Manual) 6 % (20-45) L Monocytes % (Manual) 6 % (1-10) Eosinophils % (Manual) 0 % (0-3) Basophils % (Manual) 0 % (0-2) Band Neutrophils 21 % (0-8) H Platelet Estimate Adequate Platelet Morphology Normal Red Blood Cell Morphology Normal Sodium Level 145 MMOL/L (136-145) Potassium Level 3.9 MMOL/L (3.5-5.1) Chloride Level 109 MMOL/L (98-107) H Carbon Dioxide Level 28 MMOL/L (21-32) Anion Gap 8 mmol/L (5-15) Blood Urea Nitrogen 67 mg/dL (7-18) H Creatinine 1.2 MG/DL (0.55-1.30) Estimat Glomerular Filtration Rate > 60 mL/min (>60) Glucose Level 139 MG/DL (74-106) H Uric Acid 4.4 MG/DL (2.6-7.2) Calcium Level 9.1 MG/DL (8.5-10.1) Phosphorus Level 3.4 MG/DL (2.5-4.9) Magnesium Level 2.3 MG/DL (1.8-2.4) Total Bilirubin 0.4 MG/DL (0.2-1.0) Aspartate Amino Transf (AST/SGOT) 31 U/L (15-37) Alanine Aminotransferase (ALT/SGPT) 27 U/L (12-78) Alkaline Phosphatase 73 U/L (46-116) C-Reactive Protein, Quantitative 23.5 mg/dL (0.00-0.90) H Pro-B-Type Natriuretic Peptide 927 pg/mL (0-125) H Total Protein 6.4 G/DL (6.4-8.2) Albumin 2.2 G/DL (3.4-5.0) L Globulin 4.2 g/dL Albumin/Globulin Ratio 0.5 (1.0-2.7) L POC Whole Blood Glucose 134 MG/DL (74-106) H Current Medications Medications (Trade) Dose Ordered Sig/Kinjal Route PRN Reason Start Time Stop Time Status Last Admin Dose Admin Acetaminophen (Tylenol) 650 mg Q6H PRN GT Temp >100.5 01/19/20 18:27 02/18/20 18:26 01/19/20 18:34 Amiodarone HCl (Cordarone) 200 mg DAILY ORAL 01/19/20 09:00 04/18/20 08:59 01/20/20 09:25 Aspirin (ASA) 81 mg DAILY NG 01/19/20 09:00 03/04/20 08:59 01/20/20 09:26 Carvedilol (Coreg) 6.25 mg EVERY 12 HOURS GT 01/16/20 21:00 02/15/20 20:59 01/20/20 09:26 Dextrose (Dextrose 50%) 25 ml Q30M PRN IV Hypoglycemia 01/18/20 11:30 04/17/20 11:29 Dextrose (Dextrose 50%) 50 ml Q30M PRN IV Hypoglycemia 01/18/20 11:30 04/17/20 11:29 Famotidine (Pepcid) 20 mg TWICE A DAY GT 01/16/20 18:00 04/15/20 17:59 01/20/20 09:26 Heparin Sodium (Porcine) (Heparin 5000 units/ml) 5,000 units EVERY 12 HOURS SUBQ 01/16/20 21:00 03/01/20 20:59 01/20/20 09:27 Insulin Aspart (NovoLOG) Q6HR SUBQ 01/18/20 12:00 04/17/20 11:59 01/19/20 17:46 Levetiracetam (Keppra) 500 mg Q12HR GT 01/16/20 21:00 03/01/20 20:59 01/20/20 09:25 Levothyroxine Sodium (Synthroid) 25 mcg DAILY@0630 GT 01/18/20 06:30 02/17/20 06:29 01/20/20 06:03 Lorazepam (Ativan) 1 mg Q6H PRN ORAL For Anxiety 01/17/20 15:15 01/24/20 15:14 Piperacillin Sod/ Tazobactam Sod 3.375 gm/Sodium Chloride 110 ml @ 27.5 mls/hr EVERY 8 HOURS IVPB 01/19/20 14:00 01/24/20 13:59 01/20/20 06:03 Risperidone (RisperDAL) 1 mg TWICE A DAY ORAL 01/17/20 18:00 03/02/20 17:59 01/20/20 09:26 Magdalene White M.D. Jan 20, 2020 09:52
--- NOTE | 2020-01-20 10:09 | NUR ---
NURSE NOTES: Covid swab sample collected, sputum sample collected, sent to lab.
--- NOTE | 2020-01-20 10:59 | Pulmonology Progress Note ---
Subjective ROS Limited/Unobtainable: No Interval Events: Better; has nasal trumpet in place Constitutional: Reports: no symptoms HEENT: Repors: no symptoms Respiratory: Reports: no symptoms Cardiovascular: Reports: no symptoms Gastrointestinal/Abdominal: Reports: no symptoms Allergies: Coded Allergies: No Known Allergies (Unverified , 03/02/14) All Systems: reviewed and negative except above Objective Last 24 Hour Vital Signs Date Time Temp Pulse Resp B/P (MAP) Pulse Ox O2 Delivery O2 Flow Rate FiO2 01/20/20 09:26 95 112/73 01/20/20 09:00 Venturi Mask 14.0 01/20/20 08:00 94 01/20/20 08:00 99.1 95 26 112/73 (86) 99 01/20/20 08:00 14.0 55 01/20/20 04:00 89 01/20/20 04:00 97.5 92 24 107/64 (78) 97 01/20/20 04:00 15.0 100 01/20/20 00:00 99.2 89 24 97/54 (68) 97 01/20/20 00:00 15.0 100 01/19/20 21:00 Non-Rebreather 15.0 01/19/20 21:00 95 84/53 01/19/20 20:00 97.6 95 25 84/53 (63) 97 01/19/20 20:00 107 01/19/20 19:10 101.2 01/19/20 17:11 15.0 100 01/19/20 16:00 100.8 107 28 113/71 (85) 96 01/19/20 15:17 108 01/19/20 12:06 97 01/19/20 12:00 97.9 95 28 103/71 (82) 96 Intake and Output 01/19/20 01/20/20 19:00 07:00 Output Total 150 ml 250 ml Balance -150 ml -250 ml Output Urine Total 150 ml 250 ml # Voids 1 1 General Appearance: no acute distress HEENT: normocephalic Respiratory: chest wall non-tender, lungs clear Cardiovascular: normal peripheral pulses, normal rate Abdomen: normal bowel sounds Microbiology Date/Time Source Procedure Growth Status 01/19/20 11:02 Urine,Clean Catch Urine Culture - Preliminary Resulted Laboratory Tests 01/19/20 16:36: Arterial Blood pH 7.479H, Arterial Blood Partial Pressure CO2 31.3L, Arterial Blood Partial Pressure O2 64.5L, Arterial Blood HCO3 22.7, Arterial Blood Oxygen Saturation 93.1L, Arterial Blood Base Excess 0.2, Surendra Test Positive 01/20/20 05:56: White Blood Count 10.2, Red Blood Count 4.44L, Hemoglobin 13.8L, Hematocrit 41.8L, Mean Corpuscular Volume 94, Mean Corpuscular Hemoglobin 31.0, Mean Corpuscular Hemoglobin Concent 33.0, Red Cell Distribution Width 13.7, Platelet Count 168, Mean Platelet Volume 12.6H, Neutrophils (%) (Auto) , Lymphocytes (%) (Auto) , Monocytes (%) (Auto) , Eosinophils (%) (Auto) , Basophils (%) (Auto) , Differential Total Cells Counted 100, Neutrophils % (Manual) 67, Lymphocytes % ( Manual) 6L, Monocytes % (Manual) 6, Eosinophils % (Manual) 0, Basophils % ( Manual) 0, Band Neutrophils 21H, Platelet Estimate Adequate, Platelet Morphology Normal, Red Blood Cell Morphology Normal, Sodium Level 145, Potassium Level 3.9, Chloride Level 109H, Carbon Dioxide Level 28, Anion Gap 8, Blood Urea Nitrogen 67H, Creatinine 1.2, Estimat Glomerular Filtration Rate > 60 , Glucose Level 139H, Uric Acid 4.4, Calcium Level 9.1, Phosphorus Level 3.4, Magnesium Level 2.3, Total Bilirubin 0.4, Aspartate Amino Transf (AST/SGOT) 31, Alanine Aminotransferase (ALT/SGPT) 27, Alkaline Phosphatase 73, C-Reactive Protein, Quantitative 23.5H, Pro-B-Type Natriuretic Peptide 927H, Total Protein 6.4, Albumin 2.2L, Globulin 4.2, Albumin/Globulin Ratio 0.5L 01/20/20 06:07: POC Whole Blood Glucose 134H Current Medications Medications (Trade) Dose Ordered Sig/Kinjal Route PRN Reason Start Time Stop Time Status Last Admin Dose Admin Acetaminophen (Tylenol) 650 mg Q6H PRN GT Temp >100.5 01/19/20 18:27 02/18/20 18:26 01/19/20 18:34 Amiodarone HCl (Cordarone) 200 mg DAILY ORAL 01/19/20 09:00 04/18/20 08:59 01/20/20 09:25 Aspirin (ASA) 81 mg DAILY NG 01/19/20 09:00 03/04/20 08:59 01/20/20 09:26 Carvedilol (Coreg) 6.25 mg EVERY 12 HOURS GT 01/16/20 21:00 02/15/20 20:59 01/20/20 09:26 Dextrose (Dextrose 50%) 25 ml Q30M PRN IV Hypoglycemia 01/18/20 11:30 04/17/20 11:29 Dextrose (Dextrose 50%) 50 ml Q30M PRN IV Hypoglycemia 01/18/20 11:30 04/17/20 11:29 Famotidine (Pepcid) 20 mg TWICE A DAY GT 01/16/20 18:00 04/15/20 17:59 01/20/20 09:26 Heparin Sodium (Porcine) (Heparin 5000 units/ml) 5,000 units EVERY 12 HOURS SUBQ 01/16/20 21:00 03/01/20 20:59 01/20/20 09:27 Insulin Aspart (NovoLOG) Q6HR SUBQ 01/18/20 12:00 04/17/20 11:59 01/19/20 17:46 Levetiracetam (Keppra) 500 mg Q12HR GT 01/16/20 21:00 03/01/20 20:59 01/20/20 09:25 Levothyroxine Sodium (Synthroid) 25 mcg DAILY@0630 GT 01/18/20 06:30 02/17/20 06:29 01/20/20 06:03 Lorazepam (Ativan) 1 mg Q6H PRN ORAL For Anxiety 01/17/20 15:15 01/24/20 15:14 Piperacillin Sod/ Tazobactam Sod 3.375 gm/Sodium Chloride 110 ml @ 27.5 mls/hr EVERY 8 HOURS IVPB 01/19/20 14:00 01/24/20 13:59 01/20/20 06:03 Risperidone (RisperDAL) 1 mg TWICE A DAY ORAL 01/17/20 18:00 03/02/20 17:59 01/20/20 09:26 Assessment/Plan Assessment/Plan IMPRESSION: 1. Left hemithorax opacification due to mediastinal shift. 2. No evidence for pneumonia or lung consolidation. 3. Hypoxemia; currently on ventimask DISCUSSION: I suspect the patient's congestion represents upper airway compromise and pooling of oral secretions. Advised aggressive pulmonary hygiene. Discussed with RN. Continue nasal trumpet, nasal oxygen. I will follow as needed. REviewed latest CXR and ABG; no change Joaquin Rivera M.D. Joaquin Rivera MD Jan 20, 2020 10:59
[2020-01-20 11:37] VITALS: BP 85/55
--- NOTE | 2020-01-20 12:41 | Cardiac Electrophysiology PN ---
Assessment/Plan Assessment/Plan 1. Paroxysmal atrial fibrillation. In SR on Aspirin, Coreg 6.25 mg b.i.d. and amiodarone 200 daily 2. Hypertension, Hold Coreg. Give NS 500 cc bolus 3. Seizure disorder, on Keppra. 4. G-tube site infection, on IV antibiotic. S/P G-tube replacement by Dr. Holley. 5. Hypernatremia on IV fluids per Dr. Salas. DW RN Subjective Subjective RN at bedside. Had EGD and PEG placement by Dr. Holley 01/17/20. BP dropped to 85 earlier. Objective Last 24 Hour Vital Signs Date Time Temp Pulse Resp B/P (MAP) Pulse Ox O2 Delivery O2 Flow Rate FiO2 01/20/20 12:00 86 01/20/20 12:00 14.0 55 01/20/20 11:37 99.0 81 24 85/55 (65) 94 01/20/20 09:26 95 112/73 01/20/20 09:00 Venturi Mask 14.0 01/20/20 08:00 94 01/20/20 08:00 99.1 95 26 112/73 (86) 99 01/20/20 08:00 14.0 55 01/20/20 07:00 99 Non-Rebreather 15.0 100 01/20/20 04:00 89 01/20/20 04:00 97.5 92 24 107/64 (78) 97 01/20/20 04:00 15.0 100 01/20/20 00:00 99.2 89 24 97/54 (68) 97 01/20/20 00:00 15.0 100 01/19/20 21:00 Non-Rebreather 15.0 01/19/20 21:00 95 84/53 01/19/20 20:00 97.6 95 25 84/53 (63) 97 01/19/20 20:00 107 01/19/20 19:10 101.2 01/19/20 17:11 15.0 100 01/19/20 16:00 100.8 107 28 113/71 (85) 96 01/19/20 15:17 108 Intake and Output 01/19/20 01/20/20 19:00 07:00 Output Total 150 ml 250 ml Balance -150 ml -250 ml Output Urine Total 150 ml 250 ml # Voids 1 1 Laboratory Tests Test 01/19/20 16:36 01/20/20 05:56 01/20/20 06:07 Arterial Blood pH 7.479 (7.350-7.450) Arterial Blood Partial Pressure CO2 31.3 mmHg (35.0-45.0) L Arterial Blood Partial Pressure O2 64.5 mmHg (75.0-100.0) L Arterial Blood HCO3 22.7 mmol/L (22.0-26.0) Arterial Blood Oxygen Saturation 93.1 % (95-100) L Arterial Blood Base Excess 0.2 (-2-2) Surendra Test Positive White Blood Count 10.2 K/UL (4.8-10.8) Red Blood Count 4.44 M/UL (4.70-6.10) L Hemoglobin 13.8 G/DL (14.2-18.0) L Hematocrit 41.8 % (42.0-52.0) L Mean Corpuscular Volume 94 FL (80-99) Mean Corpuscular Hemoglobin 31.0 PG (27.0-31.0) Mean Corpuscular Hemoglobin Concent 33.0 G/DL (32.0-36.0) Red Cell Distribution Width 13.7 % (11.6-14.8) Platelet Count 168 K/UL (150-450) Mean Platelet Volume 12.6 FL (6.5-10.1) H Neutrophils (%) (Auto) % (45.0-75.0) Lymphocytes (%) (Auto) % (20.0-45.0) Monocytes (%) (Auto) % (1.0-10.0) Eosinophils (%) (Auto) % (0.0-3.0) Basophils (%) (Auto) % (0.0-2.0) Differential Total Cells Counted 100 Neutrophils % (Manual) 67 % (45-75) Lymphocytes % (Manual) 6 % (20-45) L Monocytes % (Manual) 6 % (1-10) Eosinophils % (Manual) 0 % (0-3) Basophils % (Manual) 0 % (0-2) Band Neutrophils 21 % (0-8) H Platelet Estimate Adequate Platelet Morphology Normal Red Blood Cell Morphology Normal Sodium Level 145 MMOL/L (136-145) Potassium Level 3.9 MMOL/L (3.5-5.1) Chloride Level 109 MMOL/L (98-107) H Carbon Dioxide Level 28 MMOL/L (21-32) Anion Gap 8 mmol/L (5-15) Blood Urea Nitrogen 67 mg/dL (7-18) H Creatinine 1.2 MG/DL (0.55-1.30) Estimat Glomerular Filtration Rate > 60 mL/min (>60) Glucose Level 139 MG/DL (74-106) H Uric Acid 4.4 MG/DL (2.6-7.2) Calcium Level 9.1 MG/DL (8.5-10.1) Phosphorus Level 3.4 MG/DL (2.5-4.9) Magnesium Level 2.3 MG/DL (1.8-2.4) Total Bilirubin 0.4 MG/DL (0.2-1.0) Aspartate Amino Transf (AST/SGOT) 31 U/L (15-37) Alanine Aminotransferase (ALT/SGPT) 27 U/L (12-78) Alkaline Phosphatase 73 U/L (46-116) C-Reactive Protein, Quantitative 23.5 mg/dL (0.00-0.90) H Pro-B-Type Natriuretic Peptide 927 pg/mL (0-125) H Total Protein 6.4 G/DL (6.4-8.2) Albumin 2.2 G/DL (3.4-5.0) L Globulin 4.2 g/dL Albumin/Globulin Ratio 0.5 (1.0-2.7) L POC Whole Blood Glucose 134 MG/DL (74-106) H Microbiology Date/Time Source Procedure Growth Status 01/20/20 09:50 Nasopharynx SARS-CoV-2 RdRp Gene Assay - Final Complete 01/19/20 11:02 Urine,Clean Catch Urine Culture - Preliminary Resulted Objective HEAD AND NECK: No JVD. LUNGS: Clear. CARDIOVASCULAR: Shows irregular S1 and S2 with no gallop or rub. ABDOMEN: Soft. New G-tube in place EXTREMITIES: No pitting edema. Adolph Murray MD Jan 20, 2020 12:41
--- NOTE | 2020-01-20 13:20 | Nephrology Progress Note ---
Assessment/Plan Problem List: (1) Dehydration (2) Electrolyte imbalance (3) Vascular dementia with behavioral disturbance (4) Seizure disorder (5) Stroke due to intracerebral hemorrhage Assessment Dehydration leading to hyper-natremia GT tube malfunction and cellulitis on GT site Previous CVA due to intracerebral hemorrhage Vascular dementia Seizure disorder Hypertension History of compression fracture of thoracic vertebra Schizophrenia History of atrial fibrillation Plan January 19: Lab reviewed. Leukocytosis resolved. Renal parameters stable. Continue per consultants. January 18: Continues to be congested. The white blood cell ami. Chest x-ray results noted. Will give potassium supplement and 1 dose of IV Lasix. Continue antibiotics and pulmonary toilet. Follow-up chest x-rays. January 17 chest x-ray iMPRESSION: Left mid and lower lung opacity which likely represents combination of enlarged cardiac silhouette,. Elevated left hemidiaphragm, and atelectasis versus pneumonia. Small left pleural effusion not excluded. January 17: Will discontinue IV. Renal parameters and electrolytes within acceptable range. Patient is congested and has lots of secretions. Continue aggressive suctioning. Discussed with RN. Previously: D5W IV hydration Monitor renal parameters and electrolytes Per consultants Continue antiseizure medication Per orders Add low-dose Synthroid for mildly elevated TSH Subjective ROS Limited/Unobtainable: No Constitutional: Reports: malaise, weakness Objective Objective Last 24 Hour Vital Signs Date Time Temp Pulse Resp B/P (MAP) Pulse Ox O2 Delivery O2 Flow Rate FiO2 01/20/20 12:00 86 01/20/20 12:00 14.0 55 01/20/20 11:37 99.0 81 24 85/55 (65) 94 01/20/20 09:26 95 112/73 01/20/20 09:00 Venturi Mask 14.0 01/20/20 08:00 94 01/20/20 08:00 99.1 95 26 112/73 (86) 99 01/20/20 08:00 14.0 55 01/20/20 07:00 99 Non-Rebreather 15.0 100 01/20/20 04:00 89 01/20/20 04:00 97.5 92 24 107/64 (78) 97 01/20/20 04:00 15.0 100 01/20/20 00:00 99.2 89 24 97/54 (68) 97 01/20/20 00:00 15.0 100 01/19/20 21:00 Non-Rebreather 15.0 01/19/20 21:00 95 84/53 01/19/20 20:00 97.6 95 25 84/53 (63) 97 01/19/20 20:00 107 01/19/20 19:10 101.2 01/19/20 17:11 15.0 100 01/19/20 16:00 100.8 107 28 113/71 (85) 96 01/19/20 15:17 108 Intake and Output 01/19/20 01/20/20 19:00 07:00 Output Total 150 ml 250 ml Balance -150 ml -250 ml Output Urine Total 150 ml 250 ml # Voids 1 1 Current Medications Medications (Trade) Dose Ordered Sig/Kinjal Route PRN Reason Start Time Stop Time Status Last Admin Dose Admin Acetaminophen (Tylenol) 650 mg Q6H PRN GT Temp >100.5 01/19/20 18:27 02/18/20 18:26 01/19/20 18:34 Amiodarone HCl (Cordarone) 200 mg DAILY ORAL 01/19/20 09:00 04/18/20 08:59 01/20/20 09:25 Aspirin (ASA) 81 mg DAILY NG 01/19/20 09:00 03/04/20 08:59 01/20/20 09:26 Dextrose (Dextrose 50%) 25 ml Q30M PRN IV Hypoglycemia 01/18/20 11:30 04/17/20 11:29 Dextrose (Dextrose 50%) 50 ml Q30M PRN IV Hypoglycemia 01/18/20 11:30 04/17/20 11:29 Famotidine (Pepcid) 20 mg TWICE A DAY GT 01/16/20 18:00 04/15/20 17:59 01/20/20 09:26 Heparin Sodium (Porcine) (Heparin 5000 units/ml) 5,000 units EVERY 12 HOURS SUBQ 01/16/20 21:00 03/01/20 20:59 01/20/20 09:27 Insulin Aspart (NovoLOG) Q6HR SUBQ 01/18/20 12:00 04/17/20 11:59 01/20/20 12:01 Levetiracetam (Keppra) 500 mg Q12HR GT 8/6/20 21:00 03/01/20 20:59 01/20/20 09:25 Levothyroxine Sodium (Synthroid) 25 mcg DAILY@0630 GT 01/18/20 06:30 02/17/20 06:29 01/20/20 06:03 Lorazepam (Ativan) 1 mg Q6H PRN ORAL For Anxiety 01/17/20 15:15 01/24/20 15:14 Piperacillin Sod/ Tazobactam Sod 3.375 gm/Sodium Chloride 110 ml @ 27.5 mls/hr EVERY 8 HOURS IVPB 01/19/20 14:00 01/24/20 13:59 01/20/20 06:03 Risperidone (RisperDAL) 1 mg TWICE A DAY ORAL 01/17/20 18:00 03/02/20 17:59 01/20/20 09:26 Laboratory Tests 01/19/20 16:36: Arterial Blood pH 7.479H, Arterial Blood Partial Pressure CO2 31.3L, Arterial Blood Partial Pressure O2 64.5L, Arterial Blood HCO3 22.7, Arterial Blood Oxygen Saturation 93.1L, Arterial Blood Base Excess 0.2, Surendra Test Positive 01/20/20 05:56: White Blood Count 10.2, Red Blood Count 4.44L, Hemoglobin 13.8L, Hematocrit 41.8L, Mean Corpuscular Volume 94, Mean Corpuscular Hemoglobin 31.0, Mean Corpuscular Hemoglobin Concent 33.0, Red Cell Distribution Width 13.7, Platelet Count 168, Mean Platelet Volume 12.6H, Neutrophils (%) (Auto) , Lymphocytes (%) (Auto) , Monocytes (%) (Auto) , Eosinophils (%) (Auto) , Basophils (%) (Auto) , Differential Total Cells Counted 100, Neutrophils % (Manual) 67, Lymphocytes % ( Manual) 6L, Monocytes % (Manual) 6, Eosinophils % (Manual) 0, Basophils % ( Manual) 0, Band Neutrophils 21H, Platelet Estimate Adequate, Platelet Morphology Normal, Red Blood Cell Morphology Normal, Sodium Level 145, Potassium Level 3.9, Chloride Level 109H, Carbon Dioxide Level 28, Anion Gap 8, Blood Urea Nitrogen 67H, Creatinine 1.2, Estimat Glomerular Filtration Rate > 60 , Glucose Level 139H, Uric Acid 4.4, Calcium Level 9.1, Phosphorus Level 3.4, Magnesium Level 2.3, Total Bilirubin 0.4, Aspartate Amino Transf (AST/SGOT) 31, Alanine Aminotransferase (ALT/SGPT) 27, Alkaline Phosphatase 73, C-Reactive Protein, Quantitative 23.5H, Pro-B-Type Natriuretic Peptide 927H, Total Protein 6.4, Albumin 2.2L, Globulin 4.2, Albumin/Globulin Ratio 0.5L 01/20/20 06:07: POC Whole Blood Glucose 134H Height (Feet): 5 Height (Inches): 5.00 Weight (Pounds): 104 General Appearance: no apparent distress Cardiovascular: normal rate - Rate 80s Respiratory/Chest: decreased breath sounds Abdomen: distended Darron Salas MD Jan 20, 2020 13:20
--- NOTE | 2020-01-20 13:31 | NUR ---
CASE MANAGEMENT:REVIEW SI;MALFUNCTIONING GTUBE WITH CELLULITIS. HYPOXEMIA. 101.2 107 26 85/55 97% 15L VENTURI MASK FIO2 @ 100% BUN 67 CRP 23.5 BNP 927 ALB 2.2 IS;IVF NS BOLUS ZOSYN IV Q8 AMIODARONE GT ASA GT SYNTHROID GT HEPARIN SUBQ Q12 COREG GT KEPPRA GT PEPCID GT TELE STATUS DCP;FROM [facility]
--- NOTE | 2020-01-20 13:55 | NUR ---
*-* INSURANCE *-* UPDATED CLINICALS AND REVIEWS HAVE BEEN FAXED TO: [employer] F:[phone] T:[phone] Addendum: 01/20/20 at 1453 by MARTHA CAMACHO CM INSURANCE REFERENCE # [id number]
--- NOTE | 2020-01-20 14:11 | Surgery Progress Note ---
Surgery Progress Note Subjective Additional Comments no acute events comfortable stable no complaints no n/v/f/c labs noted Objective Last 24 Hour Vital Signs Date Time Temp Pulse Resp B/P (MAP) Pulse Ox O2 Delivery O2 Flow Rate FiO2 01/20/20 12:00 86 01/20/20 12:00 14.0 55 01/20/20 11:37 99.0 81 24 85/55 (65) 94 01/20/20 09:26 95 112/73 01/20/20 09:00 Venturi Mask 14.0 01/20/20 08:00 94 01/20/20 08:00 99.1 95 26 112/73 (86) 99 01/20/20 08:00 14.0 55 01/20/20 07:00 99 Non-Rebreather 15.0 100 01/20/20 04:00 89 01/20/20 04:00 97.5 92 24 107/64 (78) 97 01/20/20 04:00 15.0 100 01/20/20 00:00 99.2 89 24 97/54 (68) 97 01/20/20 00:00 15.0 100 01/19/20 21:00 Non-Rebreather 15.0 01/19/20 21:00 95 84/53 01/19/20 20:00 97.6 95 25 84/53 (63) 97 01/19/20 20:00 107 01/19/20 19:10 101.2 01/19/20 17:11 15.0 100 01/19/20 16:00 100.8 107 28 113/71 (85) 96 01/19/20 15:17 108 I&O Intake and Output 01/19/20 01/20/20 19:00 07:00 Output Total 150 ml 250 ml Balance -150 ml -250 ml Output Urine Total 150 ml 250 ml # Voids 1 1 Dressing: dry Wound: clean Cardiovascular: RSR Respiratory: clear Abdomen: soft, non-tender, present bowel sounds Extremities: no tenderness, no cyanosis Laboratory Tests Test 01/19/20 16:36 01/20/20 05:56 01/20/20 06:07 Arterial Blood pH 7.479 (7.350-7.450) Arterial Blood Partial Pressure CO2 31.3 mmHg (35.0-45.0) L Arterial Blood Partial Pressure O2 64.5 mmHg (75.0-100.0) L Arterial Blood HCO3 22.7 mmol/L (22.0-26.0) Arterial Blood Oxygen Saturation 93.1 % (95-100) L Arterial Blood Base Excess 0.2 (-2-2) Surendra Test Positive White Blood Count 10.2 K/UL (4.8-10.8) Red Blood Count 4.44 M/UL (4.70-6.10) L Hemoglobin 13.8 G/DL (14.2-18.0) L Hematocrit 41.8 % (42.0-52.0) L Mean Corpuscular Volume 94 FL (80-99) Mean Corpuscular Hemoglobin 31.0 PG (27.0-31.0) Mean Corpuscular Hemoglobin Concent 33.0 G/DL (32.0-36.0) Red Cell Distribution Width 13.7 % (11.6-14.8) Platelet Count 168 K/UL (150-450) Mean Platelet Volume 12.6 FL (6.5-10.1) H Neutrophils (%) (Auto) % (45.0-75.0) Lymphocytes (%) (Auto) % (20.0-45.0) Monocytes (%) (Auto) % (1.0-10.0) Eosinophils (%) (Auto) % (0.0-3.0) Basophils (%) (Auto) % (0.0-2.0) Differential Total Cells Counted 100 Neutrophils % (Manual) 67 % (45-75) Lymphocytes % (Manual) 6 % (20-45) L Monocytes % (Manual) 6 % (1-10) Eosinophils % (Manual) 0 % (0-3) Basophils % (Manual) 0 % (0-2) Band Neutrophils 21 % (0-8) H Platelet Estimate Adequate Platelet Morphology Normal Red Blood Cell Morphology Normal Sodium Level 145 MMOL/L (136-145) Potassium Level 3.9 MMOL/L (3.5-5.1) Chloride Level 109 MMOL/L (98-107) H Carbon Dioxide Level 28 MMOL/L (21-32) Anion Gap 8 mmol/L (5-15) Blood Urea Nitrogen 67 mg/dL (7-18) H Creatinine 1.2 MG/DL (0.55-1.30) Estimat Glomerular Filtration Rate > 60 mL/min (>60) Glucose Level 139 MG/DL (74-106) H Uric Acid 4.4 MG/DL (2.6-7.2) Calcium Level 9.1 MG/DL (8.5-10.1) Phosphorus Level 3.4 MG/DL (2.5-4.9) Magnesium Level 2.3 MG/DL (1.8-2.4) Total Bilirubin 0.4 MG/DL (0.2-1.0) Aspartate Amino Transf (AST/SGOT) 31 U/L (15-37) Alanine Aminotransferase (ALT/SGPT) 27 U/L (12-78) Alkaline Phosphatase 73 U/L (46-116) C-Reactive Protein, Quantitative 23.5 mg/dL (0.00-0.90) H Pro-B-Type Natriuretic Peptide 927 pg/mL (0-125) H Total Protein 6.4 G/DL (6.4-8.2) Albumin 2.2 G/DL (3.4-5.0) L Globulin 4.2 g/dL Albumin/Globulin Ratio 0.5 (1.0-2.7) L POC Whole Blood Glucose 134 MG/DL (74-106) H Plan Problems: (1) DM (diabetes mellitus) (2) Hematuria (3) Hematuria (4) Sepsis (5) G-tube site cellulitis Assessment & Plan: g tube site with cellulitis pus draining CT with tube in subq tissue tube removed wound evaluated. pus drained. washed and dressings applied discussed with GI plan for new g tube placement local wound care will be provided abx as per ID will monitor for improvement egd peg / resume meds and tf cont wound care thank you (6) Suspected COVID-19 virus infection (7) Seizure disorder (8) Homelessness (9) Acute alcoholic intoxication (10) Hypertension (11) Stroke due to intracerebral hemorrhage (12) Vascular dementia with behavioral disturbance (13) Blunt head trauma (14) Feeding by G-tube Yon Mcmillan Jan 20, 2020 14:11
[2020-01-20] MEDS: Acetaminophen 650mg/20.3ml GT PRN ×2 (15:53→22:27)
[2020-01-20 16:00] VITALS: BP 92/63
--- NOTE | 2020-01-20 17:21 | NUR ---
NURSE HAND-OFF REPORT: Important Events on Shift:shifted to venturi mask. with episode of fever and hypotension. covid negative. Patient Status: obtunded Diet: gtube vital AF 1.2 Pending Orders: Pending Results/Labs: Pending MD notification: Latest Vital Signs: Temperature 100.4 , Pulse 87 , B/P 92 /63 , Respiratory Rate 24 , O2 SAT 94 , Venturi Mask, O2 Flow Rate 14.0 . Vital Sign Comment: EKG Rhythm: Sinus Rhythm Rhythm change?: N MD Notified?: - MD Response: Latest [place] Fall Score: 70 Fall Risk: High Risk Safety Measures: Call light Within Reach, Bed Alarm Zone 1, Side Rails Side Rails x2, Bed position Low and Locked. Fall Precautions: Yellow Socks Yellow Gown . Addendum: 01/20/20 at 1923 by Reshma Reyes RN HAND-OFF: Report given to Raz DELEON
--- NOTE | 2020-01-20 19:22 | NUR ---
NURSE NOTES: Received report from Reshma FARMER. Pt in stable condition. Pt is A+Ox0 aphasic. VSS. Pt is bedbound Q2Turn needed on special mattress. Pt is on Venturi Mask 14L sating 95%. Pt has a Gtube running Vital AF @60 which is the goal no residual noted. Pt has a condom cath draining to gravity. No s/s of distress or discomfort noted. Pt has R FA 22g slocked. Pt resting in bed comfortably. Bed in low and locked position, call light within reach, bedside table within reach. Continue to monitor.
[2020-01-20 20:00] VITALS: BP 93/62
[2020-01-21] VITALS: BP 95/60
[2020-01-21 04:00] VITALS: BP 107/76
[2020-01-21] MEDS: NovoLOG Insulin Flexpen SUBQ SCH ×4 (06:00→17:35)
[2020-01-21] MEDS: Piperacillin/Tazobactam 3.375 GM in NS 110 ML IVPB SCH ×3 (06:03→22:04)
[2020-01-21] MEDS: Levothyroxine 25mcg tab GT SCH (06:03)
[2020-01-21 06:27] LABS: HEMATOCRIT 39.2 % (42.0-52.0); HEMOGLOBIN 12.8 G/DL (14.2-18.0); MEAN CORPUSCULAR VOLUME 95 FL (80-99); PLATELET COUNT 180 K/UL (150-450); RED BLOOD COUNT 4.12 M/UL (4.70-6.10); RED CELL DISTRIBUTION WIDTH 13.6 % (11.6-14.8); WHITE BLOOD COUNT 11.5 K/UL (4.8-10.8)
[2020-01-21 06:54] LABS: ANION GAP 8 mmol/L (5-15); BLOOD UREA NITROGEN 78 mg/dL (7-18); CALCIUM 9.4 MG/DL (8.5-10.1); CARBON DIOXIDE 28 MMOL/L (21-32); CHLORIDE 110 MMOL/L (98-107); CREATININE 1.1 MG/DL (0.55-1.30); POTASSIUM 3.5 MMOL/L (3.5-5.1); SODIUM 146 MMOL/L (136-145)
--- NOTE | 2020-01-21 07:10 | NUR ---
NURSE HAND-OFF REPORT: Important Events on Shift:[] Patient Status: [Stable] Diet: [Tube Feeding Vital AF 1.2@60(Goal)] Pending Orders: [] Pending Results/Labs:[] Pending MD notification:[] Latest Vital Signs: Temperature 98.8 , Pulse 104 , B/P 107 /76 , Respiratory Rate 20 , O2 SAT 95 , Venturi Mask, O2 Flow Rate 14.0 . Vital Sign Comment: [] EKG Rhythm: Sinus Rhythm Rhythm change?: N MD Notified?: - MD Response: Latest [place] Fall Score: 70 Fall Risk: High Risk Safety Measures: Call light Within Reach, Bed Alarm Zone 1, Side Rails Side Rails x2, Bed position Low and Locked. Fall Precautions: Yellow Socks Yellow Gown Report given to [Michael FARMER].
--- NOTE | 2020-01-21 07:41 | General Progress Note ---
Assessment/Plan Problem List: (1) DM (diabetes mellitus) ICD Codes: E11.9 - Type 2 diabetes mellitus without complications SNOMED: 22466267 (2) Feeding by G-tube ICD Codes: Z93.1 - Gastrostomy status SNOMED: 586914072, 364384133, 918622673 (3) long-term resident ICD Codes: Z59.3 - Problems related to living in residential institution SNOMED: 059334213 (4) Stroke due to intracerebral hemorrhage ICD Codes: I61.9 - Nontraumatic intracerebral hemorrhage, unspecified SNOMED: 137515611 (5) Hypertension ICD Codes: I10 - Essential (primary) hypertension SNOMED: 97018369 Status: unchanged Assessment/Plan: s/p GT placement GTF wound care fu labs Subjective ROS Limited/Unobtainable: No Allergies: Coded Allergies: No Known Allergies (Unverified , 03/02/14) Objective Last 24 Hour Vital Signs Date Time Temp Pulse Resp B/P (MAP) Pulse Ox O2 Delivery O2 Flow Rate FiO2 01/21/20 04:00 98.8 104 20 107/76 (86) 95 01/21/20 04:00 14.0 55 01/21/20 04:00 99 01/21/20 00:00 14.0 55 01/21/20 00:00 99.9 91 20 95/60 (72) 95 01/21/20 00:00 92 01/20/20 22:57 99.0 01/20/20 21:00 Venturi Mask 14.0 01/20/20 20:12 97 Non-Rebreather 15.0 100 01/20/20 20:00 100.4 89 16 93/62 (72) 96 01/20/20 20:00 93 01/20/20 16:00 101.3 89 24 92/63 (73) 94 01/20/20 16:00 87 01/20/20 16:00 14.0 55 01/20/20 12:00 86 01/20/20 12:00 14.0 55 01/20/20 11:37 99.0 81 24 85/55 (65) 94 01/20/20 09:26 95 112/73 01/20/20 09:00 Venturi Mask 14.0 01/20/20 08:00 94 01/20/20 08:00 99.1 95 26 112/73 (86) 99 01/20/20 08:00 14.0 55 Intake and Output 01/20/20 01/21/20 19:00 07:00 Output Total 300 ml 300 ml Balance -300 ml -300 ml Output Urine Total 300 ml 300 ml # Voids 1 # Bowel Movements 1 Laboratory Tests 01/20/20 11:58: POC Whole Blood Glucose 152H 01/20/20 17:41: POC Whole Blood Glucose 149H 01/21/20 05:37: White Blood Count 11.5H, Red Blood Count 4.12L, Hemoglobin 12.8L, Hematocrit 39.2L, Mean Corpuscular Volume 95, Mean Corpuscular Hemoglobin 31.0, Mean Corpuscular Hemoglobin Concent 32.6, Red Cell Distribution Width 13.6, Platelet Count 180, Mean Platelet Volume 12.1H, Neutrophils (%) (Auto) , Lymphocytes (%) (Auto) , Monocytes (%) (Auto) , Eosinophils (%) (Auto) , Basophils (%) (Auto) , Neutrophils % (Manual) [Pending], Lymphocytes % (Manual) [Pending], Platelet Estimate [Pending], Platelet Morphology [Pending], Sodium Level 146H, Potassium Level 3.5, Chloride Level 110H, Carbon Dioxide Level 28, Anion Gap 8, Blood Urea Nitrogen 78H, Creatinine 1.1, Estimat Glomerular Filtration Rate > 60, Glucose Level 152H, Calcium Level 9.4 Height (Feet): 5 Height (Inches): 5.00 Weight (Pounds): 134 General Appearance: alert EENT: normal ENT inspection Neck: supple Cardiovascular: normal rate Respiratory/Chest: decreased breath sounds Abdomen: normal bowel sounds, non tender, soft Extremities: non-tender Scooter Holley MD Jan 21, 2020 07:41
--- NOTE | 2020-01-21 07:48 | NUR ---
NURSE NOTES: RECEIVED PATIENT AND REPORT FROM [facility] IN BED, AAO X0, NON-VERBAL, PATIENT IS ON VENTURI MASK 14L. NOTED PATIENT HAS GT, NO RESIDUAL, FLUSHED RUNNING VITAL AF 1.2 @ 60CC/HR AND TOLERATING WELL. HOB ELEVATED @30 DEGREES. IV SITE IS INTACT AND PATENT. BED IS ON LOWEST LEVEL WITH BEDSIDE RAILS UP X3 AND PADDED FOR EPILEPSY PRECAUTION. ALL NEEDS ATTENDED TO AND MET. CALL LIGHT IS WITHIN REACH. WILL CONTINUE WITH THE PLAN OF CARE.
[2020-01-21 08:00] VITALS: BP 123/73
--- NOTE | 2020-01-21 08:03 | Infectious Diseases Prog Note ---
Assessment/Plan Acute hypoxic resp failure, on NRB, unclear etiology Leukocytosis, improving 01/18 BCx NTD 01/18 UCx +yeast 01/18 CXR: Left lower lobe volume loss with a left basilar infiltrate which may reflect atelectasis and/or pneumonia. 01/19 COVID rapid Ag neg 01/19 Resp cx p GT malfunction c/b mild cellulitis CT abd/p: Gastrostomy tube in the subcutaneous tissues of the anterior abdominal. Pericardial effusion. Large amount of fecal material in the colon. This is consistent with constipation. Contrast in the gallbladder, likely representing vicarious excretion of contrast from previous study. Atherosclerotic change. Old compression fracture of L1. S/p replacement 01/16 H/o COVID-19 (September 2019) 01/15 Rapid COVID PCR neg 01/19 Rapid neg PMH: Afib HLD Seizure disorder MDD/anxiety HTN DM2 Dysphagia s/p GT NH resident ([facility]) Plan: Cont Zosyn #3/7 given resp failure F/u resp cx 01/19 Trend leukocytosis, improving Monitor resp status 01/19/20 SP Ancef #3/5 01/16/20 SP Zosyn x1 Monitor CBC/CMP, temperatures Aspiration precautions D/w RN Thank you for this consultation. Will continue to follow along with you. Subjective Allergies: Coded Allergies: No Known Allergies (Unverified , 03/02/14) Tmax 101.3 Not interactive On venturi mask WBC 11, overall improving Objective Last 24 Hour Vital Signs Date Time Temp Pulse Resp B/P (MAP) Pulse Ox O2 Delivery O2 Flow Rate FiO2 01/21/20 04:00 98.8 104 20 107/76 (86) 95 01/21/20 04:00 14.0 55 01/21/20 04:00 99 01/21/20 00:00 14.0 55 01/21/20 00:00 99.9 91 20 95/60 (72) 95 01/21/20 00:00 92 01/20/20 22:57 99.0 01/20/20 21:00 Venturi Mask 14.0 01/20/20 20:12 97 Non-Rebreather 15.0 100 01/20/20 20:00 100.4 89 16 93/62 (72) 96 01/20/20 20:00 93 01/20/20 16:00 101.3 89 24 92/63 (73) 94 01/20/20 16:00 87 01/20/20 16:00 14.0 55 01/20/20 12:00 86 01/20/20 12:00 14.0 55 01/20/20 11:37 99.0 81 24 85/55 (65) 94 01/20/20 09:26 95 112/73 01/20/20 09:00 Venturi Mask 14.0 Height (Feet): 5 Height (Inches): 5.00 Weight (Pounds): 134 Gen: Thin older man, on NRB CV: RRR Pulm: CTAB on venturi mask Abd: Thin, soft, NTND, +PEG with dressing c/d/i Ext: No c/c/e, very thin Microbiology Date/Time Source Procedure Growth Status 01/19/20 10:47 Blood Blood Culture - Preliminary NO GROWTH AFTER 24 HOURS Resulted 01/19/20 10:35 Blood Blood Culture - Preliminary NO GROWTH AFTER 24 HOURS Resulted 01/20/20 09:50 Nasopharynx SARS-CoV-2 RdRp Gene Assay - Final Complete 01/19/20 11:02 Urine,Clean Catch Urine Culture - Preliminary YEAST Resulted Laboratory Tests Test 01/20/20 11:58 01/20/20 17:41 01/21/20 05:37 POC Whole Blood Glucose 152 MG/DL (74-106) H 149 MG/DL (74-106) H White Blood Count 11.5 K/UL (4.8-10.8) H Red Blood Count 4.12 M/UL (4.70-6.10) L Hemoglobin 12.8 G/DL (14.2-18.0) L Hematocrit 39.2 % (42.0-52.0) L Mean Corpuscular Volume 95 FL (80-99) Mean Corpuscular Hemoglobin 31.0 PG (27.0-31.0) Mean Corpuscular Hemoglobin Concent 32.6 G/DL (32.0-36.0) Red Cell Distribution Width 13.6 % (11.6-14.8) Platelet Count 180 K/UL (150-450) Mean Platelet Volume 12.1 FL (6.5-10.1) H Neutrophils (%) (Auto) % (45.0-75.0) Lymphocytes (%) (Auto) % (20.0-45.0) Monocytes (%) (Auto) % (1.0-10.0) Eosinophils (%) (Auto) % (0.0-3.0) Basophils (%) (Auto) % (0.0-2.0) Neutrophils % (Manual) Pending Lymphocytes % (Manual) Pending Platelet Estimate Pending Platelet Morphology Pending Sodium Level 146 MMOL/L (136-145) H Potassium Level 3.5 MMOL/L (3.5-5.1) Chloride Level 110 MMOL/L (98-107) H Carbon Dioxide Level 28 MMOL/L (21-32) Anion Gap 8 mmol/L (5-15) Blood Urea Nitrogen 78 mg/dL (7-18) H Creatinine 1.1 MG/DL (0.55-1.30) Estimat Glomerular Filtration Rate > 60 mL/min (>60) Glucose Level 152 MG/DL (74-106) H Calcium Level 9.4 MG/DL (8.5-10.1) Current Medications Medications (Trade) Dose Ordered Sig/Kinjal Route PRN Reason Start Time Stop Time Status Last Admin Dose Admin Acetaminophen (Tylenol) 650 mg Q6H PRN GT Temp >100.5 01/19/20 18:27 02/18/20 18:26 01/20/20 22:27 Amiodarone HCl (Cordarone) 200 mg DAILY ORAL 01/19/20 09:00 04/18/20 08:59 01/20/20 09:25 Aspirin (ASA) 81 mg DAILY NG 01/19/20 09:00 03/04/20 08:59 01/20/20 09:26 Dextrose (Dextrose 50%) 25 ml Q30M PRN IV Hypoglycemia 01/18/20 11:30 04/17/20 11:29 Dextrose (Dextrose 50%) 50 ml Q30M PRN IV Hypoglycemia 01/18/20 11:30 04/17/20 11:29 Famotidine (Pepcid) 20 mg TWICE A DAY GT 01/16/20 18:00 04/15/20 17:59 01/20/20 17:36 Heparin Sodium (Porcine) (Heparin 5000 units/ml) 5,000 units EVERY 12 HOURS SUBQ 01/16/20 21:00 03/01/20 20:59 01/20/20 09:27 Insulin Aspart (NovoLOG) Q6HR SUBQ 01/18/20 12:00 04/17/20 11:59 01/20/20 17:45 Levetiracetam (Keppra) 500 mg Q12HR GT 01/16/20 21:00 03/01/20 20:59 01/20/20 22:27 Levothyroxine Sodium (Synthroid) 25 mcg DAILY@0630 GT 01/18/20 06:30 02/17/20 06:29 01/21/20 06:03 Lorazepam (Ativan) 1 mg Q6H PRN ORAL For Anxiety 01/17/20 15:15 01/24/20 15:14 Piperacillin Sod/ Tazobactam Sod 3.375 gm/Sodium Chloride 110 ml @ 27.5 mls/hr EVERY 8 HOURS IVPB 01/19/20 14:00 01/24/20 13:59 01/21/20 06:03 Risperidone (RisperDAL) 1 mg TWICE A DAY ORAL 01/17/20 18:00 03/02/20 17:59 01/20/20 17:36 Magdalene White M.D. Jan 21, 2020 08:03
--- NOTE | 2020-01-21 08:38 | NUR ---
NURSE NOTES: PATIENT IS LETHARGIC, LABORED BREATHING ON VENTURI MASK SATURATING AT 92%. BP IS 101/67. PATIENT IS FULL CODE. NOTIFIED DR. DOCKERY AND DR TRINIDAD. DR TRINIDAD ORDER PATIENT TO BE TRANSFERRED TO [facility] AND DR DOCKERY ORDERED PATIENT TO BE TRANSFERRED TO ICU. AWAITING CLARIFICATION. BG ORDERED STAT. WILL CON RUBÉN E TO MONITOR PATIENT.
[2020-01-21] MEDS: levETIRAcetam 500mg/5ml Liquid GT SCH ×2 (08:49→20:27)
[2020-01-21] MEDS: Amiodarone 200mg tab ORAL SCH (08:49)
[2020-01-21] MEDS: Aspirin Baby 81mg NG SCH (08:49)
[2020-01-21] MEDS: Heparin 5000 units/ml inj SUBQ SCH ×2 (08:50→20:29)
--- NOTE | 2020-01-21 08:51 | NUR ---
NURSE NOTES: Dr Lui ordered transfer to ICU, call placed to Dr Rivera and spoke to him, notified him of pt condition, according to him, have RT suction pt and keep pt in tele until he come and see pt.
--- NOTE | 2020-01-21 09:52 | Nephrology Progress Note ---
Assessment/Plan Problem List: (1) Dehydration (2) Electrolyte imbalance (3) Vascular dementia with behavioral disturbance (4) Seizure disorder (5) Stroke due to intracerebral hemorrhage Assessment Dehydration leading to hyper-natremia GT tube malfunction and cellulitis on GT site Previous CVA due to intracerebral hemorrhage Vascular dementia Seizure disorder Hypertension History of compression fracture of thoracic vertebra Schizophrenia History of atrial fibrillation Plan January 20: Lab reviewed. Renal parameters are stable. BUN however remains elevated, which is a prerenal picture. Continue per consultants. Urine analysis and urine for spot sodium ordered. January 19: Lab reviewed. Leukocytosis resolved. Renal parameters stable. Continue per consultants. January 18: Continues to be congested. The white blood cell ami. Chest x-ray results noted. Will give potassium supplement and 1 dose of IV Lasix. Continue antibiotics and pulmonary toilet. Follow-up chest x-rays. January 17 chest x-ray iMPRESSION: Left mid and lower lung opacity which likely represents combination of enlarged cardiac silhouette,. Elevated left hemidiaphragm, and atelectasis versus pneumonia. Small left pleural effusion not excluded. January 17: Will discontinue IV. Renal parameters and electrolytes within acceptable range. Patient is congested and has lots of secretions. Continue aggressive suctioning. Discussed with RN. Previously: D5W IV hydration Monitor renal parameters and electrolytes Per consultants Continue antiseizure medication Per orders Add low-dose Synthroid for mildly elevated TSH Subjective ROS Limited/Unobtainable: Yes Objective Objective Last 24 Hour Vital Signs Date Time Temp Pulse Resp B/P (MAP) Pulse Ox O2 Delivery O2 Flow Rate FiO2 01/21/20 09:00 Venturi Mask 14.0 01/21/20 08:00 97.6 95 20 123/73 (90) 92 01/21/20 08:00 95 01/21/20 08:00 14.0 55 01/21/20 04:00 98.8 104 20 107/76 (86) 95 01/21/20 04:00 14.0 55 01/21/20 04:00 99 01/21/20 00:00 14.0 55 01/21/20 00:00 99.9 91 20 95/60 (72) 95 01/21/20 00:00 92 01/20/20 22:57 99.0 01/20/20 21:00 Venturi Mask 14.0 01/20/20 20:12 97 Non-Rebreather 15.0 100 01/20/20 20:00 100.4 89 16 93/62 (72) 96 01/20/20 20:00 93 01/20/20 16:00 101.3 89 24 92/63 (73) 94 01/20/20 16:00 87 01/20/20 16:00 14.0 55 01/20/20 12:00 86 01/20/20 12:00 14.0 55 01/20/20 11:37 99.0 81 24 85/55 (65) 94 Intake and Output 01/20/20 01/21/20 19:00 07:00 Output Total 300 ml 300 ml Balance -300 ml -300 ml Output Urine Total 300 ml 300 ml # Voids 1 # Bowel Movements 1 Laboratory Tests 01/20/20 11:58: POC Whole Blood Glucose 152H 01/20/20 17:41: POC Whole Blood Glucose 149H 01/21/20 05:37: White Blood Count 11.5H, Red Blood Count 4.12L, Hemoglobin 12.8L, Hematocrit 39.2L, Mean Corpuscular Volume 95, Mean Corpuscular Hemoglobin 31.0, Mean Corpuscular Hemoglobin Concent 32.6, Red Cell Distribution Width 13.6, Platelet Count 180, Mean Platelet Volume 12.1H, Neutrophils (%) (Auto) , Lymphocytes (%) (Auto) , Monocytes (%) (Auto) , Eosinophils (%) (Auto) , Basophils (%) (Auto) , Neutrophils % (Manual) [Pending], Lymphocytes % (Manual) [Pending], Platelet Estimate [Pending], Platelet Morphology [Pending], Sodium Level 146H, Potassium Level 3.5, Chloride Level 110H, Carbon Dioxide Level 28, Anion Gap 8, Blood Urea Nitrogen 78H, Creatinine 1.1, Estimat Glomerular Filtration Rate > 60, Glucose Level 152H, Calcium Level 9.4 01/21/20 08:54: Arterial Blood pH 7.435, Arterial Blood Partial Pressure CO2 37.9, Arterial Blood Partial Pressure O2 69.1L, Arterial Blood HCO3 24.9, Arterial Blood Oxygen Saturation 93.2L, Arterial Blood Base Excess 0.8, Surendra Test Positive Height (Feet): 5 Height (Inches): 5.00 Weight (Pounds): 134 General Appearance: lethargic, mild distress Cardiovascular: tachycardia Respiratory/Chest: decreased breath sounds Abdomen: distended Darron Salas MD Jan 21, 2020 09:52
--- NOTE | 2020-01-21 10:01 | Pulmonology Progress Note ---
Subjective ROS Limited/Unobtainable: Yes Interval Events: More congested Constitutional: Reports: no symptoms HEENT: Repors: no symptoms Respiratory: Reports: productive cough Cardiovascular: Reports: no symptoms Gastrointestinal/Abdominal: Reports: no symptoms Allergies: Coded Allergies: No Known Allergies (Unverified , 03/02/14) All Systems: reviewed and negative except above Objective Last 24 Hour Vital Signs Date Time Temp Pulse Resp B/P (MAP) Pulse Ox O2 Delivery O2 Flow Rate FiO2 01/21/20 09:00 Venturi Mask 14.0 01/21/20 08:00 97.6 95 20 123/73 (90) 92 01/21/20 08:00 95 01/21/20 08:00 14.0 55 01/21/20 04:00 98.8 104 20 107/76 (86) 95 01/21/20 04:00 14.0 55 01/21/20 04:00 99 01/21/20 00:00 14.0 55 01/21/20 00:00 99.9 91 20 95/60 (72) 95 01/21/20 00:00 92 01/20/20 22:57 99.0 01/20/20 21:00 Venturi Mask 14.0 01/20/20 20:12 97 Non-Rebreather 15.0 100 01/20/20 20:00 100.4 89 16 93/62 (72) 96 01/20/20 20:00 93 01/20/20 16:00 101.3 89 24 92/63 (73) 94 01/20/20 16:00 87 01/20/20 16:00 14.0 55 01/20/20 12:00 86 01/20/20 12:00 14.0 55 01/20/20 11:37 99.0 81 24 85/55 (65) 94 Intake and Output 01/20/20 01/21/20 19:00 07:00 Output Total 300 ml 300 ml Balance -300 ml -300 ml Output Urine Total 300 ml 300 ml # Voids 1 # Bowel Movements 1 General Appearance: no acute distress HEENT: normocephalic Respiratory: chest wall non-tender, lungs clear Cardiovascular: normal peripheral pulses, normal rate Abdomen: normal bowel sounds Microbiology Date/Time Source Procedure Growth Status 01/19/20 10:47 Blood Blood Culture - Preliminary NO GROWTH AFTER 24 HOURS Resulted 01/19/20 10:35 Blood Blood Culture - Preliminary NO GROWTH AFTER 24 HOURS Resulted 01/20/20 09:50 Nasopharynx SARS-CoV-2 RdRp Gene Assay - Final Complete 01/19/20 11:02 Urine,Clean Catch Urine Culture - Preliminary YEAST Resulted Laboratory Tests 01/20/20 11:58: POC Whole Blood Glucose 152H 01/20/20 17:41: POC Whole Blood Glucose 149H 01/21/20 05:37: White Blood Count 11.5H, Red Blood Count 4.12L, Hemoglobin 12.8L, Hematocrit 39.2L, Mean Corpuscular Volume 95, Mean Corpuscular Hemoglobin 31.0, Mean Corpuscular Hemoglobin Concent 32.6, Red Cell Distribution Width 13.6, Platelet Count 180, Mean Platelet Volume 12.1H, Neutrophils (%) (Auto) , Lymphocytes (%) (Auto) , Monocytes (%) (Auto) , Eosinophils (%) (Auto) , Basophils (%) (Auto) , Neutrophils % (Manual) [Pending], Lymphocytes % (Manual) [Pending], Platelet Estimate [Pending], Platelet Morphology [Pending], Sodium Level 146H, Potassium Level 3.5, Chloride Level 110H, Carbon Dioxide Level 28, Anion Gap 8, Blood Urea Nitrogen 78H, Creatinine 1.1, Estimat Glomerular Filtration Rate > 60, Glucose Level 152H, Calcium Level 9.4 01/21/20 08:54: Arterial Blood pH 7.435, Arterial Blood Partial Pressure CO2 37.9, Arterial Blood Partial Pressure O2 69.1L, Arterial Blood HCO3 24.9, Arterial Blood Oxygen Saturation 93.2L, Arterial Blood Base Excess 0.8, Surendra Test Positive Current Medications Medications (Trade) Dose Ordered Sig/Kinjal Route PRN Reason Start Time Stop Time Status Last Admin Dose Admin Acetaminophen (Tylenol) 650 mg Q6H PRN GT Temp >100.5 01/19/20 18:27 02/18/20 18:26 01/20/20 22:27 Amiodarone HCl (Cordarone) 200 mg DAILY ORAL 01/19/20 09:00 04/18/20 08:59 01/21/20 08:49 Aspirin (ASA) 81 mg DAILY NG 01/19/20 09:00 03/04/20 08:59 01/21/20 08:49 Dextrose (Dextrose 50%) 25 ml Q30M PRN IV Hypoglycemia 01/18/20 11:30 04/17/20 11:29 Dextrose (Dextrose 50%) 50 ml Q30M PRN IV Hypoglycemia 01/18/20 11:30 04/17/20 11:29 Famotidine (Pepcid) 20 mg TWICE A DAY GT 01/16/20 18:00 04/15/20 17:59 01/21/20 08:49 Heparin Sodium (Porcine) (Heparin 5000 units/ml) 5,000 units EVERY 12 HOURS SUBQ 01/16/20 21:00 03/01/20 20:59 01/21/20 08:50 Insulin Aspart (NovoLOG) Q6HR SUBQ 01/18/20 12:00 04/17/20 11:59 01/20/20 17:45 Levetiracetam (Keppra) 500 mg Q12HR GT 01/16/20 21:00 03/01/20 20:59 01/21/20 08:49 Levothyroxine Sodium (Synthroid) 25 mcg DAILY@0630 GT 01/18/20 06:30 02/17/20 06:29 01/21/20 06:03 Lorazepam (Ativan) 1 mg Q6H PRN ORAL For Anxiety 01/17/20 15:15 01/24/20 15:14 Piperacillin Sod/ Tazobactam Sod 3.375 gm/Sodium Chloride 110 ml @ 27.5 mls/hr EVERY 8 HOURS IVPB 01/19/20 14:00 01/24/20 13:59 01/21/20 06:03 Risperidone (RisperDAL) 1 mg TWICE A DAY ORAL 01/17/20 18:00 03/02/20 17:59 01/20/20 17:36 Assessment/Plan Assessment/Plan IMPRESSION: 1. Left hemithorax opacification due to mediastinal shift. 2. No evidence for pneumonia or lung consolidation. 3. Hypoxemia; currently on ventimask DISCUSSION: I suspect the patient's congestion represents upper airway compromise and pooling of oral secretions. Advised aggressive pulmonary hygiene. Discussed with RN. Continue nasal trumpet, nasal oxygen. I will follow carefully. Request noted for [facility] transfer Lenny Motta Omar Syed MD Jan 21, 2020 10:01
--- NOTE | 2020-01-21 10:59 | NUR ---
spoke with Dr Rivera and he stated pt is condition the same for 2 days, keep patient in telemetry unit, aware that pt is full code.
--- NOTE | 2020-01-21 11:25 | Cardiac Electrophysiology PN ---
Assessment/Plan Assessment/Plan 1. Paroxysmal atrial fibrillation. In SR on Aspirin, Coreg 6.25 mg b.i.d. and amiodarone 200 daily 2. Hypotension, Coreg held. Got NS 500 cc bolus 3. Seizure disorder, on Keppra. 4. G-tube site infection, on IV antibiotic. S/P G-tube replacement by Dr. Holley. 5. Hypernatremia on IV fluids per Dr. Salas. DW RN Subjective Subjective RN at bedside. Had EGD and PEG placement by Dr. Holley 01/17/20. BP better with iv fluids Objective Last 24 Hour Vital Signs Date Time Temp Pulse Resp B/P (MAP) Pulse Ox O2 Delivery O2 Flow Rate FiO2 01/21/20 09:00 Venturi Mask 14.0 01/21/20 08:00 97.6 95 20 123/73 (90) 92 01/21/20 08:00 95 01/21/20 08:00 14.0 55 01/21/20 04:00 98.8 104 20 107/76 (86) 95 01/21/20 04:00 14.0 55 01/21/20 04:00 99 01/21/20 00:00 14.0 55 01/21/20 00:00 99.9 91 20 95/60 (72) 95 01/21/20 00:00 92 01/20/20 22:57 99.0 01/20/20 21:00 Venturi Mask 14.0 01/20/20 20:12 97 Non-Rebreather 15.0 100 01/20/20 20:00 100.4 89 16 93/62 (72) 96 01/20/20 20:00 93 01/20/20 16:00 101.3 89 24 92/63 (73) 94 01/20/20 16:00 87 01/20/20 16:00 14.0 55 01/20/20 12:00 86 01/20/20 12:00 14.0 55 01/20/20 11:37 99.0 81 24 85/55 (65) 94 Intake and Output 01/20/20 01/21/20 19:00 07:00 Output Total 300 ml 300 ml Balance -300 ml -300 ml Output Urine Total 300 ml 300 ml # Voids 1 # Bowel Movements 1 Laboratory Tests Test 01/20/20 11:58 8/10/20 17:41 01/21/20 05:37 01/21/20 08:54 POC Whole Blood Glucose 152 MG/DL (74-106) H 149 MG/DL (74-106) H White Blood Count 11.5 K/UL (4.8-10.8) H Red Blood Count 4.12 M/UL (4.70-6.10) L Hemoglobin 12.8 G/DL (14.2-18.0) L Hematocrit 39.2 % (42.0-52.0) L Mean Corpuscular Volume 95 FL (80-99) Mean Corpuscular Hemoglobin 31.0 PG (27.0-31.0) Mean Corpuscular Hemoglobin Concent 32.6 G/DL (32.0-36.0) Red Cell Distribution Width 13.6 % (11.6-14.8) Platelet Count 180 K/UL (150-450) Mean Platelet Volume 12.1 FL (6.5-10.1) H Neutrophils (%) (Auto) % (45.0-75.0) Lymphocytes (%) (Auto) % (20.0-45.0) Monocytes (%) (Auto) % (1.0-10.0) Eosinophils (%) (Auto) % (0.0-3.0) Basophils (%) (Auto) % (0.0-2.0) Neutrophils % (Manual) Pending Lymphocytes % (Manual) Pending Platelet Estimate Pending Platelet Morphology Pending Sodium Level 146 MMOL/L (136-145) H Potassium Level 3.5 MMOL/L (3.5-5.1) Chloride Level 110 MMOL/L (98-107) H Carbon Dioxide Level 28 MMOL/L (21-32) Anion Gap 8 mmol/L (5-15) Blood Urea Nitrogen 78 mg/dL (7-18) H Creatinine 1.1 MG/DL (0.55-1.30) Estimat Glomerular Filtration Rate > 60 mL/min (>60) Glucose Level 152 MG/DL (74-106) H Calcium Level 9.4 MG/DL (8.5-10.1) Arterial Blood pH 7.435 (7.350-7.450) Arterial Blood Partial Pressure CO2 37.9 mmHg (35.0-45.0) Arterial Blood Partial Pressure O2 69.1 mmHg (75.0-100.0) L Arterial Blood HCO3 24.9 mmol/L (22.0-26.0) Arterial Blood Oxygen Saturation 93.2 % (95-100) L Arterial Blood Base Excess 0.8 (-2-2) Surendra Test Positive Microbiology Date/Time Source Procedure Growth Status 01/19/20 10:47 Blood Blood Culture - Preliminary NO GROWTH AFTER 24 HOURS Resulted 01/19/20 10:35 Blood Blood Culture - Preliminary NO GROWTH AFTER 24 HOURS Resulted 01/20/20 09:50 Nasopharynx SARS-CoV-2 RdRp Gene Assay - Final Complete 01/20/20 09:30 Sputum Induced Gram Stain - Final Resulted 01/20/20 09:30 Sputum Induced Sputum Culture Pending Resulted 01/19/20 11:02 Urine,Clean Catch Urine Culture - Preliminary YEAST Resulted Objective HEAD AND NECK: No JVD. LUNGS: Clear. CARDIOVASCULAR: Shows irregular S1 and S2 with no gallop or rub. ABDOMEN: Soft. New G-tube in place EXTREMITIES: No pitting edema. Adolph Murray MD Jan 21, 2020 11:25
--- NOTE | 2020-01-21 11:44 | NUR ---
RADIOLOGY DEPT., CHEST X-RAY DONE BY SIMEON THOMAS.MADELEINE
[2020-01-21 12:00] VITALS: BP 106/67
--- NOTE | 2020-01-21 13:24 | Surgery Progress Note ---
Surgery Progress Note Subjective Symptoms: improved, tolerating diet, passing flatus Objective Last 24 Hour Vital Signs Date Time Temp Pulse Resp B/P (MAP) Pulse Ox O2 Delivery O2 Flow Rate FiO2 01/21/20 09:00 Venturi Mask 14.0 01/21/20 08:00 97.6 95 20 123/73 (90) 92 01/21/20 08:00 95 01/21/20 08:00 14.0 55 01/21/20 04:00 98.8 104 20 107/76 (86) 95 01/21/20 04:00 14.0 55 01/21/20 04:00 99 01/21/20 00:00 14.0 55 01/21/20 00:00 99.9 91 20 95/60 (72) 95 01/21/20 00:00 92 01/20/20 22:57 99.0 01/20/20 21:00 Venturi Mask 14.0 01/20/20 20:12 97 Non-Rebreather 15.0 100 01/20/20 20:00 100.4 89 16 93/62 (72) 96 01/20/20 20:00 93 01/20/20 16:00 101.3 89 24 92/63 (73) 94 01/20/20 16:00 87 01/20/20 16:00 14.0 55 I&O Intake and Output 01/20/20 01/21/20 19:00 07:00 Output Total 300 ml 300 ml Balance -300 ml -300 ml Output Urine Total 300 ml 300 ml # Voids 1 # Bowel Movements 1 Dressing: saturated Wound: clean Cardiovascular: RSR Respiratory: decreased breath sounds Abdomen: soft, non-tender, present bowel sounds Extremities: no cyanosis Laboratory Tests Test 01/20/20 17:41 01/21/20 05:37 01/21/20 08:54 01/21/20 12:26 POC Whole Blood Glucose 149 MG/DL (74-106) H 111 MG/DL (74-106) H White Blood Count 11.5 K/UL (4.8-10.8) H Red Blood Count 4.12 M/UL (4.70-6.10) L Hemoglobin 12.8 G/DL (14.2-18.0) L Hematocrit 39.2 % (42.0-52.0) L Mean Corpuscular Volume 95 FL (80-99) Mean Corpuscular Hemoglobin 31.0 PG (27.0-31.0) Mean Corpuscular Hemoglobin Concent 32.6 G/DL (32.0-36.0) Red Cell Distribution Width 13.6 % (11.6-14.8) Platelet Count 180 K/UL (150-450) Mean Platelet Volume 12.1 FL (6.5-10.1) H Neutrophils (%) (Auto) % (45.0-75.0) Lymphocytes (%) (Auto) % (20.0-45.0) Monocytes (%) (Auto) % (1.0-10.0) Eosinophils (%) (Auto) % (0.0-3.0) Basophils (%) (Auto) % (0.0-2.0) Differential Total Cells Counted 100 Neutrophils % (Manual) 90 % (45-75) H Lymphocytes % (Manual) 5 % (20-45) L Monocytes % (Manual) 2 % (1-10) Eosinophils % (Manual) 0 % (0-3) Basophils % (Manual) 0 % (0-2) Band Neutrophils 3 % (0-8) Platelet Estimate Adequate Platelet Morphology Normal Red Blood Cell Morphology Normal Sodium Level 146 MMOL/L (136-145) H Potassium Level 3.5 MMOL/L (3.5-5.1) Chloride Level 110 MMOL/L (98-107) H Carbon Dioxide Level 28 MMOL/L (21-32) Anion Gap 8 mmol/L (5-15) Blood Urea Nitrogen 78 mg/dL (7-18) H Creatinine 1.1 MG/DL (0.55-1.30) Estimat Glomerular Filtration Rate > 60 mL/min (>60) Glucose Level 152 MG/DL (74-106) H Calcium Level 9.4 MG/DL (8.5-10.1) Arterial Blood pH 7.435 (7.350-7.450) Arterial Blood Partial Pressure CO2 37.9 mmHg (35.0-45.0) Arterial Blood Partial Pressure O2 69.1 mmHg (75.0-100.0) L Arterial Blood HCO3 24.9 mmol/L (22.0-26.0) Arterial Blood Oxygen Saturation 93.2 % (95-100) L Arterial Blood Base Excess 0.8 (-2-2) Surendra Test Positive Plan Problems: (1) DM (diabetes mellitus) (2) Hematuria (3) Hematuria (4) Sepsis (5) G-tube site cellulitis Assessment & Plan: g tube site with cellulitis pus draining CT with tube in subq tissue tube removed wound evaluated. pus drained. washed and dressings applied discussed with GI plan for new g tube placement local wound care will be provided abx as per ID will monitor for improvement egd peg 8/7 resume meds and tf cont wound care thank you improved d/c planning (6) Suspected COVID-19 virus infection (7) Seizure disorder (8) Homelessness (9) Acute alcoholic intoxication (10) Hypertension (11) Stroke due to intracerebral hemorrhage (12) Vascular dementia with behavioral disturbance (13) Blunt head trauma (14) Feeding by G-tube Yon Mcmillan Jan 21, 2020 13:24
--- NOTE | 2020-01-21 13:35 | Diagnostic Imaging Report ---
Indication: Cough Technique: One view of the chest Comparison: 01/19/2020 Findings: There is persistent elevation left hemidiaphragm, with considerable left basilar atelectasis and consolidation again demonstrated. Hazy infiltrate is seen in the inferior peripheral right upper lobe, stable or slightly increased. There is also some hazy infiltrate at the right lung base, increased.. The heart size is normal. Impression: Increased hazy right lung infiltrates, likely pneumonia Stable left basilar consolidation and atelectasis
--- NOTE | 2020-01-21 13:50 | General Progress Note ---
Assessment/Plan Problem List: (1) G-tube site cellulitis ICD Codes: K94.22 - Gastrostomy infection; L03.319 - Cellulitis of trunk, unspecified SNOMED: 437422615, 709030398 (2) Sepsis ICD Codes: A41.9 - Sepsis, unspecified organism SNOMED: 03133713 (3) Stroke due to intracerebral hemorrhage ICD Codes: I61.9 - Nontraumatic intracerebral hemorrhage, unspecified SNOMED: 661230689 (4) Hypertension ICD Codes: I10 - Essential (primary) hypertension SNOMED: 68433631 (5) Seizure disorder ICD Codes: G40.909 - Epilepsy, unspecified, not intractable,without status epilepticus SNOMED: 812333564 Status: unchanged Assessment/Plan: pt diet abx wound care gtube cbc bmp am Subjective Constitutional: Reports: weakness Allergies: Coded Allergies: No Known Allergies (Unverified , 03/02/14) All Systems: reviewed and negative except above Subjective o2 mask sleepy calm Objective Last 24 Hour Vital Signs Date Time Temp Pulse Resp B/P (MAP) Pulse Ox O2 Delivery O2 Flow Rate FiO2 01/21/20 12:00 14.0 55 01/21/20 12:00 86 01/21/20 12:00 97.7 86 20 106/67 (80) 93 01/21/20 09:00 Venturi Mask 14.0 01/21/20 08:00 97.6 95 20 123/73 (90) 92 01/21/20 08:00 95 01/21/20 08:00 14.0 55 01/21/20 04:00 98.8 104 20 107/76 (86) 95 01/21/20 04:00 14.0 55 01/21/20 04:00 99 01/21/20 00:00 14.0 55 01/21/20 00:00 99.9 91 20 95/60 (72) 95 01/21/20 00:00 92 01/20/20 22:57 99.0 01/20/20 21:00 Venturi Mask 14.0 01/20/20 20:12 97 Non-Rebreather 15.0 100 01/20/20 20:00 100.4 89 16 93/62 (72) 96 01/20/20 20:00 93 01/20/20 16:00 101.3 89 24 92/63 (73) 94 01/20/20 16:00 87 01/20/20 16:00 14.0 55 Intake and Output 01/20/20 01/21/20 19:00 07:00 Output Total 300 ml 300 ml Balance -300 ml -300 ml Output Urine Total 300 ml 300 ml # Voids 1 # Bowel Movements 1 Laboratory Tests 01/20/20 17:41: POC Whole Blood Glucose 149H 01/21/20 05:37: White Blood Count 11.5H, Red Blood Count 4.12L, Hemoglobin 12.8L, Hematocrit 39.2L, Mean Corpuscular Volume 95, Mean Corpuscular Hemoglobin 31.0, Mean Corpuscular Hemoglobin Concent 32.6, Red Cell Distribution Width 13.6, Platelet Count 180, Mean Platelet Volume 12.1H, Neutrophils (%) (Auto) , Lymphocytes (%) (Auto) , Monocytes (%) (Auto) , Eosinophils (%) (Auto) , Basophils (%) (Auto) , Differential Total Cells Counted 100, Neutrophils % (Manual) 90H, Lymphocytes % (Manual) 5L, Monocytes % (Manual) 2, Eosinophils % (Manual) 0, Basophils % ( Manual) 0, Band Neutrophils 3, Platelet Estimate Adequate, Platelet Morphology Normal, Red Blood Cell Morphology Normal, Sodium Level 146H, Potassium Level 3.5 , Chloride Level 110H, Carbon Dioxide Level 28, Anion Gap 8, Blood Urea Nitrogen 78H, Creatinine 1.1, Estimat Glomerular Filtration Rate > 60, Glucose Level 152H, Calcium Level 9.4 01/21/20 08:54: Arterial Blood pH 7.435, Arterial Blood Partial Pressure CO2 37.9, Arterial Blood Partial Pressure O2 69.1L, Arterial Blood HCO3 24.9, Arterial Blood Oxygen Saturation 93.2L, Arterial Blood Base Excess 0.8, Surendra Test Positive 01/21/20 12:26: POC Whole Blood Glucose 111H Height (Feet): 5 Height (Inches): 5.00 Weight (Pounds): 134 General Appearance: lethargic EENT: normal ENT inspection Neck: normal alignment Cardiovascular: normal peripheral pulses, normal rate, regular rhythm Respiratory/Chest: chest wall non-tender, lungs clear, normal breath sounds Abdomen: normal bowel sounds, non tender, soft Extremities: normal inspection Edema: no edema noted Arm (L), no edema noted Arm (R), no edema noted Leg (L), no edema noted Leg (R), no edema noted Pedal (L), no edema noted Pedal (R), no edema noted Generalized Neurologic: motor weakness Skin: normal pigmentation, warm/dry Roberto Carlos Lui Jan 21, 2020 13:50
[2020-01-21 16:00] VITALS: BP 108/72
--- NOTE | 2020-01-21 16:23 | NUR ---
CASE MANAGEMENT: REVIEW SI: G-TUBE SITE CELLULITIS . SEPSIS . SEIZURE DISORDER EGD / PEG 01/16 T 99.9 HR 104 RR 20 BP 95/60 SAT 92% VENTURI MASK FIO2 55 WBC 11.5 NA 146 GLUCOSE 152 IS: ZOSYN IV Q8HR AMIODARONE 200MG PO QD HEPARIN SUBQ Q12HR KEPPRA GT Q12HR PEPCID GT BID TELEMETRY UNIT STATUS DCP: PATIENT IS FROM [facility] Addendum: 01/21/20 at 1630 by AHMET CHEUGN CM TRANSFER TO [facility]
--- NOTE | 2020-01-21 16:30 | NUR ---
*-* INSURANCE *-* UPDATED CLINICALS AND REVIEWS HAVE BEEN FAXED TO: [facility] F:[phone] T:[phone] REFERENCE # [id number]
--- NOTE | 2020-01-21 19:28 | NUR ---
NURSE NOTES: Received report from DARIAN Fofana. Patient is awake, alert and oriented x 0, non-verbal. On venturi mask @ 14 Lpm, 55 % Fi02, saturating 98 % at this time. With g-tube, on Vital AF 1.2 @ 60 cc/hour but it was stopped meanwhile for observation. Condom catheter is in place, with P-200 mattress. IV site is on right forearm g-22 saline lock that is patent and intact. compliance monitor is in place, shows jorge rhythm. Safety measures are in placed, bed in lowest and locked position. Will continue plan of care.
--- NOTE | 2020-01-21 19:33 | NUR ---
NURSE HAND-OFF REPORT: Important Events on Shift:Patient was lethargic with shortness of breath Patient Status: Diet: Pending Orders: Pending Results/Labs: Pending MD notification: Latest Vital Signs: Temperature 97.2 , Pulse 81 , B/P 108 /72 , Respiratory Rate 19 , O2 SAT 100 , Venturi Mask, O2 Flow Rate 14.0 . Vital Sign Comment: EKG Rhythm: Sinus Rhythm Rhythm change?: N MD Notified?: - MD Response: Latest [place] Fall Score: 70 Fall Risk: High Risk Safety Measures: Call light Within Reach, Bed Alarm Zone 1, Side Rails Side Rails x2, Bed position Low and Locked. Fall Precautions: Yellow Socks Yellow Gown Report given to SHANNON FARMER.
[2020-01-21 20:00] VITALS: BP 110/72
[2020-01-22] VITALS: BP 129/67
[2020-01-22 04:00] VITALS: BP 124/70
[2020-01-22] MEDS: NovoLOG Insulin Flexpen SUBQ SCH ×4 (06:00→18:00)
[2020-01-22] MEDS: Piperacillin/Tazobactam 3.375 GM in NS 110 ML IVPB SCH ×3 (06:01→21:32)
[2020-01-22] MEDS: Levothyroxine 25mcg tab GT SCH (06:03)
[2020-01-22 06:06] LABS: HEMATOCRIT 40.2 % (42.0-52.0); MEAN CORPUSCULAR VOLUME 96 FL (80-99); PLATELET COUNT 209 K/UL (150-450); RED CELL DISTRIBUTION WIDTH 13.9 % (11.6-14.8); WHITE BLOOD COUNT 12.4 K/UL (4.8-10.8)
[2020-01-22 06:21] LABS: POTASSIUM 3.7 MMOL/L (3.5-5.1); SODIUM 149 MMOL/L (136-145)
[2020-01-22 06:22] LABS: ALANINE AMINOTRANSFERASE 47 U/L (12-78); ALBUMIN 1.9 G/DL (3.4-5.0); ALBUMIN/GLOBULIN RATIO 0.4 (1.0-2.7); ALKALINE PHOSPHATASE 70 U/L (46-116); ANION GAP 10 mmol/L (5-15); ASPARTATE AMINO TRANSFERASE 61 U/L (15-37); BILIRUBIN,TOTAL 0.4 MG/DL (0.2-1.0); BLOOD UREA NITROGEN 69 mg/dL (7-18); CALCIUM 9.6 MG/DL (8.5-10.1); CARBON DIOXIDE 28 MMOL/L (21-32); CHLORIDE 112 MMOL/L (98-107); CREATININE 1.1 MG/DL (0.55-1.30); PHOSPHORUS 4.5 MG/DL (2.5-4.9)
--- NOTE | 2020-01-22 07:16 | NUR ---
NURSE NOTES: pt in bed, pt was suctioned, sating at 98% on venturi mask. Pt was repositioned. Pt Aox1. Pt on ekg monitor tech no signs of cardiac distress. Bed padded, side rails up, bed locked and in lowest position. Call light within reach. pt on Gtube feeding. Will continue to monitor pt.
--- NOTE | 2020-01-22 07:25 | Infectious Diseases Prog Note ---
Assessment/Plan Acute hypoxic resp failure, on NRB, unclear etiology Leukocytosis, improving 01/18 BCx NTD 01/18 UCx +yeast 01/18 CXR: Left lower lobe volume loss with a left basilar infiltrate which may reflect atelectasis and/or pneumonia. 01/19 COVID rapid Ag neg 01/19 Resp cx +GNRs GT malfunction c/b mild cellulitis CT abd/p: Gastrostomy tube in the subcutaneous tissues of the anterior abdominal. Pericardial effusion. Large amount of fecal material in the colon. This is consistent with constipation. Contrast in the gallbladder, likely representing vicarious excretion of contrast from previous study. Atherosclerotic change. Old compression fracture of L1. S/p replacement 01/16 H/o COVID-19 (September 2019) 01/15 Rapid COVID PCR neg 01/19 Rapid neg PMH: Afib HLD Seizure disorder MDD/anxiety HTN DM2 Dysphagia s/p GT [facility] resident ([facility]) Plan: Cont Zosyn #4/7 given resp failure F/u resp cx 01/19 & repeat taken today 01/21, currently w/ GNRs Trend leukocytosis, improving Monitor resp status 01/19/20 SP Ancef #3/5 01/16/20 SP Zosyn x1 Monitor CBC/CMP, temperatures Aspiration precautions D/w RN Thank you for this consultation. Will continue to follow along with you. Subjective Allergies: Coded Allergies: No Known Allergies (Unverified , 03/02/14) AF x24hrs Not interactive On venturi mask WBC 12 Objective Last 24 Hour Vital Signs Date Time Temp Pulse Resp B/P (MAP) Pulse Ox O2 Delivery O2 Flow Rate FiO2 01/22/20 04:00 14.0 55 01/22/20 04:00 97.9 94 22 124/70 (88) 100 01/22/20 04:00 96 01/22/20 00:00 88 01/22/20 00:00 97.5 92 22 129/67 (87) 100 01/21/20 21:00 Venturi Mask 14.0 01/21/20 20:18 98 Venturi Mask 15.0 55 01/21/20 20:00 14.0 55 01/21/20 20:00 97.7 83 24 110/72 (85) 99 01/21/20 20:00 80 01/21/20 16:00 81 01/21/20 16:00 14.0 55 01/21/20 16:00 97.2 81 19 108/72 (84) 100 01/21/20 12:00 14.0 55 01/21/20 12:00 86 01/21/20 12:00 97.7 86 20 106/67 (80) 93 01/21/20 09:00 Venturi Mask 14.0 01/21/20 08:00 97.6 95 20 123/73 (90) 92 01/21/20 08:00 95 01/21/20 08:00 14.0 55 Height (Feet): 5 Height (Inches): 5.00 Weight (Pounds): 133 Gen: Thin older man CV: RRR Pulm: CTAB on venturi mask Abd: Thin, soft, NTND, +PEG with dressing c/d/i Ext: No c/c/e, very thin Microbiology Date/Time Source Procedure Growth Status 01/19/20 10:47 Blood Blood Culture - Preliminary NO GROWTH AFTER 48 HOURS Resulted 01/19/20 10:35 Blood Blood Culture - Preliminary NO GROWTH AFTER 48 HOURS Resulted 01/20/20 09:50 Nasopharynx SARS-CoV-2 RdRp Gene Assay - Final Complete 01/20/20 09:30 Sputum Induced Gram Stain - Final Resulted 01/20/20 09:30 Sputum Culture - Preliminary Gram Negative Bacillus 1 Usual Respiratory Denice Resulted 01/19/20 11:02 Urine,Clean Catch Urine Culture - Final Janet Albicans Complete Laboratory Tests Test 01/21/20 08:54 01/21/20 12:26 01/21/20 16:24 01/22/20 00:00 Arterial Blood pH 7.435 (7.350-7.450) Arterial Blood Partial Pressure CO2 37.9 mmHg (35.0-45.0) Arterial Blood Partial Pressure O2 69.1 mmHg (75.0-100.0) L Arterial Blood HCO3 24.9 mmol/L (22.0-26.0) Arterial Blood Oxygen Saturation 93.2 % (95-100) L Arterial Blood Base Excess 0.8 (-2-2) Surendra Test Positive POC Whole Blood Glucose 111 MG/DL (74-106) H 102 MG/DL (74-106) 101 MG/DL (74-106) Test 01/22/20 05:15 01/22/20 06:00 White Blood Count 12.4 K/UL (4.8-10.8) H Red Blood Count 4.20 M/UL (4.70-6.10) L Hemoglobin 13.0 G/DL (14.2-18.0) L Hematocrit 40.2 % (42.0-52.0) L Mean Corpuscular Volume 96 FL (80-99) Mean Corpuscular Hemoglobin 30.9 PG (27.0-31.0) Mean Corpuscular Hemoglobin Concent 32.3 G/DL (32.0-36.0) Red Cell Distribution Width 13.9 % (11.6-14.8) Platelet Count 209 K/UL (150-450) Mean Platelet Volume 10.8 FL (6.5-10.1) H Neutrophils (%) (Auto) % (45.0-75.0) Lymphocytes (%) (Auto) % (20.0-45.0) Monocytes (%) (Auto) % (1.0-10.0) Eosinophils (%) (Auto) % (0.0-3.0) Basophils (%) (Auto) % (0.0-2.0) Neutrophils % (Manual) Pending Lymphocytes % (Manual) Pending Platelet Estimate Pending Platelet Morphology Pending Sodium Level 149 MMOL/L (136-145) H Potassium Level 3.7 MMOL/L (3.5-5.1) Chloride Level 112 MMOL/L (98-107) H Carbon Dioxide Level 28 MMOL/L (21-32) Anion Gap 10 mmol/L (5-15) Blood Urea Nitrogen 69 mg/dL (7-18) H Creatinine 1.1 MG/DL (0.55-1.30) Estimat Glomerular Filtration Rate > 60 mL/min (>60) Glucose Level 110 MG/DL (74-106) H Calcium Level 9.6 MG/DL (8.5-10.1) Phosphorus Level 4.5 MG/DL (2.5-4.9) Magnesium Level 2.3 MG/DL (1.8-2.4) Total Bilirubin 0.4 MG/DL (0.2-1.0) Aspartate Amino Transf (AST/SGOT) 61 U/L (15-37) H Alanine Aminotransferase (ALT/SGPT) 47 U/L (12-78) Alkaline Phosphatase 70 U/L (46-116) C-Reactive Protein, Quantitative 28.4 mg/dL (0.00-0.90) H Pro-B-Type Natriuretic Peptide 296 pg/mL (0-125) H Total Protein 6.4 G/DL (6.4-8.2) Albumin 1.9 G/DL (3.4-5.0) L Globulin 4.5 g/dL Albumin/Globulin Ratio 0.4 (1.0-2.7) L POC Whole Blood Glucose 109 MG/DL (74-106) H Current Medications Medications (Trade) Dose Ordered Sig/Kinjal Route PRN Reason Start Time Stop Time Status Last Admin Dose Admin Acetaminophen (Tylenol) 650 mg Q6H PRN GT Temp >100.5 01/19/20 18:27 02/18/20 18:26 01/20/20 22:27 Amiodarone HCl (Cordarone) 200 mg DAILY ORAL 01/19/20 09:00 04/18/20 08:59 01/21/20 08:49 Aspirin (ASA) 81 mg DAILY NG 01/19/20 09:00 03/04/20 08:59 01/21/20 08:49 Dextrose (Dextrose 50%) 25 ml Q30M PRN IV Hypoglycemia 01/18/20 11:30 04/17/20 11:29 Dextrose (Dextrose 50%) 50 ml Q30M PRN IV Hypoglycemia 01/18/20 11:30 04/17/20 11:29 Famotidine (Pepcid) 20 mg TWICE A DAY GT 01/16/20 18:00 04/15/20 17:59 01/21/20 17:35 Heparin Sodium (Porcine) (Heparin 5000 units/ml) 5,000 units EVERY 12 HOURS SUBQ 01/16/20 21:00 03/01/20 20:59 01/21/20 20:29 Insulin Aspart (NovoLOG) Q6HR SUBQ 01/18/20 12:00 04/17/20 11:59 01/20/20 17:45 Levetiracetam (Keppra) 500 mg Q12HR GT 01/16/20 21:00 03/01/20 20:59 01/21/20 20:27 Levothyroxine Sodium (Synthroid) 25 mcg DAILY@0630 GT 01/18/20 06:30 02/17/20 06:29 01/22/20 06:03 Lorazepam (Ativan) 1 mg Q6H PRN ORAL For Anxiety 01/17/20 15:15 01/24/20 15:14 Piperacillin Sod/ Tazobactam Sod 3.375 gm/Sodium Chloride 110 ml @ 27.5 mls/hr EVERY 8 HOURS IVPB 01/19/20 14:00 01/24/20 13:59 01/22/20 06:01 Risperidone (RisperDAL) 1 mg TWICE A DAY ORAL 01/17/20 18:00 03/02/20 17:59 01/20/20 17:36 Magdalene White M.D. Jan 22, 2020 07:25
[2020-01-22 07:52] LABS: APPEARANCE,URINE SLIGHTLY CLOUDY; BILIRUBIN, URINE NEGATIVE (NEGATIVE); COLOR,URINE YELLOW; GLUCOSE, URINE (UA) NEGATIVE (NEGATIVE); KETONES,URINE 1+ (NEGATIVE); LEUKOCYTE ESTERASE ,URINE 3+ (NEGATIVE); NITRITE,URINE NEGATIVE (NEGATIVE); PH,URINE 5 (4.5-8.0); PROTEIN,URINE 1+ (NEGATIVE); UROBILINOGEN,URINE NORMAL MG/DL (0.0-1.0)
[2020-01-22 08:00] VITALS: BP 119/79
--- NOTE | 2020-01-22 08:29 | General Progress Note ---
Assessment/Plan Problem List: (1) DM (diabetes mellitus) ICD Codes: E11.9 - Type 2 diabetes mellitus without complications SNOMED: 52278076 (2) Feeding by G-tube ICD Codes: Z93.1 - Gastrostomy status SNOMED: 940770049, 410063490, 802133174 (3) half-way resident ICD Codes: Z59.3 - Problems related to living in residential institution SNOMED: 913862470 (4) Stroke due to intracerebral hemorrhage ICD Codes: I61.9 - Nontraumatic intracerebral hemorrhage, unspecified SNOMED: 556274134 (5) Hypertension ICD Codes: I10 - Essential (primary) hypertension SNOMED: 79241146 Status: unchanged Assessment/Plan: s/p GT placement GTF>>will resume wound care fu labs Subjective ROS Limited/Unobtainable: Yes Allergies: Coded Allergies: No Known Allergies (Unverified , 03/02/14) Objective Last 24 Hour Vital Signs Date Time Temp Pulse Resp B/P (MAP) Pulse Ox O2 Delivery O2 Flow Rate FiO2 01/22/20 07:47 98 Venturi Mask 15.0 55 01/22/20 04:00 14.0 55 01/22/20 04:00 97.9 94 22 124/70 (88) 100 01/22/20 04:00 96 01/22/20 00:00 88 01/22/20 00:00 97.5 92 22 129/67 (87) 100 01/21/20 21:00 Venturi Mask 14.0 01/21/20 20:18 98 Venturi Mask 15.0 55 01/21/20 20:00 14.0 55 01/21/20 20:00 97.7 83 24 110/72 (85) 99 01/21/20 20:00 80 01/21/20 16:00 81 01/21/20 16:00 14.0 55 01/21/20 16:00 97.2 81 19 108/72 (84) 100 01/21/20 12:00 14.0 55 01/21/20 12:00 86 01/21/20 12:00 97.7 86 20 106/67 (80) 93 01/21/20 09:00 Venturi Mask 14.0 Intake and Output 01/21/20 01/22/20 19:00 07:00 Output Total 500 ml 400 ml Balance -500 ml -400 ml Output Urine Total 500 ml 400 ml # Voids 1 # Bowel Movements 1 2 Laboratory Tests 01/21/20 08:54: Arterial Blood pH 7.435, Arterial Blood Partial Pressure CO2 37.9, Arterial Blood Partial Pressure O2 69.1L, Arterial Blood HCO3 24.9, Arterial Blood Oxygen Saturation 93.2L, Arterial Blood Base Excess 0.8, Surendra Test Positive 01/21/20 12:26: POC Whole Blood Glucose 111H 01/21/20 16:24: POC Whole Blood Glucose 102 01/22/20 00:00: POC Whole Blood Glucose 101 01/22/20 05:15: White Blood Count 12.4H, Red Blood Count 4.20L, Hemoglobin 13.0L, Hematocrit 40.2L, Mean Corpuscular Volume 96, Mean Corpuscular Hemoglobin 30.9, Mean Corpuscular Hemoglobin Concent 32.3, Red Cell Distribution Width 13.9, Platelet Count 209, Mean Platelet Volume 10.8H, Neutrophils (%) (Auto) , Lymphocytes (%) (Auto) , Monocytes (%) (Auto) , Eosinophils (%) (Auto) , Basophils (%) (Auto) , Neutrophils % (Manual) [Pending], Lymphocytes % (Manual) [Pending], Platelet Estimate [Pending], Platelet Morphology [Pending], Sodium Level 149H, Potassium Level 3.7, Chloride Level 112H, Carbon Dioxide Level 28, Anion Gap 10, Blood Urea Nitrogen 69H, Creatinine 1.1, Estimat Glomerular Filtration Rate > 60, Glucose Level 110H, Calcium Level 9.6, Phosphorus Level 4.5, Magnesium Level 2.3 , Total Bilirubin 0.4, Aspartate Amino Transf (AST/SGOT) 61H, Alanine Aminotransferase (ALT/SGPT) 47, Alkaline Phosphatase 70, C-Reactive Protein, Quantitative 28.4H, Pro-B-Type Natriuretic Peptide 296H, Total Protein 6.4, Albumin 1.9L, Globulin 4.5, Albumin/Globulin Ratio 0.4L 01/22/20 06:00: POC Whole Blood Glucose 109H 01/22/20 06:35: Urine Color Yellow, Urine Appearance Slightly cloudy, Urine pH 5, Urine Specific [place] 1.015, Urine Protein 1+H, Urine Glucose (UA) Negative, Urine Ketones 1+H, Urine Blood 1+H, Urine Nitrite Negative, Urine Bilirubin Negative, Urine Urobilinogen Normal, Urine Leukocyte Esterase 3+H, Urine RBC 2-4H, Urine WBC 2-4, Urine Squamous Epithelial Cells Occasional, Urine Calcium Oxalate Crystals ,od, Urine Amorphous Sediment ModerateH, Urine Bacteria Few, Urine Hyaline Casts 0-2H, Urine Yeast ModerateH, Urine Random Sodium < 20L Height (Feet): 5 Height (Inches): 5.00 Weight (Pounds): 133 General Appearance: alert EENT: normal ENT inspection Neck: supple Cardiovascular: normal rate Respiratory/Chest: decreased breath sounds Abdomen: normal bowel sounds, non tender, soft Extremities: non-tender Scooter Holley MD Jan 22, 2020 08:29
--- NOTE | 2020-01-22 09:27 | General Progress Note ---
Assessment/Plan Problem List: (1) G-tube site cellulitis ICD Codes: K94.22 - Gastrostomy infection; L03.319 - Cellulitis of trunk, unspecified SNOMED: 659855230, 199018928 (2) Sepsis ICD Codes: A41.9 - Sepsis, unspecified organism SNOMED: 24308584 (3) Stroke due to intracerebral hemorrhage ICD Codes: I61.9 - Nontraumatic intracerebral hemorrhage, unspecified SNOMED: 897830005 (4) Hypertension ICD Codes: I10 - Essential (primary) hypertension SNOMED: 62431696 (5) Seizure disorder ICD Codes: G40.909 - Epilepsy, unspecified, not intractable,without status epilepticus SNOMED: 798343718 Status: unchanged Assessment/Plan: pt diet abx wound care gtube cbc bmp am Subjective Constitutional: Reports: weakness Respiratory: Reports: shortness of breath Allergies: Coded Allergies: No Known Allergies (Unverified , 03/02/14) All Systems: reviewed and negative except above Subjective o2 mask sleepy calm Objective Last 24 Hour Vital Signs Date Time Temp Pulse Resp B/P (MAP) Pulse Ox O2 Delivery O2 Flow Rate FiO2 01/22/20 08:00 99.1 89 28 119/79 (92) 99 01/22/20 08:00 14.0 55 01/22/20 07:47 98 Venturi Mask 15.0 55 01/22/20 04:00 14.0 55 01/22/20 04:00 97.9 94 22 124/70 (88) 100 01/22/20 04:00 96 01/22/20 00:00 88 01/22/20 00:00 97.5 92 22 129/67 (87) 100 01/21/20 21:00 Venturi Mask 14.0 01/21/20 20:18 98 Venturi Mask 15.0 55 01/21/20 20:00 14.0 55 01/21/20 20:00 97.7 83 24 110/72 (85) 99 01/21/20 20:00 80 01/21/20 16:00 81 01/21/20 16:00 14.0 55 01/21/20 16:00 97.2 81 19 108/72 (84) 100 01/21/20 12:00 14.0 55 01/21/20 12:00 86 01/21/20 12:00 97.7 86 20 106/67 (80) 93 Intake and Output 01/21/20 01/22/20 19:00 07:00 Output Total 500 ml 400 ml Balance -500 ml -400 ml Output Urine Total 500 ml 400 ml # Voids 1 # Bowel Movements 1 2 Laboratory Tests 01/21/20 12:26: POC Whole Blood Glucose 111H 01/21/20 16:24: POC Whole Blood Glucose 102 01/22/20 00:00: POC Whole Blood Glucose 101 01/22/20 05:15: White Blood Count 12.4H, Red Blood Count 4.20L, Hemoglobin 13.0L, Hematocrit 40.2L, Mean Corpuscular Volume 96, Mean Corpuscular Hemoglobin 30.9, Mean Corpuscular Hemoglobin Concent 32.3, Red Cell Distribution Width 13.9, Platelet Count 209, Mean Platelet Volume 10.8H, Neutrophils (%) (Auto) , Lymphocytes (%) (Auto) , Monocytes (%) (Auto) , Eosinophils (%) (Auto) , Basophils (%) (Auto) , Neutrophils % (Manual) [Pending], Lymphocytes % (Manual) [Pending], Platelet Estimate [Pending], Platelet Morphology [Pending], Sodium Level 149H, Potassium Level 3.7, Chloride Level 112H, Carbon Dioxide Level 28, Anion Gap 10, Blood Urea Nitrogen 69H, Creatinine 1.1, Estimat Glomerular Filtration Rate > 60, Glucose Level 110H, Calcium Level 9.6, Phosphorus Level 4.5, Magnesium Level 2.3 , Total Bilirubin 0.4, Aspartate Amino Transf (AST/SGOT) 61H, Alanine Aminotransferase (ALT/SGPT) 47, Alkaline Phosphatase 70, C-Reactive Protein, Quantitative 28.4H, Pro-B-Type Natriuretic Peptide 296H, Total Protein 6.4, Albumin 1.9L, Globulin 4.5, Albumin/Globulin Ratio 0.4L 01/22/20 06:00: POC Whole Blood Glucose 109H 01/22/20 06:35: Urine Color Yellow, Urine Appearance Slightly cloudy, Urine pH 5, Urine Specific [place] 1.015, Urine Protein 1+H, Urine Glucose (UA) Negative, Urine Ketones 1+H, Urine Blood 1+H, Urine Nitrite Negative, Urine Bilirubin Negative, Urine Urobilinogen Normal, Urine Leukocyte Esterase 3+H, Urine RBC 2-4H, Urine WBC 2-4, Urine Squamous Epithelial Cells Occasional, Urine Calcium Oxalate Crystals ,od, Urine Amorphous Sediment ModerateH, Urine Bacteria Few, Urine Hyaline Casts 0-2H, Urine Yeast ModerateH, Urine Random Sodium < 20L Height (Feet): 5 Height (Inches): 5.00 Weight (Pounds): 133 General Appearance: lethargic EENT: normal ENT inspection Neck: normal alignment Cardiovascular: normal peripheral pulses, normal rate, regular rhythm Respiratory/Chest: chest wall non-tender, lungs clear, normal breath sounds Abdomen: normal bowel sounds, non tender, soft Extremities: normal inspection Edema: no edema noted Arm (L), no edema noted Arm (R), no edema noted Leg (L), no edema noted Leg (R), no edema noted Pedal (L), no edema noted Pedal (R), no edema noted Generalized Neurologic: motor weakness Skin: normal pigmentation, warm/dry Roberto Carlos Lui DO Jan 22, 2020 09:27
[2020-01-22] MEDS: levETIRAcetam 500mg/5ml Liquid GT SCH ×2 (10:26→20:52)
[2020-01-22] MEDS: Amiodarone 200mg tab ORAL SCH (10:26)
[2020-01-22] MEDS: Aspirin Baby 81mg NG SCH (10:26)
[2020-01-22] MEDS: Heparin 5000 units/ml inj SUBQ SCH ×2 (10:27→21:29)
--- NOTE | 2020-01-22 10:30 | Nephrology Progress Note ---
Assessment/Plan Problem List: (1) Dehydration (2) Electrolyte imbalance (3) Vascular dementia with behavioral disturbance (4) Seizure disorder (5) Stroke due to intracerebral hemorrhage Assessment Dehydration leading to hyper-natremia GT tube malfunction and cellulitis on GT site Previous CVA due to intracerebral hemorrhage Vascular dementia Seizure disorder Hypertension History of compression fracture of thoracic vertebra Schizophrenia History of atrial fibrillation Plan January 21: Lab reviewed. Renal parameters are stable. Continue per consultants. Urine studies noted. January 20: Lab reviewed. Renal parameters are stable. BUN however remains elevated, which is a prerenal picture. Continue per consultants. Urine analysis and urine for spot sodium ordered. January 19: Lab reviewed. Leukocytosis resolved. Renal parameters stable. Continue per consultants. January 18: Continues to be congested. The white blood cell ami. Chest x-ray results noted. Will give potassium supplement and 1 dose of IV Lasix. Continue antibiotics and pulmonary toilet. Follow-up chest x-rays. January 17 chest x-ray iMPRESSION: Left mid and lower lung opacity which likely represents combination of enlarged cardiac silhouette,. Elevated left hemidiaphragm, and atelectasis versus pneumonia. Small left pleural effusion not excluded. January 17: Will discontinue IV. Renal parameters and electrolytes within acceptable range. Patient is congested and has lots of secretions. Continue aggressive suctioning. Discussed with RN. Previously: D5W IV hydration Monitor renal parameters and electrolytes Per consultants Continue antiseizure medication Per orders Add low-dose Synthroid for mildly elevated TSH Subjective ROS Limited/Unobtainable: Yes Constitutional: Reports: malaise, weakness Objective Objective Last 24 Hour Vital Signs Date Time Temp Pulse Resp B/P (MAP) Pulse Ox O2 Delivery O2 Flow Rate FiO2 01/22/20 08:00 99.1 89 28 119/79 (92) 99 01/22/20 08:00 14.0 55 01/22/20 07:47 98 Venturi Mask 15.0 55 01/22/20 04:00 14.0 55 01/22/20 04:00 97.9 94 22 124/70 (88) 100 01/22/20 04:00 96 01/22/20 00:00 88 01/22/20 00:00 97.5 92 22 129/67 (87) 100 01/21/20 21:00 Venturi Mask 14.0 01/21/20 20:18 98 Venturi Mask 15.0 55 01/21/20 20:00 14.0 55 01/21/20 20:00 97.7 83 24 110/72 (85) 99 01/21/20 20:00 80 01/21/20 16:00 81 01/21/20 16:00 14.0 55 01/21/20 16:00 97.2 81 19 108/72 (84) 100 01/21/20 12:00 14.0 55 01/21/20 12:00 86 01/21/20 12:00 97.7 86 20 106/67 (80) 93 Intake and Output 01/21/20 01/22/20 19:00 07:00 Output Total 500 ml 400 ml Balance -500 ml -400 ml Output Urine Total 500 ml 400 ml # Voids 1 # Bowel Movements 1 2 Laboratory Tests 01/21/20 12:26: POC Whole Blood Glucose 111H 01/21/20 16:24: POC Whole Blood Glucose 102 01/22/20 00:00: POC Whole Blood Glucose 101 01/22/20 05:15: White Blood Count 12.4H, Red Blood Count 4.20L, Hemoglobin 13.0L, Hematocrit 40.2L, Mean Corpuscular Volume 96, Mean Corpuscular Hemoglobin 30.9, Mean Corpuscular Hemoglobin Concent 32.3, Red Cell Distribution Width 13.9, Platelet Count 209, Mean Platelet Volume 10.8H, Neutrophils (%) (Auto) , Lymphocytes (%) (Auto) , Monocytes (%) (Auto) , Eosinophils (%) (Auto) , Basophils (%) (Auto) , Neutrophils % (Manual) [Pending], Lymphocytes % (Manual) [Pending], Platelet Estimate [Pending], Platelet Morphology [Pending], Sodium Level 149H, Potassium Level 3.7, Chloride Level 112H, Carbon Dioxide Level 28, Anion Gap 10, Blood Urea Nitrogen 69H, Creatinine 1.1, Estimat Glomerular Filtration Rate > 60, Glucose Level 110H, Calcium Level 9.6, Phosphorus Level 4.5, Magnesium Level 2.3 , Total Bilirubin 0.4, Aspartate Amino Transf (AST/SGOT) 61H, Alanine Aminotransferase (ALT/SGPT) 47, Alkaline Phosphatase 70, C-Reactive Protein, Quantitative 28.4H, Pro-B-Type Natriuretic Peptide 296H, Total Protein 6.4, Albumin 1.9L, Globulin 4.5, Albumin/Globulin Ratio 0.4L 01/22/20 06:00: POC Whole Blood Glucose 109H 01/22/20 06:35: Urine Color Yellow, Urine Appearance Slightly cloudy, Urine pH 5, Urine Specific [place] 1.015, Urine Protein 1+H, Urine Glucose (UA) Negative, Urine Ketones 1+H, Urine Blood 1+H, Urine Nitrite Negative, Urine Bilirubin Negative, Urine Urobilinogen Normal, Urine Leukocyte Esterase 3+H, Urine RBC 2-4H, Urine WBC 2-4, Urine Squamous Epithelial Cells Occasional, Urine Calcium Oxalate Crystals ,od, Urine Amorphous Sediment ModerateH, Urine Bacteria Few, Urine Hyaline Casts 0-2H, Urine Yeast ModerateH, Urine Random Sodium < 20L Height (Feet): 5 Height (Inches): 5.00 Weight (Pounds): 133 General Appearance: no apparent distress, lethargic EENT: other Cardiovascular: tachycardia Respiratory/Chest: decreased breath sounds Abdomen: distended Darron Salas MD Jan 22, 2020 10:30
--- NOTE | 2020-01-22 10:49 | Pulmonology Progress Note ---
Subjective ROS Limited/Unobtainable: Yes Interval Events: Less congested; saturations better Constitutional: Reports: no symptoms HEENT: Repors: no symptoms Respiratory: Reports: productive cough Cardiovascular: Reports: no symptoms Gastrointestinal/Abdominal: Reports: no symptoms Allergies: Coded Allergies: No Known Allergies (Unverified , 03/02/14) All Systems: reviewed and negative except above Objective Last 24 Hour Vital Signs Date Time Temp Pulse Resp B/P (MAP) Pulse Ox O2 Delivery O2 Flow Rate FiO2 01/22/20 08:00 99.1 89 28 119/79 (92) 99 01/22/20 08:00 14.0 55 01/22/20 07:47 98 Venturi Mask 15.0 55 01/22/20 04:00 14.0 55 01/22/20 04:00 97.9 94 22 124/70 (88) 100 01/22/20 04:00 96 01/22/20 00:00 88 01/22/20 00:00 97.5 92 22 129/67 (87) 100 01/21/20 21:00 Venturi Mask 14.0 01/21/20 20:18 98 Venturi Mask 15.0 55 01/21/20 20:00 14.0 55 01/21/20 20:00 97.7 83 24 110/72 (85) 99 01/21/20 20:00 80 01/21/20 16:00 81 01/21/20 16:00 14.0 55 01/21/20 16:00 97.2 81 19 108/72 (84) 100 01/21/20 12:00 14.0 55 01/21/20 12:00 86 01/21/20 12:00 97.7 86 20 106/67 (80) 93 Intake and Output 01/21/20 01/22/20 19:00 07:00 Output Total 500 ml 400 ml Balance -500 ml -400 ml Output Urine Total 500 ml 400 ml # Voids 1 # Bowel Movements 1 2 General Appearance: no acute distress HEENT: normocephalic Respiratory: chest wall non-tender, lungs clear Cardiovascular: normal peripheral pulses, normal rate Abdomen: normal bowel sounds Microbiology Date/Time Source Procedure Growth Status 01/20/20 09:50 Nasopharynx SARS-CoV-2 RdRp Gene Assay - Final Complete 01/20/20 09:30 Sputum Induced Gram Stain - Final Resulted 01/20/20 09:30 Sputum Culture - Preliminary Gram Negative Bacillus 1 Usual Respiratory Denice Resulted 01/19/20 11:02 Urine,Clean Catch Urine Culture - Final Janet Albicans Complete Laboratory Tests 01/21/20 12:26: POC Whole Blood Glucose 111H 01/21/20 16:24: POC Whole Blood Glucose 102 01/22/20 00:00: POC Whole Blood Glucose 101 01/22/20 05:15: White Blood Count 12.4H, Red Blood Count 4.20L, Hemoglobin 13.0L, Hematocrit 40.2L, Mean Corpuscular Volume 96, Mean Corpuscular Hemoglobin 30.9, Mean Corpuscular Hemoglobin Concent 32.3, Red Cell Distribution Width 13.9, Platelet Count 209, Mean Platelet Volume 10.8H, Neutrophils (%) (Auto) , Lymphocytes (%) (Auto) , Monocytes (%) (Auto) , Eosinophils (%) (Auto) , Basophils (%) (Auto) , Differential Total Cells Counted 100, Neutrophils % (Manual) 84H, Lymphocytes % (Manual) 8L, Monocytes % (Manual) 7, Eosinophils % (Manual) 1, Basophils % ( Manual) 0, Band Neutrophils 0, Platelet Estimate Adequate, Platelet Morphology Normal, Sodium Level 149H, Potassium Level 3.7, Chloride Level 112H, Carbon Dioxide Level 28, Anion Gap 10, Blood Urea Nitrogen 69H, Creatinine 1.1, Estimat Glomerular Filtration Rate > 60, Glucose Level 110H, Calcium Level 9.6, Phosphorus Level 4.5, Magnesium Level 2.3, Total Bilirubin 0.4, Aspartate Amino Transf (AST/SGOT) 61H, Alanine Aminotransferase (ALT/SGPT) 47, Alkaline Phosphatase 70, C-Reactive Protein, Quantitative 28.4H, Pro-B-Type Natriuretic Peptide 296H, Total Protein 6.4, Albumin 1.9L, Globulin 4.5, Albumin/Globulin Ratio 0.4L 01/22/20 06:00: POC Whole Blood Glucose 109H 01/22/20 06:35: Urine Color Yellow, Urine Appearance Slightly cloudy, Urine pH 5, Urine Specific [place] 1.015, Urine Protein 1+H, Urine Glucose (UA) Negative, Urine Ketones 1+H, Urine Blood 1+H, Urine Nitrite Negative, Urine Bilirubin Negative, Urine Urobilinogen Normal, Urine Leukocyte Esterase 3+H, Urine RBC 2-4H, Urine WBC 2-4, Urine Squamous Epithelial Cells Occasional, Urine Calcium Oxalate Crystals ,od, Urine Amorphous Sediment ModerateH, Urine Bacteria Few, Urine Hyaline Casts 0-2H, Urine Yeast ModerateH, Urine Random Sodium < 20L Current Medications Medications (Trade) Dose Ordered Sig/Kinj[place] Route PRN Reason Start Time Stop Time Status Last Admin Dose Admin Acetaminophen (Tylenol) 650 mg Q6H PRN GT Temp >100.5 01/19/20 18:27 02/18/20 18:26 01/20/20 22:27 Amiodarone HCl (Cordarone) 200 mg DAILY ORAL 01/19/20 09:00 04/18/20 08:59 01/22/20 10:26 Aspirin (ASA) 81 mg DAILY NG 01/19/20 09:00 03/04/20 08:59 01/22/20 10:26 Dextrose (Dextrose 50%) 25 ml Q30M PRN IV Hypoglycemia 01/18/20 11:30 04/17/20 11:29 Dextrose (Dextrose 50%) 50 ml Q30M PRN IV Hypoglycemia 01/18/20 11:30 04/17/20 11:29 Famotidine (Pepcid) 20 mg TWICE A DAY GT 01/16/20 18:00 04/15/20 17:59 01/22/20 10:26 Heparin Sodium (Porcine) (Heparin 5000 units/ml) 5,000 units EVERY 12 HOURS SUBQ 01/16/20 21:00 03/01/20 20:59 01/22/20 10:27 Insulin Aspart (NovoLOG) Q6HR SUBQ 01/18/20 12:00 04/17/20 11:59 01/20/20 17:45 Levetiracetam (Keppra) 500 mg Q12HR GT 01/16/20 21:00 03/01/20 20:59 01/22/20 10:26 Levothyroxine Sodium (Synthroid) 25 mcg DAILY@0630 GT 01/18/20 06:30 02/17/20 06:29 01/22/20 06:03 Lorazepam (Ativan) 1 mg Q6H PRN ORAL For Anxiety 01/17/20 15:15 01/24/20 15:14 Piperacillin Sod/ Tazobactam Sod 3.375 gm/Sodium Chloride 110 ml @ 27.5 mls/hr EVERY 8 HOURS IVPB 01/19/20 14:00 01/24/20 13:59 01/22/20 06:01 Risperidone (RisperDAL) 1 mg TWICE A DAY ORAL 01/17/20 18:00 03/02/20 17:59 01/22/20 10:26 Assessment/Plan Assessment/Plan IMPRESSION: 1. Left hemithorax opacification due to mediastinal shift. 2. No evidence for pneumonia or lung consolidation. 3. Hypoxemia; currently on ventimask DISCUSSION: I suspect the patient's congestion represents upper airway compromise and pooling of oral secretions. Advised aggressive pulmonary hygiene. Discussed with RN. Continue nasal trumpet, nasal oxygen. I will follow carefully. Will decrease FiO2 Lenny Motta Omar Syed MD Jan 22, 2020 10:49
[2020-01-22 12:00] VITALS: BP 132/93
--- NOTE | 2020-01-22 14:23 | Cardiac Electrophysiology PN ---
Assessment/Plan Assessment/Plan 1. Paroxysmal atrial fibrillation. In SR on Aspirin, Coreg 6.25 mg b.i.d. and amiodarone 200 daily 2. Hypotension, Coreg held. Got NS 500 cc bolus 3. Seizure disorder, on Keppra. 4. G-tube site infection, on IV antibiotic. S/P G-tube replacement by Dr. Holley. 5. Hypernatremia on IV fluids per Dr. Salas. NIALL RN Subjective Subjective Had EGD and PEG placement by Dr. Holley 01/17/20. BP better with iv fluids. In SR Objective Last 24 Hour Vital Signs Date Time Temp Pulse Resp B/P (MAP) Pulse Ox O2 Delivery O2 Flow Rate FiO2 01/22/20 12:00 100.6 104 28 132/93 (106) 98 01/22/20 12:00 105 01/22/20 12:00 15.0 55 01/22/20 09:00 Venturi Mask 15.0 01/22/20 08:00 99.1 89 28 119/79 (92) 99 01/22/20 08:00 101 01/22/20 08:00 14.0 55 01/22/20 07:47 98 Venturi Mask 15.0 55 01/22/20 04:00 14.0 55 01/22/20 04:00 97.9 94 22 124/70 (88) 100 01/22/20 04:00 96 01/22/20 00:00 88 01/22/20 00:00 97.5 92 22 129/67 (87) 100 01/21/20 21:00 Venturi Mask 14.0 01/21/20 20:18 98 Venturi Mask 15.0 55 01/21/20 20:00 14.0 55 01/21/20 20:00 97.7 83 24 110/72 (85) 99 01/21/20 20:00 80 01/21/20 16:00 81 01/21/20 16:00 14.0 55 01/21/20 16:00 97.2 81 19 108/72 (84) 100 Intake and Output 01/21/20 01/22/20 19:00 07:00 Output Total 500 ml 400 ml Balance -500 ml -400 ml Output Urine Total 500 ml 400 ml # Voids 1 # Bowel Movements 1 2 Laboratory Tests Test 01/21/20 16:24 01/22/20 00:00 01/22/20 05:15 01/22/20 06:00 POC Whole Blood Glucose 102 MG/DL (74-106) 101 MG/DL (74-106) 109 MG/DL (74-106) H White Blood Count 12.4 K/UL (4.8-10.8) H Red Blood Count 4.20 M/UL (4.70-6.10) L Hemoglobin 13.0 G/DL (14.2-18.0) L Hematocrit 40.2 % (42.0-52.0) L Mean Corpuscular Volume 96 FL (80-99) Mean Corpuscular Hemoglobin 30.9 PG (27.0-31.0) Mean Corpuscular Hemoglobin Concent 32.3 G/DL (32.0-36.0) Red Cell Distribution Width 13.9 % (11.6-14.8) Platelet Count 209 K/UL (150-450) Mean Platelet Volume 10.8 FL (6.5-10.1) H Neutrophils (%) (Auto) % (45.0-75.0) Lymphocytes (%) (Auto) % (20.0-45.0) Monocytes (%) (Auto) % (1.0-10.0) Eosinophils (%) (Auto) % (0.0-3.0) Basophils (%) (Auto) % (0.0-2.0) Differential Total Cells Counted 100 Neutrophils % (Manual) 84 % (45-75) H Lymphocytes % (Manual) 8 % (20-45) L Monocytes % (Manual) 7 % (1-10) Eosinophils % (Manual) 1 % (0-3) Basophils % (Manual) 0 % (0-2) Band Neutrophils 0 % (0-8) Platelet Estimate Adequate Platelet Morphology Normal Sodium Level 149 MMOL/L (136-145) H Potassium Level 3.7 MMOL/L (3.5-5.1) Chloride Level 112 MMOL/L (98-107) H Carbon Dioxide Level 28 MMOL/L (21-32) Anion Gap 10 mmol/L (5-15) Blood Urea Nitrogen 69 mg/dL (7-18) H Creatinine 1.1 MG/DL (0.55-1.30) Estimat Glomerular Filtration Rate > 60 mL/min (>60) Glucose Level 110 MG/DL (74-106) H Calcium Level 9.6 MG/DL (8.5-10.1) Phosphorus Level 4.5 MG/DL (2.5-4.9) Magnesium Level 2.3 MG/DL (1.8-2.4) Total Bilirubin 0.4 MG/DL (0.2-1.0) Aspartate Amino Transf (AST/SGOT) 61 U/L (15-37) H Alanine Aminotransferase (ALT/SGPT) 47 U/L (12-78) Alkaline Phosphatase 70 U/L (46-116) C-Reactive Protein, Quantitative 28.4 mg/dL (0.00-0.90) H Pro-B-Type Natriuretic Peptide 296 pg/mL (0-125) H Total Protein 6.4 G/DL (6.4-8.2) Albumin 1.9 G/DL (3.4-5.0) L Globulin 4.5 g/dL Albumin/Globulin Ratio 0.4 (1.0-2.7) L Test 01/22/20 06:35 01/22/20 12:42 Urine Color Yellow Urine Appearance Slightly cloudy Urine pH 5 (4.5-8.0) Urine Specific [place] 1.015 (1.005-1.035) Urine Protein 1+ (NEGATIVE) H Urine Glucose (UA) Negative (NEGATIVE) Urine Ketones 1+ (NEGATIVE) H Urine Blood 1+ (NEGATIVE) H Urine Nitrite Negative (NEGATIVE) Urine Bilirubin Negative (NEGATIVE) Urine Urobilinogen Normal MG/DL (0.0-1.0) Urine Leukocyte Esterase 3+ (NEGATIVE) H Urine RBC 2-4 /HPF (0 - 0) H Urine WBC 2-4 /HPF (0 - 0) Urine Squamous Epithelial Cells Occasional /LPF Urine Calcium Oxalate Crystals ,od /LPF (NONE) Urine Amorphous Sediment Moderate /LPF (NONE) H Urine Bacteria Few /HPF (NONE) Urine Hyaline Casts 0-2 /LPF (NONE) H Urine Yeast Moderate /HPF (NONE) H Urine Random Sodium < 20 mmol/L (20-110) L POC Whole Blood Glucose 111 MG/DL (74-106) H Microbiology Date/Time Source Procedure Growth Status 01/20/20 09:50 Nasopharynx SARS-CoV-2 RdRp Gene Assay - Final Complete 01/20/20 09:30 Sputum Induced Gram Stain - Final Resulted 01/20/20 09:30 Sputum Culture - Preliminary Gram Negative Bacillus 1 Usual Respiratory Denice Resulted Objective HEAD AND NECK: No JVD. LUNGS: Clear. CARDIOVASCULAR: Shows irregular S1 and S2 with no gallop or rub. ABDOMEN: Soft. New G-tube in place EXTREMITIES: No pitting edema. Adolph Murray MD Jan 22, 2020 14:23
[2020-01-22 16:00] VITALS: BP 131/94
--- NOTE | 2020-01-22 16:14 | NUR ---
CASE MANAGEMENT:REVIEW 01/22/20 SI: SEPSIS. HYPOXEMIA G-TUBE CELLULITIS 100.6 105 28 132/93 98% ON 15L @ 55% WBC+12.4 NA+149 BUN+69 IS: IV ZOSYN Q8HRS AMIODARONE PO QD ASA PO QD INSULIN SQ Q6HRS SYNTHROID PO QD RISPERDAL PO BID HEPARIN SQ Q12 KEPPRA PO Q12 PEPCID PO BID : TELEMETRY STATUS DCP: TK KESSLER
--- NOTE | 2020-01-22 16:25 | NUR ---
INSURANCE CLINCALS AND REVIEW FAXED TO [facility] T: [phone] F: [phone] REF #[id number]
--- NOTE | 2020-01-22 19:25 | NUR ---
NURSE HAND-OFF REPORT: Important Events on Shift: pt, feeding changed to Glucerna 1.2 now is at 35ml/hr but goal is 60ml. pt was put back to 14L O2 and FIO2 55 because he was sating 90 o2. sputum was collected Patient Status: full code Diet: Gtube feed Pending Orders: Pending Results/Labs: Pending MD notification: Latest Vital Signs: Temperature 98.4 , Pulse 95 , B/P 131 /94 , Respiratory Rate 26 , O2 SAT 92 , Venturi Mask, O2 Flow Rate 14.0 . Vital Sign Comment: EKG Rhythm: Sinus Rhythm Rhythm change?: N MD Notified?: - MD Response: Latest [place] Fall Score: 70 Fall Risk: High Risk Safety Measures: Call light Within Reach, Bed Alarm Zone 1, Side Rails Side Rails x2, Bed position Low and Locked. Fall Precautions: Yellow Socks yes Yellow Gown yes Door Sign Patient Fall Education yes Report given to [place]/RN .
--- NOTE | 2020-01-22 19:37 | NUR ---
NURSE NOTES: Received report from DARIAN Dexter. Patient is asleep, alert and oriented x 0, non-verbal. residential monitor is in place, shows sinus rhythm. On oxygen via Venturi mask @ 14 Lpm, Fi02 55. With g-tube on glucerna 1.2 @ 35 cc/hour, goal of 60, flushing of 100 cc every 6 hours. Patient is bedbound, on aspiration and seizure precaution, padded side rails. IV site is on right forearm g-22 saline lock, that is patent and intact. Safety measures are in place, bed in lowest and locked position, side rails up x 2. Will continue plan of care,
[2020-01-22 20:00] VITALS: BP 109/72
[2020-01-23] VITALS: BP 122/79
--- NOTE | 2020-01-23 | NUR ---
NURSE NOTES: Notified Dr. Rivera regarding patient's change of condition. Patient is now much more lethargic and obtunded, no response noted while suctioning, vitals were stable, NSR on the monitor, saturation @ 96%. I asked if he wants to do ABG but he refused and instead told me to do deep suctioning only. I also informed him about the code status of this patient. No new orders received.
--- NOTE | 2020-01-23 01:30 | NUR ---
NURSE NOTES: Deep suctioning done by RT. At this time patient is still lethargic, sating 95-96%, vitals were stable but patient might be retaining CO2. Will call Dr. Rivera.
--- NOTE | 2020-01-23 01:40 | NUR ---
NURSE NOTES: Called and spoke to Dr. Rivera, updated him again regarding patient's present condition, received an order to use BIPAP as PRN. Will carry out.
--- NOTE | 2020-01-23 02:00 | NUR ---
NURSE NOTES: Shifted oxygen support from venturi mask to BIPAP. Setting as follows Fi02 50%, IPAP 15, EPAP 5, BUR of 14. Will continue to monitor patient's change of condition. At this time oxygen saturation is 97%.
--- NOTE | 2020-01-23 03:24 | NUR ---
NURSE HAND-OFF REPORT: Important Events on Shift: Patient Status: non verbal, lethargic Diet: glucerna 1.2 @ 600cc/hour, flushing of 150cc q6 Pending Orders: none Pending Results/Labs: CBC, CMP this morning Pending MD notification:none Latest Vital Signs: Temperature 97.9 , Pulse 94 , B/P 122 /79 , Respiratory Rate 35 , O2 SAT 95% , BiPAP 50% Fi02, IPAP 15, EPAP 5, BUR 14 Vital Sign Comment: NONE EKG Rhythm: Sinus Rhythm Rhythm change?: N MD Notified?: - MD Response: Latest [place] Fall Score: 70 Fall Risk: High Risk Safety Measures: Call light Within Reach, Bed Alarm Zone 1, Side Rails Side Rails x2, Bed position Low and Locked. Fall Precautions: Yellow Socks Yellow Gown Door Sign Patient Fall Education Report given to DARIAN Chowdhury.
--- NOTE | 2020-01-23 03:25 | NUR ---
NURSE NOTES: RECEIVED REPORT FROM DARIAN ALEJANDRO. PATIENT IS AWAKE, OX0, OPENS EYES, NON-VERBAL. NO S/SX OF PAIN OR DISCOMFORT AT THIS TIME. ON BIPAP WITH THE FOLLOWING SETTINGS: FIO2 50%, IPAP 15, EPAP 5, BUR 14. GTF RUNNING PRESCRIBED AT 60ML/HL, NO RESIDUAL AT THIS TIME. IV SITE ON RFA PATENT, INTACT, ASYMPTOMATIC, AND SALINE-LOCKED. CONDOM CATHETER DRAINING WELL TO GRAVITY, URINE CLEAR AND DARK YELLOW IN COLOR. ON P200 MATTRESS FOR WOUND MANAGEMENT, OPTIFOAM NOTED TO BILATERAL HEELS, SACRAL AREA, AND R/L TROCHANTER. FALL AND ASPIRATION PRECAUTIONS IN PLACE. BED LOCKED AND IN LOWEST POSITION, SIDERAILS UP X 3. CALL LIGHT WITHIN REACH. WILL CONTINUE TO MONITOR FOR ANY CHANGES.
[2020-01-23 04:00] VITALS: BP 116/79
[2020-01-23] MEDS: Piperacillin/Tazobactam 3.375 GM in NS 110 ML IVPB SCH ×2 (05:06→14:00)
[2020-01-23] MEDS: NovoLOG Insulin Flexpen SUBQ SCH ×3 (05:27→12:00)
[2020-01-23] MEDS: Levothyroxine 25mcg tab GT SCH (05:32)
[2020-01-23 06:43] LABS: HEMATOCRIT 38.6 % (42.0-52.0); HEMOGLOBIN 12.4 G/DL (14.2-18.0); MEAN CORPUSCULAR VOLUME 99 FL (80-99); PLATELET COUNT 231 K/UL (150-450); RED BLOOD COUNT 3.91 M/UL (4.70-6.10); RED CELL DISTRIBUTION WIDTH 14.8 % (11.6-14.8); WHITE BLOOD COUNT 11.2 K/UL (4.8-10.8)
--- NOTE | 2020-01-23 07:15 | NUR ---
NURSE NOTES: pt. is in bed, eyes open and responds to pain stimuli only. pt is on ventury mask 10L 45%FIO2 O2 sat 93. 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 Bed locked and in lowest position, call light within reach. Optifoam covering bony body parts and heels for protection. pt is on Gtube feeding set at 60ml. Will continue to monitor pt.
[2020-01-23 07:17] LABS: ALANINE AMINOTRANSFERASE 68 U/L (12-78); ALBUMIN 1.9 G/DL (3.4-5.0); ALBUMIN/GLOBULIN RATIO 0.5 (1.0-2.7); ALKALINE PHOSPHATASE 99 U/L (46-116); ANION GAP 11 mmol/L (5-15); ASPARTATE AMINO TRANSFERASE 63 U/L (15-37); BILIRUBIN,TOTAL 0.2 MG/DL (0.2-1.0); BLOOD UREA NITROGEN 87 mg/dL (7-18); CALCIUM 9.9 MG/DL (8.5-10.1); CARBON DIOXIDE 28 MMOL/L (21-32); CHLORIDE 116 MMOL/L (98-107); CREATININE 1.3 MG/DL (0.55-1.30); POTASSIUM 3.8 MMOL/L (3.5-5.1); SODIUM 155 MMOL/L (136-145)
--- NOTE | 2020-01-23 07:25 | NUR ---
NURSE HAND-OFF REPORT: Important Events on Shift: CHANGE IN ORIENTION, BASELINE Patient Status: Diet: Pending Orders: Pending Results/Labs: Pending MD notification: Latest Vital Signs: Temperature 97.9 , Pulse 89 , B/P 116 /79 , Respiratory Rate 26 , O2 SAT 97 , Venturi Mask, O2 Flow Rate 14.0 . Vital Sign Comment: EKG Rhythm: Sinus Rhythm Rhythm change?: N Notified?: - MD Response: Latest [place] Fall Score: 70 Fall Risk: High Risk Safety Measures: Call light Within Reach, Bed Alarm Zone 1, Side Rails Side Rails x2, Bed position Low and Locked. Fall Precautions: Yellow Socks Yellow Gown Door Sign Patient Fall Education Report given to . Addendum: 01/23/20 at 2254 by Morenita Clayton RN Important Events on Shift: CHANGE IN ORIENTION, BASELINE, USE OF BIPAP PRN DUE TO LABORED BREATHING Patient Status: STABLE Diet: GLUCERNA 1.2 @ 60ML/HR, 150 FLUSH Pending Orders: N/A Pending Results/Labs: AM LABS Pending MD notification: N/A Latest Vital Signs: Temperature 97.9 , Pulse 89 , B/P 116 /79 , Respiratory Rate 26 , O2 SAT 97 , Venturi Mask, O2 Flow Rate 14.0 . Vital Sign Comment: EKG Rhythm: Sinus Rhythm Rhythm change?: N Notified?: - MD Response: Latest [place] Fall Score: 70 Fall Risk: High Risk Safety Measures: Call light Within Reach, Bed Alarm Zone 1, Side Rails Side Rails x2, Bed position Low and Locked. Fall Precautions: Yellow Socks Yellow Gown Door Sign Patient Fall Education Report given to DARIAN OLIVEIRA.
--- NOTE | 2020-01-23 07:30 | NUR ---
NURSE NOTES: pt suctioned at beginning of shift o2 sat 94, pt tolerated well.
--- NOTE | 2020-01-23 07:47 | Infectious Diseases Prog Note ---
Assessment/Plan Pt . Please disregard note. Subjective Allergies: Coded Allergies: No Known Allergies (Unverified , 03/02/14) Pt by the time I saw patient Objective Last 24 Hour Vital Signs Date Time Temp Pulse Resp B/P (MAP) Pulse Ox O2 Delivery O2 Flow Rate FiO2 01/23/20 04:00 50 01/23/20 04:00 91 01/23/20 04:00 97.9 89 26 116/79 (91) 97 01/23/20 02:17 94 35 93 50 01/23/20 00:00 85 01/23/20 00:00 97.9 79 25 122/79 (93) 98 01/22/20 21:00 Venturi Mask 14.0 01/22/20 20:00 77 01/22/20 20:00 14.0 55 01/22/20 20:00 97.6 76 24 109/72 (84) 99 01/22/20 19:17 92 Venturi Mask 14.0 55 01/22/20 16:00 98.4 95 26 131/94 (106) 98 01/22/20 16:00 14.0 55 01/22/20 16:00 95 01/22/20 12:00 100.6 104 28 132/93 (106) 98 01/22/20 12:00 105 01/22/20 12:00 15.0 55 01/22/20 09:00 Venturi Mask 15.0 01/22/20 08:00 99.1 89 28 119/79 (92) 99 01/22/20 08:00 101 01/22/20 08:00 14.0 55 Height (Feet): 5 Height (Inches): 5.00 Weight (Pounds): 138 Microbiology Date/Time Source Procedure Growth Status 01/20/20 09:50 Nasopharynx SARS-CoV-2 RdRp Gene Assay - Final Complete 01/20/20 09:30 Sputum Induced Gram Stain - Final Resulted 01/20/20 09:30 Sputum Culture - Preliminary Gram Negative Bacillus 1 Usual Respiratory Denice Resulted 01/22/20 06:35 Urine,Clean Catch Urine Culture - Preliminary NO GROWTH Resulted Laboratory Tests Test 01/22/20 12:42 01/22/20 18:14 01/22/20 20:45 01/23/20 00:18 POC Whole Blood Glucose 111 MG/DL (74-106) H 120 MG/DL (74-106) H 131 MG/DL (74-106) H 143 MG/DL (74-106) H Test 01/23/20 04:48 01/23/20 05:22 White Blood Count 11.2 K/UL (4.8-10.8) H Red Blood Count 3.91 M/UL (4.70-6.10) L Hemoglobin 12.4 G/DL (14.2-18.0) L Hematocrit 38.6 % (42.0-52.0) L Mean Corpuscular Volume 99 FL (80-99) Mean Corpuscular Hemoglobin 31.7 PG (27.0-31.0) H Mean Corpuscular Hemoglobin Concent 32.1 G/DL (32.0-36.0) Red Cell Distribution Width 14.8 % (11.6-14.8) Platelet Count 231 K/UL (150-450) Mean Platelet Volume 9.8 FL (6.5-10.1) Neutrophils (%) (Auto) % (45.0-75.0) Lymphocytes (%) (Auto) % (20.0-45.0) Monocytes (%) (Auto) % (1.0-10.0) Eosinophils (%) (Auto) % (0.0-3.0) Basophils (%) (Auto) % (0.0-2.0) Neutrophils % (Manual) Pending Lymphocytes % (Manual) Pending Platelet Estimate Pending Platelet Morphology Pending Sodium Level 155 MMOL/L (136-145) H Potassium Level 3.8 MMOL/L (3.5-5.1) Chloride Level 116 MMOL/L (98-107) H Carbon Dioxide Level 28 MMOL/L (21-32) Anion Gap 11 mmol/L (5-15) Blood Urea Nitrogen 87 mg/dL (7-18) H Creatinine 1.3 MG/DL (0.55-1.30) Estimat Glomerular Filtration Rate 55.9 mL/min (>60) Glucose Level 156 MG/DL (74-106) H Calcium Level 9.9 MG/DL (8.5-10.1) Total Bilirubin 0.2 MG/DL (0.2-1.0) Aspartate Amino Transf (AST/SGOT) 63 U/L (15-37) H Alanine Aminotransferase (ALT/SGPT) 68 U/L (12-78) Alkaline Phosphatase 99 U/L (46-116) Total Protein 6.1 G/DL (6.4-8.2) L Albumin 1.9 G/DL (3.4-5.0) L Globulin 4.2 g/dL Albumin/Globulin Ratio 0.5 (1.0-2.7) L POC Whole Blood Glucose Pending Current Medications Medications (Trade) Dose Ordered Sig/Kinjal Route PRN Reason Start Time Stop Time Status Last Admin Dose Admin Acetaminophen (Tylenol) 650 mg Q6H PRN GT Temp >100.5 01/19/20 18:27 02/18/20 18:26 01/20/20 22:27 Amiodarone HCl (Cordarone) 200 mg DAILY ORAL 01/19/20 09:00 04/18/20 08:59 01/22/20 10:26 Aspirin (ASA) 81 mg DAILY NG 01/19/20 09:00 03/04/20 08:59 01/22/20 10:26 Dextrose (Dextrose 50%) 25 ml Q30M PRN IV Hypoglycemia 01/18/20 11:30 04/17/20 11:29 Dextrose (Dextrose 50%) 50 ml Q30M PRN IV Hypoglycemia 01/18/20 11:30 04/17/20 11:29 Famotidine (Pepcid) 20 mg TWICE A DAY GT 01/16/20 18:00 04/15/20 17:59 01/22/20 18:06 Heparin Sodium (Porcine) (Heparin 5000 units/ml) 5,000 units EVERY 12 HOURS SUBQ 01/16/20 21:00 03/01/20 20:59 01/22/20 21:29 Insulin Aspart (NovoLOG) Q6HR SUBQ 01/18/20 12:00 04/17/20 11:59 01/23/20 05:27 Levetiracetam (Keppra) 500 mg Q12HR GT 01/16/20 21:00 03/01/20 20:59 01/22/20 20:52 Levothyroxine Sodium (Synthroid) 25 mcg DAILY@0630 GT 01/18/20 06:30 02/17/20 06:29 01/23/20 05:32 Lorazepam (Ativan) 1 mg Q6H PRN ORAL For Anxiety 01/17/20 15:15 01/24/20 15:14 Piperacillin Sod/ Tazobactam Sod 3.375 gm/Sodium Chloride 110 ml @ 27.5 mls/hr EVERY 8 HOURS IVPB 01/19/20 14:00 01/24/20 13:59 01/23/20 05:06 Risperidone (RisperDAL) 1 mg TWICE A DAY ORAL 01/17/20 18:00 03/02/20 17:59 01/22/20 18:06 Magdalene White M.D. Jan 23, 2020 07:47
[2020-01-23 08:00] VITALS: BP 123/74
[2020-01-23] MEDS: Aspirin Baby 81mg NG SCH (09:00)
[2020-01-23] MEDS: Heparin 5000 units/ml inj SUBQ SCH (09:12)
[2020-01-23] MEDS: Amiodarone 200mg tab ORAL SCH (09:14)
[2020-01-23] MEDS: levETIRAcetam 500mg/5ml Liquid GT SCH (09:14)
--- NOTE | 2020-01-23 09:17 | Surgery Progress Note ---
Surgery Progress Note Subjective Symptoms: improved, tolerating diet, voiding well, passing flatus Objective Last 24 Hour Vital Signs Date Time Temp Pulse Resp B/P (MAP) Pulse Ox O2 Delivery O2 Flow Rate FiO2 01/23/20 04:00 50 01/23/20 04:00 91 01/23/20 04:00 97.9 89 26 116/79 (91) 97 01/23/20 02:17 94 35 93 50 01/23/20 00:00 85 01/23/20 00:00 97.9 79 25 122/79 (93) 98 01/22/20 21:00 Venturi Mask 14.0 01/22/20 20:00 77 01/22/20 20:00 14.0 55 01/22/20 20:00 97.6 76 24 109/72 (84) 99 01/22/20 19:17 92 Venturi Mask 14.0 55 01/22/20 16:00 98.4 95 26 131/94 (106) 98 01/22/20 16:00 14.0 55 01/22/20 16:00 95 01/22/20 12:00 100.6 104 28 132/93 (106) 98 01/22/20 12:00 105 01/22/20 12:00 15.0 55 I&O Intake and Output 01/22/20 01/23/20 19:00 07:00 Intake Total 220 ml 715 ml Output Total 200 ml Balance 20 ml 715 ml Intake Free Water 150 ml 300 ml Tube Feeding 70 ml 415 ml Output Urine Total 200 ml Dressing: dry Wound: clean Cardiovascular: RSR Respiratory: clear Abdomen: soft, non-tender, present bowel sounds Extremities: no edema, no tenderness, no cyanosis Laboratory Tests Test 01/22/20 12:42 01/22/20 18:14 01/22/20 20:45 01/23/20 00:18 POC Whole Blood Glucose 111 MG/DL (74-106) H 120 MG/DL (74-106) H 131 MG/DL (74-106) H 143 MG/DL (74-106) H Test 01/23/20 04:48 01/23/20 05:22 White Blood Count 11.2 K/UL (4.8-10.8) H Red Blood Count 3.91 M/UL (4.70-6.10) L Hemoglobin 12.4 G/DL (14.2-18.0) L Hematocrit 38.6 % (42.0-52.0) L Mean Corpuscular Volume 99 FL (80-99) Mean Corpuscular Hemoglobin 31.7 PG (27.0-31.0) H Mean Corpuscular Hemoglobin Concent 32.1 G/DL (32.0-36.0) Red Cell Distribution Width 14.8 % (11.6-14.8) Platelet Count 231 K/UL (150-450) Mean Platelet Volume 9.8 FL (6.5-10.1) Neutrophils (%) (Auto) % (45.0-75.0) Lymphocytes (%) (Auto) % (20.0-45.0) Monocytes (%) (Auto) % (1.0-10.0) Eosinophils (%) (Auto) % (0.0-3.0) Basophils (%) (Auto) % (0.0-2.0) Neutrophils % (Manual) Pending Lymphocytes % (Manual) Pending Platelet Estimate Pending Platelet Morphology Pending Sodium Level 155 MMOL/L (136-145) H Potassium Level 3.8 MMOL/L (3.5-5.1) Chloride Level 116 MMOL/L (98-107) H Carbon Dioxide Level 28 MMOL/L (21-32) Anion Gap 11 mmol/L (5-15) Blood Urea Nitrogen 87 mg/dL (7-18) H Creatinine 1.3 MG/DL (0.55-1.30) Estimat Glomerular Filtration Rate 55.9 mL/min (>60) Glucose Level 156 MG/DL (74-106) H Calcium Level 9.9 MG/DL (8.5-10.1) Total Bilirubin 0.2 MG/DL (0.2-1.0) Aspartate Amino Transf (AST/SGOT) 63 U/L (15-37) H Alanine Aminotransferase (ALT/SGPT) 68 U/L (12-78) Alkaline Phosphatase 99 U/L (46-116) Total Protein 6.1 G/DL (6.4-8.2) L Albumin 1.9 G/DL (3.4-5.0) L Globulin 4.2 g/dL Albumin/Globulin Ratio 0.5 (1.0-2.7) L POC Whole Blood Glucose Pending Plan Problems: (1) DM (diabetes mellitus) (2) Hematuria (3) Hematuria (4) Sepsis (5) G-tube site cellulitis Assessment & Plan: g tube site with cellulitis pus draining CT with tube in subq tissue tube removed wound evaluated. pus drained. washed and dressings applied discussed with GI plan for new g tube placement local wound care will be provided abx as per ID will monitor for improvement egd peg 01/16 resume meds and tf cont wound care thank you improved d/c planning (6) Suspected COVID-19 virus infection (7) Seizure disorder (8) Homelessness (9) Acute alcoholic intoxication (10) Hypertension (11) Stroke due to intracerebral hemorrhage (12) Vascular dementia with behavioral disturbance (13) Blunt head trauma (14) Feeding by G-tube Additional Comments note: late entry for patient seen 01/21 but because of surgeries was unable to complete note until later. Yon Mcmillan Jan 23, 2020 09:17
--- NOTE | 2020-01-23 09:18 | Surgery Progress Note ---
Surgery Progress Note Subjective Additional Comments leukocytosis improved cxr reviewed tube okay prior cellulitis improved Objective Last 24 Hour Vital Signs Date Time Temp Pulse Resp B/P (MAP) Pulse Ox O2 Delivery O2 Flow Rate FiO2 01/23/20 04:00 50 01/23/20 04:00 91 01/23/20 04:00 97.9 89 26 116/79 (91) 97 01/23/20 02:17 94 35 93 50 01/23/20 00:00 85 01/23/20 00:00 97.9 79 25 122/79 (93) 98 01/22/20 21:00 Venturi Mask 14.0 01/22/20 20:00 77 01/22/20 20:00 14.0 55 01/22/20 20:00 97.6 76 24 109/72 (84) 99 01/22/20 19:17 92 Venturi Mask 14.0 55 01/22/20 16:00 98.4 95 26 131/94 (106) 98 01/22/20 16:00 14.0 55 01/22/20 16:00 95 01/22/20 12:00 100.6 104 28 132/93 (106) 98 01/22/20 12:00 105 01/22/20 12:00 15.0 55 I&O Intake and Output 01/22/20 01/23/20 19:00 07:00 Intake Total 220 ml 715 ml Output Total 200 ml Balance 20 ml 715 ml Intake Free Water 150 ml 300 ml Tube Feeding 70 ml 415 ml Output Urine Total 200 ml Dressing: dry Wound: clean Cardiovascular: RSR Respiratory: clear, decreased breath sounds Abdomen: soft, non-tender, present bowel sounds, other, non-distended Extremities: no edema, no tenderness, no cyanosis Laboratory Tests Test 01/22/20 12:42 01/22/20 18:14 01/22/20 20:45 01/23/20 00:18 POC Whole Blood Glucose 111 MG/DL (74-106) H 120 MG/DL (74-106) H 131 MG/DL (74-106) H 143 MG/DL (74-106) H Test 01/23/20 04:48 01/23/20 05:22 White Blood Count 11.2 K/UL (4.8-10.8) H Red Blood Count 3.91 M/UL (4.70-6.10) L Hemoglobin 12.4 G/DL (14.2-18.0) L Hematocrit 38.6 % (42.0-52.0) L Mean Corpuscular Volume 99 FL (80-99) Mean Corpuscular Hemoglobin 31.7 PG (27.0-31.0) H Mean Corpuscular Hemoglobin Concent 32.1 G/DL (32.0-36.0) Red Cell Distribution Width 14.8 % (11.6-14.8) Platelet Count 231 K/UL (150-450) Mean Platelet Volume 9.8 FL (6.5-10.1) Neutrophils (%) (Auto) % (45.0-75.0) Lymphocytes (%) (Auto) % (20.0-45.0) Monocytes (%) (Auto) % (1.0-10.0) Eosinophils (%) (Auto) % (0.0-3.0) Basophils (%) (Auto) % (0.0-2.0) Neutrophils % (Manual) Pending Lymphocytes % (Manual) Pending Platelet Estimate Pending Platelet Morphology Pending Sodium Level 155 MMOL/L (136-145) H Potassium Level 3.8 MMOL/L (3.5-5.1) Chloride Level 116 MMOL/L (98-107) H Carbon Dioxide Level 28 MMOL/L (21-32) Anion Gap 11 mmol/L (5-15) Blood Urea Nitrogen 87 mg/dL (7-18) H Creatinine 1.3 MG/DL (0.55-1.30) Estimat Glomerular Filtration Rate 55.9 mL/min (>60) Glucose Level 156 MG/DL (74-106) H Calcium Level 9.9 MG/DL (8.5-10.1) Total Bilirubin 0.2 MG/DL (0.2-1.0) Aspartate Amino Transf (AST/SGOT) 63 U/L (15-37) H Alanine Aminotransferase (ALT/SGPT) 68 U/L (12-78) Alkaline Phosphatase 99 U/L (46-116) Total Protein 6.1 G/DL (6.4-8.2) L Albumin 1.9 G/DL (3.4-5.0) L Globulin 4.2 g/dL Albumin/Globulin Ratio 0.5 (1.0-2.7) L POC Whole Blood Glucose Pending Plan Problems: (1) DM (diabetes mellitus) (2) Hematuria (3) Hematuria (4) Sepsis (5) G-tube site cellulitis Assessment & Plan: g tube site with cellulitis pus draining CT with tube in subq tissue tube removed wound evaluated. pus drained. washed and dressings applied discussed with GI plan for new g tube placement local wound care will be provided abx as per ID will monitor for improvement egd peg / resume meds and tf cont wound care thank you improved d/c planning (6) Suspected COVID-19 virus infection (7) Seizure disorder (8) Homelessness (9) Acute alcoholic intoxication (10) Hypertension (11) Stroke due to intracerebral hemorrhage (12) Vascular dementia with behavioral disturbance (13) Blunt head trauma (14) Feeding by G-tube Yon Mcmillan Jan 23, 2020 09:18
--- NOTE | 2020-01-23 09:38 | Cardiac Electrophysiology PN ---
Assessment/Plan Assessment/Plan 1. Paroxysmal atrial fibrillation. In SR on Aspirin and amiodarone 200 daily 2. Hypotension, Coreg held. Better after NS 500 cc bolus 3. Seizure disorder, on Keppra. 4. G-tube site infection, on IV antibiotic. S/P G-tube replacement by Dr. Holley. 5. Hypernatremia on IV fluids per Dr. Salas. 6. Rectal bleed. FU Dr Leydi TIERNEY RN Subjective Subjective Had PEG placement by Dr. Holley 01/17/20. Now is having fresh rectal bleed per RN. In SR no CP Objective Last 24 Hour Vital Signs Date Time Temp Pulse Resp B/P (MAP) Pulse Ox O2 Delivery O2 Flow Rate FiO2 01/23/20 04:00 50 01/23/20 04:00 91 01/23/20 04:00 97.9 89 26 116/79 (91) 97 01/23/20 02:17 94 35 93 50 01/23/20 00:00 85 01/23/20 00:00 97.9 79 25 122/79 (93) 98 01/22/20 21:00 Venturi Mask 14.0 01/22/20 20:00 77 01/22/20 20:00 14.0 55 01/22/20 20:00 97.6 76 24 109/72 (84) 99 01/22/20 19:17 92 Venturi Mask 14.0 55 01/22/20 16:00 98.4 95 26 131/94 (106) 98 01/22/20 16:00 14.0 55 01/22/20 16:00 95 01/22/20 12:00 100.6 104 28 132/93 (106) 98 01/22/20 12:00 105 01/22/20 12:00 15.0 55 Intake and Output 01/22/20 01/23/20 19:00 07:00 Intake Total 220 ml 715 ml Output Total 200 ml Balance 20 ml 715 ml Intake Free Water 150 ml 300 ml Tube Feeding 70 ml 415 ml Output Urine Total 200 ml Laboratory Tests Test 01/22/20 12:42 01/22/20 18:14 01/22/20 20:45 01/23/20 00:18 POC Whole Blood Glucose 111 MG/DL (74-106) H 120 MG/DL (74-106) H 131 MG/DL (74-106) H 143 MG/DL (74-106) H Test 01/23/20 04:48 01/23/20 05:22 White Blood Count 11.2 K/UL (4.8-10.8) H Red Blood Count 3.91 M/UL (4.70-6.10) L Hemoglobin 12.4 G/DL (14.2-18.0) L Hematocrit 38.6 % (42.0-52.0) L Mean Corpuscular Volume 99 FL (80-99) Mean Corpuscular Hemoglobin 31.7 PG (27.0-31.0) H Mean Corpuscular Hemoglobin Concent 32.1 G/DL (32.0-36.0) Red Cell Distribution Width 14.8 % (11.6-14.8) Platelet Count 231 K/UL (150-450) Mean Platelet Volume 9.8 FL (6.5-10.1) Neutrophils (%) (Auto) % (45.0-75.0) Lymphocytes (%) (Auto) % (20.0-45.0) Monocytes (%) (Auto) % (1.0-10.0) Eosinophils (%) (Auto) % (0.0-3.0) Basophils (%) (Auto) % (0.0-2.0) Neutrophils % (Manual) Pending Lymphocytes % (Manual) Pending Platelet Estimate Pending Platelet Morphology Pending Sodium Level 155 MMOL/L (136-145) H Potassium Level 3.8 MMOL/L (3.5-5.1) Chloride Level 116 MMOL/L (98-107) H Carbon Dioxide Level 28 MMOL/L (21-32) Anion Gap 11 mmol/L (5-15) Blood Urea Nitrogen 87 mg/dL (7-18) H Creatinine 1.3 MG/DL (0.55-1.30) Estimat Glomerular Filtration Rate 55.9 mL/min (>60) Glucose Level 156 MG/DL (74-106) H Calcium Level 9.9 MG/DL (8.5-10.1) Total Bilirubin 0.2 MG/DL (0.2-1.0) Aspartate Amino Transf (AST/SGOT) 63 U/L (15-37) H Alanine Aminotransferase (ALT/SGPT) 68 U/L (12-78) Alkaline Phosphatase 99 U/L (46-116) Total Protein 6.1 G/DL (6.4-8.2) L Albumin 1.9 G/DL (3.4-5.0) L Globulin 4.2 g/dL Albumin/Globulin Ratio 0.5 (1.0-2.7) L POC Whole Blood Glucose Pending Microbiology Date/Time Source Procedure Growth Status 01/22/20 08:30 Sputum Induced Gram Stain - Final Resulted 01/22/20 08:30 Sputum Induced Sputum Culture Pending Resulted 01/20/20 09:50 Nasopharynx SARS-CoV-2 RdRp Gene Assay - Final Complete 01/22/20 06:35 Urine,Clean Catch Urine Culture - Preliminary NO GROWTH Resulted Objective HEAD AND NECK: No JVD. LUNGS: Clear. CARDIOVASCULAR: Shows irregular S1 and S2 with no gallop or rub. ABDOMEN: Soft. New G-tube in place EXTREMITIES: No pitting edema. Adolph Murray MD Jan 23, 2020 09:37
[2020-01-23] MEDS ORDERED: NS 275ml ONE (09:41)
--- NOTE | 2020-01-23 09:50 | CDS Physician Query ---
Clarification is required for compliance, coding accuracy, and to reflect severity of illness for this patient Dear Dr. Roberto Carlos Lui D.O Date: 01/22/20 CDS Name: Fredy HawkinsTOBY "Altered Mental Status / Confusion" documented in H&P Clinical Documentation States: "64-year-old male from [facility], presented with the G-tube site cellulitis ASSESSMENT: Abdominal abscess,G-tube site cellulitis, Hypernatremia, Altered mental status. CVA, Dementia, Hypertension, Seizure". [ H&P Roberto Carlos Lui D.O. 01/17/20] OBJECTIVE GENERAL: "Confused in bed, nonverbal." Clinical Finding Show: Vitals (01/15): T98.8F, RR 20 BP 158/98 Labs (01/15): Hemat: WBC 15.5, Neutr% 90 Chem: Sodium 152, Glucose 114, Alb 3.0 Medications: Levetiracetam 500mg (01/15-03/01), Midazolam 2mg (01/16), Lorazepam 1mg (01/16-01/23), Insulin SUBQ (01/17-04/17) Please indicate the nature of the condition below: [] Metabolic Encephalopathy [] Toxic Encephalopathy [] Toxic - Metabolic Encephalopathy [] Encephalopathy, Other [] Seizure disorder [] Dementia with Delirium [] Hypoxic encephalopathy [] Posterior reversible encephalopathy syndrome [] Other: [] Not Applicable Present on Admission: [] Yes [] No [] Clinically Undetermined Physician signature Date Please also document in your Progress Notes and/or Discharge Summary and indicate if the condition was present on admission. MTDD
--- NOTE | 2020-01-23 09:50 | NUR ---
NURSE NOTES: Cleaned, changed pt gown and repositioned pt,. Pt on ventury mask saturation 94-96. Suctioned pt after he coughed, only minimal amount was able to be suctioned.
--- NOTE | 2020-01-23 10:37 | Emergency Room Report ---
History of Present Illness General Chief Complaint: General Complaint Source: Medical Record, PMD Present Illness HPI 64-year-old male presents with hypoxic respiratory failure, and was coding, I was called to bedside to evaluate unknown aggravating relieving factors severity is severe, constant onset of pulselessness prior to my arrival Allergies: Coded Allergies: No Known Allergies (Unverified , 03/02/14) COVID-19 Screening Contact w/high risk pt: No Recent Travel to affected area: No Experienced COVID-19 symptoms?: No COVID-19 symptoms experienced: Shortness of Breath, Cough, Flu-Like Symptoms COVID-19 Screening: Negative COVID-19 Patient History Limited by: medical condition - Currently coding Past Medical History: old chart reviewed Reviewed Nursing Documentation: PMH: Agreed; PSxH: Agreed Nursing Documentation-PMH Past Medical History Deferred: Pt Cognitively Impaired Past Medical History: No History, Except For Hx Cardiac Problems: Yes - HLD; AFIB Hx Hypertension: Yes Hx Diabetes: Yes Hx Cancer: No Hx Gastrointestinal Problems: No Hx Neurological Problems: No Hx Seizures: Yes - EPILEPSY Review of Systems All Other Systems: limited Physical Exam Vital Signs Date Time Temp Pulse Resp B/P (MAP) Pulse Ox O2 Delivery O2 Flow Rate FiO2 01/19/20 08:00 100 01/19/20 08:00 98.1 28 108/78 (88) 96 01/19/20 09:00 Venturi Mask 15.0 01/19/20 09:10 55 Sp02 EP Interpretation: reviewed, abnormal General Appearance: severe distress Head: normocephalic, atraumatic Eyes: bilateral eye other - Pupils fixed dilated Respiratory: chest symmetrical Cardiovascular #1: other - Pulseless Neuologic: Unresponsive Procedures CPR/Code Blue CPR/Code Blue Narrative Patient was coded at 1014 compressions were started epinephrine was given multiple pulse checks Algorithm per ACS, patient received multiple rounds of epinephrine, bicarb, magnesium, calcium, atropine Patient was declared at 10:32 AM Medical Decision Making Diagnostic Impression: Primary Impression: Feeding by G-tube Additional Impressions: G-tube site cellulitis Asystole ER Course Patient presents with asystole, differential includes ACS, metabolic derangement , respiratory failure Patient was bagged, ACLS protocol was started Despite multiple attempts, patient could not be resuscitated Patient eventually at 10:[address] Lui notified Last Vital Signs Date Time Temp Pulse Resp B/P (MAP) Pulse Ox O2 Delivery O2 Flow Rate FiO2 01/23/20 04:00 50 01/23/20 04:00 91 01/23/20 04:00 97.9 26 116/79 (91) 97 01/22/20 21:00 Venturi Mask 14.0 Disposition: Condition: Critical Referrals: Roberto Carlos Lui DO (PCP) Kevin Henry MD Jan 23, 2020 10:37
--- NOTE | 2020-01-23 10:45 | NUR ---
NURSE NOTES: at 1014 pt was noticed Bradycardic on the monitor (HT 38 with and asystole right after). Call blue was initiated, however, after all attempts to save pt, he at 10:32. [employer] was called, they will not be harvesting any organs or tissue. DNN# [id number] Erma Vargas was notified of pt expiring today. Doctor Lui was also notified of pt expiration. Doctor asked to notify any family members but as per Face sheet, there is no next of kin to notify. Post Mortem care was done for pt and then he was taken to the [facility] [place].
--- NOTE | 2020-01-23 13:25 | General Progress Note ---
Assessment/Plan Problem List: (1) DM (diabetes mellitus) ICD Codes: E11.9 - Type 2 diabetes mellitus without complications SNOMED: 15330558 (2) Feeding by G-tube ICD Codes: Z93.1 - Gastrostomy status SNOMED: 389136443, 886647360, 274645416 (3) group home resident ICD Codes: Z59.3 - Problems related to living in residential institution SNOMED: 778252263 (4) Stroke due to intracerebral hemorrhage ICD Codes: I61.9 - Nontraumatic intracerebral hemorrhage, unspecified SNOMED: 012215665 (5) Hypertension ICD Codes: I10 - Essential (primary) hypertension SNOMED: 90792792 Status: unchanged Assessment/Plan: time of writing this note is not as the same time that patient was seen s/p GT placement doing worse respiratory distress feeding on hold Subjective ROS Limited/Unobtainable: No Allergies: Coded Allergies: No Known Allergies (Unverified , 03/02/14) Objective Last 24 Hour Vital Signs Date Time Temp Pulse Resp B/P (MAP) Pulse Ox O2 Delivery O2 Flow Rate FiO2 01/23/20 09:00 Venturi Mask 15.0 01/23/20 08:00 50 01/23/20 08:00 98.8 100 26 123/74 (90) 100 01/23/20 08:00 99 01/23/20 04:00 50 01/23/20 04:00 91 01/23/20 04:00 97.9 89 26 116/79 (91) 97 01/23/20 02:17 94 35 93 50 01/23/20 00:00 85 01/23/20 00:00 97.9 79 25 122/79 (93) 98 01/22/20 21:00 Venturi Mask 14.0 01/22/20 20:00 77 01/22/20 20:00 14.0 55 01/22/20 20:00 97.6 76 24 109/72 (84) 99 01/22/20 19:17 92 Venturi Mask 14.0 55 01/22/20 16:00 98.4 95 26 131/94 (106) 98 01/22/20 16:00 14.0 55 01/22/20 16:00 95 Intake and Output 01/22/20 01/23/20 19:00 07:00 Intake Total 220 ml 715 ml Output Total 200 ml Balance 20 ml 715 ml Intake Free Water 150 ml 300 ml Tube Feeding 70 ml 415 ml Output Urine Total 200 ml Laboratory Tests 01/22/20 18:14: POC Whole Blood Glucose 120H 01/22/20 20:45: POC Whole Blood Glucose 131H 01/23/20 00:18: POC Whole Blood Glucose 143H 01/23/20 04:48: White Blood Count 11.2H, Red Blood Count 3.91L, Hemoglobin 12.4L, Hematocrit 38.6L, Mean Corpuscular Volume 99, Mean Corpuscular Hemoglobin 31.7H, Mean Corpuscular Hemoglobin Concent 32.1, Red Cell Distribution Width 14.8, Platelet Count 231, Mean Platelet Volume 9.8, Neutrophils (%) (Auto) , Lymphocytes (%) ( Auto) , Monocytes (%) (Auto) , Eosinophils (%) (Auto) , Basophils (%) (Auto) , Differential Total Cells Counted 100, Neutrophils % (Manual) 89H, Lymphocytes % (Manual) 7L, Monocytes % (Manual) 4, Eosinophils % (Manual) 0, Basophils % ( Manual) 0, Band Neutrophils 0, Platelet Estimate Adequate, Platelet Morphology Normal, Anisocytosis 1+, Sodium Level 155H, Potassium Level 3.8, Chloride Level 116H, Carbon Dioxide Level 28, Anion Gap 11, Blood Urea Nitrogen 87H, Creatinine 1.3, Estimat Glomerular Filtration Rate 55.9, Glucose Level 156H, Calcium Level 9.9, Total Bilirubin 0.2, Aspartate Amino Transf (AST/SGOT) 63H, Alanine Aminotransferase (ALT/SGPT) 68, Alkaline Phosphatase 99, Total Protein 6.1L, Albumin 1.9L, Globulin 4.2, Albumin/Globulin Ratio 0.5L 01/23/20 05:22: POC Whole Blood Glucose [Pending] Height (Feet): 5 Height (Inches): 5.00 Weight (Pounds): 138 General Appearance: lethargic EENT: normal ENT inspection Neck: supple Cardiovascular: bradycardia Respiratory/Chest: decreased breath sounds Abdomen: hypoactive bowel sounds Extremities: non-tender Scooter Holley MD Jan 23, 2020 13:25
--- NOTE | 2020-01-23 14:56 | NUR ---
INSURANCE FAXED NOTIFICATION TO [facility]
--- NOTE | 2020-01-27 13:43 | Discharge Summary ---
Discharge Summary Discharge Summary _ SUMMARY DATE OF ADMISSION: 01/16/2020 DATE OF DISCHARGE: 01/23/2020 REASON FOR ADMISSION: 64 years old male with past medical history of hypertension, diabetes mellitus, seizure disorder, atrial fibrillation, dysphagia, feeding by G-tube, was brought for evaluation due to malfunctioning G-tube. Patient had a history of prior coronavirus testing being positive few months ago. Upon evaluation vital signs were stable. Laboratory work-up revealed no leukocytosis ,stable hemoglobin, hematocrit and platelet count. Sodium 152 chloride 113. CO2 34. BUN 39, creatinine 1.1. Glucose 114. Stable LFT Albumin 3.0 CT of the abdomen and pelvis revealed gastrostomy tube in the subcutaneous tissue of the anterior abdomen. Large amount of fecal material in the colon. Consistent with constipation. Old compression fracture L1. Rapid COVID-19 in emergency department was negative. Urinalysis revealed +1 protein, +1 ketones, moderate yeast . In emergency department physical exam revealed G-tube stoma with evidence of infection. Patient admitted with G-tube site cellulitis and malfunctioning G-tube. CONSULTANTS: business information consultant Dr. Smiley pulmonary Dr. Rivera ID specialist Dr. Srinivasan GI specialist Dr. Holley certified respiratory therapist [facility]. [facility] COURSE: Patient admitted to telemetry floor and started on empiric antibiotic as per ID specialist recommendation. Blood cultures were negative. Urine culture revealed Janet. Sputum culture revealed Klebsiella , and repeated sputum culture was negative. Repeated rapid COVID-19 was negative as well. The old G-tube was removed by surgeon. Pus was drained , wound was washed, and dressings were applied. Subsequently patient undergone placement of new G-tube by GI specialist on . Abdominal binder was placed. G-tube site care provided. Tube feeding started later. Local wound care provided as per surgeon recommendation . Antibiotic continued. Supplemental oxygen provided and titrated to keep pulse oximetry above 90% . Pulmonary toilet provided. Chest x-ray revealed left mid and lower lung opacity likely representing combination of enlarged cardiac silhouette. Atelectasis versus pneumonia. Per industrial welder , patient had left hemithorax opacification due to mediastinal shift. No evidence of pneumonia or lung consolidation. Patient however became hypoxemic, required Ventimask and then 100% nonrebreathing mask. Per industrial welder , patient 's congestion represented upper airway compromise and pooling of oral secretions. Aggressive pulmonary hygiene was implemented. Nasal trumpet was continued. Patient continued on empiric Zosyn. Patient demonstrated paroxysmal atrial fibrillation, spontaneously converted to sinus rhythm . Patient continued on aspirin and amiodarone. Blood pressure medications were on hold due to hypotension . Patient received fluid resuscitation. Hypernatremia was treated per certified respiratory therapist with dextrose IV fluids. Renal parameters and electrolytes were closely monitored. Per certified respiratory therapist dehydration led to hypernatremia. Seizure precaution maintained. Keppra continued. Patient was coded on 813 10:14 AM . CODE BLUE initiated as per ACLS algorithm. Patient received multiple rounds of medication along with CPR . Unfortunately all resuscitative efforts appeared to be futile. Patient was subsequently pronounced at 10:32 am on 01/22 . Cause of : cardiopulmonary arrest FINAL DIAGNOSES: Status post cardiopulmonary arrest due to asystole Acute hypoxic respiratory failure G-tube malfunctioning ( not in proper place) with cellulitis Dysphagia Upper endoscopy with a new PEG placement History of positive COVID in September 2019 Paroxysmal atrial fibrillation Hypertension Hypernatremia Dehydration Seizure disorder Stroke secondary to intracerebral hemorrhage Vascular dementia with behavioral disturbances Mild protein calorie malnutrition Diabetes mellitus type 2 I have been assigned to dictate discharge summary for this account. I was not involved in the patient's management. Elizabeth Aldridge NP Jan 27, 2020 13:43
--- NOTE | 2020-01-27 16:32 | NUR ---
CONSTRUCTION QUALITY CONTROL MANAGER NOTES CLINICALS AND DISCHARGE SUMMARY FAXED TO [phone].
--- NOTE | 2020-01-30 23:10 | Coder Physician Query ---
Clarification is required for compliance, coding accuracy, and to reflect severity of illness for this patient. Dear Dr. DOCKERY Date:01/30/20 PROCESS PROJECT ENGINEER : CHARO GERMAIN REASON FOR ADMISSION: 64 years old male with past medical history of hypertension, diabetes mellitus, seizure disorder, atrial fibrillation, dysphagia, feeding by G-tube, was brought for evaluation due to malfunctioning G-tube. HOSPITAL COURSE: Patient admitted to telemetry floor and started on empiric antibiotic as per ID specialist recommendation. Blood cultures were negative. Urine culture revealed Janet. Sputum culture revealed Klebsiella , and repeated sputum culture was negative. WBC RESULTS: 01/15 8.5 / - 15.5 ( H) 01/19 - 10.2 01/20 - 11.5 (H) 01/21 - 12.4 (H) (1) G-tube site cellulitis (2) Sepsis (3) Stroke due to intracerebral hemorrhage (4) Hypertension (5) Seizure disorder A posssible diagnois of_SEPSIS____was made in the medical record on 01/15,01/16, 01/19. Upon review, it is difficult to determine whether this diagnosis has been ruled in, ruled out,or is still being worked up. Please indicate below the status of the SEPSIS diagnosis. [] Ruled out [] Treated and resolve [] Presumed and treated [] Currently under treatment [] Still being worked-up Present on Admission: [] Yes [] No [] Clinically Undetermined Physician signature Date MTDD
== END 2020-01-23 12:00 | disposition expired | DRG 720 ==
LOC: EDBD 08:05 → EMR 08:30 → EDBEDREQ 10:40 → 2E 11:45 → EDBEDREQ 12:43
PROC: 0DH63UZ Insertion of Feeding Device into Stomach, Percutaneous Approach (ICD-10-PCS; principal; 2020-01-17 10:55)
PROC: 0DP6XUZ Removal of Feeding Device from Stomach, External Approach (ICD-10-PCS; 2020-01-17 10:55)
DX: A41.9 Sepsis, unspecified organism (principal); K94.22 Gastrostomy infection; J96.01 Acute respiratory failure with hypoxia; G93.41 Metabolic encephalopathy; L03.319 Cellulitis of trunk, unspecified; L02.211 Cutaneous abscess of abdominal wall; E87.0 Hyperosmolality and hypernatremia; J94.2 Hemothorax; F20.9 Schizophrenia, unspecified; R41.82 Altered mental status, unspecified; I10 Essential (primary) hypertension; E86.0 Dehydration; F01.51 Vascular dementia, unspecified severity, with behavioral disturbance; I48.0 Paroxysmal atrial fibrillation; G40.909 Epilepsy, unspecified, not intractable, without status epilepticus; E44.1 Mild protein-calorie malnutrition; Z68.1 Body mass index [BMI] 19.9 or less, adult; Z86.73 Personal history of transient ischemic attack (TIA), and cerebral infarction without residual deficits; R13.10 Dysphagia, unspecified; E11.9 Type 2 diabetes mellitus without complications; Z59.0 Homelessness; F10.129 Alcohol abuse with intoxication, unspecified; K59.00 Constipation, unspecified; E87.8 Other disorders of electrolyte and fluid balance, not elsewhere classified; Z20.828 Contact with and (suspected) exposure to other viral communicable diseases; F32.9 Major depressive disorder, single episode, unspecified; F41.9 Anxiety disorder, unspecified; E78.5 Hyperlipidemia, unspecified; S09.90XD Unspecified injury of head, subsequent encounter; X58.XXXD Exposure to other specified factors, subsequent encounter
CPT/HCPCS: 36415; 36600; 71045; 74176; 80048; 80053; 80061; 81001; 82803; 82962; 82977; 83036; 83735; 83880; 84100; 84300; 84439; 84443; 84484; 84550; 85007; 85025; 85610; 85730; 86140; 87040; 87070; 87081; 87086; 87181; 87205; 93005; 93306; 94003; 94150; 96365; 99285; J1815; J2250; U0002